=== PATIENT | female | born 1965 | race Caucasian/White ===

== ENCOUNTER 2022-02-02 08:00 | Outpatient (CLI) | payer BC ==
[2022-02-02 15:11] LABS: BILIRUBIN,URINE NEGATIVE (NEGATIVE); GLUCOSE, URINE (UA) 250 mg/dL (NEGATIVE); KETONES,URINE (UA) NEGATIVE (NEGATIVE); LEUKOCYTE ESTERASE, URINE MODERATE (NEGATIVE); NITRITE,URINE POSITIVE (NEGATIVE); OCCULT BLOOD,URINE MODERATE (NEGATIVE); PROTEIN,URINE 30 mg/dL (NEGATIVE); UROBILINOGEN,URINE 0.2 (NORMAL) E.U./dL (NORMAL)
[2022-02-02 15:23] LABS: BACTERIA,URINE Moderate /HPF (None Seen); CLARITY,URINE CLOUDY (CLEAR); SQUAMOUS EPITHELIAL CELL,UR FEW Squamous (<= Few); WBC,URINE >25 /HPF (0-5)
== END 2022-02-02 23:59 | disposition home or self-care (01) ==
LOC: LAB 08:00
PROVIDERS: ATTEND Physician Assistant Medical
DX: N30.00 Acute cystitis without hematuria (principal)
CPT/HCPCS: 81001; 87086; 87181

== ENCOUNTER 2022-07-19 11:31 | Emergency (ER) | payer BC ==
[2022-07-19] MEDS ORDERED: MORPHINE 2 MG/ML CARPUJECT IM STA (14:19)
--- NOTE | 2022-07-19 14:23 | ED Physician Documentation ---
PD HPI BACK PAIN - Stated complaint Stated Complaint: BACK PX - Chief complaint Chief Complaint: Back Pain - History obtained from History obtained from: Patient - Additional information Additional information: This is a 57-year-old female with a known history of chronic lower back pain and is followed by spine surgery at [facility] and has surgery scheduled for August 05, presents with an exacerbation of her chronic pain. She denies any trauma but does state that she was doing some light activity decorating the house for [place] recently but denies any heavy lifting, twisting or falls. Pain is located in the lower back, radiates into the buttocks but not down the legs and she has no saddle anesthesia or lower extremity weakness or numbness. She has no bowel or bladder changes. The pain has prevented her from getting up and moving about the house easily however. She is taking ibuprofen and Tylenol as well as muscle relaxers and lidocaine patch without relief. She has not ro utinely used narcotics in the past. Review of Systems Ten Systems: 10 systems reviewed and negative (Except as per HPI) PD PAST MEDICAL HISTORY - Past Medical History Past Medical History: Yes Musculoskeletal: Chronic back pain - Present Medications Home Medications: Ambulatory Orders Medication Instructions Recorded Confirmed HYDROcod/ACETAM 5/325 [[place] 5/325] 1 - 2 tablet PO Q6H PRN #14 tablet 07/19/22 - Allergies Allergies/Adverse Reactions: Allergies Allergy/AdvReac Type Severity Reaction Status Date / Time duloxetine [From Cymbalta] Allergy Unknown Verified 07/19/22 12:22 PD ED PE NORMAL - Vitals Vital signs reviewed: Yes - General General: Alert and oriented X 3, No acute distress, Well developed/nourished - HEENT HEENT: Atraumatic, Moist mucous membranes - Cardiac Cardiac: RRR, No murmur - Respiratory Respiratory: No respiratory distress, Clear bilaterally - Back Back: Other (Lumbar spine tenderness to palpation and bilateral paravertebral muscle tenderness) - Derm Derm: Normal color, Warm and dry, No rash - Extremities Extremities: No deformity, No edema, No calf tenderness / cord - Neuro Neuro: Alert and oriented X 3 Eye Opening: Spontaneous Motor: Obeys Commands Verbal: Oriented GCS Score: 15 Results - Vitals Vitals: Vital Signs - 24 hr 07/19/22 12:16 Temperature 36.1 C L Heart Rate 91 Respiratory 20 Rate Blood Pressure 134/105 H O2 Saturation 98 Oxygen O2 Source Room air PD MEDICAL DECISION MAKING - ED course Complexity details: considered differential, d/w patient, d/w family ED course: This is a 57-year-old female with known history of chronic lower back pain who presented with an exacerbation of her lower back pain. She primarily receives her care at [facility] where she also sees spine surgery and has had an MRI there in the recent past. That she has plans for surgery on August 05 but pain is such that she would like some pain medication between now and then. She denies any trauma today, and she has no signs of cauda equina there are no features of fever or epidural abscess. Recommended that she continue her regular pain medication and regimen but will add a short course of [place] to use only as needed for pain that is not managed by these. I suspect this is an exacerbation Of a bulging disc but does not require immediate decompression. She was cautioned on the potential side effects and risks of taking narcotic pain medication and will be given 14 tablets to use sparingly as needed. Departure - Departure Disposition: 01 Home, Self Care Clinical Impression: Back pain Qualifiers: Back pain location: low back pain Chronicity: chronic Back pain laterality: bilateral Sciatica presence: without sciatica Qualified Code(s): M54.50 - Low back pain, unspecified Condition: Good Instructions: ED Low Back Pain Injury, NARCOTIC, Oral Prescriptions: HYDROcod/ACETAM 5/325 [[place] 5/325] 1 - 2 tablet PO Q6H PRN #14 tablet PRN Reason: Pain Comments: You presented with an exacerbation of your chronic lower back pain. This is likely due to a bulging disc. You have been you have no features that warrant immediate surgery and you can continue following up with your surgeon at [facility]. We have given you a short course of narcotic pain medication to use only as needed if ibuprofen and Tylenol are not working. Please continue the usual supportive measures that you have tried including ice or heat, lidocaine patches, and avoid lifting or twisting. If worsening symptoms, please follow-up with your surgeon via phone to discuss surgery date.
[2022-07-19 15:08] VITALS: BP 152/94
[2022-07-19] MEDS ORDERED: FAMOTIDINE 20 MG TABLET PO STA (15:31)
[2022-07-19] MEDS ORDERED: MAG HYDROX/AL HYDROX/SIMETH 30 ML UDC PO STA (15:31)
[2022-07-19] MEDS ORDERED: ONDANSETRON ODT 4 MG TABLET TL STA (15:31)
== END 2022-07-19 15:53 | disposition home or self-care (01) ==
LOC: ED 11:31
DX: M54.50 Low back pain, unspecified (principal); G89.29 Other chronic pain
CPT/HCPCS: 99281; 99283; A9270; Q0162

== ENCOUNTER → 2022-07-19 | Outpatient (CLI) | payer BC | END | disposition EMS.NT | LOC: EMS 10:33 | DX: M54.9 Dorsalgia, unspecified (principal) ==

== ENCOUNTER 2022-08-15 16:37 | Outpatient (CLI) | payer BC | END 2022-08-15 16:38 | disposition critical access hospital (66) | LOC: EMS 16:37 | DX: R40.0 Somnolence (principal); H53.8 Other visual disturbances; R41.3 Other amnesia; M54.9 Dorsalgia, unspecified; R07.89 Other chest pain | CPT/HCPCS: A0425; A0429 ==

== ENCOUNTER 2022-08-15 17:01 | Emergency (ER) | payer BC ==
[2022-08-15] MEDS ORDERED: SODIUM CHLORIDE 0.9% 1,000 ML IV STA (17:13)
--- NOTE | 2022-08-15 17:15 | ED Physician Documentation ---
History of Present Illness - Stated complaint Stated Complaint: FATIGUE - History obtained from History obtained from: Patient - Additonal information Additional information: 57-year-old woman had back surgery on the of this month. She was kept in the hospital that night as a precaution and did end up she had a cardiac arrest at night. From her description it sounds like she probably had acute renal failure leading to probably profound hyperkalemia and she did need dialysis a single time. Subsequently she recovered well with normal postoperative back pain and some new chest pain from broken ribs related to the CPR. She presents today because starting today she feels fuzzy, a brain fog, word finding difficulties and seeing white spots in her vision. She vacillates when I ask her if she is short of breath, stating she thinks she is just short of breath being anxious after the arrest which is understandable. She denies new chest pain noting continued but improving chest pain from broken ribs after CPR. No abdominal pain or urinary complaints. No pedal edema. Review of Systems Ten Systems: 10 systems reviewed and negative Constitutional: reports: Reviewed and negative Cardiac: reports: Reviewed and negative Respiratory: reports: Reviewed and negative GI: reports: Reviewed and negative PD PAST MEDICAL HISTORY - Past Medical History Musculoskeletal: Chronic back pain - Present Medications Home Medications: Ambulatory Orders Medication Instructions Recorded Confirmed HYDROcod/ACETAM 5/325 [[place] 5/325] 1 - 2 tablet PO Q6H PRN #14 tablet 07/19/22 08/15/22 tiZANidine [Zanaflex] 4 mg PO Q8H #15 tablet 07/19/22 08/15/22 Cyclobenzaprine HCl 7.5 mg PO TID 08/15/22 08/15/22 Gabapentin [Neurontin] 800 mg PO BID 08/15/22 08/15/22 Glipizide [Glipizide Xl] 10 mg PO DAILY 08/15/22 08/15/22 Lisinopril [Zestril] 40 mg PO DAILY 08/15/22 08/15/22 Metoprolol Succinate [Toprol Xl] 50 mg PO DAILY 08/15/22 08/15/22 Nortriptyline [Pamelor] 20 mg ORAL HS 08/15/22 08/15/22 Pantoprazole [Protonix] 40 mg PO DAILY 08/15/22 08/15/22 Senna [Senokot] 2 tab ORAL BID PRN 08/15/22 08/15/22 Simvastatin [Zocor] 40 mg PO HS 08/15/22 08/15/22 amLODIPine [Norvasc] 5 mg PO DAILY 08/15/22 08/15/22 cephALEXin [Keflex] 500 mg PO TID #15 cap 08/15/22 metFORMIN [Glucophage] 1,000 mg PO BIDWM 08/15/22 08/15/22 polyethylene glycoL 3350 17 gm PO DAILY PRN 08/15/22 08/15/22 [Polyethylene Glycol 3350] - Allergies Allergies/Adverse Reactions: Allergies Allergy/AdvReac Type Severity Reaction Status Date / Time duloxetine [From Cymbalta] Allergy Unknown Verified 07/19/22 12: procaine [From Novocain] AdvReac Unknown Verified 08/15/22 17:14 - Social History Does the pt smoke?: No Smoking Status: Never smoker PD ED PE NORMAL - Vitals Vital signs reviewed: Yes - General General: Alert and oriented X 3, Other (She seems to have some mild word finding difficulties and very mild confusion although is technically alert and o riented.) - HEENT HEENT: PERRL, EOMI - Neck Neck: Supple, no meningeal sign, No bony TTP - Cardiac Cardiac: RRR, No murmur - Respiratory Respiratory: No respiratory distress, Clear bilaterally - Abdomen Abdomen: Normal bowel sounds, Soft, Non tender - Back Back: No CVA TTP, No spinal TTP - Derm Derm: Normal color, Warm and dry - Extremities Extremities: No edema, No calf tenderness / cord - Neuro Neuro: Alert and oriented X 3, Normal speech Eye Opening: Spontaneous Motor: Obeys Commands Results - Vitals Vitals: Vital Signs - 24 hr 08/15/22 08/15/22 17:14 18:08 Temperature 36.9 C Heart Rate 83 77 Respiratory 16 20 Rate Blood Pressure 155/80 H 135/72 H O2 Saturation 99 97 Oxygen O2 Source Room air - EKG (time done) 1717 Rate: Rate (enter#) (77) Rhythm: NSR [place]: Normal Intervals: Normal IA QRS: Normal Ischemia: Normal ST segments - Labs Labs: Laboratory Tests 08/15/22 08/15/22 08/15/22 17:20 17:20 18:00 WBC 8.8 RBC 3.89 L Hgb 11.4 L Hct 35.9 L MCV 92.3 MCH 29.3 MCHC 31.8 L RDW 13.5 Plt Count 229 MPV 9.7 Neut # (Auto) 6.7 H Lymph # (Auto) 1.4 L Darke # (Auto) 0.6 Eos # (Auto) 0.1 Baso # (Auto) 0.0 Absolute Nucleated RBC 0.00 Nucleated RBC % 0.0 Sodium 136 Potassium 5.0 Chloride 102 Carbon Dioxide 25 Anion Gap 9.0 BUN 21 H Creatinine 1.0 Estimated GFR (MDRD) 57 L Glucose 118 H Calcium 9.5 Magnesium 1.2 L Total Bilirubin 0.8 AST 24 ALT 35 Alkaline Phosphatase 158 H Total Protein 7.9 Albumin 4.3 Globulin 3.6 Albumin/Globulin Ratio 1.2 Urine Color LT. YELLOW Urine Clarity CLEAR Urine pH 6.0 Ur Specific [place] <=1.005 Urine Protein NEGATIVE Urine Glucose (UA) NEGATIVE Urine Ketones NEGATIVE Urine Occult Blood NEGATIVE Urine Nitrite NEGATIVE Urine Bilirubin NEGATIVE Urine Urobilinogen 0.2 (NORMAL) Ur Leukocyte Esterase SMALL H Urine RBC None Seen Urine WBC 4-5 Ur Squamous Epith Cells FEW Squamous Urine Bacteria Few Ur Microscopic Review INDICATED Urine Culture Comments INDICATED Urine Opiates Screen POSITIVE H Ur Oxycodone Screen NEGATIVE Urine Methadone Screen NEGATIVE Ur Propoxyphene Screen NEGATIVE Ur Barbiturates Screen NEGATIVE Ur Tricyclics Screen NEGATIVE Ur Phencyclidine Scrn NEGATIVE Ur Amphetamine Screen NEGATIVE U Methamphetamines Scrn NEGATIVE U Benzodiazepines Scrn NEGATIVE Urine Cocaine Screen NEGATIVE U Cannabinoids Screen NEGATIVE PD Medical Decision Making - ED course ED course: 57-year-old woman with recent back surgery complicated by acute renal failure presents feeling off today. She has urinary frequency and is found to have a soft positive urinalysis but given the symptoms she will be treated For UTI with Rocephin here and Keflex at home. She was feeling better after IV hydration and repletion of her magnesium. Departure - Departure Disposition: 01 Home, Self Care Clinical Impression: Hypomagnesemia, Dehydration Urinary tract infection Qualifiers: Urinary tract infection type: acute cystitis Hematuria presence: without hematuria Qualified Code(s): N30.00 - Acute cystitis without hematuria Condition: Good Record reviewed to determine appropriate education?: Yes Instructions: ED Dehydration Prescriptions: cephALEXin [Keflex] 500 mg PO TID #15 cap Comments: We will culture your urine, the results should be done in 48-72 hours. If an antibiotic change is necessary we will call you. Return if worse in the meantime, especially if you develop increasing flank pain, fevers, or cannot keep down the medication. Follow-up with your doctor on Wednesday for recheck.
--- OUTSIDE RECORDS SUMMARY | 2022-08-15 17:15 | EXTERNAL MEDICAL SUMMARY RPT | Continuity of Care Document ---
:1965 Author Organization [facility] Address [address] [place] [address] Phone Care Team Providers Name Role Phone Unavailable Unavailable Unavailable Jeremy Sousa Unavailable Unavailable Allergies and Intolerances date description facility type (no date) duloxetine [facility] (unknown) Encounters No information. Functional Status No information. Immunizations No information. Medications date description facility 2022-07-29 00:00 Oxycodone [facility] 2022-07-28 00:00 Lisinopril [facility] 2022-07-28 00:00 Nortriptyline [facility] 2022-07-28 00:00 Simvastatin [facility] 2022-07-28 00:00 Acetaminophen [facility] 2022-07-28 00:00 Amlodipine [facility] 2022-07-28 00:00 Gabapentin [facility] 2022-07-28 00:00 Glipizide [facility] 2022-07-28 00:00 Ibuprofen [facility] 2022-07-28 00:00 Pantoprazole [facility] 2022-07-29 00:00 Cyclobenzaprine [facility] 2022-07-29 00:00 [facility] 2022-07-28 00:00 Metformin [facility] 2022-07-28 00:00 Metoprolol Succinate [facility] Problems date description facility 2022-07-29 11:18 Other intervertebral disc displacement, [facility] 2022-07-29 11:18 Unspecified thoracic, thoracolumbar and [facility] lumbosacral interver 2022-07-29 12:00 Other intervertebral disc displacement, [facility] 2022-07-29 12:00 Unspecified thoracic, thoracolumbar and [facility] lumbosacral interver 2022-07-29 12:06 Other intervertebral disc displacement, [facility] 2022-07-29 12:06 Unspecified thoracic, thoracolumbar and [facility] lumbosacral interver 2022-07-29 13:48 Other intervertebral disc displacement, [facility] 2022-07-29 13:48 Unspecified thoracic, thoracolumbar and [facility] lumbosacral interver 2022-07-29 14:50 Other intervertebral disc displacement, [facility] 2022-07-29 14:50 Unspecified thoracic, thoracolumbar and [facility] lumbosacral interver 2022-07-29 16:03 Other intervertebral disc displacement, [facility] 2022-07-29 16:03 Unspecified thoracic, thoracolumbar and [facility] lumbosacral interver 2022-07-29 16:58 Other intervertebral disc displacement, [facility] 2022-07-29 16:58 Unspecified thoracic, thoracolumbar and [facility] lumbosacral interver 2022-07-29 17:33 Other intervertebral disc displacement, [facility] 2022-07-29 17:33 Unspecified thoracic, thoracolumbar and [facility] lumbosacral interver 2022-07-30 00:00 Septic shock [facility] 2022-07-30 00:00 Diabetic ketoacidosis [facility] 2022-07-30 00:00 Acute hyperkalemia [facility] 2022-07-30 00:00 Cardiac arrest [facility] 2022-07-30 00:00 Acute respiratory failure [facility] 2022-07-30 07:12 Sepsis, unspecified organism [facility] 2022-07-30 07:12 Other intervertebral disc displacement, [facility] 2022-07-30 07:12 Unspecified thoracic, thoracolumbar and [facility] lumbosacral interver 2022-07-30 07:12 Severe sepsis with septic shock [facility] 2022-07-30 10:20 Sepsis, unspecified organism [facility] 2022-07-30 10:20 Other intervertebral disc displacement, [facility] 2022-07-30 10:20 Unspecified thoracic, thoracolumbar and [facility] lumbosacral interver 2022-07-30 10:20 Severe sepsis with septic shock [facility] 2022-07-30 11:43 Sepsis, unspecified organism [facility] 2022-07-30 11:43 Other intervertebral disc displacement, [facility] 2022-07-30 11:43 Unspecified thoracic, thoracolumbar and [facility] lumbosacral interver 2022-07-30 11:43 Severe sepsis with septic shock [facility] 2022-07-30 12:13 Sepsis, unspecified organism [facility] 2022-07-30 12:13 Other intervertebral disc displacement, 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 2022-07-30 12:13 Unspecified thoracic, thoracolumbar and [facility] lumbosacral interver 2022-07-30 12:13 Severe sepsis with septic shock [facility] Procedures date description facility 2022-07-29 00:00 Excision of Lumbar Vertebral Disc, Open [facility] 2022-07-30 00:00 Ultrasound of both kidneys [facility] 2022-07-29 00:00 XR lumbar spine and sacrum, 3 views [facility] 2022-07-30 00:00 X-ray of chest, single view [facility] 2022-07-30 00:00 XR, chest, 1 view [facility] 2022-07-29 00:00 XR fluoro, less than 60 minutes [facility] Results/Labs test date author facility value unit interpret ation Result panel 1 (unknown) (no date) (unknown) [facility]) Result panel 2 (unknown) (no date) (unknown) [facility]) Result panel 3 (unknown) (no date) (unknown) [facility]) Result panel 4 (unknown) (no date) (unknown[facility]) Result panel 5 (unknown) (no date) (unknown) [facility]) Result panel 6 (unknown) (no date) (unknown[facility]) Result panel 7 (unknown) (no date) (unknown[facility]) Result panel 8 (unknown) (no date) (unknown[facility]) Result panel 9 (unknown) (no date) (unknown[facility]) Result panel 10 (unknown) (no date) (unknown) [facility]) Result panel 11 (unknown) (no date) (unknown[facility]) Result panel 12 (unknown) (no date) (unknown[facility]) Result panel 13 (unknown) (no date) (unknown[facility]) Result panel 14 (unknown) (no date) (unknown[facility]) Result panel 15 (unknown) (no date) (unknown[facility]) Result panel 16 (unknown) (no date) (unknown[facility]) Result panel 17 (unknown) (no date) (unknown[facility]) Result panel 18 (unknown) (no date) (unknown[facility]) Result panel 19 (unknown) (no date) (unknown[facility]) Result panel 20 (unknown) (no date) (unknown[facility]) Result panel 21 (unknown) (no date) (unknown[facility]) Result panel 22 (unknown) (no date) (unknown[facility]) Result panel 23 (unknown) (no date) (unknown[facility]) Result panel 24 (unknown) (no date) (unknown[facility]) Result panel 25 (unknown) (no date) (unknown[facility]) Result panel 26 (unknown) (no date) (unknown[facility]) Result panel 27 (unknown) (no date) (unknown[facility]) Result panel 28 (unknown) (no date) (unknown[facility]) Result panel 29 (unknown) (no date) (unknown[facility]) Result panel 30 (unknown) (no date) (unknown[facility]) Result panel 31 (unknown) (no date) (unknown[facility]) Result panel 32 (unknown) (no date) (unknown[facility]) Result panel 33 (unknown) (no date) (unknown[facility]) Result panel 34 (unknown) (no date) (unknown[facility]) Result panel 35 (unknown) (no date) (unknown[facility]) Result panel 36 (unknown) (no date) (unknown[facility]) Result panel 37 (unknown) (no date) (unknown[facility]) Result panel 38 (unknown) (no date) (unknown[facility]) Result panel 39 (unknown) (no date) (unknown[facility]) Result panel 40 (unknown) (no date) (unknown[facility]) Result panel 41 (unknown) (no date) (unknown[facility]) Result panel 42 (unknown) (no date) (unknown[facility]) Result panel 43 (unknown) (no date) (unknown[facility]) Result panel 44 (unknown) (no date) (unknown[facility]) Result panel 45 (unknown) (no date) (unknown[facility]) Result panel 46 (unknown) (no date) (unknown[facility]) Result panel 47 (unknown) (no date) (unknown[facility]) Result panel 48 (unknown) (no date) (unknown[facility]) Result panel 49 (unknown) (no date) (unknown[facility]) Result panel 50 (unknown) (no date) (unknown[facility]) Result panel 51 (unknown) (no date) (unknown[facility]) Result panel 52 (unknown) (no date) (unknown[facility]) Result panel 53 (unknown) (no date) (unknown[facility]) Result panel 54 (unknown) (no date) (unknown[facility]) Result panel 55 (unknown) (no date) (unknown[facility]) Result panel 56 (unknown) (no date) (unknown[facility]) Result panel 57 (unknown) (no date) (unknown[facility]) Result panel 58 (unknown) (no date) (unknown[facility]) Result panel 59 (unknown) (no date) (unknown[facility]) Result panel 60 (unknown) (no date) (unknown[facility]) Result panel 61 (unknown) (no date) (unknown[facility]) Result panel 62 (unknown) (no date) (unknown[facility]) Result panel 63 (unknown) (no date) (unknown[facility]) Result panel 64 (unknown) (no date) (unknown[facility]) Result panel 65 (unknown) (no date) (unknown[facility]) Result panel 66 (unknown) (no date) (unknown[facility]) Result panel 67 (unknown) (no date) (unknown[facility]) Result panel 68 (unknown) (no date) (unknown[facility]) Result panel 69 (unknown) (no date) (unknown[facility]) Result panel 70 (unknown) (no date) (unknown[facility]) Result panel 71 (unknown) (no date) (unknown[facility]) Result panel 72 (unknown) (no date) (unknown[facility]) Result panel 73 (unknown) (no date) (unknown[facility]) Result panel 74 (unknown) (no date) (unknown[facility]) Result panel 75 (unknown) (no date) (unknown[facility]) Result panel 76 (unknown) (no date) (unknown[facility]) Result panel 77 (unknown) (no date) (unknown[facility]) Result panel 78 (unknown) (no date) (unknown[facility]) Result panel 79 (unknown) (no date) (unknown[facility]) Result panel 80 (unknown) (no date) (unknown[facility]) Result panel 81 (unknown) (no date) (unknown[facility]) Result panel 82 (unknown) (no date) (unknown[facility]) Result panel 83 (unknown) (no date) (unknown[facility]) Result panel 84 (unknown) (no date) (unknown[facility]) Result panel 85 (unknown) (no date) (unknown[facility]) Result panel 86 (unknown) (no date) (unknown[facility]) Result panel 87 (unknown) (no date) (unknown[facility]) Result panel 88 (unknown) (no date) (unknown[facility]) Result panel 89 (unknown) (no date) (unknown[facility]) Result panel 90 (unknown) (no date) (unknown[facility]) Result panel 91 (unknown) (no date) (unknown[facility]) Result panel 92 (unknown) (no date) (unknown[facility]) Result panel 93 (unknown) (no date) (unknown[facility]) Result panel 94 (unknown) (no date) (unknown[facility]) Result panel 95 (unknown) (no date) (unknown[facility]) Result panel 96 (unknown) (no date) (unknown[facility]) Result panel 97 (unknown) (no date) (unknown[facility]) Result panel 98 (unknown) (no date) (unknown[facility]) Result panel 99 (unknown) (no date) (unknown[facility]) Result panel 100 (unknown) (no date) (unknown[facility]) Result panel 101 (unknown) (no date) (unknown[facility]) Result panel 102 (unknown) (no date) (unknown[facility]) Result panel 103 (unknown) (no date) (unknown[facility]) Result panel 104 (unknown) (no date) (unknown[facility]) Result panel 105 (unknown) (no date) (unknown[facility]) Result panel 106 (unknown) (no date) (unknown[facility]) Result panel 107 (unknown) (no date) (unknown[facility]) Result panel 108 (unknown) (no date) (unknown[facility]) Result panel 109 (unknown) (no date) (unknown) [facility]) Result panel 110 (unknown) (no date) (unknown) [facility]) Result panel 111 (unknown) (no date) (unknown) [facility]) Result panel 112 (unknown) (no date) (unknown) [facility]) Result panel 113 (unknown) (no date) (unknown) [facility]) Result panel 114 (unknown) (no date) (unknown) [facility]) Result panel 115 (unknown) (no date) (unknown) [facility] (no value[facility]) Result panel 116 (unknown) (no date) (unknown) (unknown) Negative (units (unkn own) unknown) (unknown) (no date) (unknown) (unknown) Negative (units (unkn own) unknown) Result panel 117 (unknown) (no (unknown) (unknown) (no value) (units (unk nown) date) unknown) (unknown) (no (unknown) (unknown) [id number] (units (unkno wn) date) unknown) (unknown) (no (unknown) (unknown) 07/29/22 1418 (units ( unknown) date) unknown) (unknown) (no (unknown) (unknown) Age/Sex: 57 / F (units (unknown) date) unknown) (unknown) (no (unknown) (unknown) COVID-19 status: (units (unknown) date) Negative unknown) (unknown) (no (unknown) (unknown) COVID-19 (units (unkno wn) date) unknown) (unknown) (no (unknown) (unknown) Changes to H+P: (units (unknown) date) No unknown) (unknown) (no (unknown) (unknown) Criteria for (units (u nknown) date) continued unknown) procedure: Expected advancement of disease process, (unknown) (no (unknown) (unknown) : 1965 (units (unknown) date) Acct:[id number] unknown) (unknown) (no (unknown) (unknown) Date of Service: (units (unknown) date) 07/29/22 unknown) (unknown) (no (unknown) (unknown) Deterioration of (units (unknown) date) the patient's unknown) condition or overall health and Delay expected to (unknown) (no (unknown) (unknown) History + (units (unkn own) date) Physical unknown) reviewed/Exam performed by Physician: Yes (unknown) (no (unknown) (unknown) Interval Note (units ( unknown) date) unknown) (unknown) (no (unknown) (unknown) [facility] (units (unknown) date) [address] unknown) [place] [address] (unknown) (no (unknown) (unknown) Patient: (units (unkno wn) date) Polly Bone unknown) MR#: [id number] (unknown) (no (unknown) (unknown) Possibility delay (units (unknown) date) results in more unknown) complex future surgery or treatment, Increased (unknown) (no (unknown) (unknown) Pre-operative (units ( unknown) date) Note unknown) (unknown) (no (unknown) (unknown) Provider: (units (unkn own) date) Jeremy Sousa MD unknown) (unknown) (no (unknown) (unknown) Result date/Date (units (unknown) date) tested (Pos, unknown) Neg/Pending): 07/28/22 (unknown) (no (unknown) (unknown) Signed (units (unkno wn) date) By:<Electronicall unknown) y signed by Jeremy Sousa MD> (unknown) (no (unknown) (unknown) loss of (units (unkno wn) date) function, unknown) Continuing or worsening of significant or severe pain, (unknown) (no (unknown) (unknown) result in (units (unkn own) date) less-positive unknown) ultimate med/surg outcome Result panel 118 (unknown) (no date) (unknown) (unknown) 27 mg/dl (unkn own) (unknown) (no date) (unknown) (unknown) 27 mg/dl (unkn own) Result panel 119 (unknown) (no (unknown) (unknown) (no value) (units (unk nown) date) unknown) (unknown) (no (unknown) (unknown) [id number] (units (unkno wn) date) unknown) (unknown) (no (unknown) (unknown) 1. L4-5 left (units (u nknown) date) microdiscectomy unknown) (unknown) (no (unknown) (unknown) 2. Lumbar (units (unkn own) date) radiculopathy unknown) (unknown) (no (unknown) (unknown) 2. Utilization of (units (unknown) date) microsurgical unknown) technique and operating microscope (unknown) (no (unknown) (unknown) After the (units (unkn own) date) microdiskectomy unknown) was completed, the area medial lateral superior and (unknown) (no (unknown) (unknown) Age/Sex: 57 / F (units (unknown) date) unknown) (unknown) (no (unknown) (unknown) Anesthesia Type: (units (unknown) date) General unknown) (unknown) (no (unknown) (unknown) Charge Out Clerk: Mai A (units (unknown) date) Walker unknown) (unknown) (no (unknown) (unknown) Blood products (units (unknown) date) transfused: none unknown) (unknown) (no (unknown) (unknown) Click Yes if (units (u nknown) date) Unassisted: No unknown) (unknown) (no (unknown) (unknown) Closure Type: (units ( unknown) date) primary unknown) (unknown) (no (unknown) (unknown) Complications: (units (unknown) date) none unknown) (unknown) (no (unknown) (unknown) Condition: stable (units (unknown) date) unknown) (unknown) (no (unknown) (unknown) : 1965 (units (unknown) date) Acct:[id number] unknown) (unknown) (no (unknown) (unknown) Date of Service: (units (unknown) date) 07/29/22 unknown) (unknown) (no (unknown) (unknown) Date of (units (unkno wn) date) procedure: unknown) 07/29/22 (unknown) (no (unknown) (unknown) Discharge to home (units (unknown) date) unknown) (unknown) (no (unknown) (unknown) Disposition: PACU (units (unknown) date) unknown) (unknown) (no (unknown) (unknown) Estimated Blood (units (unknown) date) Loss (mL): 5 unknown) (unknown) (no (unknown) (unknown) Indications: (units (u nknown) date) unknown) (unknown) (no (unknown) (unknown) [facility] (units (unknown) date) [address] unknown) [place] [address] (unknown) (no (unknown) (unknown) Operative (units (unkn own) date) Date/Time/Diagnose unknown) s (unknown) (no (unknown) (unknown) Operative Note (units (unknown) date) unknown) (unknown) (no (unknown) (unknown) Operative Notes (units (unknown) date) unknown) (unknown) (no (unknown) (unknown) Patient failed (units ( unknown) date) multiple unknown) conservative management with worsening pain weakness and (unknown) (no (unknown) (unknown) Patient has been (units (unknown) date) having chronic unknown) back pain and worsening lumbar radiculopathy. (unknown) (no (unknown) (unknown) Patient tolerated (units (unknown) date) the procedure unknown) well. There were no complications. Patient was (unknown) (no (unknown) (unknown) Patient was seen (units (unknown) date) in the unknown) preoperative area. Risks and benefits of the surgery was (unknown) (no (unknown) (unknown) Patient: (units (unkno wn) date) Polly Bone unknown) MR#: [id number] (unknown) (no (unknown) (unknown) Plan for (units (unkno wn) date) aftercare: unknown) (unknown) (no (unknown) (unknown) Post-op (units (o wn) date) diagnosis: same unknown) (unknown) (no (unknown) (unknown) Post-operative (units (unknown) date) unknown) (unknown) (no (unknown) (unknown) Pre-op diagnosis: (units (unknown) date) 1. L4-5 disc unknown) herniation (unknown) (no (unknown) (unknown) Procedure + (units (un known) date) Clinicians unknown) (unknown) (no (unknown) (unknown) Procedure in (units (u nknown) date) detail: unknown) (unknown) (no (unknown) (unknown) Procedure: (units (unk nown) date) unknown) (unknown) (no (unknown) (unknown) Provider: (units (unkn own) date) Jeremy Sousa MD unknown) (unknown) (no (unknown) (unknown) Same procedure as (units (unknown) date) scheduled: Yes unknown) (unknown) (no (unknown) (unknown) Signed By: (units (unk nown) date) unknown) (unknown) (no (unknown) (unknown) Specimen(s): none (units (unknown) date) sent unknown) (unknown) (no (unknown) (unknown) Surgeon: Jeremy Sousa (units (unknown) date) unknown) (unknown) (no (unknown) (unknown) The wound was (units ( unknown) date) then irrigated unknown) with sterile normal saline. 40 mg Depo-Medrol was (unknown) (no (unknown) (unknown) Time of (units (unkno wn) date) procedure: 15:15 unknown) (unknown) (no (unknown) (unknown) Using AP and (units (u nknown) date) lateral C-arm unknown) imaging the interval between L4-5 was identified and (unknown) (no (unknown) (unknown) activity of daily (units (unknown) date) living. After unknown) discussing risks benefits of treatment options, (unknown) (no (unknown) (unknown) by incising the (units (unknown) date) annulus with #11 unknown) blade. Microcurettes and pituitary was used to (unknown) (no (unknown) (unknown) discussed with (units (unknown) date) the patient. unknown) Informed consent was obtained from the patient and (unknown) (no (unknown) (unknown) given to the (units (u nknown) date) patient less than unknown) 30 min before the incision was made. Patient was (unknown) (no (unknown) (unknown) inferior to the (units (unknown) date) area of the unknown) microdiskectomy was inspected and explored using a (unknown) (no (unknown) (unknown) laminotomy. The (units (unknown) date) disc space at L4-5 unknown) was identified. Microdiscectomy was performed (unknown) (no (unknown) (unknown) left side. The (units (unknown) date) fascia was incised unknown) in line with skin incision. Globus MARS (unknown) (no (unknown) (unknown) marked on (units (unkn own) date) patient's back. A unknown) 1 inch incision 1 in from midline was made on the (unknown) (no (unknown) (unknown) micro curette. No (units (unknown) date) other impinging unknown) structure was identified. (unknown) (no (unknown) (unknown) microsurgical (units ( unknown) date) technique and unknown) operating microscope, a L4 laminotomy was performed (unknown) (no (unknown) (unknown) numbness in her (units (unknown) date) lower extremity. unknown) Patient has been having difficulty performing (unknown) (no (unknown) (unknown) operative room. (units (unknown) date) General anesthesia unknown) was administered. Prophylactic antibiotic was (unknown) (no (unknown) (unknown) patient elected (units (unknown) date) proceed with unknown) surgery. (unknown) (no (unknown) (unknown) placed in the (units ( unknown) date) chart. Surgical unknown) site was marked. Patient was taken to the (unknown) (no (unknown) (unknown) placed into a (units ( unknown) date) prone position on unknown) the Tye table. Patient's back was then (unknown) (no (unknown) (unknown) placed into the (units (unknown) date) epidural space. unknown) The deep fascia was closed with 1-0 Vicryl. The (unknown) (no (unknown) (unknown) prepped and (units (un known) date) draped in the unknown) sterile fashion. Time-out was performed at this time. (unknown) (no (unknown) (unknown) removed herniated (units (unknown) date) disc fragments of unknown) disc from the epidural space. (unknown) (no (unknown) (unknown) retractors was (units (unknown) date) placed inside the unknown) incision and docked onto the L4 lamina. Using (unknown) (no (unknown) (unknown) hilario. (units (unkno wn) date) unknown) (unknown) (no (unknown) (unknown) subcutaneous (units (u nknown) date) tissue was closed unknown) with 2-0 Vicryl. The skin was closed with skin (unknown) (no (unknown) (unknown) transferred (units (un known) date) recovery room in unknown) stable condition. (unknown) (no (unknown) (unknown) using a Kerrison (units (unknown) date) rongeur. unknown) Liagamentum flavum was resected at the site of the Result panel 120 (unknown) (no (unknown) (unknown) (no value) (units (unk nown) date) unknown) (unknown) (no (unknown) (unknown) [id number] (units (unkno wn) date) unknown) (unknown) (no (unknown) (unknown) 07/29/22 (units (unkno wn) date) unknown) (unknown) (no (unknown) (unknown) [address] [place] [address] (units (unknown) date) unknown) (unknown) (no (unknown) (unknown) Accession Number: (units (unknown) date) [id number] unknown) (unknown) (no (unknown) (unknown) Age/Sex: 57 / F (units (unknown) date) Date of Service: unknown) (unknown) (no (unknown) (unknown) [place], [place] (units ( unknown) date) [id number] unknown) (unknown) (no (unknown) (unknown) Approved by: (units (u nknown) date) Puneet Hunter M.D. unknown) on 07/29/2022 at 16:38 (unknown) (no (unknown) (unknown) COMPARISON: None. (units (unknown) date) unknown) (unknown) (no (unknown) (unknown) : 1965 (units (unknown) date) Acct:[id number] unknown) (unknown) (no (unknown) (unknown) Dictated by: (units (u nknown) date) Puneet Hunter M.D. unknown) on 07/29/2022 at 16:34 (unknown) (no (unknown) (unknown) FINDINGS: (units (unkn own) date) unknown) (unknown) (no (unknown) (unknown) IMPRESSION: (units (un known) date) Intraprocedural unknown) fluoroscopy was provided for guidance and (unknown) (no (unknown) (unknown) INDICATIONS: L4-5 (units (unknown) date) MIRCRODISCECTOMY unknown) (unknown) (no (unknown) (unknown) [facility] (units (unknown) date) unknown) (unknown) (no (unknown) (unknown) Loc: AC 216-1 (units ( unknown) date) unknown) (unknown) (no (unknown) (unknown) Ordering Provider: (units (unknown) date) Jeremy Sousa MD unknown) (unknown) (no (unknown) (unknown) PROCEDURE: XR (units ( unknown) date) LUMBAR SPINE 2-3V unknown) (unknown) (no (unknown) (unknown) Patient: (units (unkno wn) date) Polly Bone M unknown) MR#: [id number] (unknown) (no (unknown) (unknown) Procedure: XR (units ( unknown) date) lumbar spine 2-3V unknown) (unknown) (no (unknown) (unknown) Signed (units (unkno wn) date) unknown) (unknown) (no (unknown) (unknown) TECHNIQUE: 2 (units (u nknown) date) intraoperative unknown) fluoroscopic images were obtained. (unknown) (no (unknown) (unknown) Two intraoperative (units (unknown) date) fluoroscopic images unknown) were obtained from L4-5 microdiskectomy. (unknown) (no (unknown) (unknown) XRay Report (units (un known) date) unknown) (unknown) (no (unknown) (unknown) anatomical (units (unk nown) date) unknown) (unknown) (no (unknown) (unknown) localization. (units ( unknown) date) Please see the unknown) procedure report for further details. Result panel 121 (unknown) (no (unknown) (unknown) (no value) (units (unk nown) date) unknown) (unknown) (no (unknown) (unknown) [id number] (units (unkno wn) date) unknown) (unknown) (no (unknown) (unknown) 1. L4-5 left (units (u nknown) date) microdiscectomy unknown) (unknown) (no (unknown) (unknown) 07/29/22 1645 (units ( unknown) date) unknown) (unknown) (no (unknown) (unknown) 2. Lumbar (units (unkn own) date) radiculopathy unknown) (unknown) (no (unknown) (unknown) 2. Utilization of (units (unknown) date) microsurgical unknown) technique and operating microscope (unknown) (no (unknown) (unknown) After the (units (unkn own) date) microdiskectomy unknown) was completed, the area medial lateral superior and (unknown) (no (unknown) (unknown) Age/Sex: 57 / F (units (unknown) date) unknown) (unknown) (no (unknown) (unknown) Anesthesia Type: (units (unknown) date) General unknown) (unknown) (no (unknown) (unknown) Charge Out Clerk: Mai Alcala (units (unknown) date) Walker unknown) (unknown) (no (unknown) (unknown) Blood products (units (unknown) date) transfused: none unknown) (unknown) (no (unknown) (unknown) Click Yes if (units (u nknown) date) Unassisted: No unknown) (unknown) (no (unknown) (unknown) Closure Type: (units ( unknown) date) primary unknown) (unknown) (no (unknown) (unknown) Complications: (units (unknown) date) none unknown) (unknown) (no (unknown) (unknown) Condition: stable (units (unknown) date) unknown) (unknown) (no (unknown) (unknown) : 1965 (units (unknown) date) Acct:[id number] unknown) (unknown) (no (unknown) (unknown) Date of Service: (units (unknown) date) 07/29/22 unknown) (unknown) (no (unknown) (unknown) Date of (units (unkno wn) date) procedure: unknown) 07/29/22 (unknown) (no (unknown) (unknown) Discharge to home (units (unknown) date) unknown) (unknown) (no (unknown) (unknown) Disposition: PACU (units (unknown) date) unknown) (unknown) (no (unknown) (unknown) During the process (units (unknown) date) of placing the unknown) patient into the prone position on the Tye (unknown) (no (unknown) (unknown) Estimated Blood (units (unknown) date) Loss (mL): 5 unknown) (unknown) (no (unknown) (unknown) Indications: (units (u nknown) date) unknown) (unknown) (no (unknown) (unknown) [facility] (units (unknown) date) [address] unknown) [place] [address] (unknown) (no (unknown) (unknown) Operative (units (unkn own) date) Date/Time/Diagnose unknown) s (unknown) (no (unknown) (unknown) Operative Note (units (unknown) date) unknown) (unknown) (no (unknown) (unknown) Operative Notes (units (unknown) date) unknown) (unknown) (no (unknown) (unknown) Patient failed (units ( unknown) date) multiple unknown) conservative management with worsening pain weakness and (unknown) (no (unknown) (unknown) Patient has a (units ( unknown) date) pinhole-sized unknown) durotomy which is not having active CSF leakage. (unknown) (no (unknown) (unknown) Patient has been (units (unknown) date) having chronic unknown) back pain and worsening lumbar radiculopathy. (unknown) (no (unknown) (unknown) Patient may (units (un known) date) progress activity unknown) as tolerated without having to perform any dural (unknown) (no (unknown) (unknown) Patient tolerated (units (unknown) date) the procedure unknown) well. There were no complications. Patient was (unknown) (no (unknown) (unknown) Patient was seen (units (unknown) date) in the unknown) preoperative area. Risks and benefits of the surgery was (unknown) (no (unknown) (unknown) Patient: (units (unkno wn) date) Polly Bone unknown) MR#: [id number] (unknown) (no (unknown) (unknown) Plan for (units (unkno wn) date) aftercare: unknown) (unknown) (no (unknown) (unknown) Post-op (units (unkno wn) date) diagnosis: same unknown) (unknown) (no (unknown) (unknown) Post-operative (units (unknown) date) unknown) (unknown) (no (unknown) (unknown) Pre-op diagnosis: (units (unknown) date) 1. L4-5 disc unknown) herniation (unknown) (no (unknown) (unknown) Procedure + (units (un known) date) Clinicians unknown) (unknown) (no (unknown) (unknown) Procedure in (units (u nknown) date) detail: unknown) (unknown) (no (unknown) (unknown) Procedure: (units (unk nown) date) unknown) (unknown) (no (unknown) (unknown) Provider: (units (unkn own) date) Jeremy Sousa MD unknown) (unknown) (no (unknown) (unknown) Same procedure as (units (unknown) date) scheduled: Yes unknown) (unknown) (no (unknown) (unknown) Signed (units (unkno wn) date) By:<Electronically unknown) signed by Jeremy Sousa MD> (unknown) (no (unknown) (unknown) Specimen(s): none (units (unknown) date) sent unknown) (unknown) (no (unknown) (unknown) Surgeon: Dawei Merry (units (unknown) date) unknown) (unknown) (no (unknown) (unknown) The wound was (units ( unknown) date) then irrigated unknown) with sterile normal saline. 40 mg Depo-Medrol was (unknown) (no (unknown) (unknown) Time of (units (unkno wn) date) procedure: 15:15 unknown) (unknown) (no (unknown) (unknown) Using AP and (units (u nknown) date) lateral C-arm unknown) imaging the interval between L4-5 was identified and (unknown) (no (unknown) (unknown) activity of daily (units (unknown) date) living. After unknown) discussing risks benefits of treatment options, (unknown) (no (unknown) (unknown) by incising the (units (unknown) date) annulus with #11 unknown) blade. Microcurettes and pituitary was used to (unknown) (no (unknown) (unknown) coming from many (units (unknown) date) parts of her body. unknown) There is significant rash underneath (unknown) (no (unknown) (unknown) crevices of both (units (unknown) date) breasts. There is unknown) abdominal rash also due to poor hygiene. (unknown) (no (unknown) (unknown) discussed with (units (unknown) date) the patient. unknown) Informed consent was obtained from the patient and (unknown) (no (unknown) (unknown) given to the (units (u nknown) date) patient less than unknown) 30 min before the incision was made. Patient was (unknown) (no (unknown) (unknown) inferior to the (units (unknown) date) area of the unknown) microdiskectomy was inspected and explored using a (unknown) (no (unknown) (unknown) laminotomy. The (units (unknown) date) disc space at L4-5 unknown) was identified. Microdiscectomy was performed (unknown) (no (unknown) (unknown) leak precaution (units (unknown) date) due to the lack of unknown) active CSF leakage. (unknown) (no (unknown) (unknown) leakage was (units (un known) date) encountered. unknown) (unknown) (no (unknown) (unknown) left side. The (units (unknown) date) fascia was incised unknown) in line with skin incision. Globus MARS (unknown) (no (unknown) (unknown) marked on (units (unkn own) date) patient's back. A unknown) 1 inch incision 1 in from midline was made on the (unknown) (no (unknown) (unknown) micro curette. No (units (unknown) date) other impinging unknown) structure was identified. During the process (unknown) (no (unknown) (unknown) microsurgical (units ( unknown) date) technique and unknown) operating microscope, a L4 laminotomy was performed (unknown) (no (unknown) (unknown) numbness in her (units (unknown) date) lower extremity. unknown) Patient has been having difficulty performing (unknown) (no (unknown) (unknown) of performing the (units (unknown) date) laminotomy, a unknown) small pinhole size durotomy was encountered. To (unknown) (no (unknown) (unknown) operative room. (units (unknown) date) General anesthesia unknown) was administered. Prophylactic antibiotic was (unknown) (no (unknown) (unknown) patient elected (units (unknown) date) proceed with unknown) surgery. (unknown) (no (unknown) (unknown) placed in the (units ( unknown) date) chart. Surgical unknown) site was marked. Patient was taken to the (unknown) (no (unknown) (unknown) placed into a (units ( unknown) date) prone position on unknown) the Tye table. Patient's back was then (unknown) (no (unknown) (unknown) placed into the (units (unknown) date) epidural space. unknown) The deep fascia was closed with 1-0 Vicryl. The (unknown) (no (unknown) (unknown) prepped and (units (un known) date) draped in the unknown) sterile fashion. Time-out was performed at this time. (unknown) (no (unknown) (unknown) removed herniated (units (unknown) date) disc fragments of unknown) disc from the epidural space. (unknown) (no (unknown) (unknown) retractors was (units (unknown) date) placed inside the unknown) incision and docked onto the L4 lamina. Using (unknown) (no (unknown) (unknown) seal fibrin (units (un known) date) sealant was unknown) obtained and placed on top of this durotomy. No CSF (unknown) (no (unknown) (unknown) hilario. (units (unkno wn) date) unknown) (unknown) (no (unknown) (unknown) subcutaneous (units (u nknown) date) tissue was closed unknown) with 2-0 Vicryl. The skin was closed with skin (unknown) (no (unknown) (unknown) table, patient (units (unknown) date) was identified to unknown) have significantly poor hygiene with foul odor (unknown) (no (unknown) (unknown) transferred (units (un known) date) recovery room in unknown) stable condition. (unknown) (no (unknown) (unknown) using a Kerrison (units (unknown) date) rongeur. unknown) Liagamentum flavum was resected at the site of the Result panel 122 (unknown) (no date) (unknown) (unknown) (no value) (units (un known) unknown) (unknown) (no date) (unknown) (unknown) [id number] (units (unkn own) unknown) (unknown) (no date) (unknown) (unknown) 1. Mild (units (unkn own) pulmonary unknown) edema. (unknown) (no date) (unknown) (unknown) 07/30/22 (units (unkn own) unknown) (unknown) (no date) (unknown) (unknown) [address]units (unk nown) [address] unknown) (unknown) (no date) (unknown) (unknown) 2. Small left (units (unknown) pleural unknown) effusion. (unknown) (no date) (unknown) (unknown) Accession (units (unk nown) Number: unknown) [id number] (unknown) (no date) (unknown) (unknown) Age/Sex: 57 / (units (unknown) F Date of unknown) Service: (unknown) (no date) (unknown) (unknown) [place], [place] (units (unknown) [address] unknown) (unknown) (no date) (unknown) (unknown) Approved by: (units ( unknown) Jacki Winkler M.D. unknown) on 07/30/2022 at 8:12 (unknown) (no date) (unknown) (unknown) Bones and (units (unk nown) chest wall: No unknown) suspicious bony lesions. Overlying soft tissues (unknown) (no date) (unknown) (unknown) [facility], [facility], XR CHEST FOR PICC 1V, 07/30/2022, 3:09. (unknown) (no date) (unknown) (unknown) : (units (unkn own) 1965 unknown) Acct:[id number] (unknown) (no date) (unknown) (unknown) Dictated by: (units ( unknown) Jacki Winkler M.D. unknown) on 07/30/2022 at 8:10 (unknown) (no date) (unknown) (unknown) FINDINGS: (units (unk nown) unknown) (unknown) (no date) (unknown) (unknown) IMPRESSION: (units (u nknown) unknown) (unknown) (no date) (unknown) (unknown) INDICATIONS: (units ( unknown) NSTEMI unknown) (unknown) (no date) (unknown) (unknown) [facility] ([facility] (unkn own) [facility] unknown) (unknown) (no date) (unknown) (unknown) Loc: ICU 229-1 (units (unknown) unknown) (unknown) (no date) (unknown) (unknown) Lungs and (units (unk nown) pleura: unknown) Bilateral perihilar infiltrates compatible with pulmonary (unknown) (no date) (unknown) (unknown) Mediastinum: (units ( unknown) Mediastinal unknown) contours appear normal. Heart size is normal. (unknown) (no date) (unknown) (unknown) No significant (units (unknown) discrepancy unknown) with the caustic cresylate shift superintendent radiology preliminary report. (unknown) (no date) (unknown) (unknown) Ordering (units (unkn own) Provider: unknown) Elba Augustin D.O. (unknown) (no date) (unknown) (unknown) PROCEDURE: XR (units (unknown) CHEST 1V unknown) (unknown) (no date) (unknown) (unknown) Patient: (units (unkn own) Polly Bone unknown) MR#: [id number] (unknown) (no date) (unknown) (unknown) Procedure: XR (units (unknown) chest 1V unknown) (unknown) (no date) (unknown) (unknown) Signed (units (unkn own) unknown) (unknown) (no date) (unknown) (unknown) Small left (units (un known) pleural unknown) effusion. No pneumothorax. (unknown) (no date) (unknown) (unknown) Surgical (units (unkn own) changes and unknown) devices: None. (unknown) (no date) (unknown) (unknown) TECHNIQUE: One (units (unknown) view of the unknown) chest was acquired. (unknown) (no date) (unknown) (unknown) XRay Report (units (u nknown) unknown) (unknown) (no date) (unknown) (unknown) appear (units (unkn own) unknown) (unknown) (no date) (unknown) (unknown) edema. (units (unkn own) unknown) (unknown) (no date) (unknown) (unknown) unremarkable. (units (unknown) unknown) Result panel 123 (unknown) (no date) (unknown) (unknown) (no value) (units (un known) unknown) (unknown) (no date) (unknown) (unknown) [id number] (units (unkn own) unknown) (unknown) (no date) (unknown) (unknown) 70s/50s with (units ( unknown) Trendelenberg. unknown) also informed by nurse, had increased O2 to 15L 88 (unknown) (no date) (unknown) (unknown) 90% (from 3L). (units (unknown) stated Blood unknown) glucose 302 (diabetic pt had presented perop with (unknown) (no date) (unknown) (unknown) Age/Sex: 57 / (units (unknown) F unknown) (unknown) (no date) (unknown) (unknown) : (units (unkn own) 1965 unknown) Acct:[id number] (unknown) (no date) (unknown) (unknown) Date of (units (unkn own) Service: unknown) 07/29/22 (unknown) (no date) (unknown) (unknown) Event Note (units (un known) (Rapid unknown) Response, Code, or fall): (unknown) (no date) (unknown) (unknown) Event Note (units (un known) unknown) (unknown) (no date) (unknown) (unknown) I requested (units (u nknown) Hospitalist unknown) evaluation. (unknown) (no date) (unknown) (unknown) [facility] [address] unknown) [address] [place] [address] (unknown) (no date) (unknown) (unknown) NSTEMI), (units (unkn own) heparin drip unknown) initiated and planned transfer to cardiac center. (unknown) (no date) (unknown) (unknown) POD 1 L spine (units (unknown) surgery. noted unknown) BP had been 90/60s then was 60s/40, improved to (unknown) (no date) (unknown) (unknown) Patient: (units (unkn own) Polly Bone unknown) MR#: [id number] (unknown) (no date) (unknown) (unknown) Provider: (units (unk nown) Iesha Bundy unknown) cyndy HEALY (unknown) (no date) (unknown) (unknown) Signed By: (units (un known) unknown) (unknown) (no date) (unknown) (unknown) called by (units (unk nown) floor nurse unknown) around 3AM -- pt with nausea (had zofran 30 min prior). (unknown) (no date) (unknown) (unknown) hypoglycemia). (units (unknown) had fluids unknown) @100ml/hr (unknown) (no date) (unknown) (unknown) received up (units (u nknown) date approx unknown) 330. vitals had declined, code called, and workup (unknown) (no date) (unknown) (unknown) revealed (units (unkn own) cardiac event, unknown) care with ER physician and hospitalist team (told Result panel 124 (unknown) (no date) (unknown) (unknown) (no value) (units (un known) unknown) (unknown) (no date) (unknown) (unknown) [id number] (units (unkn own) unknown) (unknown) (no date) (unknown) (unknown) 07/30/22 0356 (units (unknown) unknown) (unknown) (no date) (unknown) (unknown) 60s/40, (units (unkn own) improved to unknown) 70s/50s with Trendelenberg. also informed by nurse, had (unknown) (no date) (unknown) (unknown) Age/Sex: 57 / (units (unknown) F unknown) (unknown) (no date) (unknown) (unknown) : (units (unkn own) 1965 unknown) Acct:[id number] (unknown) (no date) (unknown) (unknown) Date of (units (unkn own) Service: unknown) 07/29/22 (unknown) (no date) (unknown) (unknown) Event Note (units (un known) (Rapid unknown) Response, Code, or fall): (unknown) (no date) (unknown) (unknown) Event Note (units (un known) unknown) (unknown) (no date) (unknown) (unknown) I requested (units (u nknown) Hospitalist unknown) evaluation. (unknown) (no date) (unknown) (unknown) [facility] (unkn own) [facility] [address] unknown) [address] [place] [address] (unknown) (no date) (unknown) (unknown) NSTEMI), (units (unkn own) heparin drip unknown) initiated and planned transfer to cardiac center. (unknown) (no date) (unknown) (unknown) POD 1 L spine (units ( unknown) surgery unknown) (microsdiscecto my L4-5). noted BP had been 90/60s then was (unknown) (no date) (unknown) (unknown) Patient: (units (unkn own) Polly Bone unknown) MR#: [id number] (unknown) (no date) (unknown) (unknown) Provider: (units (unk nown) Iesha Bundy unknown) cyndy HEALY (unknown) (no date) (unknown) (unknown) Signed (units (unkn own) By:<Electronica unknown) lly signed by Marcie Bundy MD> (unknown) (no date) (unknown) (unknown) called by (units (unk nown) floor nurse unknown) around 3AM -- pt with nausea (had zofran 30 min prior). (unknown) (no date) (unknown) (unknown) increased O2 (units ( unknown) to 15L 88-90% unknown) (from 3L). stated Blood glucose 302 (diabetic pt had (unknown) (no date) (unknown) (unknown) presented (units (unk nown) perop with unknown) hypoglycemia). had fluids @100ml/hr (unknown) (no date) (unknown) (unknown) received up (units (u nknown) date approx unknown) 330. vitals had declined, code called, and workup (unknown) (no date) (unknown) (unknown) revealed (units (unkn own) cardiac event, unknown) care with ER physician and hospitalist team (told Result panel 125 (unknown) (no (unknown) (unknown) (no value) (units (unk nown) date) unknown) (unknown) (no (unknown) (unknown) [phone] (units (unkno wn) date) unknown) (unknown) (no (unknown) (unknown) 1. Endotracheal (units (unknown) date) tube tip at the unknown) level of erik. Recommend repositioning. (unknown) (no (unknown) (unknown) 07/30/22 (units (unkno wn) date) unknown) (unknown) (no (unknown) (unknown) [address] (units (unkn own) date) Street unknown) (unknown) (no (unknown) (unknown) 2. Right IJ (units (un known) date) central line tip unknown) projecting to the area of SVC. (unknown) (no (unknown) (unknown) 3. Bilateral (units (u nknown) date) pulmonary unknown) infiltrates compatible with pulmonary edema or bilateral (unknown) (no (unknown) (unknown) Accession (units (unkn own) date) Number: unknown) [id number] (unknown) (no (unknown) (unknown) Age/Sex: 57 / F (units (unknown) date) Date of Service: unknown) (unknown) (no (unknown) (unknown) [place] (units ( unknown) date) [id number] unknown) (unknown) (no (unknown) (unknown) Approved by: (units (u nknown) date) Jacki Winkler M.D. unknown) on 07/30/2022 at 7:54 (unknown) (no (unknown) (unknown) Bones and chest (units (unknown) date) wall: No unknown) suspicious bony lesions. Overlying soft tissues (unknown) (no (unknown) (unknown) COMPARISON: (units (un known) date) [facility], unknown) CR, XR CHEST 1V, 07/30/2022, 3:09. (unknown) (no (unknown) (unknown) Cardiac (units (unkno wn) date) monitoring unknown) device is noted. (unknown) (no (unknown) (unknown) : 1965 (units (unknown) date) Acct:[id number] unknown) (unknown) (no (unknown) (unknown) Dictated by: (units (u nknown) date) Jacki Winkler M.D. unknown) on 07/30/2022 at 7:51 (unknown) (no (unknown) (unknown) FINDINGS: (units (unkn own) date) unknown) (unknown) (no (unknown) (unknown) IMPRESSION: (units (un known) date) unknown) (unknown) (no (unknown) (unknown) INDICATIONS: (units (u nknown) date) TUBE PLACEMENT unknown) (unknown) (no (unknown) (unknown) [facility] (units (unknown) date) unknown) (unknown) (no (unknown) (unknown) Loc: ICU 229-1 (units (unknown) date) unknown) (unknown) (no (unknown) (unknown) Lungs and (units (unkn own) date) pleura: unknown) Bilateral diffuse pulmonary infiltrates. No pleural (unknown) (no (unknown) (unknown) Mediastinum: (units (u nknown) date) Mediastinal unknown) contours appear normal. Heart size is normal. (unknown) (no (unknown) (unknown) No significant (units (unknown) date) discrepancy with unknown) the caustic cresylate shift superintendent radiology preliminary report. (unknown) (no (unknown) (unknown) Ordering (units (unkno wn) date) Provider: unknown) Elba Augustin D.O. (unknown) (no (unknown) (unknown) PROCEDURE: XR (units ( unknown) date) CHEST FOR PICC unknown) 1V (unknown) (no (unknown) (unknown) Patient: (units (unkno wn) date) Polly Bone unknown) MR#: [id number] (unknown) (no (unknown) (unknown) Procedure: XR (units ( unknown) date) chest for PICC unknown) 1V (unknown) (no (unknown) (unknown) Signed (units (unkno wn) date) unknown) (unknown) (no (unknown) (unknown) Surgical (units (unkno wn) date) changes and unknown) devices: The tip of the endotracheal tube is at the level (unknown) (no (unknown) (unknown) TECHNIQUE: One (units (unknown) date) view of the unknown) chest was acquired. (unknown) (no (unknown) (unknown) XRay Report (units (un known) date) unknown) (unknown) (no (unknown) (unknown) appear (units (unkno wn) date) unknown) (unknown) (no (unknown) (unknown) erik. There (units ( unknown) date) is a right IJ unknown) central line with the tip projecting to the area (unknown) (no (unknown) (unknown) effusions or (units (u nknown) date) unknown) (unknown) (no (unknown) (unknown) of SVC. (units (unkno wn) date) unknown) (unknown) (no (unknown) (unknown) of (units (unkno wn) date) unknown) (unknown) (no (unknown) (unknown) pneumonia. (units (unk nown) date) unknown) (unknown) (no (unknown) (unknown) pneumothorax. (units ( unknown) date) unknown) (unknown) (no (unknown) (unknown) unremarkable. (units ( unknown) date) unknown) Result panel 126 (unknown) (no date) (unknown) (unknown) 0.3 mg/dl (unkn own) (unknown) (no date) (unknown) (unknown) 1.3 (units unknown) (unknown) (unknown) (no date) (unknown) (unknown) 1.8 mg/dl (unkn own) (unknown) (no date) (unknown) (unknown) 1.8 mg/dl (unkn own) (unknown) (no date) (unknown) (unknown) 100 u/l (unkn own) (unknown) (no date) (unknown) (unknown) 120 mg/dl (unkn own) (unknown) (no date) (unknown) (unknown) 120 mg/dl (unkn own) (unknown) (no date) (unknown) (unknown) 133 mmol/l (unkn own) (unknown) (no date) (unknown) (unknown) 133 mmol/l (unkn own) (unknown) (no date) (unknown) (unknown) 15.2 mg/dl (unkn own) (unknown) (no date) (unknown) (unknown) 15.2 mg/dl (unkn own) (unknown) (no date) (unknown) (unknown) 17 iu/l (unkn own) (unknown) (no date) (unknown) (unknown) 173 u/l (unkn own) (unknown) (no date) (unknown) (unknown) 173 u/l (unkn own) (unknown) (no date) (unknown) (unknown) 22 iu/l (unkn own) (unknown) (no date) (unknown) (unknown) 3 ml/min (unkn own) (unknown) (no date) (unknown) (unknown) 3 ml/min (unkn own) (unknown) (no date) (unknown) (unknown) 3.1 g/dl (unkn own) (unknown) (no date) (unknown) (unknown) 303 mg/dl (unkn own) (unknown) (no date) (unknown) (unknown) 303 mg/dl (unkn own) (unknown) (no date) (unknown) (unknown) 4.1 g/dl (unkn own) (unknown) (no date) (unknown) (unknown) 7.2 g/dl (unkn own) (unknown) (no date) (unknown) (unknown) 7.6 mg/dl (unkn own) (unknown) (no date) (unknown) (unknown) 7.9 (units unknown) (unknown) (unknown) (no date) (unknown) (unknown) 8 mmol/l (unkn own) (unknown) (no date) (unknown) (unknown) 8 mmol/l (unkn own) (unknown) (no date) (unknown) (unknown) 9.7 mmol/l (unkn own) (unknown) (no date) (unknown) (unknown) 9.7 mmol/l (unkn own) (unknown) (no date) (unknown) (unknown) 95 mmol/l (unkn own) Result panel 127 (unknown) (no date) (unknown) (unknown) 0.072 ng/ml (unkn own) (unknown) (no date) (unknown) (unknown) 0.072 ng/ml (unkn own) (unknown) (no date) (unknown) (unknown) 0.3 mg/dl (unkn own) (unknown) (no date) (unknown) (unknown) 1.3 (units unknown) (unknown) (unknown) (no date) (unknown) (unknown) 1.8 mg/dl (unkn own) (unknown) (no date) (unknown) (unknown) 1.8 mg/dl (unkn own) (unknown) (no date) (unknown) (unknown) 100 u/l (unkn own) (unknown) (no date) (unknown) (unknown) 120 mg/dl (unkn own) (unknown) (no date) (unknown) (unknown) 120 mg/dl (unkn own) (unknown) (no date) (unknown) (unknown) 133 mmol/l (unkn own) (unknown) (no date) (unknown) (unknown) 133 mmol/l (unkn own) (unknown) (no date) (unknown) (unknown) 15.2 mg/dl (unkn own) (unknown) (no date) (unknown) (unknown) 15.2 mg/dl (unkn own) (unknown) (no date) (unknown) (unknown) 17 iu/l (unkn own) (unknown) (no date) (unknown) (unknown) 173 u/l (unkn own) (unknown) (no date) (unknown) (unknown) 173 u/l (unkn own) (unknown) (no date) (unknown) (unknown) 22 iu/l (unkn own) (unknown) (no date) (unknown) (unknown) 3 ml/min (unkn own) (unknown) (no date) (unknown) (unknown) 3 ml/min (unkn own) (unknown) (no date) (unknown) (unknown) 3.1 g/dl (unkn own) (unknown) (no date) (unknown) (unknown) 303 mg/dl (unkn own) (unknown) (no date) (unknown) (unknown) 303 mg/dl (unkn own) (unknown) (no date) (unknown) (unknown) 4.1 g/dl (unkn own) (unknown) (no date) (unknown) (unknown) 7.2 g/dl (unkn own) (unknown) (no date) (unknown) (unknown) 7.6 mg/dl (unkn own) (unknown) (no date) (unknown) (unknown) 7.9 (units unknown) (unknown) (unknown) (no date) (unknown) (unknown) 8 mmol/l (unkn own) (unknown) (no date) (unknown) (unknown) 8 mmol/l (unkn own) (unknown) (no date) (unknown) (unknown) 9.7 mmol/l (unkn own) (unknown) (no date) (unknown) (unknown) 9.7 mmol/l (unkn own) (unknown) (no date) (unknown) (unknown) 95 mmol/l (unkn own) Result panel 128 (unknown) (no date) (unknown) (unknown) 0.072 ng/ml (unkn own) (unknown) (no date) (unknown) (unknown) 0.072 ng/ml (unkn own) (unknown) (no date) (unknown) (unknown) 0.3 mg/dl (unkn own) (unknown) (no date) (unknown) (unknown) 1.3 (units unknown) (unknown) (unknown) (no date) (unknown) (unknown) 1.7 % (unkn own) (unknown) (no date) (unknown) (unknown) 1.8 mg/dl (unkn own) (unknown) (no date) (unknown) (unknown) 1.8 mg/dl (unkn own) (unknown) (no date) (unknown) (unknown) 100 u/l (unkn own) (unknown) (no date) (unknown) (unknown) 120 mg/dl (unkn own) (unknown) (no date) (unknown) (unknown) 120 mg/dl (unkn own) (unknown) (no date) (unknown) (unknown) 133 mmol/l (unkn own) (unknown) (no date) (unknown) (unknown) 133 mmol/l (unkn own) (unknown) (no date) (unknown) (unknown) 15.2 mg/dl (unkn own) (unknown) (no date) (unknown) (unknown) 15.2 mg/dl (unkn own) (unknown) (no date) (unknown) (unknown) 17 iu/l (unkn own) (unknown) (no date) (unknown) (unknown) 173 u/l (unkn own) (unknown) (no date) (unknown) (unknown) 173 u/l (unkn own) (unknown) (no date) (unknown) (unknown) 2.90 ng/ml (unkn own) (unknown) (no date) (unknown) (unknown) 22 iu/l (unkn own) (unknown) (no date) (unknown) (unknown) 3 ml/min (unkn own) (unknown) (no date) (unknown) (unknown) 3 ml/min (unkn own) (unknown) (no date) (unknown) (unknown) 3.1 g/dl (unkn own) (unknown) (no date) (unknown) (unknown) 303 mg/dl (unkn own) (unknown) (no date) (unknown) (unknown) 303 mg/dl (unkn own) (unknown) (no date) (unknown) (unknown) 4.1 g/dl (unkn own) (unknown) (no date) (unknown) (unknown) 7.2 g/dl (unkn own) (unknown) (no date) (unknown) (unknown) 7.6 mg/dl (unkn own) (unknown) (no date) (unknown) (unknown) 7.9 (units unknown) (unknown) (unknown) (no date) (unknown) (unknown) 8 mmol/l (unkn own) (unknown) (no date) (unknown) (unknown) 8 mmol/l (unkn own) (unknown) (no date) (unknown) (unknown) 9.7 mmol/l (unkn own) (unknown) (no date) (unknown) (unknown) 9.7 mmol/l (unkn own) (unknown) (no date) (unknown) (unknown) 95 mmol/l (unkn own) Result panel 129 (unknown) (no date) (unknown) (unknown) 0.4 mg/dl (unkn own) (unknown) (no date) (unknown) (unknown) 1.2 (units unknown) (unknown) (unknown) (no date) (unknown) (unknown) 117 mg/dl (unkn own) (unknown) (no date) (unknown) (unknown) 117 mg/dl (unkn own) (unknown) (no date) (unknown) (unknown) 13.9 mg/dl (unkn own) (unknown) (no date) (unknown) (unknown) 13.9 mg/dl (unkn own) (unknown) (no date) (unknown) (unknown) 140 mmol/l (unkn own) (unknown) (no date) (unknown) (unknown) 140 mmol/l (unkn own) (unknown) (no date) (unknown) (unknown) 2.9 g/dl (unkn own) (unknown) (no date) (unknown) (unknown) 203 iu/l (unkn own) (unknown) (no date) (unknown) (unknown) 203 iu/l (unkn own) (unknown) (no date) (unknown) (unknown) 226 iu/l (unkn own) (unknown) (no date) (unknown) (unknown) 226 iu/l (unkn own) (unknown) (no date) (unknown) (unknown) 3 ml/min (unkn own) (unknown) (no date) (unknown) (unknown) 3 ml/min (unkn own) (unknown) (no date) (unknown) (unknown) 3.6 g/dl (unkn own) (unknown) (no date) (unknown) (unknown) 404 mg/dl (unkn own) (unknown) (no date) (unknown) (unknown) 404 mg/dl (unkn own) (unknown) (no date) (unknown) (unknown) 6.5 g/dl (unkn own) (unknown) (no date) (unknown) (unknown) 7 mmol/l (unkn own) (unknown) (no date) (unknown) (unknown) 7 mmol/l (unkn own) (unknown) (no date) (unknown) (unknown) 7.2 mmol/l (unkn own) (unknown) (no date) (unknown) (unknown) 7.2 mmol/l (unkn own) (unknown) (no date) (unknown) (unknown) 8.4 (units unknown) (unknown) (unknown) (no date) (unknown) (unknown) 9.0 mg/dl (unkn own) (unknown) (no date) (unknown) (unknown) 93 u/l (unkn own) (unknown) (no date) (unknown) (unknown) 97 mmol/l (unkn own) Result panel 130 (unknown) (no date) (unknown) (unknown) 0 /ul (unkn own) (unknown) (no date) (unknown) (unknown) 0 /ul (unkn own) (unknown) (no date) (unknown) (unknown) 0.0 % (unkn own) (unknown) (no date) (unknown) (unknown) 0.1 % (unkn own) (unknown) (no date) (unknown) (unknown) 0.6 % (unkn own) (unknown) (no date) (unknown) (unknown) 100 /ul (unkn own) (unknown) (no date) (unknown) (unknown) 11.3 g/dl (unkn own) (unknown) (no date) (unknown) (unknown) 14.4 % (unkn own) (unknown) (no date) (unknown) (unknown) 27440 /ul (unkn own) (unknown) (no date) (unknown) (unknown) 21.1 x10 3/ul (unkn own) (unknown) (no date) (unknown) (unknown) 21.1 x10 3/ul (unkn own) (unknown) (no date) (unknown) (unknown) 29.0 pg (unkn own) (unknown) (no date) (unknown) (unknown) 3.9 % (unkn own) (unknown) (no date) (unknown) (unknown) 3.91 x10 6/ul (unkn own) (unknown) (no date) (unknown) (unknown) 31.4 % (unkn own) (unknown) (no date) (unknown) (unknown) 36.1 % (unkn own) (unknown) (no date) (unknown) (unknown) 386 x10 3/ul (unkn own) (unknown) (no date) (unknown) (unknown) 800 /ul (unkn own) (unknown) (no date) (unknown) (unknown) 92.3 fl (unkn own) (unknown) (no date) (unknown) (unknown) 95.4 % (unkn own) Result panel 131 (unknown) (no (unknown) (unknown) (no value) (units (unk nown) date) unknown) (unknown) (no (unknown) (unknown) (past 8 hours): (units (unknown) date) unknown) (unknown) (no (unknown) (unknown) -Levophed (units (unkn own) date) maintain map unknown) greater than 65 (unknown) (no (unknown) (unknown) -calcium gluconate (units (unknown) date) given, bicarb, unknown) insulin, glucose, need Lokelma, Lasix, albumin (unknown) (no (unknown) (unknown) -patient is (units (un known) date) intubated unknown) (unknown) (no (unknown) (unknown) [id number] (units (unkno wn) date) unknown) (unknown) (no (unknown) (unknown) 01:00 (units (unkno wn) date) unknown) (unknown) (no (unknown) (unknown) 04:15 (units (unkno wn) date) unknown) (unknown) (no (unknown) (unknown) 1 and aVL (units (unkn own) date) unknown) (unknown) (no (unknown) (unknown) 1. Status post (units (unknown) date) cardiac arrest unknown) secondary to hyperkalemia (unknown) (no (unknown) (unknown) 07/29/22 07/29/22 (units (unknown) date) 07/30/22 unknown) (unknown) (no (unknown) (unknown) 07/29/22 (units (unkno wn) date) unknown) (unknown) (no (unknown) (unknown) 07/30/22 03:20 (units (unknown) date) unknown) (unknown) (no (unknown) (unknown) 07/30/22 0459 (units ( unknown) date) unknown) (unknown) (no (unknown) (unknown) 07/30/22 04:15 (units (unknown) date) unknown) (unknown) (no (unknown) (unknown) 07/30/22 (units (unkno wn) date) unknown) (unknown) (no (unknown) (unknown) 12:29 12:55 03:20 (units (unknown) date) unknown) (unknown) (no (unknown) (unknown) 2. Respiratory (units (unknown) date) failure unknown) (unknown) (no (unknown) (unknown) 22:50 07/29/22 (units (unknown) date) unknown) (unknown) (no (unknown) (unknown) 23:45 07/30/22 (units (unknown) date) unknown) (unknown) (no (unknown) (unknown) 3. Shock (units (unkno wn) date) unknown) (unknown) (no (unknown) (unknown) ALT 203 H (units (unkn own) date) unknown) (unknown) (no (unknown) (unknown) ALT 22 (units (unkno wn) date) unknown) (unknown) (no (unknown) (unknown) AST 17 (units (unkno wn) date) unknown) (unknown) (no (unknown) (unknown) AST 226 H (units (unkn own) date) unknown) (unknown) (no (unknown) (unknown) Abdomen: Soft (units ( unknown) date) unknown) (unknown) (no (unknown) (unknown) Age/Sex: 57 / F (units (unknown) date) unknown) (unknown) (no (unknown) (unknown) Albumin 3.6 (units (un known) date) unknown) (unknown) (no (unknown) (unknown) Albumin 4.1 (units (un known) date) unknown) (unknown) (no (unknown) (unknown) Albumin/Globulin (units (unknown) date) Ratio 1.2 unknown) (unknown) (no (unknown) (unknown) Albumin/Globulin (units (unknown) date) Ratio 1.3 unknown) (unknown) (no (unknown) (unknown) Alkaline (units (unkno wn) date) Phosphatase 100 unknown) (unknown) (no (unknown) (unknown) Alkaline (units (unkno wn) date) Phosphatase 93 unknown) (unknown) (no (unknown) (unknown) Allergies (units (unkn own) date) unknown) (unknown) (no (unknown) (unknown) Allergy/AdvReac (units (unknown) date) Type Severity unknown) Reaction Status Date / Time (unknown) (no (unknown) (unknown) Amiodarone also (units (unknown) date) started cases unknown) possible VFib she got 150 mg at the time she was (unknown) (no (unknown) (unknown) Assessment + Plan (units (unknown) date) narrative: unknown) (unknown) (no (unknown) (unknown) Assessment + Plan (units (unknown) date) unknown) (unknown) (no (unknown) (unknown) BUN 117 H* (units (unk nown) date) unknown) (unknown) (no (unknown) (unknown) BUN 120 H* (units (unk nown) date) unknown) (unknown) (no (unknown) (unknown) BUN/Creatinine (units (unknown) date) Ratio 7.9 unknown) (unknown) (no (unknown) (unknown) BUN/Creatinine (units (unknown) date) Ratio 8.4 unknown) (unknown) (no (unknown) (unknown) Blood Pressure (units (unknown) date) 95/51 L 91/47 L unknown) 94/44 L (unknown) (no (unknown) (unknown) CK-MB (CK-2) 2.90 (units (unknown) date) H unknown) (unknown) (no (unknown) (unknown) CK-MB (CK-2) Rel (units (unknown) date) Index 1.7 unknown) (unknown) (no (unknown) (unknown) CK-MB (CK-2) Rel (units (unknown) date) Index unknown) (unknown) (no (unknown) (unknown) CK-MB (CK-2) (units (u nknown) date) unknown) (unknown) (no (unknown) (unknown) CX2: (units (unkno wn) date) unknown) (unknown) (no (unknown) (unknown) Calcium 7.6 L (units ( unknown) date) unknown) (unknown) (no (unknown) (unknown) Calcium 9.0 (units (un known) date) unknown) (unknown) (no (unknown) (unknown) Called to patient (units (unknown) date) bedside as a code unknown) blue. Patient is a 57-year-old female post (unknown) (no (unknown) (unknown) Carbon Dioxide 7 (units (unknown) date) L* unknown) (unknown) (no (unknown) (unknown) Carbon Dioxide 8 (units (unknown) date) L* unknown) (unknown) (no (unknown) (unknown) Cardiac: (units (unkno wn) date) Bradycardic unknown) (unknown) (no (unknown) (unknown) Central line in (units (unknown) date) place ET tube at unknown) erik needs to be pulled back. Persistent (unknown) (no (unknown) (unknown) Chest x-ray: (units (u nknown) date) unknown) (unknown) (no (unknown) (unknown) Chief complaint: (units (unknown) date) INPT unknown) (unknown) (no (unknown) (unknown) Chloride 95 L (units ( unknown) date) unknown) (unknown) (no (unknown) (unknown) Chloride 97 L (units ( unknown) date) unknown) (unknown) (no (unknown) (unknown) Consult Note (units (u nknown) date) unknown) (unknown) (no (unknown) (unknown) Consult details (units (unknown) date) unknown) (unknown) (no (unknown) (unknown) Creatinine 13.9 (units (unknown) date) H* unknown) (unknown) (no (unknown) (unknown) Creatinine 15.2 (units (unknown) date) H* unknown) (unknown) (no (unknown) (unknown) Critical Care (units ( unknown) date) time: unknown) (unknown) (no (unknown) (unknown) : 1965 (units (unknown) date) Acct:[id number] unknown) (unknown) (no (unknown) (unknown) Date Patient (units (u nknown) date) Seen: 07/30/22 unknown) (unknown) (no (unknown) (unknown) Date of Service: (units (unknown) date) 07/29/22 unknown) (unknown) (no (unknown) (unknown) Diabetes (units (unkno wn) date) unknown) (unknown) (no (unknown) (unknown) ECG (units (o wn) date) unknown) (unknown) (no (unknown) (unknown) EKG 1. Wide (units (un known) date) complex-VFib unknown) versus hyperkalemia versus STEMI possible elevation in (unknown) (no (unknown) (unknown) EKG 2. Persistent (units (unknown) date) wide complex unknown) (unknown) (no (unknown) (unknown) EKG 3. Normal (units ( unknown) date) sinus rhythm rate unknown) [address] elevation no ST depression no T-wave (unknown) (no (unknown) (unknown) Estimated GFR 3 L (units (unknown) date) unknown) (unknown) (no (unknown) (unknown) Exam Narrative: (units (unknown) date) unknown) (unknown) (no (unknown) (unknown) Exam (units (unkno wn) date) unknown) (unknown) (no (unknown) (unknown) Extremities: Weak (units (unknown) date) pulses no gross unknown) bony deformity (unknown) (no (unknown) (unknown) GERD (units (unkno wn) date) (gastroesophageal unknown) reflux disease) (unknown) (no (unknown) (unknown) Gen.: Obese awake (units (unknown) date) diaphoretic female unknown) (unknown) (no (unknown) (unknown) Globulin 2.9 (units (u nknown) date) unknown) (unknown) (no (unknown) (unknown) Globulin 3.1 (units (u nknown) date) unknown) (unknown) (no (unknown) (unknown) Glucose 27 L* 303 (units (unknown) date) H D unknown) (unknown) (no (unknown) (unknown) Glucose 404 H D (units (unknown) date) unknown) (unknown) (no (unknown) (unknown) HEENT: Head is (units (unknown) date) atraumatic pupils unknown) equal round and reactive (unknown) (no (unknown) (unknown) HLD (units (unkno wn) date) (hyperlipidemia) unknown) (unknown) (no (unknown) (unknown) HTN (units (unkno wn) date) (hypertension) unknown) (unknown) (no (unknown) (unknown) History of (units (unk nown) date) Present Illness unknown) (unknown) (no (unknown) (unknown) History of (units (unk nown) date) hysterectomy unknown) (unknown) (no (unknown) (unknown) History (units (unkno wn) date) unknown) (unknown) (no (unknown) (unknown) Home Medications (units (unknown) date) and Allergies unknown) (unknown) (no (unknown) (unknown) Home Medications (units (unknown) date) unknown) (unknown) (no (unknown) (unknown) 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 Does show some left (unknown) (no (unknown) (unknown) [facility] (units (unknown) date) [address] unknown) [place] [address] (unknown) (no (unknown) (unknown) Laboratory (units (unk nown) date) Results - last 24 unknown) hr (unknown) (no (unknown) (unknown) Labs (units (unkno wn) date) unknown) (unknown) (no (unknown) (unknown) Labs: (units (unkno wn) date) unknown) (unknown) (no (unknown) (unknown) Lumbar disc (units (un known) date) herniation unknown) (unknown) (no (unknown) (unknown) Lungs: Clear (units (u nknown) date) bilaterally unknown) (unknown) (no (unknown) (unknown) Magnesium 1.8 (units ( unknown) date) unknown) (unknown) (no (unknown) (unknown) Magnesium (units (unkn own) date) unknown) (unknown) (no (unknown) (unknown) Medical History (units (unknown) date) (Updated 07/28/22 unknown) @ 09:27 by Nikole Rivera RN) (unknown) (no (unknown) (unknown) Medication (units (unk nown) date) Instructions unknown) Recorded Confirmed Type (unknown) (no (unknown) (unknown) Meds (units (unkno wn) date) unknown) (unknown) (no (unknown) (unknown) My impression: (units (unknown) date) unknown) (unknown) (no (unknown) (unknown) Narrative (units (unkn own) date) unknown) (unknown) (no (unknown) (unknown) Narrative: (units (unk nown) date) unknown) (unknown) (no (unknown) (unknown) Neck: No JVD (units (u nknown) date) unknown) (unknown) (no (unknown) (unknown) Neurologic: (units (un known) date) Initially awake unknown) alert (unknown) (no (unknown) (unknown) Neuropathy (units (unk nown) date) unknown) (unknown) (no (unknown) (unknown) Objective (units (unkn own) date) unknown) (unknown) (no (unknown) (unknown) Ovarian cancer (units (unknown) date) (-2014) unknown) (unknown) (no (unknown) (unknown) Oxygen Delivery (units (unknown) date) Method Room Air unknown) (unknown) (no (unknown) (unknown) Oxygen Flow Rate (units (unknown) date) 2 3 unknown) (unknown) (no (unknown) (unknown) Oxygen Flow Rate (units (unknown) date) 3 unknown) (unknown) (no (unknown) (unknown) PFSH (units (unkno wn) date) unknown) (unknown) (no (unknown) (unknown) Patient is not a (units (unknown) date) STEMI. unknown) (unknown) (no (unknown) (unknown) Patient: (units (unkno wn) date) Polly Bone unknown) MR#: [id number] (unknown) (no (unknown) (unknown) Potassium 7.2 H* (units (unknown) date) D unknown) (unknown) (no (unknown) (unknown) Potassium 9.7 H* (units (unknown) date) unknown) (unknown) (no (unknown) (unknown) Provider: (units (unkn own) date) Elba Augustin unknown) D.O. (unknown) (no (unknown) (unknown) Pulse Oximetry 93 (units (unknown) date) 94 unknown) (unknown) (no (unknown) (unknown) Pulse Rate 60 86 (units (unknown) date) unknown) (unknown) (no (unknown) (unknown) Reason for (units (unk nown) date) consult: code blue unknown) (unknown) (no (unknown) (unknown) Requesting (units (unk nown) date) provider: Jeremy Sousa unknown) (unknown) (no (unknown) (unknown) Respiratory Rate (units (unknown) date) 16 unknown) (unknown) (no (unknown) (unknown) Result Diagrams: (units (unknown) date) unknown) (unknown) (no (unknown) (unknown) Review of Systems (units (unknown) date) unknown) (unknown) (no (unknown) (unknown) SARS-CoV-2 (PCR) (units (unknown) date) Negative unknown) (unknown) (no (unknown) (unknown) SARS-CoV-2 (PCR) (units (unknown) date) unknown) (unknown) (no (unknown) (unknown) Sciatica (units (unkno wn) date) unknown) (unknown) (no (unknown) (unknown) Score 4-6) (units (unk nown) date) unknown) (unknown) (no (unknown) (unknown) She is having (units ( unknown) date) some mild chest unknown) discomfort but not bad. When asked about code (unknown) (no (unknown) (unknown) Signed (units (unkno wn) date) By:<Electronically unknown) signed by Elba Augustin D.O.> (unknown) (no (unknown) (unknown) Smoking Status: (units (unknown) date) Former smoker unknown) (unknown) (no (unknown) (unknown) Social History (units (unknown) date) unknown) (unknown) (no (unknown) (unknown) Sodium 133 L (units (u nknown) date) unknown) (unknown) (no (unknown) (unknown) Sodium 140 (units (unk nown) date) unknown) (unknown) (no (unknown) (unknown) Surgical History (units (unknown) date) (Updated 07/28/22 unknown) @ 09:27 by Nikole Rivera RN) (unknown) (no (unknown) (unknown) Temperature 97.9 (units (unknown) date) F unknown) (unknown) (no (unknown) (unknown) Time Spent With (units (unknown) date) Patient unknown) (unknown) (no (unknown) (unknown) Tobacco + (units (unkn own) date) Substance Use unknown) (unknown) (no (unknown) (unknown) Total Bilirubin (units (unknown) date) 0.3 unknown) (unknown) (no (unknown) (unknown) Total Bilirubin (units (unknown) date) 0.4 unknown) (unknown) (no (unknown) (unknown) Total Creatine (units (unknown) date) Kinase 173 H unknown) (unknown) (no (unknown) (unknown) Total Creatine (units (unknown) date) Kinase unknown) (unknown) (no (unknown) (unknown) Total Protein 6.5 (units (unknown) date) unknown) (unknown) (no (unknown) (unknown) Total Protein 7.2 (units (unknown) date) unknown) (unknown) (no (unknown) (unknown) Troponin I 0.072 (units (unknown) date) H unknown) (unknown) (no (unknown) (unknown) Troponin I (units (unk nown) date) unknown) (unknown) (no (unknown) (unknown) Unobtainable (units (u nknown) date) unknown) (unknown) (no (unknown) (unknown) Vital Signs (units (un known) date) unknown) (unknown) (no (unknown) (unknown) [Embedded Image (units (unknown) date) Not Available] unknown) (unknown) (no (unknown) (unknown) acetaminophen 500 (units (unknown) date) mg tablet 1,000 mg unknown) PO QD-BID PRN Pain 07/28/22 07/29/22 (unknown) (no (unknown) (unknown) alcohol intake: (units (unknown) date) current unknown) (unknown) (no (unknown) (unknown) amlodipine 2.5 mg (units (unknown) date) tablet 2.5 mg PO unknown) DAILY 07/28/22 07/29/22 History (unknown) (no (unknown) (unknown) and glucose were (units (unknown) date) also given. unknown) Patient became more responsive but not able to (unknown) (no (unknown) (unknown) atelectasis (units (un known) date) unknown) (unknown) (no (unknown) (unknown) bradycardic EKG. (units (unknown) date) Patient is unknown) hypotensive diaphoretic but is awake and alert. (unknown) (no (unknown) (unknown) cyclobenzaprine (units (unknown) date) 7.5 mg tablet 7.5 unknown) mg PO PRN PRN Pain (Scale 07/29/22 07/29/22 (unknown) (no (unknown) (unknown) duloxetine [From (units (unknown) date) Cymbalta] Allergy unknown) Intermediate Rash, Verified 07/29/22 12:03 (unknown) (no (unknown) (unknown) gabapentin 800 mg (units (unknown) date) tablet 800 mg PO unknown) BID 07/28/22 07/29/22 History (unknown) (no (unknown) (unknown) glipizide 10 mg (units (unknown) date) tablet 10 mg PO unknown) DAILY 07/28/22 07/29/22 History (unknown) (no (unknown) (unknown) household (units (unkn own) date) members: unknown) significant other (unknown) (no (unknown) (unknown) hydrocodone 5 (units ( unknown) date) mg-acetaminophen unknown) 325 5 tab PO Q8H PRN pain 07/29/22 07/29/22 (unknown) (no (unknown) (unknown) ibuprofen 200 mg (units (unknown) date) tablet (Advil) 600 unknown) mg PO QD-BID PRN Pain 07/28/22 07/29/22 (unknown) (no (unknown) (unknown) inversions (units (unk nown) date) unknown) (unknown) (no (unknown) (unknown) itching (units (unkno wn) date) unknown) (unknown) (no (unknown) (unknown) labs were drawn (units (unknown) date) preop or postop. unknown) Patient started to lose pulses and CPR (unknown) (no (unknown) (unknown) left-sided (units (unk nown) date) atelectasis. unknown) Possible cardiomegaly. (unknown) (no (unknown) (unknown) lisinopril 40 mg (units (unknown) date) tablet 40 mg PO unknown) DAILY 07/28/22 07/29/22 History (unknown) (no (unknown) (unknown) metformin 500 mg (units (unknown) date) tablet 1,000 mg PO unknown) BID 07/28/22 07/29/22 History (unknown) (no (unknown) (unknown) metoprolol (units (unk nown) date) succinate 50 mg 50 unknown) mg PO DAILY 07/28/22 07/29/22 History (unknown) (no (unknown) (unknown) mg tablet (units (unkn own) date) unknown) (unknown) (no (unknown) (unknown) narrow. No (units (unk nown) date) obvious ST unknown) elevations. Patient was intubated and a central line (unknown) (no (unknown) (unknown) nortriptyline 10 (units (unknown) date) mg capsule 20 mg unknown) PO BEDTIME 07/28/22 07/29/22 History (unknown) (no (unknown) (unknown) operative (units (unkn own) date) microdiskectomy unknown) L4-5 thought to have a STEMI. Very wide complex (unknown) (no (unknown) (unknown) oxycodone 5 mg (units (unknown) date) tablet 5 mg PO Q4H unknown) PRN pain #40 tabs 07/29/22 Rx (unknown) (no (unknown) (unknown) pantoprazole 40 (units (unknown) date) mg tablet,delayed unknown) 40 mg PO DAILY 07/28/22 07/29/22 History (unknown) (no (unknown) (unknown) placed by myself. (units (unknown) date) unknown) (unknown) (no (unknown) (unknown) protect airway. (units (unknown) date) Complex on the unknown) monitor did change and became significantly more (unknown) (no (unknown) (unknown) release (units (unkno wn) date) unknown) (unknown) (no (unknown) (unknown) simvastatin 40 mg (units (unknown) date) tablet 40 mg PO unknown) BEDTIME 07/28/22 07/29/22 History (unknown) (no (unknown) (unknown) started. I start (units (unknown) date) did confirm unknown) potassium greater than 9. Bicarb was pushed. (unknown) (no (unknown) (unknown) status she is (units ( unknown) date) full code. Concern unknown) for probable hyperkalemia. Unfortunately no (unknown) (no (unknown) (unknown) still awake. POC (units (unknown) date) glucose was in the unknown) 300s. CPR continued epinephrine insulin (unknown) (no (unknown) (unknown) tablet,extended (units (unknown) date) release 24 hr unknown) (unknown) (no (unknown) (unknown) today; this time (units (unknown) date) is exclusive of unknown) procedural time. Result panel 132 (unknown) (no date) (unknown) (unknown) -20.0 mmol/l (unkn own) (unknown) (no date) (unknown) (unknown) 10 mmol/l (unkn own) (unknown) (no date) (unknown) (unknown) 12 mmol/l (unkn own) (unknown) (no date) (unknown) (unknown) 15 (units unknown) (unknown) (unknown) (no date) (unknown) (unknown) 36.7 mmhg (unkn own) (unknown) (no date) (unknown) (unknown) 36.7 mmhg (unkn own) (unknown) (no date) (unknown) (unknown) 38 mmhg (unkn own) (unknown) (no date) (unknown) (unknown) 52 % (unkn own) (unknown) (no date) (unknown) (unknown) 7.06 (units unknown) (unknown) (unknown) (no date) (unknown) (unknown) 7.06 (units unknown) (unknown) Result panel 133 (unknown) (no date) (unknown) (unknown) -25.0 mmol/l (unkn own) (unknown) (no date) (unknown) (unknown) 100 (units unknown) (unknown) (unknown) (no date) (unknown) (unknown) 37.5 mmhg (unkn own) (unknown) (no date) (unknown) (unknown) 37.5 mmhg (unkn own) (unknown) (no date) (unknown) (unknown) 6.92 (units unknown) (unknown) (unknown) (no date) (unknown) (unknown) 6.92 (units unknown) (unknown) (unknown) (no date) (unknown) (unknown) 8 mmol/l (unkn own) (unknown) (no date) (unknown) (unknown) 82 mmhg (unkn own) (unknown) (no date) (unknown) (unknown) 86 % (unkn own) (unknown) (no date) (unknown) (unknown) 9 mmol/l (unkn own) Result panel 134 (unknown) (no (unknown) (unknown) (no value) (units (unk nown) date) unknown) (unknown) (no (unknown) (unknown) (past 8 hours): (units (unknown) date) unknown) (unknown) (no (unknown) (unknown) [id number] (units (unkno wn) date) unknown) (unknown) (no (unknown) (unknown) 01:00 (units (unkno wn) date) unknown) (unknown) (no (unknown) (unknown) 03:20 03:35 04:15 (units (unknown) date) unknown) (unknown) (no (unknown) (unknown) 04:25 (units (unkno wn) date) unknown) (unknown) (no (unknown) (unknown) 07/29/22 07/29/22 (units (unknown) date) 07/30/22 unknown) (unknown) (no (unknown) (unknown) 07/29/22 (units (unkno wn) date) unknown) (unknown) (no (unknown) (unknown) 07/30/22 03:20 (units (unknown) date) unknown) (unknown) (no (unknown) (unknown) 07/30/22 04:15 (units (unknown) date) unknown) (unknown) (no (unknown) (unknown) 07/30/22 07/30/22 (units (unknown) date) 07/30/22 unknown) (unknown) (no (unknown) (unknown) 07/30/22 (units (unkno wn) date) unknown) (unknown) (no (unknown) (unknown) 12:29 12:55 03:20 (units (unknown) date) unknown) (unknown) (no (unknown) (unknown) 22:50 07/29/22 (units (unknown) date) unknown) (unknown) (no (unknown) (unknown) 23:45 07/30/22 (units (unknown) date) unknown) (unknown) (no (unknown) (unknown) ABG Base Excess (units (unknown) date) -20.0 L unknown) (unknown) (no (unknown) (unknown) ABG Base Excess (units (unknown) date) -25.0 L unknown) (unknown) (no (unknown) (unknown) ABG Base Excess (units (unknown) date) unknown) (unknown) (no (unknown) (unknown) ABG HCO3 10 L (units ( unknown) date) unknown) (unknown) (no (unknown) (unknown) ABG HCO3 8 L (units (u nknown) date) unknown) (unknown) (no (unknown) (unknown) ABG HCO3 (units (unkno wn) date) unknown) (unknown) (no (unknown) (unknown) ABG O2 Saturation (units (unknown) date) 52 L* unknown) (unknown) (no (unknown) (unknown) ABG O2 Saturation (units (unknown) date) 86 L unknown) (unknown) (no (unknown) (unknown) ABG O2 Saturation (units (unknown) date) unknown) (unknown) (no (unknown) (unknown) ABG Total CO2 12 (units (unknown) date) L unknown) (unknown) (no (unknown) (unknown) ABG Total CO2 9 L (units (unknown) date) unknown) (unknown) (no (unknown) (unknown) ABG Total CO2 (units ( unknown) date) unknown) (unknown) (no (unknown) (unknown) ABG pCO2 36.7 (units ( unknown) date) unknown) (unknown) (no (unknown) (unknown) ABG pCO2 37.5 (units ( unknown) date) unknown) (unknown) (no (unknown) (unknown) ABG pCO2 (units (unkno wn) date) unknown) (unknown) (no (unknown) (unknown) ABG pH 6.92 L* (units (unknown) date) unknown) (unknown) (no (unknown) (unknown) ABG pH 7.06 L* (units (unknown) date) unknown) (unknown) (no (unknown) (unknown) ABG pH (units (unkno wn) date) unknown) (unknown) (no (unknown) (unknown) ABG pO2 38 L* (units ( unknown) date) unknown) (unknown) (no (unknown) (unknown) ABG pO2 82 (units (unk nown) date) unknown) (unknown) (no (unknown) (unknown) ABG pO2 (units (unkno wn) date) unknown) (unknown) (no (unknown) (unknown) ALT 203 H (units (unkn own) date) unknown) (unknown) (no (unknown) (unknown) ALT 22 (units (unkno wn) date) unknown) (unknown) (no (unknown) (unknown) ALT (units (unkno wn) date) unknown) (unknown) (no (unknown) (unknown) AST 17 (units (unkno wn) date) unknown) (unknown) (no (unknown) (unknown) AST 226 H (units (unkn own) date) unknown) (unknown) (no (unknown) (unknown) AST (units (unkno wn) date) unknown) (unknown) (no (unknown) (unknown) Abd: Obese (units (unk nown) date) unknown) (unknown) (no (unknown) (unknown) Age/Sex: 57 / F (units (unknown) date) unknown) (unknown) (no (unknown) (unknown) Albumin 3.6 (units (un known) date) unknown) (unknown) (no (unknown) (unknown) Albumin 4.1 (units (un known) date) unknown) (unknown) (no (unknown) (unknown) Albumin (units (unkno wn) date) unknown) (unknown) (no (unknown) (unknown) Albumin/Globulin (units (unknown) date) Ratio 1.2 unknown) (unknown) (no (unknown) (unknown) Albumin/Globulin (units (unknown) date) Ratio 1.3 unknown) (unknown) (no (unknown) (unknown) Albumin/Globulin (units (unknown) date) Ratio unknown) (unknown) (no (unknown) (unknown) Alkaline (units (unkno wn) date) Phosphatase 100 unknown) (unknown) (no (unknown) (unknown) Alkaline (units (unkno wn) date) Phosphatase 93 unknown) (unknown) (no (unknown) (unknown) Alkaline (units (unkno wn) date) Phosphatase unknown) (unknown) (no (unknown) (unknown) Allergies (units (unkn own) date) unknown) (unknown) (no (unknown) (unknown) Allergy/AdvReac (units (unknown) date) Type Severity unknown) Reaction Status Date / Time (unknown) (no (unknown) (unknown) Assessment + Plan (units (unknown) date) narrative: unknown) (unknown) (no (unknown) (unknown) Assessment + Plan (units (unknown) date) unknown) (unknown) (no (unknown) (unknown) BUN 117 H* (units (unk nown) date) unknown) (unknown) (no (unknown) (unknown) BUN 120 H* (units (unk nown) date) unknown) (unknown) (no (unknown) (unknown) BUN (units (unkno wn) date) unknown) (unknown) (no (unknown) (unknown) BUN/Creatinine (units (unknown) date) Ratio 7.9 unknown) (unknown) (no (unknown) (unknown) BUN/Creatinine (units (unknown) date) Ratio 8.4 unknown) (unknown) (no (unknown) (unknown) BUN/Creatinine (units (unknown) date) Ratio unknown) (unknown) (no (unknown) (unknown) Baso # (Auto) 0 (units (unknown) date) unknown) (unknown) (no (unknown) (unknown) Baso # (Auto) (units ( unknown) date) unknown) (unknown) (no (unknown) (unknown) Baso % (Auto) 0.1 (units (unknown) date) unknown) (unknown) (no (unknown) (unknown) Baso % (Auto) (units ( unknown) date) unknown) (unknown) (no (unknown) (unknown) Blood Pressure (units (unknown) date) 95/51 L 91/47 L unknown) 94/44 L (unknown) (no (unknown) (unknown) CK-MB (CK-2) 2.90 (units (unknown) date) H unknown) (unknown) (no (unknown) (unknown) CK-MB (CK-2) Rel (units (unknown) date) Index 1.7 unknown) (unknown) (no (unknown) (unknown) CK-MB (CK-2) Rel (units (unknown) date) Index unknown) (unknown) (no (unknown) (unknown) CK-MB (CK-2) (units (u nknown) date) unknown) (unknown) (no (unknown) (unknown) CV: Patient (units (un known) date) alternated between unknown) having a pulse and being pulseless, EKG showed (unknown) (no (unknown) (unknown) Calcium 7.6 L (units ( unknown) date) unknown) (unknown) (no (unknown) (unknown) Calcium 9.0 (units (un known) date) unknown) (unknown) (no (unknown) (unknown) Calcium (units (unkno wn) date) unknown) (unknown) (no (unknown) (unknown) Carbon Dioxide 7 (units (unknown) date) L* unknown) (unknown) (no (unknown) (unknown) Carbon Dioxide 8 (units (unknown) date) L* unknown) (unknown) (no (unknown) (unknown) Carbon Dioxide (units (unknown) date) unknown) (unknown) (no (unknown) (unknown) Chief complaint: (units (unknown) date) INPT unknown) (unknown) (no (unknown) (unknown) Chloride 95 L (units ( unknown) date) unknown) (unknown) (no (unknown) (unknown) Chloride 97 L (units ( unknown) date) unknown) (unknown) (no (unknown) (unknown) Chloride (units (unkno wn) date) unknown) (unknown) (no (unknown) (unknown) Comment: (units (unkno wn) date) unknown) (unknown) (no (unknown) (unknown) Consult Note (units (u nknown) date) unknown) (unknown) (no (unknown) (unknown) Consult details (units (unknown) date) unknown) (unknown) (no (unknown) (unknown) Creatinine 13.9 (units (unknown) date) H* unknown) (unknown) (no (unknown) (unknown) Creatinine 15.2 (units (unknown) date) H* unknown) (unknown) (no (unknown) (unknown) Creatinine (units (unk nown) date) unknown) (unknown) (no (unknown) (unknown) Critical Care (units ( unknown) date) time: unknown) (unknown) (no (unknown) (unknown) : 1965 (units (unknown) date) Acct:[id number] unknown) (unknown) (no (unknown) (unknown) Date Patient (units (u nknown) date) Seen: 07/30/22 unknown) (unknown) (no (unknown) (unknown) Date of Service: (units (unknown) date) 07/29/22 unknown) (unknown) (no (unknown) (unknown) Diabetes (units (unkno wn) date) unknown) (unknown) (no (unknown) (unknown) Polly Bone is a (units (unknown) date) 57-year-old female unknown) pod 1. L5-6 lumbar laminectomy is found to (unknown) (no (unknown) (unknown) Eos # (Auto) 0 (units (unknown) date) unknown) (unknown) (no (unknown) (unknown) Eos # (Auto) (units (u nknown) date) unknown) (unknown) (no (unknown) (unknown) Eos % (Auto) 0.0 (units (unknown) date) L unknown) (unknown) (no (unknown) (unknown) Eos % (Auto) (units (u nknown) date) unknown) (unknown) (no (unknown) (unknown) Estimated GFR 3 L (units (unknown) date) unknown) (unknown) (no (unknown) (unknown) Estimated GFR (units ( unknown) date) unknown) (unknown) (no (unknown) (unknown) Exam Narrative: (units (unknown) date) unknown) (unknown) (no (unknown) (unknown) Exam (units (unkno wn) date) unknown) (unknown) (no (unknown) (unknown) Extremities: (units (u nknown) date) Appears to have unknown) good cap refill (unknown) (no (unknown) (unknown) FiO2 100 (units (unkno wn) date) unknown) (unknown) (no (unknown) (unknown) FiO2 15 (units (unkno wn) date) unknown) (unknown) (no (unknown) (unknown) FiO2 (units (unkno wn) date) unknown) (unknown) (no (unknown) (unknown) GERD (units (unkno wn) date) (gastroesophageal unknown) reflux disease) (unknown) (no (unknown) (unknown) Gen: Arousable, (units (unknown) date) morbidly obese 57 unknown) y.o. female (unknown) (no (unknown) (unknown) Globulin 2.9 (units (u nknown) date) unknown) (unknown) (no (unknown) (unknown) Globulin 3.1 (units (u nknown) date) unknown) (unknown) (no (unknown) (unknown) Globulin (units (unkno wn) date) unknown) (unknown) (no (unknown) (unknown) Glucose 27 L* 303 (units (unknown) date) H D unknown) (unknown) (no (unknown) (unknown) Glucose 404 H D (units (unknown) date) unknown) (unknown) (no (unknown) (unknown) Glucose (units (unkno wn) date) unknown) (unknown) (no (unknown) (unknown) HEENT: (units (unkno wn) date) normocephalic, unknown) atraumatic, conjunctiva clear, sclera non-icteric, oral (unknown) (no (unknown) (unknown) HLD (units (unkno wn) date) (hyperlipidemia) unknown) (unknown) (no (unknown) (unknown) HTN (units (unkno wn) date) (hypertension) unknown) (unknown) (no (unknown) (unknown) Hct 36.1 (units (unkno wn) date) unknown) (unknown) (no (unknown) (unknown) Hct (units (unkno wn) date) unknown) (unknown) (no (unknown) (unknown) Hgb 11.3 L (units (unk nown) date) unknown) (unknown) (no (unknown) (unknown) Hgb (units (unkno wn) date) unknown) (unknown) (no (unknown) (unknown) History of (units (unk nown) date) Present Illness unknown) (unknown) (no (unknown) (unknown) History of (units (unk nown) date) hysterectomy unknown) (unknown) (no (unknown) (unknown) History (units (unkno wn) date) unknown) (unknown) (no (unknown) (unknown) Home Medications (units (unknown) date) and Allergies unknown) (unknown) (no (unknown) (unknown) Home Medications (units (unknown) date) unknown) (unknown) (no (unknown) (unknown) I spent a total (units (unknown) date) of 180 minutes of unknown) critical care time on this patient's care (unknown) (no (unknown) (unknown) [facility] (units (unknown) date) [address] [place] [address] Street unknown) [place] [address] (unknown) (no (unknown) (unknown) Laboratory (units (unk nown) date) Results - last 24 unknown) hr (unknown) (no (unknown) (unknown) Labs (units (unkno wn) date) unknown) (unknown) (no (unknown) (unknown) Labs: (units (unkno wn) date) unknown) (unknown) (no (unknown) (unknown) Lumbar disc (units (un known) date) herniation unknown) (unknown) (no (unknown) (unknown) Lymph # (Auto) (units (unknown) date) 800 L unknown) (unknown) (no (unknown) (unknown) Lymph # (Auto) (units (unknown) date) unknown) (unknown) (no (unknown) (unknown) Lymph % (Auto) (units (unknown) date) 3.9 L unknown) (unknown) (no (unknown) (unknown) Lymph % (Auto) (units (unknown) date) unknown) (unknown) (no (unknown) (unknown) MCH 29.0 (units (unkno wn) date) unknown) (unknown) (no (unknown) (unknown) MCH (units (unkno wn) date) unknown) (unknown) (no (unknown) (unknown) MCHC 31.4 (units (unkn own) date) unknown) (unknown) (no (unknown) (unknown) MCHC (units (unkno wn) date) unknown) (unknown) (no (unknown) (unknown) MCV 92.3 (units (unkno wn) date) unknown) (unknown) (no (unknown) (unknown) MCV (units (unkno wn) date) unknown) (unknown) (no (unknown) (unknown) Magnesium 1.8 (units ( unknown) date) unknown) (unknown) (no (unknown) (unknown) Magnesium (units (unkn own) date) unknown) (unknown) (no (unknown) (unknown) Medical History (units (unknown) date) (Reviewed 07/30/22 unknown) @ 05:23 by JOVANNY Alonzo) (unknown) (no (unknown) (unknown) Medication (units (unk nown) date) Instructions unknown) Recorded Confirmed Type (unknown) (no (unknown) (unknown) Meds (units (unkno wn) date) unknown) (unknown) (no (unknown) (unknown) Gibson # (Auto) 100 (units (unknown) date) unknown) (unknown) (no (unknown) (unknown) Gibson # (Auto) (units ( unknown) date) unknown) (unknown) (no (unknown) (unknown) Gibson % (Auto) 0.6 (units (unknown) date) L unknown) (unknown) (no (unknown) (unknown) Gibson % (Auto) (units ( unknown) date) unknown) (unknown) (no (unknown) (unknown) Narrative (units (unkn own) date) unknown) (unknown) (no (unknown) (unknown) Narrative: (units (unk nown) date) unknown) (unknown) (no (unknown) (unknown) Neck: supple, (units ( unknown) date) full ROM, no JVD, unknown) trachea is midline (unknown) (no (unknown) (unknown) Neuro: Speech (units ( unknown) date) clear and coherent unknown) just prior to intubation obtunded (unknown) (no (unknown) (unknown) Neuropathy (units (unk nown) date) unknown) (unknown) (no (unknown) (unknown) Neut # (Auto) (units ( unknown) date) [id number] H unknown) (unknown) (no (unknown) (unknown) Neut # (Auto) (units ( unknown) date) unknown) (unknown) (no (unknown) (unknown) Neut % (Auto) (units ( unknown) date) 95.4 H unknown) (unknown) (no (unknown) (unknown) Neut % (Auto) (units ( unknown) date) unknown) (unknown) (no (unknown) (unknown) Nursing contacted (units (unknown) date) me requesting unknown) consult by Orthopedic surgery for this patient (unknown) (no (unknown) (unknown) Objective (units (unkn own) date) unknown) (unknown) (no (unknown) (unknown) Ovarian cancer (units (unknown) date) (-2014) unknown) (unknown) (no (unknown) (unknown) Oxygen Delivery (units (unknown) date) Method Room Air unknown) (unknown) (no (unknown) (unknown) Oxygen Flow Rate (units (unknown) date) 2 3 unknown) (unknown) (no (unknown) (unknown) Oxygen Flow Rate (units (unknown) date) 3 unknown) (unknown) (no (unknown) (unknown) PFSH (units (unkno wn) date) unknown) (unknown) (no (unknown) (unknown) Patient is (units (unk nown) date) intubated unable unknown) to speak and is from [place] so we do not have (unknown) (no (unknown) (unknown) Patient: (units (unkno wn) date) Polly Bone M unknown) MR#: [id number] (unknown) (no (unknown) (unknown) Plt Count 386 (units ( unknown) date) unknown) (unknown) (no (unknown) (unknown) Plt Count (units (unkn own) date) unknown) (unknown) (no (unknown) (unknown) Potassium 7.2 H* (units (unknown) date) D unknown) (unknown) (no (unknown) (unknown) Potassium 9.7 H* (units (unknown) date) unknown) (unknown) (no (unknown) (unknown) Potassium (units (unkn own) date) unknown) (unknown) (no (unknown) (unknown) Provider: (units (unkn own) date) Rizwana Valle unknown) (unknown) (no (unknown) (unknown) Psyche: Unable to (units (unknown) date) assess unknown) (unknown) (no (unknown) (unknown) Pulse Oximetry 93 (units (unknown) date) 94 unknown) (unknown) (no (unknown) (unknown) Pulse Rate 60 86 (units (unknown) date) unknown) (unknown) (no (unknown) (unknown) RBC 3.91 L (units (unk nown) date) unknown) (unknown) (no (unknown) (unknown) RBC (units (unkno wn) date) unknown) (unknown) (no (unknown) (unknown) RDW 14.4 (units (unkno wn) date) unknown) (unknown) (no (unknown) (unknown) RDW (units (unkno wn) date) unknown) (unknown) (no (unknown) (unknown) ROS: Yes (units (unkno wn) date) unobtainable due unknown) to endotracheal tube (unknown) (no (unknown) (unknown) Reason for (units (unk nown) date) consult: Code blue unknown) (unknown) (no (unknown) (unknown) Resp: Patient is (units (unknown) date) currently vented unknown) (unknown) (no (unknown) (unknown) Respiratory Rate (units (unknown) date) 16 unknown) (unknown) (no (unknown) (unknown) Result Diagrams: (units (unknown) date) unknown) (unknown) (no (unknown) (unknown) Review of Systems (units (unknown) date) unknown) (unknown) (no (unknown) (unknown) SARS-CoV-2 (PCR) (units (unknown) date) Negative unknown) (unknown) (no (unknown) (unknown) SARS-CoV-2 (PCR) (units (unknown) date) unknown) (unknown) (no (unknown) (unknown) STEMI changes (units ( unknown) date) unknown) (unknown) (no (unknown) (unknown) Sciatica (units (unkno wn) date) unknown) (unknown) (no (unknown) (unknown) Score 4-6) (units (unk nown) date) unknown) (unknown) (no (unknown) (unknown) Signed By: (units (unk nown) date) unknown) (unknown) (no (unknown) (unknown) Skin: Appears to (units (unknown) date) have Martha in unknown) her pannus area (unknown) (no (unknown) (unknown) Smoking Status: (units (unknown) date) Former smoker unknown) (unknown) (no (unknown) (unknown) Social History (units (unknown) date) unknown) (unknown) (no (unknown) (unknown) Sodium 133 L (units (u nknown) date) unknown) (unknown) (no (unknown) (unknown) Sodium 140 (units (unk nown) date) unknown) (unknown) (no (unknown) (unknown) Sodium (units (unkno wn) date) unknown) (unknown) (no (unknown) (unknown) Surgical History (units (unknown) date) (Reviewed 07/30/22 unknown) @ 05:23 by JOVANNY Alonzo) (unknown) (no (unknown) (unknown) Temperature 97.9 (units (unknown) date) F unknown) (unknown) (no (unknown) (unknown) Time Patient (units (u nknown) date) Seen: 03:00 unknown) (unknown) (no (unknown) (unknown) Time Spent With (units (unknown) date) Patient unknown) (unknown) (no (unknown) (unknown) Tobacco + (units (unkn own) date) Substance Use unknown) (unknown) (no (unknown) (unknown) Total Bilirubin (units (unknown) date) 0.3 unknown) (unknown) (no (unknown) (unknown) Total Bilirubin (units (unknown) date) 0.4 unknown) (unknown) (no (unknown) (unknown) Total Bilirubin (units (unknown) date) unknown) (unknown) (no (unknown) (unknown) Total Creatine (units (unknown) date) Kinase 173 H unknown) (unknown) (no (unknown) (unknown) Total Creatine (units (unknown) date) Kinase unknown) (unknown) (no (unknown) (unknown) Total Protein 6.5 (units (unknown) date) unknown) (unknown) (no (unknown) (unknown) Total Protein 7.2 (units (unknown) date) unknown) (unknown) (no (unknown) (unknown) Total Protein (units ( unknown) date) unknown) (unknown) (no (unknown) (unknown) Troponin I 0.072 (units (unknown) date) H unknown) (unknown) (no (unknown) (unknown) Troponin I (units (unk nown) date) unknown) (unknown) (no (unknown) (unknown) Vital Signs (units (un known) date) unknown) (unknown) (no (unknown) (unknown) WBC 21.1 H (units (unk nown) date) unknown) (unknown) (no (unknown) (unknown) WBC (units (unkno wn) date) unknown) (unknown) (no (unknown) (unknown) [Embedded Image (units (unknown) date) Not Available] unknown) (unknown) (no (unknown) (unknown) acetaminophen 500 (units (unknown) date) mg tablet 1,000 mg unknown) PO QD-BID PRN Pain 07/28/22 07/29/22 (unknown) (no (unknown) (unknown) alcohol intake: (units (unknown) date) current unknown) (unknown) (no (unknown) (unknown) amlodipine 2.5 mg (units (unknown) date) tablet 2.5 mg PO unknown) DAILY 07/28/22 07/29/22 History (unknown) (no (unknown) (unknown) critical care (units ( unknown) date) facility for unknown) emergent dialysis. (unknown) (no (unknown) (unknown) cyclobenzaprine (units (unknown) date) 7.5 mg tablet 7.5 unknown) mg PO PRN PRN Pain (Scale 07/29/22 07/29/22 (unknown) (no (unknown) (unknown) difficulty (units (unkn own) date) breathing and by unknown) the time I reached the floor CPR was being performed (unknown) (no (unknown) (unknown) duloxetine [From (units (unknown) date) Cymbalta] Allergy unknown) Intermediate Rash, Verified 07/29/22 12:03 (unknown) (no (unknown) (unknown) gabapentin 800 mg (units (unknown) date) tablet 800 mg PO unknown) BID 07/28/22 07/29/22 History (unknown) (no (unknown) (unknown) glipizide 10 mg (units (unknown) date) tablet 10 mg PO unknown) DAILY 07/28/22 07/29/22 History (unknown) (no (unknown) (unknown) have severe (units (un known) date) hyperkalemia, unknown) severe hypotension, suspected STEMI and is moved from (unknown) (no (unknown) (unknown) have very soft (units (unknown) date) blood pressures unknown) and by the time I came up to the floor her blood (unknown) (no (unknown) (unknown) her current (units (un known) date) medical records unknown) and I am not able to obtain a family history from (unknown) (no (unknown) (unknown) her. (units (unkno wn) date) unknown) (unknown) (no (unknown) (unknown) household (units (unkn own) date) members: unknown) significant other (unknown) (no (unknown) (unknown) hydrocodone 5 (units ( unknown) date) mg-acetaminophen unknown) 325 5 tab PO Q8H PRN pain 07/29/22 07/29/22 (unknown) (no (unknown) (unknown) ibuprofen 200 mg (units (unknown) date) tablet (Advil) 600 unknown) mg PO QD-BID PRN Pain 07/28/22 07/29/22 (unknown) (no (unknown) (unknown) itching (units (unkno wn) date) unknown) (unknown) (no (unknown) (unknown) lisinopril 40 mg (units (unknown) date) tablet 40 mg PO unknown) DAILY 07/28/22 07/29/22 History (unknown) (no (unknown) (unknown) metformin 500 mg (units (unknown) date) tablet 1,000 mg PO unknown) BID 07/28/22 07/29/22 History (unknown) (no (unknown) (unknown) metoprolol (units (unk nown) date) succinate 50 mg 50 unknown) mg PO DAILY 07/28/22 07/29/22 History (unknown) (no (unknown) (unknown) mg tablet (units (unkn own) date) unknown) (unknown) (no (unknown) (unknown) mucosa pink and (units (unknown) date) moist unknown) (unknown) (no (unknown) (unknown) nortriptyline 10 (units (unknown) date) mg capsule 20 mg unknown) PO BEDTIME 07/28/22 07/29/22 History (unknown) (no (unknown) (unknown) on the patient. (units (unknown) date) unknown) (unknown) (no (unknown) (unknown) oxycodone 5 mg (units (unknown) date) tablet 5 mg PO Q4H unknown) PRN pain #40 tabs 07/29/22 Rx (unknown) (no (unknown) (unknown) pantoprazole 40 (units (unknown) date) mg tablet,delayed unknown) 40 mg PO DAILY 07/28/22 07/29/22 History (unknown) (no (unknown) (unknown) pressure was in (units (unknown) date) the low 90s. unknown) Apparently during that time it dropped even to a (unknown) (no (unknown) (unknown) release (units (unkno wn) date) unknown) (unknown) (no (unknown) (unknown) simvastatin 40 mg (units (unknown) date) tablet 40 mg PO unknown) BEDTIME 07/28/22 07/29/22 History (unknown) (no (unknown) (unknown) systolic of 60, (units (unknown) date) the patient was unknown) reportedly complaining of chest pain and (unknown) (no (unknown) (unknown) tablet,extended (units (unknown) date) release 24 hr unknown) (unknown) (no (unknown) (unknown) the (units (unkno wn) date) medical-surgical unknown) unit to critical care and is awaiting transfer to a (unknown) (no (unknown) (unknown) today; this time (units (unknown) date) is exclusive of unknown) procedural time. (unknown) (no (unknown) (unknown) who is a (units (unkno wn) date) 57-year-old female unknown) pod 1. L5-6 lumbar laminectomy. She was noted to Result panel 135 (unknown) (no (unknown) (unknown) (no value) (units (unk nown) date) unknown) (unknown) (no (unknown) (unknown) (past 8 hours): (units (unknown) date) unknown) (unknown) (no (unknown) (unknown) * Initial (units (unkn own) date) potassium was 9.7. unknown) She was administered D5 and 10 units of IV insulin (unknown) (no (unknown) (unknown) * Initial troponin (units (unknown) date) is elevated at unknown) 0.072nd troponin is currently pending CK-MB is (unknown) (no (unknown) (unknown) * Patient is (units (u nknown) date) currently on unknown) heparin drip (unknown) (no (unknown) (unknown) * Patient (units (unkn own) date) underwent several unknown) rounds of CPR and was eventually restored to a more (unknown) (no (unknown) (unknown) * She is ordered (units (unknown) date) for another 10 unknown) units of IV insulin, D5 is being held due to her (unknown) (no (unknown) (unknown) * (units (unkno wn) date) unknown) (unknown) (no (unknown) (unknown) [id number] (units (unkno wn) date) unknown) (unknown) (no (unknown) (unknown) 01:00 (units (unkno wn) date) unknown) (unknown) (no (unknown) (unknown) 03:20 03:35 04:15 (units (unknown) date) unknown) (unknown) (no (unknown) (unknown) 04:25 (units (unkno wn) date) unknown) (unknown) (no (unknown) (unknown) 07/29/22 07/29/22 (units (unknown) date) 07/30/22 unknown) (unknown) (no (unknown) (unknown) 07/29/22 (units (unkno wn) date) unknown) (unknown) (no (unknown) (unknown) 07/30/22 03:20 (units (unknown) date) unknown) (unknown) (no (unknown) (unknown) 07/30/22 04:15 (units (unknown) date) unknown) (unknown) (no (unknown) (unknown) 07/30/22 07/30/22 (units (unknown) date) 07/30/22 unknown) (unknown) (no (unknown) (unknown) 07/30/22 (units (unkno wn) date) unknown) (unknown) (no (unknown) (unknown) 12:29 12:55 03:20 (units (unknown) date) unknown) (unknown) (no (unknown) (unknown) 22:50 07/29/22 (units (unknown) date) unknown) (unknown) (no (unknown) (unknown) 23:45 07/30/22 (units (unknown) date) unknown) (unknown) (no (unknown) (unknown) ABG Base Excess (units (unknown) date) -20.0 L unknown) (unknown) (no (unknown) (unknown) ABG Base Excess (units (unknown) date) -25.0 L unknown) (unknown) (no (unknown) (unknown) ABG Base Excess (units (unknown) date) unknown) (unknown) (no (unknown) (unknown) ABG HCO3 10 L (units ( unknown) date) unknown) (unknown) (no (unknown) (unknown) ABG HCO3 8 L (units (u nknown) date) unknown) (unknown) (no (unknown) (unknown) ABG HCO3 (units (unkno wn) date) unknown) (unknown) (no (unknown) (unknown) ABG O2 Saturation (units (unknown) date) 52 L* unknown) (unknown) (no (unknown) (unknown) ABG O2 Saturation (units (unknown) date) 86 L unknown) (unknown) (no (unknown) (unknown) ABG O2 Saturation (units (unknown) date) unknown) (unknown) (no (unknown) (unknown) ABG Total CO2 12 (units (unknown) date) L unknown) (unknown) (no (unknown) (unknown) ABG Total CO2 9 L (units (unknown) date) unknown) (unknown) (no (unknown) (unknown) ABG Total CO2 (units ( unknown) date) unknown) (unknown) (no (unknown) (unknown) ABG pCO2 36.7 (units ( unknown) date) unknown) (unknown) (no (unknown) (unknown) ABG pCO2 37.5 (units ( unknown) date) unknown) (unknown) (no (unknown) (unknown) ABG pCO2 (units (unkno wn) date) unknown) (unknown) (no (unknown) (unknown) ABG pH 6.92 L* (units (unknown) date) unknown) (unknown) (no (unknown) (unknown) ABG pH 7.06 L* (units (unknown) date) unknown) (unknown) (no (unknown) (unknown) ABG pH (units (unkno wn) date) unknown) (unknown) (no (unknown) (unknown) ABG pO2 38 L* (units ( unknown) date) unknown) (unknown) (no (unknown) (unknown) ABG pO2 82 (units (unk nown) date) unknown) (unknown) (no (unknown) (unknown) ABG pO2 (units (unkno wn) date) unknown) (unknown) (no (unknown) (unknown) ALT 203 H (units (unkn own) date) unknown) (unknown) (no (unknown) (unknown) ALT 22 (units (unkno wn) date) unknown) (unknown) (no (unknown) (unknown) ALT (units (unkno wn) date) unknown) (unknown) (no (unknown) (unknown) AST 17 (units (unkno wn) date) unknown) (unknown) (no (unknown) (unknown) AST 226 H (units (unkn own) date) unknown) (unknown) (no (unknown) (unknown) AST (units (unkno wn) date) unknown) (unknown) (no (unknown) (unknown) Abd: Obese (units (unk nown) date) unknown) (unknown) (no (unknown) (unknown) Acute renal (units (un known) date) failure in the unknown) setting of severe hyperkalemia (unknown) (no (unknown) (unknown) Acute respiratory (units (unknown) date) failure unknown) (unknown) (no (unknown) (unknown) Age/Sex: 57 / F (units (unknown) date) unknown) (unknown) (no (unknown) (unknown) Albumin 3.6 (units (un known) date) unknown) (unknown) (no (unknown) (unknown) Albumin 4.1 (units (un known) date) unknown) (unknown) (no (unknown) (unknown) Albumin (units (unkno wn) date) unknown) (unknown) (no (unknown) (unknown) Albumin/Globulin (units (unknown) date) Ratio 1.2 unknown) (unknown) (no (unknown) (unknown) Albumin/Globulin (units (unknown) date) Ratio 1.3 unknown) (unknown) (no (unknown) (unknown) Albumin/Globulin (units (unknown) date) Ratio unknown) (unknown) (no (unknown) (unknown) Alkaline (units (unkno wn) date) Phosphatase 100 unknown) (unknown) (no (unknown) (unknown) Alkaline (units (unkno wn) date) Phosphatase 93 unknown) (unknown) (no (unknown) (unknown) Alkaline (units (unkno wn) date) Phosphatase unknown) (unknown) (no (unknown) (unknown) Allergies (units (unkn own) date) unknown) (unknown) (no (unknown) (unknown) Allergy/AdvReac (units (unknown) date) Type Severity unknown) Reaction Status Date / Time (unknown) (no (unknown) (unknown) Assessment + Plan (units (unknown) date) narrative: unknown) (unknown) (no (unknown) (unknown) Assessment + Plan (units (unknown) date) unknown) (unknown) (no (unknown) (unknown) BUN 117 H* (units (unk nown) date) unknown) (unknown) (no (unknown) (unknown) BUN 120 H* (units (unk nown) date) unknown) (unknown) (no (unknown) (unknown) BUN (units (unkno wn) date) unknown) (unknown) (no (unknown) (unknown) BUN/Creatinine (units (unknown) date) Ratio 7.9 unknown) (unknown) (no (unknown) (unknown) BUN/Creatinine (units (unknown) date) Ratio 8.4 unknown) (unknown) (no (unknown) (unknown) BUN/Creatinine (units (unknown) date) Ratio unknown) (unknown) (no (unknown) (unknown) Baso # (Auto) 0 (units (unknown) date) unknown) (unknown) (no (unknown) (unknown) Baso # (Auto) (units ( unknown) date) unknown) (unknown) (no (unknown) (unknown) Baso % (Auto) 0.1 (units (unknown) date) unknown) (unknown) (no (unknown) (unknown) Baso % (Auto) (units ( unknown) date) unknown) (unknown) (no (unknown) (unknown) Blood Pressure (units (unknown) date) 95/51 L 91/47 L unknown) 94/44 L (unknown) (no (unknown) (unknown) CK-MB (CK-2) 2.90 (units (unknown) date) H unknown) (unknown) (no (unknown) (unknown) CK-MB (CK-2) Rel (units (unknown) date) Index 1.7 unknown) (unknown) (no (unknown) (unknown) CK-MB (CK-2) Rel (units (unknown) date) Index unknown) (unknown) (no (unknown) (unknown) CK-MB (CK-2) (units (u nknown) date) unknown) (unknown) (no (unknown) (unknown) CV: Patient (units (un known) date) alternated between unknown) having a pulse and being pulseless, EKG showed (unknown) (no (unknown) (unknown) Calcium 7.6 L (units ( unknown) date) unknown) (unknown) (no (unknown) (unknown) Calcium 9.0 (units (un known) date) unknown) (unknown) (no (unknown) (unknown) Calcium (units (unkno wn) date) unknown) (unknown) (no (unknown) (unknown) Carbon Dioxide 7 (units (unknown) date) L* unknown) (unknown) (no (unknown) (unknown) Carbon Dioxide 8 (units (unknown) date) L* unknown) (unknown) (no (unknown) (unknown) Carbon Dioxide (units (unknown) date) unknown) (unknown) (no (unknown) (unknown) Chief complaint: (units (unknown) date) INPT unknown) (unknown) (no (unknown) (unknown) Chloride 95 L (units ( unknown) date) unknown) (unknown) (no (unknown) (unknown) Chloride 97 L (units ( unknown) date) unknown) (unknown) (no (unknown) (unknown) Chloride (units (unkno wn) date) unknown) (unknown) (no (unknown) (unknown) Comment: (units (unkno wn) date) unknown) (unknown) (no (unknown) (unknown) Consult Note (units (u nknown) date) unknown) (unknown) (no (unknown) (unknown) Consult details (units (unknown) date) unknown) (unknown) (no (unknown) (unknown) Creatinine 13.9 (units (unknown) date) H* unknown) (unknown) (no (unknown) (unknown) Creatinine 15.2 (units (unknown) date) H* unknown) (unknown) (no (unknown) (unknown) Creatinine (units (unk nown) date) unknown) (unknown) (no (unknown) (unknown) Critical Care (units ( unknown) date) time: unknown) (unknown) (no (unknown) (unknown) : 1965 (units (unknown) date) Acct:[id number] unknown) (unknown) (no (unknown) (unknown) Date Patient (units (u nknown) date) Seen: 07/30/22 unknown) (unknown) (no (unknown) (unknown) Date of Service: (units (unknown) date) 07/29/22 unknown) (unknown) (no (unknown) (unknown) Diabetes (units (unkno wn) date) unknown) (unknown) (no (unknown) (unknown) Polly Bone is a (units (unknown) date) 57-year-old female unknown) pod 1. L5-6 lumbar laminectomy is found to (unknown) (no (unknown) (unknown) Eos # (Auto) 0 (units (unknown) date) unknown) (unknown) (no (unknown) (unknown) Eos # (Auto) (units (u nknown) date) unknown) (unknown) (no (unknown) (unknown) Eos % (Auto) 0.0 (units (unknown) date) L unknown) (unknown) (no (unknown) (unknown) Eos % (Auto) (units (u nknown) date) unknown) (unknown) (no (unknown) (unknown) Estimated GFR 3 L (units (unknown) date) unknown) (unknown) (no (unknown) (unknown) Estimated GFR (units ( unknown) date) unknown) (unknown) (no (unknown) (unknown) Exam Narrative: (units (unknown) date) unknown) (unknown) (no (unknown) (unknown) Exam (units (unkno wn) date) unknown) (unknown) (no (unknown) (unknown) Extremities: (units (u nknown) date) Appears to have unknown) good cap refill (unknown) (no (unknown) (unknown) FiO2 100 (units (unkno wn) date) unknown) (unknown) (no (unknown) (unknown) FiO2 15 (units (unkno wn) date) unknown) (unknown) (no (unknown) (unknown) FiO2 (units (unkno wn) date) unknown) (unknown) (no (unknown) (unknown) GERD (units (unkno wn) date) (gastroesophageal unknown) reflux disease) (unknown) (no (unknown) (unknown) Gen: Arousable, (units (unknown) date) morbidly obese 57 unknown) y.o. female (unknown) (no (unknown) (unknown) Globulin 2.9 (units (u nknown) date) unknown) (unknown) (no (unknown) (unknown) Globulin 3.1 (units (u nknown) date) unknown) (unknown) (no (unknown) (unknown) Globulin (units (unkno wn) date) unknown) (unknown) (no (unknown) (unknown) Glucose 27 L* 303 (units (unknown) date) H D unknown) (unknown) (no (unknown) (unknown) Glucose 404 H D (units (unknown) date) unknown) (unknown) (no (unknown) (unknown) Glucose (units (unkno wn) date) unknown) (unknown) (no (unknown) (unknown) HEENT: (units (unkno wn) date) normocephalic, unknown) atraumatic, conjunctiva clear, sclera non-icteric, oral (unknown) (no (unknown) (unknown) HLD (units (unkno wn) date) (hyperlipidemia) unknown) (unknown) (no (unknown) (unknown) HTN (units (unkno wn) date) (hypertension) unknown) (unknown) (no (unknown) (unknown) Hct 36.1 (units (unkno wn) date) unknown) (unknown) (no (unknown) (unknown) Hct (units (unkno wn) date) unknown) (unknown) (no (unknown) (unknown) Hgb 11.3 L (units (unk nown) date) unknown) (unknown) (no (unknown) (unknown) Hgb (units (unkno wn) date) unknown) (unknown) (no (unknown) (unknown) History of (units (unk nown) date) Present Illness unknown) (unknown) (no (unknown) (unknown) History of (units (unk nown) date) hysterectomy unknown) (unknown) (no (unknown) (unknown) History (units (unkno wn) date) unknown) (unknown) (no (unknown) (unknown) Home Medications (units (unknown) date) and Allergies unknown) (unknown) (no (unknown) (unknown) Home Medications (units (unknown) date) unknown) (unknown) (no (unknown) (unknown) I spent a total (units (unknown) date) of 180 minutes of unknown) critical care time on this patient's care (unknown) (no (unknown) (unknown) [facility] (units (unknown) date) [address] unknown) [place] [address] (unknown) (no (unknown) (unknown) Laboratory (units (unk nown) date) Results - last 24 unknown) hr (unknown) (no (unknown) (unknown) Labs (units (unkno wn) date) unknown) (unknown) (no (unknown) (unknown) Labs: (units (unkno wn) date) unknown) (unknown) (no (unknown) (unknown) Lumbar disc (units (un known) date) herniation unknown) (unknown) (no (unknown) (unknown) Lymph # (Auto) (units (unknown) date) 800 L unknown) (unknown) (no (unknown) (unknown) Lymph # (Auto) (units (unknown) date) unknown) (unknown) (no (unknown) (unknown) Lymph % (Auto) (units (unknown) date) 3.9 L unknown) (unknown) (no (unknown) (unknown) Lymph % (Auto) (units (unknown) date) unknown) (unknown) (no (unknown) (unknown) MCH 29.0 (units (unkno wn) date) unknown) (unknown) (no (unknown) (unknown) MCH (units (unkno wn) date) unknown) (unknown) (no (unknown) (unknown) MCHC 31.4 (units (unkn own) date) unknown) (unknown) (no (unknown) (unknown) MCHC (units (unkno wn) date) unknown) (unknown) (no (unknown) (unknown) MCV 92.3 (units (unkno wn) date) unknown) (unknown) (no (unknown) (unknown) MCV (units (unkno wn) date) unknown) (unknown) (no (unknown) (unknown) Magnesium 1.8 (units ( unknown) date) unknown) (unknown) (no (unknown) (unknown) Magnesium (units (unkn own) date) unknown) (unknown) (no (unknown) (unknown) Medical History (units (unknown) date) (Reviewed 07/30/22 unknown) @ 05:23 by JOVANNY Alonzo) (unknown) (no (unknown) (unknown) Medication (units (unk nown) date) Instructions unknown) Recorded Confirmed Type (unknown) (no (unknown) (unknown) Meds (units (unkno wn) date) unknown) (unknown) (no (unknown) (unknown) Gibson # (Auto) 100 (units (unknown) date) unknown) (unknown) (no (unknown) (unknown) Gibson # (Auto) (units ( unknown) date) unknown) (unknown) (no (unknown) (unknown) Gibson % (Auto) 0.6 (units (unknown) date) L unknown) (unknown) (no (unknown) (unknown) Gibson % (Auto) (units ( unknown) date) unknown) (unknown) (no (unknown) (unknown) Narrative (units (unkn own) date) unknown) (unknown) (no (unknown) (unknown) Narrative: (units (unk nown) date) unknown) (unknown) (no (unknown) (unknown) Neck: supple, (units ( unknown) date) full ROM, no JVD, unknown) trachea is midline (unknown) (no (unknown) (unknown) Neuro: Speech (units ( unknown) date) clear and coherent unknown) just prior to intubation obtunded (unknown) (no (unknown) (unknown) Neuropathy (units (unk nown) date) unknown) (unknown) (no (unknown) (unknown) Neut # (Auto) (units ( unknown) date) [address]230 H unknown) (unknown) (no (unknown) (unknown) Neut # (Auto) (units ( unknown) date) unknown) (unknown) (no (unknown) (unknown) Neut % (Auto) (units ( unknown) date) 95.4 H unknown) (unknown) (no (unknown) (unknown) Neut % (Auto) (units ( unknown) date) unknown) (unknown) (no (unknown) (unknown) Nursing contacted (units (unknown) date) me requesting unknown) consult by Orthopedic surgery for this patient (unknown) (no (unknown) (unknown) Objective (units (unkn own) date) unknown) (unknown) (no (unknown) (unknown) Ovarian cancer (units (unknown) date) (-2014) unknown) (unknown) (no (unknown) (unknown) Oxygen Delivery (units (unknown) date) Method Room Air unknown) (unknown) (no (unknown) (unknown) Oxygen Flow Rate (units (unknown) date) 2 3 unknown) (unknown) (no (unknown) (unknown) Oxygen Flow Rate (units (unknown) date) 3 unknown) (unknown) (no (unknown) (unknown) PFSH (units (unkno wn) date) unknown) (unknown) (no (unknown) (unknown) Patient is (units (unk nown) date) intubated unable unknown) to speak and is from [place] so we do not have (unknown) (no (unknown) (unknown) Patient: (units (unkno wn) date) Polly Bone unknown) MR#: [id number] (unknown) (no (unknown) (unknown) Plt Count 386 (units ( unknown) date) unknown) (unknown) (no (unknown) (unknown) Plt Count (units (unkn own) date) unknown) (unknown) (no (unknown) (unknown) Potassium 7.2 H* (units (unknown) date) D unknown) (unknown) (no (unknown) (unknown) Potassium 9.7 H* (units (unknown) date) unknown) (unknown) (no (unknown) (unknown) Potassium (units (unkn own) date) unknown) (unknown) (no (unknown) (unknown) Probable STEMI (units (unknown) date) likely in the unknown) setting of acute hyperkalemia (unknown) (no (unknown) (unknown) Provider: (units (unkn own) date) Rizwana Valle unknown) (unknown) (no (unknown) (unknown) Psyche: Unable to (units (unknown) date) assess unknown) (unknown) (no (unknown) (unknown) Pulse Oximetry 93 (units (unknown) date) 94 unknown) (unknown) (no (unknown) (unknown) Pulse Rate 60 86 (units (unknown) date) unknown) (unknown) (no (unknown) (unknown) RBC 3.91 L (units (unk nown) date) unknown) (unknown) (no (unknown) (unknown) RBC (units (unkno wn) date) unknown) (unknown) (no (unknown) (unknown) RDW 14.4 (units (unkno wn) date) unknown) (unknown) (no (unknown) (unknown) RDW (units (unkno wn) date) unknown) (unknown) (no (unknown) (unknown) ROS: Yes (units (unkno wn) date) unobtainable due unknown) to endotracheal tube (unknown) (no (unknown) (unknown) Reason for (units (unk nown) date) consult: Code blue unknown) (unknown) (no (unknown) (unknown) Resp: Patient is (units (unknown) date) currently vented unknown) (unknown) (no (unknown) (unknown) Respiratory Rate (units (unknown) date) 16 unknown) (unknown) (no (unknown) (unknown) Result Diagrams: (units (unknown) date) unknown) (unknown) (no (unknown) (unknown) Review of Systems (units (unknown) date) unknown) (unknown) (no (unknown) (unknown) SARS-CoV-2 (PCR) (units (unknown) date) Negative unknown) (unknown) (no (unknown) (unknown) SARS-CoV-2 (PCR) (units (unknown) date) unknown) (unknown) (no (unknown) (unknown) STEMI changes (units ( unknown) date) unknown) (unknown) (no (unknown) (unknown) Sciatica (units (unkno wn) date) unknown) (unknown) (no (unknown) (unknown) Score 4-6) (units (unk nown) date) unknown) (unknown) (no (unknown) (unknown) Signed By: (units (unk nown) date) unknown) (unknown) (no (unknown) (unknown) Skin: Appears to (units (unknown) date) have Martha in unknown) her pannus area (unknown) (no (unknown) (unknown) Smoking Status: (units (unknown) date) Former smoker unknown) (unknown) (no (unknown) (unknown) Social History (units (unknown) date) unknown) (unknown) (no (unknown) (unknown) Sodium 133 L (units (u nknown) date) unknown) (unknown) (no (unknown) (unknown) Sodium 140 (units (unk nown) date) unknown) (unknown) (no (unknown) (unknown) Sodium (units (unkno wn) date) unknown) (unknown) (no (unknown) (unknown) Surgical History (units (unknown) date) (Reviewed 07/30/22 unknown) @ 05:23 by JOVANNY Alonzo) (unknown) (no (unknown) (unknown) Temperature 97.9 (units (unknown) date) F unknown) (unknown) (no (unknown) (unknown) Time Patient (units (u nknown) date) Seen: 03:00 unknown) (unknown) (no (unknown) (unknown) Time Spent With (units (unknown) date) Patient unknown) (unknown) (no (unknown) (unknown) Tobacco + (units (unkn own) date) Substance Use unknown) (unknown) (no (unknown) (unknown) Total Bilirubin (units (unknown) date) 0.3 unknown) (unknown) (no (unknown) (unknown) Total Bilirubin (units (unknown) date) 0.4 unknown) (unknown) (no (unknown) (unknown) Total Bilirubin (units (unknown) date) unknown) (unknown) (no (unknown) (unknown) Total Creatine (units (unknown) date) Kinase 173 H unknown) (unknown) (no (unknown) (unknown) Total Creatine (units (unknown) date) Kinase unknown) (unknown) (no (unknown) (unknown) Total Protein 6.5 (units (unknown) date) unknown) (unknown) (no (unknown) (unknown) Total Protein 7.2 (units (unknown) date) unknown) (unknown) (no (unknown) (unknown) Total Protein (units ( unknown) date) unknown) (unknown) (no (unknown) (unknown) Troponin I 0.072 (units (unknown) date) H unknown) (unknown) (no (unknown) (unknown) Troponin I (units (unk nown) date) unknown) (unknown) (no (unknown) (unknown) Vital Signs (units (un known) date) unknown) (unknown) (no (unknown) (unknown) WBC 21.1 H (units (unk nown) date) unknown) (unknown) (no (unknown) (unknown) WBC (units (unkno wn) date) unknown) (unknown) (no (unknown) (unknown) [Embedded Image (units (unknown) date) Not Available] unknown) (unknown) (no (unknown) (unknown) acetaminophen 500 (units (unknown) date) mg tablet 1,000 mg unknown) PO QD-BID PRN Pain 07/28/22 07/29/22 (unknown) (no (unknown) (unknown) alcohol intake: (units (unknown) date) current unknown) (unknown) (no (unknown) (unknown) also elevated at (units (unknown) date) 2.9 and total unknown) creatinine kinase is elevated 173 (unknown) (no (unknown) (unknown) amlodipine 2.5 mg (units (unknown) date) tablet 2.5 mg PO unknown) DAILY 07/28/22 07/29/22 History (unknown) (no (unknown) (unknown) and a repeat lab (units (unknown) date) her potassium was unknown) 7.2 (unknown) (no (unknown) (unknown) critical care (units ( unknown) date) facility for unknown) emergent dialysis. (unknown) (no (unknown) (unknown) cyclobenzaprine (units (unknown) date) 7.5 mg tablet 7.5 unknown) mg PO PRN PRN Pain (Scale 07/29/22 07/29/22 (unknown) (no (unknown) (unknown) difficulty (units (unkn own) date) breathing and by unknown) the time I reached the floor CPR was being performed (unknown) (no (unknown) (unknown) duloxetine [From (units (unknown) date) Cymbalta] Allergy unknown) Intermediate Rash, Verified 07/29/22 12:03 (unknown) (no (unknown) (unknown) elevated blood (units (unknown) date) glucose unknown) (unknown) (no (unknown) (unknown) gabapentin 800 mg (units (unknown) date) tablet 800 mg PO unknown) BID 07/28/22 07/29/22 History (unknown) (no (unknown) (unknown) glipizide 10 mg (units (unknown) date) tablet 10 mg PO unknown) DAILY 07/28/22 07/29/22 History (unknown) (no (unknown) (unknown) have severe (units (un known) date) hyperkalemia, unknown) severe hypotension, suspected STEMI and is moved from (unknown) (no (unknown) (unknown) have very soft (units (unknown) date) blood pressures unknown) and by the time I came up to the floor her blood (unknown) (no (unknown) (unknown) her current (units (un known) date) medical records unknown) and I am not able to obtain a family history from (unknown) (no (unknown) (unknown) her. (units (unkno wn) date) unknown) (unknown) (no (unknown) (unknown) household (units (unkn own) date) members: unknown) significant other (unknown) (no (unknown) (unknown) hydrocodone 5 (units ( unknown) date) mg-acetaminophen unknown) 325 5 tab PO Q8H PRN pain 07/29/22 07/29/22 (unknown) (no (unknown) (unknown) ibuprofen 200 mg (units (unknown) date) tablet (Advil) 600 unknown) mg PO QD-BID PRN Pain 07/28/22 07/29/22 (unknown) (no (unknown) (unknown) itching (units (unkno wn) date) unknown) (unknown) (no (unknown) (unknown) lisinopril 40 mg (units (unknown) date) tablet 40 mg PO unknown) DAILY 07/28/22 07/29/22 History (unknown) (no (unknown) (unknown) metformin 500 mg (units (unknown) date) tablet 1,000 mg PO unknown) BID 07/28/22 07/29/22 History (unknown) (no (unknown) (unknown) metoprolol (units (unk nown) date) succinate 50 mg 50 unknown) mg PO DAILY 07/28/22 07/29/22 History (unknown) (no (unknown) (unknown) mg tablet (units (unkn own) date) unknown) (unknown) (no (unknown) (unknown) mucosa pink and (units (unknown) date) moist unknown) (unknown) (no (unknown) (unknown) normal rhythm (units ( unknown) date) after having her unknown) potassium corrected (unknown) (no (unknown) (unknown) nortriptyline 10 (units (unknown) date) mg capsule 20 mg unknown) PO BEDTIME 07/28/22 07/29/22 History (unknown) (no (unknown) (unknown) on the patient. (units (unknown) date) unknown) (unknown) (no (unknown) (unknown) oxycodone 5 mg (units (unknown) date) tablet 5 mg PO Q4H unknown) PRN pain #40 tabs 07/29/22 Rx (unknown) (no (unknown) (unknown) pantoprazole 40 (units (unknown) date) mg tablet,delayed unknown) 40 mg PO DAILY 07/28/22 07/29/22 History (unknown) (no (unknown) (unknown) pressure was in (units (unknown) date) the low 90s. unknown) Apparently during that time it dropped even to a (unknown) (no (unknown) (unknown) release (units (unkno wn) date) unknown) (unknown) (no (unknown) (unknown) simvastatin 40 mg (units (unknown) date) tablet 40 mg PO unknown) BEDTIME 07/28/22 07/29/22 History (unknown) (no (unknown) (unknown) systolic of 60, (units (unknown) date) the patient was unknown) reportedly complaining of chest pain and (unknown) (no (unknown) (unknown) tablet,extended (units (unknown) date) release 24 hr unknown) (unknown) (no (unknown) (unknown) the (units (unkno wn) date) medical-surgical unknown) unit to critical care and is awaiting transfer to a (unknown) (no (unknown) (unknown) today; this time (units (unknown) date) is exclusive of unknown) procedural time. (unknown) (no (unknown) (unknown) who is a (units (unkno wn) date) 57-year-old female unknown) pod 1. L5-6 lumbar laminectomy. She was noted to Result panel 136 (unknown) (no (unknown) (unknown) (no value) (units (unk nown) date) unknown) (unknown) (no (unknown) (unknown) (past 8 hours): (units (unknown) date) unknown) (unknown) (no (unknown) (unknown) * Creatinine (units (u nknown) date) prior to insulin unknown) and D5 was 15.2 and currently it is 13.9 her EGFR (unknown) (no (unknown) (unknown) * Initial (units (unkn own) date) potassium was 9.7. unknown) She was administered D5 and 10 units of IV insulin (unknown) (no (unknown) (unknown) * Initial troponin (units (unknown) date) is elevated at unknown) 0.072nd troponin is currently pending CK-MB is (unknown) (no (unknown) (unknown) * Patient is (units (u nknown) date) currently unknown) intubated, vent settings per eICU (unknown) (no (unknown) (unknown) * Patient is (units (u nknown) date) currently on unknown) heparin drip (unknown) (no (unknown) (unknown) * Patient needs (units (unknown) date) to be transferred unknown) for emergent dialysis (unknown) (no (unknown) (unknown) * Patient (units (unkn own) date) underwent several unknown) rounds of CPR and was eventually restored to a more (unknown) (no (unknown) (unknown) * She is ordered (units (unknown) date) for another 10 unknown) units of IV insulin, D5 is being held due to her (unknown) (no (unknown) (unknown) * (units (unkno wn) date) unknown) (unknown) (no (unknown) (unknown) [id number] (units (unkno wn) date) unknown) (unknown) (no (unknown) (unknown) 01:00 (units (unkno wn) date) unknown) (unknown) (no (unknown) (unknown) 03:20 03:35 04:15 (units (unknown) date) unknown) (unknown) (no (unknown) (unknown) 04:25 (units (unkno wn) date) unknown) (unknown) (no (unknown) (unknown) 07/29/22 07/29/22 (units (unknown) date) 07/30/22 unknown) (unknown) (no (unknown) (unknown) 07/29/22 (units (unkno wn) date) unknown) (unknown) (no (unknown) (unknown) 07/30/22 03:20 (units (unknown) date) unknown) (unknown) (no (unknown) (unknown) 07/30/22 04:15 (units (unknown) date) unknown) (unknown) (no (unknown) (unknown) 07/30/22 07/30/22 (units (unknown) date) 07/30/22 unknown) (unknown) (no (unknown) (unknown) 07/30/22 (units (unkno wn) date) unknown) (unknown) (no (unknown) (unknown) 12:29 12:55 03:20 (units (unknown) date) unknown) (unknown) (no (unknown) (unknown) 22:50 07/29/22 (units (unknown) date) unknown) (unknown) (no (unknown) (unknown) 23:45 07/30/22 (units (unknown) date) unknown) (unknown) (no (unknown) (unknown) ABG Base Excess (units (unknown) date) -20.0 L unknown) (unknown) (no (unknown) (unknown) ABG Base Excess (units (unknown) date) -25.0 L unknown) (unknown) (no (unknown) (unknown) ABG Base Excess (units (unknown) date) unknown) (unknown) (no (unknown) (unknown) ABG HCO3 10 L (units ( unknown) date) unknown) (unknown) (no (unknown) (unknown) ABG HCO3 8 L (units (u nknown) date) unknown) (unknown) (no (unknown) (unknown) ABG HCO3 (units (unkno wn) date) unknown) (unknown) (no (unknown) (unknown) ABG O2 Saturation (units (unknown) date) 52 L* unknown) (unknown) (no (unknown) (unknown) ABG O2 Saturation (units (unknown) date) 86 L unknown) (unknown) (no (unknown) (unknown) ABG O2 Saturation (units (unknown) date) unknown) (unknown) (no (unknown) (unknown) ABG Total CO2 12 (units (unknown) date) L unknown) (unknown) (no (unknown) (unknown) ABG Total CO2 9 L (units (unknown) date) unknown) (unknown) (no (unknown) (unknown) ABG Total CO2 (units ( unknown) date) unknown) (unknown) (no (unknown) (unknown) ABG pCO2 36.7 (units ( unknown) date) unknown) (unknown) (no (unknown) (unknown) ABG pCO2 37.5 (units ( unknown) date) unknown) (unknown) (no (unknown) (unknown) ABG pCO2 (units (unkno wn) date) unknown) (unknown) (no (unknown) (unknown) ABG pH 6.92 L* (units (unknown) date) unknown) (unknown) (no (unknown) (unknown) ABG pH 7.06 L* (units (unknown) date) unknown) (unknown) (no (unknown) (unknown) ABG pH (units (unkno wn) date) unknown) (unknown) (no (unknown) (unknown) ABG pO2 38 L* (units ( unknown) date) unknown) (unknown) (no (unknown) (unknown) ABG pO2 82 (units (unk nown) date) unknown) (unknown) (no (unknown) (unknown) ABG pO2 (units (unkno wn) date) unknown) (unknown) (no (unknown) (unknown) ALT 203 H (units (unkn own) date) unknown) (unknown) (no (unknown) (unknown) ALT 22 (units (unkno wn) date) unknown) (unknown) (no (unknown) (unknown) ALT (units (unkno wn) date) unknown) (unknown) (no (unknown) (unknown) AST 17 (units (unkno wn) date) unknown) (unknown) (no (unknown) (unknown) AST 226 H (units (unkn own) date) unknown) (unknown) (no (unknown) (unknown) AST (units (unkno wn) date) unknown) (unknown) (no (unknown) (unknown) Abd: Obese (units (unk nown) date) unknown) (unknown) (no (unknown) (unknown) Acute renal (units (un known) date) failure in the unknown) setting of severe hyperkalemia (unknown) (no (unknown) (unknown) Acute respiratory (units (unknown) date) failure unknown) (unknown) (no (unknown) (unknown) Age/Sex: 57 / F (units (unknown) date) unknown) (unknown) (no (unknown) (unknown) Albumin 3.6 (units (un known) date) unknown) (unknown) (no (unknown) (unknown) Albumin 4.1 (units (un known) date) unknown) (unknown) (no (unknown) (unknown) Albumin (units (unkno wn) date) unknown) (unknown) (no (unknown) (unknown) Albumin/Globulin (units (unknown) date) Ratio 1.2 unknown) (unknown) (no (unknown) (unknown) Albumin/Globulin (units (unknown) date) Ratio 1.3 unknown) (unknown) (no (unknown) (unknown) Albumin/Globulin (units (unknown) date) Ratio unknown) (unknown) (no (unknown) (unknown) Alkaline (units (unkno wn) date) Phosphatase 100 unknown) (unknown) (no (unknown) (unknown) Alkaline (units (unkno wn) date) Phosphatase 93 unknown) (unknown) (no (unknown) (unknown) Alkaline (units (unkno wn) date) Phosphatase unknown) (unknown) (no (unknown) (unknown) Allergies (units (unkn own) date) unknown) (unknown) (no (unknown) (unknown) Allergy/AdvReac (units (unknown) date) Type Severity unknown) Reaction Status Date / Time (unknown) (no (unknown) (unknown) Assessment + Plan (units (unknown) date) narrative: unknown) (unknown) (no (unknown) (unknown) Assessment + Plan (units (unknown) date) unknown) (unknown) (no (unknown) (unknown) BUN 117 H* (units (unk nown) date) unknown) (unknown) (no (unknown) (unknown) BUN 120 H* (units (unk nown) date) unknown) (unknown) (no (unknown) (unknown) BUN (units (unkno wn) date) unknown) (unknown) (no (unknown) (unknown) BUN/Creatinine (units (unknown) date) Ratio 7.9 unknown) (unknown) (no (unknown) (unknown) BUN/Creatinine (units (unknown) date) Ratio 8.4 unknown) (unknown) (no (unknown) (unknown) BUN/Creatinine (units (unknown) date) Ratio unknown) (unknown) (no (unknown) (unknown) Baso # (Auto) 0 (units (unknown) date) unknown) (unknown) (no (unknown) (unknown) Baso # (Auto) (units ( unknown) date) unknown) (unknown) (no (unknown) (unknown) Baso % (Auto) 0.1 (units (unknown) date) unknown) (unknown) (no (unknown) (unknown) Baso % (Auto) (units ( unknown) date) unknown) (unknown) (no (unknown) (unknown) Blood Pressure (units (unknown) date) 95/51 L 91/47 L unknown) 94/44 L (unknown) (no (unknown) (unknown) CK-MB (CK-2) 2.90 (units (unknown) date) H unknown) (unknown) (no (unknown) (unknown) CK-MB (CK-2) Rel (units (unknown) date) Index 1.7 unknown) (unknown) (no (unknown) (unknown) CK-MB (CK-2) Rel (units (unknown) date) Index unknown) (unknown) (no (unknown) (unknown) CK-MB (CK-2) (units (u nknown) date) unknown) (unknown) (no (unknown) (unknown) COVID-19 status: (units (unknown) date) Negative unknown) (unknown) (no (unknown) (unknown) COVID-19 (units (unkno wn) date) unknown) (unknown) (no (unknown) (unknown) CV: Patient (units (un known) date) alternated between unknown) having a pulse and being pulseless, EKG showed (unknown) (no (unknown) (unknown) Calcium 7.6 L (units ( unknown) date) unknown) (unknown) (no (unknown) (unknown) Calcium 9.0 (units (un known) date) unknown) (unknown) (no (unknown) (unknown) Calcium (units (unkno wn) date) unknown) (unknown) (no (unknown) (unknown) Carbon Dioxide 7 (units (unknown) date) L* unknown) (unknown) (no (unknown) (unknown) Carbon Dioxide 8 (units (unknown) date) L* unknown) (unknown) (no (unknown) (unknown) Carbon Dioxide (units (unknown) date) unknown) (unknown) (no (unknown) (unknown) Cardiac arrest in (units (unknown) date) the setting of unknown) acute hyperkalemia (unknown) (no (unknown) (unknown) Chief complaint: (units (unknown) date) INPT unknown) (unknown) (no (unknown) (unknown) Chloride 95 L (units ( unknown) date) unknown) (unknown) (no (unknown) (unknown) Chloride 97 L (units ( unknown) date) unknown) (unknown) (no (unknown) (unknown) Chloride (units (unkno wn) date) unknown) (unknown) (no (unknown) (unknown) Comment: (units (unkno wn) date) unknown) (unknown) (no (unknown) (unknown) Consult Note (units (u nknown) date) unknown) (unknown) (no (unknown) (unknown) Consult details (units (unknown) date) unknown) (unknown) (no (unknown) (unknown) Creatinine 13.9 (units (unknown) date) H* unknown) (unknown) (no (unknown) (unknown) Creatinine 15.2 (units (unknown) date) H* unknown) (unknown) (no (unknown) (unknown) Creatinine (units (unk nown) date) unknown) (unknown) (no (unknown) (unknown) Critical Care (units ( unknown) date) time: unknown) (unknown) (no (unknown) (unknown) : 1965 (units (unknown) date) Acct:[id number] unknown) (unknown) (no (unknown) (unknown) Date Patient (units (u nknown) date) Seen: 07/30/22 unknown) (unknown) (no (unknown) (unknown) Date of Service: (units (unknown) date) 07/29/22 unknown) (unknown) (no (unknown) (unknown) Diabetes (units (unkno wn) date) unknown) (unknown) (no (unknown) (unknown) Polly Bone is a (units (unknown) date) 57-year-old female unknown) pod 1. L5-6 lumbar laminectomy is found to (unknown) (no (unknown) (unknown) Eos # (Auto) 0 (units (unknown) date) unknown) (unknown) (no (unknown) (unknown) Eos # (Auto) (units (u nknown) date) unknown) (unknown) (no (unknown) (unknown) Eos % (Auto) 0.0 (units (unknown) date) L unknown) (unknown) (no (unknown) (unknown) Eos % (Auto) (units (u nknown) date) unknown) (unknown) (no (unknown) (unknown) Estimated GFR 3 L (units (unknown) date) unknown) (unknown) (no (unknown) (unknown) Estimated GFR (units ( unknown) date) unknown) (unknown) (no (unknown) (unknown) Exam Narrative: (units (unknown) date) unknown) (unknown) (no (unknown) (unknown) Exam (units (unkno wn) date) unknown) (unknown) (no (unknown) (unknown) Extremities: (units (u nknown) date) Appears to have unknown) good cap refill (unknown) (no (unknown) (unknown) FiO2 100 (units (unkno wn) date) unknown) (unknown) (no (unknown) (unknown) FiO2 15 (units (unkno wn) date) unknown) (unknown) (no (unknown) (unknown) FiO2 (units (unkno wn) date) unknown) (unknown) (no (unknown) (unknown) GERD (units (unkno wn) date) (gastroesophageal unknown) reflux disease) (unknown) (no (unknown) (unknown) Gen: Arousable, (units (unknown) date) morbidly obese 57 unknown) y.o. female (unknown) (no (unknown) (unknown) Globulin 2.9 (units (u nknown) date) unknown) (unknown) (no (unknown) (unknown) Globulin 3.1 (units (u nknown) date) unknown) (unknown) (no (unknown) (unknown) Globulin (units (unkno wn) date) unknown) (unknown) (no (unknown) (unknown) Glucose 27 L* 303 (units (unknown) date) H D unknown) (unknown) (no (unknown) (unknown) Glucose 404 H D (units (unknown) date) unknown) (unknown) (no (unknown) (unknown) Glucose (units (unkno wn) date) unknown) (unknown) (no (unknown) (unknown) HEENT: (units (unkno wn) date) normocephalic, unknown) atraumatic, conjunctiva clear, sclera non-icteric, oral (unknown) (no (unknown) (unknown) HLD (units (unkno wn) date) (hyperlipidemia) unknown) (unknown) (no (unknown) (unknown) HTN (units (unkno wn) date) (hypertension) unknown) (unknown) (no (unknown) (unknown) Hct 36.1 (units (unkno wn) date) unknown) (unknown) (no (unknown) (unknown) Hct (units (unkno wn) date) unknown) (unknown) (no (unknown) (unknown) Hgb 11.3 L (units (unk nown) date) unknown) (unknown) (no (unknown) (unknown) Hgb (units (unkno wn) date) unknown) (unknown) (no (unknown) (unknown) History of (units (unk nown) date) Present Illness unknown) (unknown) (no (unknown) (unknown) History of (units (unk nown) date) hysterectomy unknown) (unknown) (no (unknown) (unknown) History (units (unkno wn) date) unknown) (unknown) (no (unknown) (unknown) Home Medications (units (unknown) date) and Allergies unknown) (unknown) (no (unknown) (unknown) Home Medications (units (unknown) date) unknown) (unknown) (no (unknown) (unknown) I spent a total (units (unknown) date) of 180 minutes of unknown) critical care time on this patient's care (unknown) (no (unknown) (unknown) [facility] (units (unknown) date) [address] [place] [address] unknown) [place] [address] (unknown) (no (unknown) (unknown) Laboratory (units (unk nown) date) Results - last 24 unknown) hr (unknown) (no (unknown) (unknown) Labs (units (unkno wn) date) unknown) (unknown) (no (unknown) (unknown) Labs: (units (unkno wn) date) unknown) (unknown) (no (unknown) (unknown) Lumbar disc (units (un known) date) herniation unknown) (unknown) (no (unknown) (unknown) Lymph # (Auto) (units (unknown) date) 800 L unknown) (unknown) (no (unknown) (unknown) Lymph # (Auto) (units (unknown) date) unknown) (unknown) (no (unknown) (unknown) Lymph % (Auto) (units (unknown) date) 3.9 L unknown) (unknown) (no (unknown) (unknown) Lymph % (Auto) (units (unknown) date) unknown) (unknown) (no (unknown) (unknown) MCH 29.0 (units (unkno wn) date) unknown) (unknown) (no (unknown) (unknown) MCH (units (unkno wn) date) unknown) (unknown) (no (unknown) (unknown) MCHC 31.4 (units (unkn own) date) unknown) (unknown) (no (unknown) (unknown) MCHC (units (unkno wn) date) unknown) (unknown) (no (unknown) (unknown) MCV 92.3 (units (unkno wn) date) unknown) (unknown) (no (unknown) (unknown) MCV (units (unkno wn) date) unknown) (unknown) (no (unknown) (unknown) Magnesium 1.8 (units ( unknown) date) unknown) (unknown) (no (unknown) (unknown) Magnesium (units (unkn own) date) unknown) (unknown) (no (unknown) (unknown) Medical History (units (unknown) date) (Reviewed 07/30/22 unknown) @ 05:23 by JOVANNY Alonzo) (unknown) (no (unknown) (unknown) Medication (units (unk nown) date) Instructions unknown) Recorded Confirmed Type (unknown) (no (unknown) (unknown) Meds (units (unkno wn) date) unknown) (unknown) (no (unknown) (unknown) Gibson # (Auto) 100 (units (unknown) date) unknown) (unknown) (no (unknown) (unknown) Gibson # (Auto) (units ( unknown) date) unknown) (unknown) (no (unknown) (unknown) Gibson % (Auto) 0.6 (units (unknown) date) L unknown) (unknown) (no (unknown) (unknown) Gibson % (Auto) (units ( unknown) date) unknown) (unknown) (no (unknown) (unknown) Narrative (units (unkn own) date) unknown) (unknown) (no (unknown) (unknown) Narrative: (units (unk nown) date) unknown) (unknown) (no (unknown) (unknown) Neck: supple, (units ( unknown) date) full ROM, no JVD, unknown) trachea is midline (unknown) (no (unknown) (unknown) Neuro: Speech (units ( unknown) date) clear and coherent unknown) just prior to intubation obtunded (unknown) (no (unknown) (unknown) Neuropathy (units (unk nown) date) unknown) (unknown) (no (unknown) (unknown) Neut # (Auto) (units ( unknown) date) [address]00 H unknown) (unknown) (no (unknown) (unknown) Neut # (Auto) (units ( unknown) date) unknown) (unknown) (no (unknown) (unknown) Neut % (Auto) (units ( unknown) date) 95.4 H unknown) (unknown) (no (unknown) (unknown) Neut % (Auto) (units ( unknown) date) unknown) (unknown) (no (unknown) (unknown) Nursing contacted (units (unknown) date) pr requesting unknown) consult by Orthopedic surgery for this patient (unknown) (no (unknown) (unknown) Objective (units (unkn own) date) unknown) (unknown) (no (unknown) (unknown) Ovarian cancer (units (unknown) date) () unknown) (unknown) (no (unknown) (unknown) Oxygen Delivery (units (unknown) date) Method Room Air unknown) (unknown) (no (unknown) (unknown) Oxygen Flow Rate (units (unknown) date) 2 3 unknown) (unknown) (no (unknown) (unknown) Oxygen Flow Rate (units (unknown) date) 3 unknown) (unknown) (no (unknown) (unknown) PFSH (units (unkno wn) date) unknown) (unknown) (no (unknown) (unknown) Patient is (units (unk nown) date) intubated unable unknown) to speak and is from [place] so we do not have (unknown) (no (unknown) (unknown) Patient: (units (unkno wn) date) Polly Bone unknown) MR#: [id number] (unknown) (no (unknown) (unknown) Plt Count 386 (units ( unknown) date) unknown) (unknown) (no (unknown) (unknown) Plt Count (units (unkn own) date) unknown) (unknown) (no (unknown) (unknown) Potassium 7.2 H* (units (unknown) date) D unknown) (unknown) (no (unknown) (unknown) Potassium 9.7 H* (units (unknown) date) unknown) (unknown) (no (unknown) (unknown) Potassium (units (unkn own) date) unknown) (unknown) (no (unknown) (unknown) Provider: (units (unkn own) date) Rizwana Valle unknown) (unknown) (no (unknown) (unknown) Psyche: Unable to (units (unknown) date) assess unknown) (unknown) (no (unknown) (unknown) Pulse Oximetry 93 (units (unknown) date) 94 unknown) (unknown) (no (unknown) (unknown) Pulse Rate 60 86 (units (unknown) date) unknown) (unknown) (no (unknown) (unknown) RBC 3.91 L (units (unk nown) date) unknown) (unknown) (no (unknown) (unknown) RBC (units (unkno wn) date) unknown) (unknown) (no (unknown) (unknown) RDW 14.4 (units (unkno wn) date) unknown) (unknown) (no (unknown) (unknown) RDW (units (unkno wn) date) unknown) (unknown) (no (unknown) (unknown) ROS: Yes (units (unkno wn) date) unobtainable due unknown) to endotracheal tube (unknown) (no (unknown) (unknown) Reason for (units (unk n) date) consult: Code blue unknown) (unknown) (no (unknown) (unknown) Resp: Patient is (units (unknown) date) currently vented unknown) (unknown) (no (unknown) (unknown) Respiratory Rate (units (unknown) date) 16 unknown) (unknown) (no (unknown) (unknown) Result Diagrams: (units (unknown) date) unknown) (unknown) (no (unknown) (unknown) Result date/Date (units (unknown) date) tested (Pos, unknown) Neg/Pending): 07/29/22 (unknown) (no (unknown) (unknown) Review of Systems (units (unknown) date) unknown) (unknown) (no (unknown) (unknown) SARS-CoV-2 (PCR) (units (unknown) date) Negative unknown) (unknown) (no (unknown) (unknown) SARS-CoV-2 (PCR) (units (unknown) date) unknown) (unknown) (no (unknown) (unknown) STEMI changes (units ( unknown) date) unknown) (unknown) (no (unknown) (unknown) Sciatica (units (unkno wn) date) unknown) (unknown) (no (unknown) (unknown) Score 4-6) (units (unk nown) date) unknown) (unknown) (no (unknown) (unknown) Signed By: (units (unk nown) date) unknown) (unknown) (no (unknown) (unknown) Skin: Appears to (units (unknown) date) have Martha in unknown) her pannus area (unknown) (no (unknown) (unknown) Smoking Status: (units (unknown) date) Former smoker unknown) (unknown) (no (unknown) (unknown) Social History (units (unknown) date) unknown) (unknown) (no (unknown) (unknown) Sodium 133 L (units (u nknown) date) unknown) (unknown) (no (unknown) (unknown) Sodium 140 (units (unk nown) date) unknown) (unknown) (no (unknown) (unknown) Sodium (units (unkno wn) date) unknown) (unknown) (no (unknown) (unknown) Surgical History (units (unknown) date) (Reviewed 07/30/22 unknown) @ 05:23 by JOVANNY Alonzo) (unknown) (no (unknown) (unknown) Temperature 97.9 (units (unknown) date) F unknown) (unknown) (no (unknown) (unknown) Time Patient (units (u nknown) date) Seen: 03:00 unknown) (unknown) (no (unknown) (unknown) Time Spent With (units (unknown) date) Patient unknown) (unknown) (no (unknown) (unknown) Tobacco + (units (unkn own) date) Substance Use unknown) (unknown) (no (unknown) (unknown) Total Bilirubin (units (unknown) date) 0.3 unknown) (unknown) (no (unknown) (unknown) Total Bilirubin (units (unknown) date) 0.4 unknown) (unknown) (no (unknown) (unknown) Total Bilirubin (units (unknown) date) unknown) (unknown) (no (unknown) (unknown) Total Creatine (units (unknown) date) Kinase 173 H unknown) (unknown) (no (unknown) (unknown) Total Creatine (units (unknown) date) Kinase unknown) (unknown) (no (unknown) (unknown) Total Protein 6.5 (units (unknown) date) unknown) (unknown) (no (unknown) (unknown) Total Protein 7.2 (units (unknown) date) unknown) (unknown) (no (unknown) (unknown) Total Protein (units ( unknown) date) unknown) (unknown) (no (unknown) (unknown) Troponin I 0.072 (units (unknown) date) H unknown) (unknown) (no (unknown) (unknown) Troponin I (units (unk nown) date) unknown) (unknown) (no (unknown) (unknown) Vital Signs (units (un known) date) unknown) (unknown) (no (unknown) (unknown) WBC 21.1 H (units (unk nown) date) unknown) (unknown) (no (unknown) (unknown) WBC (units (unkno wn) date) unknown) (unknown) (no (unknown) (unknown) [Embedded Image (units (unknown) date) Not Available] unknown) (unknown) (no (unknown) (unknown) acetaminophen 500 (units (unknown) date) mg tablet 1,000 mg unknown) PO QD-BID PRN Pain 07/28/22 07/29/22 (unknown) (no (unknown) (unknown) alcohol intake: (units (unknown) date) current unknown) (unknown) (no (unknown) (unknown) also elevated at (units (unknown) date) 2.9 and total unknown) creatinine kinase is elevated 173 (unknown) (no (unknown) (unknown) amlodipine 2.5 mg (units (unknown) date) tablet 2.5 mg PO unknown) DAILY 07/28/22 07/29/22 History (unknown) (no (unknown) (unknown) and a repeat lab (units (unknown) date) her potassium was unknown) 7.2 (unknown) (no (unknown) (unknown) critical care (units ( unknown) date) facility for unknown) emergent dialysis. (unknown) (no (unknown) (unknown) cyclobenzaprine (units (unknown) date) 7.5 mg tablet 7.5 unknown) mg PO PRN PRN Pain (Scale 07/29/22 07/29/22 (unknown) (no (unknown) (unknown) difficulty (units (unkn own) date) breathing and by unknown) the time I reached the floor CPR was being performed (unknown) (no (unknown) (unknown) duloxetine [From (units (unknown) date) Cymbalta] Allergy unknown) Intermediate Rash, Verified 07/29/22 12:03 (unknown) (no (unknown) (unknown) elevated blood (units (unknown) date) glucose unknown) (unknown) (no (unknown) (unknown) gabapentin 800 mg (units (unknown) date) tablet 800 mg PO unknown) BID 07/28/22 07/29/22 History (unknown) (no (unknown) (unknown) glipizide 10 mg (units (unknown) date) tablet 10 mg PO unknown) DAILY 07/28/22 07/29/22 History (unknown) (no (unknown) (unknown) have severe (units (un known) date) hyperkalemia, unknown) severe hypotension, suspected STEMI and is moved from (unknown) (no (unknown) (unknown) have very soft (units (unknown) date) blood pressures unknown) and by the time I came up to the floor her blood (unknown) (no (unknown) (unknown) her current (units (un known) date) medical records unknown) and I am not able to obtain a family history from (unknown) (no (unknown) (unknown) her. (units (unkno wn) date) unknown) (unknown) (no (unknown) (unknown) household (units (unkn own) date) members: unknown) significant other (unknown) (no (unknown) (unknown) hydrocodone 5 (units ( unknown) date) mg-acetaminophen unknown) 325 5 tab PO Q8H PRN pain 07/29/22 07/29/22 (unknown) (no (unknown) (unknown) ibuprofen 200 mg (units (unknown) date) tablet (Advil) 600 unknown) mg PO QD-BID PRN Pain 07/28/22 07/29/22 (unknown) (no (unknown) (unknown) is 3 (units (unkno wn) date) unknown) (unknown) (no (unknown) (unknown) itching (units (unkno wn) date) unknown) (unknown) (no (unknown) (unknown) lisinopril 40 mg (units (unknown) date) tablet 40 mg PO unknown) DAILY 07/28/22 07/29/22 History (unknown) (no (unknown) (unknown) metformin 500 mg (units (unknown) date) tablet 1,000 mg PO unknown) BID 07/28/22 07/29/22 History (unknown) (no (unknown) (unknown) metoprolol (units (unk nown) date) succinate 50 mg 50 unknown) mg PO DAILY 07/28/22 07/29/22 History (unknown) (no (unknown) (unknown) mg tablet (units (unkn own) date) unknown) (unknown) (no (unknown) (unknown) mucosa pink and (units (unknown) date) moist unknown) (unknown) (no (unknown) (unknown) normal rhythm (units ( unknown) date) after having her unknown) potassium corrected (unknown) (no (unknown) (unknown) nortriptyline 10 (units (unknown) date) mg capsule 20 mg unknown) PO BEDTIME 07/28/22 07/29/22 History (unknown) (no (unknown) (unknown) on the patient. (units (unknown) date) unknown) (unknown) (no (unknown) (unknown) oxycodone 5 mg (units (unknown) date) tablet 5 mg PO Q4H unknown) PRN pain #40 tabs 07/29/22 Rx (unknown) (no (unknown) (unknown) pantoprazole 40 (units (unknown) date) mg tablet,delayed unknown) 40 mg PO DAILY 07/28/22 07/29/22 History (unknown) (no (unknown) (unknown) pressure was in (units (unknown) date) the low 90s. unknown) Apparently during that time it dropped even to a (unknown) (no (unknown) (unknown) release (units (unkno wn) date) unknown) (unknown) (no (unknown) (unknown) simvastatin 40 mg (units (unknown) date) tablet 40 mg PO unknown) BEDTIME 07/28/22 07/29/22 History (unknown) (no (unknown) (unknown) systolic of 60, (units (unknown) date) the patient was unknown) reportedly complaining of chest pain and (unknown) (no (unknown) (unknown) tablet,extended (units (unknown) date) release 24 hr unknown) (unknown) (no (unknown) (unknown) the (units (unkno wn) date) medical-surgical unknown) unit to critical care and is awaiting transfer to a (unknown) (no (unknown) (unknown) today; this time (units (unknown) date) is exclusive of unknown) procedural time. (unknown) (no (unknown) (unknown) who is a (units (unkno wn) date) 57-year-old female unknown) pod 1. L5-6 lumbar laminectomy. She was noted to Result panel 137 (unknown) (no date) (unknown) (unknown) 6.7 % (unkn own) (unknown) (no date) (unknown) (unknown) 6.7 % (unkn own) Result panel 138 (unknown) (no (unknown) (unknown) (no value) (units (unk nown) date) unknown) (unknown) (no (unknown) (unknown) (past 8 hours): (units (unknown) date) unknown) (unknown) (no (unknown) (unknown) * Creatinine (units (u nknown) date) prior to insulin unknown) and D5 was 15.2 and currently it is 13.9 her EGFR (unknown) (no (unknown) (unknown) * Initial (units (unkn own) date) potassium was 9.7. unknown) She was administered D5 and 10 units of IV insulin (unknown) (no (unknown) (unknown) * Initial troponin (units (unknown) date) is elevated at unknown) 0.072nd troponin is currently pending CK-MB is (unknown) (no (unknown) (unknown) * Patient is (units (u nknown) date) currently unknown) intubated, vent settings per eICU tidal volume 420 (unknown) (no (unknown) (unknown) * Patient needs (units (unknown) date) to be transferred unknown) for emergent dialysis (unknown) (no (unknown) (unknown) * Patient (units (unkn own) date) underwent several unknown) rounds of CPR and was eventually restored to a more (unknown) (no (unknown) (unknown) * Patient was (units ( unknown) date) initiated on a unknown) heparin drip but this has now been discontinued (unknown) (no (unknown) (unknown) * She is ordered (units (unknown) date) for another 10 unknown) units of IV insulin, D5 is being held due to her (unknown) (no (unknown) (unknown) * (units (unkno wn) date) unknown) (unknown) (no (unknown) (unknown) [id number] (units (unkno wn) date) unknown) (unknown) (no (unknown) (unknown) 01:00 (units (unkno wn) date) unknown) (unknown) (no (unknown) (unknown) 03:20 03:35 04:15 (units (unknown) date) unknown) (unknown) (no (unknown) (unknown) 04:25 (units (unkno wn) date) unknown) (unknown) (no (unknown) (unknown) 07/29/22 07/29/22 (units (unknown) date) 07/30/22 unknown) (unknown) (no (unknown) (unknown) 07/29/22 (units (unkno wn) date) unknown) (unknown) (no (unknown) (unknown) 07/30/22 03:20 (units (unknown) date) unknown) (unknown) (no (unknown) (unknown) 07/30/22 04:15 (units (unknown) date) unknown) (unknown) (no (unknown) (unknown) 07/30/22 07/30/22 (units (unknown) date) 07/30/22 unknown) (unknown) (no (unknown) (unknown) 07/30/22 (units (unkno wn) date) unknown) (unknown) (no (unknown) (unknown) 12:29 12:55 03:20 (units (unknown) date) unknown) (unknown) (no (unknown) (unknown) 22:50 07/29/22 (units (unknown) date) unknown) (unknown) (no (unknown) (unknown) 23:45 07/30/22 (units (unknown) date) unknown) (unknown) (no (unknown) (unknown) ABG Base Excess (units (unknown) date) -20.0 L unknown) (unknown) (no (unknown) (unknown) ABG Base Excess (units (unknown) date) -25.0 L unknown) (unknown) (no (unknown) (unknown) ABG Base Excess (units (unknown) date) unknown) (unknown) (no (unknown) (unknown) ABG HCO3 10 L (units ( unknown) date) unknown) (unknown) (no (unknown) (unknown) ABG HCO3 8 L (units (u nknown) date) unknown) (unknown) (no (unknown) (unknown) ABG HCO3 (units (unkno wn) date) unknown) (unknown) (no (unknown) (unknown) ABG O2 Saturation (units (unknown) date) 52 L* unknown) (unknown) (no (unknown) (unknown) ABG O2 Saturation (units (unknown) date) 86 L unknown) (unknown) (no (unknown) (unknown) ABG O2 Saturation (units (unknown) date) unknown) (unknown) (no (unknown) (unknown) ABG Total CO2 12 (units (unknown) date) L unknown) (unknown) (no (unknown) (unknown) ABG Total CO2 9 L (units (unknown) date) unknown) (unknown) (no (unknown) (unknown) ABG Total CO2 (units ( unknown) date) unknown) (unknown) (no (unknown) (unknown) ABG pCO2 36.7 (units ( unknown) date) unknown) (unknown) (no (unknown) (unknown) ABG pCO2 37.5 (units ( unknown) date) unknown) (unknown) (no (unknown) (unknown) ABG pCO2 (units (unkno wn) date) unknown) (unknown) (no (unknown) (unknown) ABG pH 6.92 L* (units (unknown) date) unknown) (unknown) (no (unknown) (unknown) ABG pH 7.06 L* (units (unknown) date) unknown) (unknown) (no (unknown) (unknown) ABG pH (units (unkno wn) date) unknown) (unknown) (no (unknown) (unknown) ABG pO2 38 L* (units ( unknown) date) unknown) (unknown) (no (unknown) (unknown) ABG pO2 82 (units (unk nown) date) unknown) (unknown) (no (unknown) (unknown) ABG pO2 (units (unkno wn) date) unknown) (unknown) (no (unknown) (unknown) ALT 203 H (units (unkn own) date) unknown) (unknown) (no (unknown) (unknown) ALT 22 (units (unkno wn) date) unknown) (unknown) (no (unknown) (unknown) ALT (units (unkno wn) date) unknown) (unknown) (no (unknown) (unknown) AST 17 (units (unkno wn) date) unknown) (unknown) (no (unknown) (unknown) AST 226 H (units (unkn own) date) unknown) (unknown) (no (unknown) (unknown) AST (units (unkno wn) date) unknown) (unknown) (no (unknown) (unknown) Abd: Obese (units (unk nown) date) unknown) (unknown) (no (unknown) (unknown) Acute renal (units (un known) date) failure in the unknown) setting of severe hyperkalemia (unknown) (no (unknown) (unknown) Acute respiratory (units (unknown) date) failure unknown) (unknown) (no (unknown) (unknown) Age/Sex: 57 / F (units (unknown) date) unknown) (unknown) (no (unknown) (unknown) Albumin 3.6 (units (un known) date) unknown) (unknown) (no (unknown) (unknown) Albumin 4.1 (units (un known) date) unknown) (unknown) (no (unknown) (unknown) Albumin (units (unkno wn) date) unknown) (unknown) (no (unknown) (unknown) Albumin/Globulin (units (unknown) date) Ratio 1.2 unknown) (unknown) (no (unknown) (unknown) Albumin/Globulin (units (unknown) date) Ratio 1.3 unknown) (unknown) (no (unknown) (unknown) Albumin/Globulin (units (unknown) date) Ratio unknown) (unknown) (no (unknown) (unknown) Alkaline (units (unkno wn) date) Phosphatase 100 unknown) (unknown) (no (unknown) (unknown) Alkaline (units (unkno wn) date) Phosphatase 93 unknown) (unknown) (no (unknown) (unknown) Alkaline (units (unkno wn) date) Phosphatase unknown) (unknown) (no (unknown) (unknown) Allergies (units (unkn own) date) unknown) (unknown) (no (unknown) (unknown) Allergy/AdvReac (units (unknown) date) Type Severity unknown) Reaction Status Date / Time (unknown) (no (unknown) (unknown) Assessment + Plan (units (unknown) date) narrative: unknown) (unknown) (no (unknown) (unknown) Assessment + Plan (units (unknown) date) unknown) (unknown) (no (unknown) (unknown) BUN 117 H* (units (unk nown) date) unknown) (unknown) (no (unknown) (unknown) BUN 120 H* (units (unk nown) date) unknown) (unknown) (no (unknown) (unknown) BUN (units (unkno wn) date) unknown) (unknown) (no (unknown) (unknown) BUN/Creatinine (units (unknown) date) Ratio 7.9 unknown) (unknown) (no (unknown) (unknown) BUN/Creatinine (units (unknown) date) Ratio 8.4 unknown) (unknown) (no (unknown) (unknown) BUN/Creatinine (units (unknown) date) Ratio unknown) (unknown) (no (unknown) (unknown) Baso # (Auto) 0 (units (unknown) date) unknown) (unknown) (no (unknown) (unknown) Baso # (Auto) (units ( unknown) date) unknown) (unknown) (no (unknown) (unknown) Baso % (Auto) 0.1 (units (unknown) date) unknown) (unknown) (no (unknown) (unknown) Baso % (Auto) (units ( unknown) date) unknown) (unknown) (no (unknown) (unknown) Blood Pressure (units (unknown) date) 95/51 L 91/47 L unknown) 94/44 L (unknown) (no (unknown) (unknown) CK-MB (CK-2) 2.90 (units (unknown) date) H unknown) (unknown) (no (unknown) (unknown) CK-MB (CK-2) Rel (units (unknown) date) Index 1.7 unknown) (unknown) (no (unknown) (unknown) CK-MB (CK-2) Rel (units (unknown) date) Index unknown) (unknown) (no (unknown) (unknown) CK-MB (CK-2) (units (u nknown) date) unknown) (unknown) (no (unknown) (unknown) COVID-19 status: (units (unknown) date) Negative unknown) (unknown) (no (unknown) (unknown) COVID-19 (units (unkno wn) date) unknown) (unknown) (no (unknown) (unknown) CV: Patient (units (un known) date) alternated between unknown) having a pulse and being pulseless, EKG showed (unknown) (no (unknown) (unknown) Calcium 7.6 L (units ( unknown) date) unknown) (unknown) (no (unknown) (unknown) Calcium 9.0 (units (un known) date) unknown) (unknown) (no (unknown) (unknown) Calcium (units (unkno wn) date) unknown) (unknown) (no (unknown) (unknown) Carbon Dioxide 7 (units (unknown) date) L* unknown) (unknown) (no (unknown) (unknown) Carbon Dioxide 8 (units (unknown) date) L* unknown) (unknown) (no (unknown) (unknown) Carbon Dioxide (units (unknown) date) unknown) (unknown) (no (unknown) (unknown) Cardiac arrest in (units (unknown) date) the setting of unknown) acute hyperkalemia (unknown) (no (unknown) (unknown) Chief complaint: (units (unknown) date) INPT unknown) (unknown) (no (unknown) (unknown) Chloride 95 L (units ( unknown) date) unknown) (unknown) (no (unknown) (unknown) Chloride 97 L (units ( unknown) date) unknown) (unknown) (no (unknown) (unknown) Chloride (units (unkno wn) date) unknown) (unknown) (no (unknown) (unknown) Comment: (units (unkno wn) date) unknown) (unknown) (no (unknown) (unknown) Consult Note (units (u nknown) date) unknown) (unknown) (no (unknown) (unknown) Consult details (units (unknown) date) unknown) (unknown) (no (unknown) (unknown) Creatinine 13.9 (units (unknown) date) H* unknown) (unknown) (no (unknown) (unknown) Creatinine 15.2 (units (unknown) date) H* unknown) (unknown) (no (unknown) (unknown) Creatinine (units (unk nown) date) unknown) (unknown) (no (unknown) (unknown) Critical Care (units ( unknown) date) time: unknown) (unknown) (no (unknown) (unknown) : 1965 (units (unknown) date) Acct:[id number] unknown) (unknown) (no (unknown) (unknown) Date Patient (units (u nknown) date) Seen: 07/30/22 unknown) (unknown) (no (unknown) (unknown) Date of Service: (units (unknown) date) 07/29/22 unknown) (unknown) (no (unknown) (unknown) Diabetes (units (unkno wn) date) unknown) (unknown) (no (unknown) (unknown) Polly Bone is a (units (unknown) date) 57-year-old female unknown) pod 1. L5-6 lumbar laminectomy is found to (unknown) (no (unknown) (unknown) Eos # (Auto) 0 (units (unknown) date) unknown) (unknown) (no (unknown) (unknown) Eos # (Auto) (units (u nknown) date) unknown) (unknown) (no (unknown) (unknown) Eos % (Auto) 0.0 (units (unknown) date) L unknown) (unknown) (no (unknown) (unknown) Eos % (Auto) (units (u nknown) date) unknown) (unknown) (no (unknown) (unknown) Estimated GFR 3 L (units (unknown) date) unknown) (unknown) (no (unknown) (unknown) Estimated GFR (units ( unknown) date) unknown) (unknown) (no (unknown) (unknown) Exam Narrative: (units (unknown) date) unknown) (unknown) (no (unknown) (unknown) Exam (units (unkno wn) date) unknown) (unknown) (no (unknown) (unknown) Extremities: (units (u nknown) date) Appears to have unknown) good cap refill (unknown) (no (unknown) (unknown) FiO2 100 (units (unkno wn) date) unknown) (unknown) (no (unknown) (unknown) FiO2 15 (units (unkno wn) date) unknown) (unknown) (no (unknown) (unknown) FiO2 (units (unkno wn) date) unknown) (unknown) (no (unknown) (unknown) GERD (units (unkno wn) date) (gastroesophageal unknown) reflux disease) (unknown) (no (unknown) (unknown) Gen: Arousable, (units (unknown) date) morbidly obese 57 unknown) y.o. female (unknown) (no (unknown) (unknown) Globulin 2.9 (units (u nknown) date) unknown) (unknown) (no (unknown) (unknown) Globulin 3.1 (units (u nknown) date) unknown) (unknown) (no (unknown) (unknown) Globulin (units (unkno wn) date) unknown) (unknown) (no (unknown) (unknown) Glucose 27 L* 303 (units (unknown) date) H D unknown) (unknown) (no (unknown) (unknown) Glucose 404 H D (units (unknown) date) unknown) (unknown) (no (unknown) (unknown) Glucose (units (unkno wn) date) unknown) (unknown) (no (unknown) (unknown) HEENT: (units (unkno wn) date) normocephalic, unknown) atraumatic, conjunctiva clear, sclera non-icteric, oral (unknown) (no (unknown) (unknown) HLD (units (unkno wn) date) (hyperlipidemia) unknown) (unknown) (no (unknown) (unknown) HTN (units (unkno wn) date) (hypertension) unknown) (unknown) (no (unknown) (unknown) Hct 36.1 (units (unkno wn) date) unknown) (unknown) (no (unknown) (unknown) Hct (units (unkno wn) date) unknown) (unknown) (no (unknown) (unknown) Hgb 11.3 L (units (unk nown) date) unknown) (unknown) (no (unknown) (unknown) Hgb (units (unkno wn) date) unknown) (unknown) (no (unknown) (unknown) History of (units (unk nown) date) Present Illness unknown) (unknown) (no (unknown) (unknown) History of (units (unk nown) date) hysterectomy unknown) (unknown) (no (unknown) (unknown) History (units (unkno wn) date) unknown) (unknown) (no (unknown) (unknown) Home Medications (units (unknown) date) and Allergies unknown) (unknown) (no (unknown) (unknown) Home Medications (units (unknown) date) unknown) (unknown) (no (unknown) (unknown) I spent a total (units (unknown) date) of 180 minutes of unknown) critical care time on this patient's care (unknown) (no (unknown) (unknown) [facility] (units (unknown) date) [address] unknown) [place] [address] (unknown) (no (unknown) (unknown) Laboratory (units (unk nown) date) Results - last 24 unknown) hr (unknown) (no (unknown) (unknown) Labs (units (unkno wn) date) unknown) (unknown) (no (unknown) (unknown) Labs: (units (unkno wn) date) unknown) (unknown) (no (unknown) (unknown) Lumbar disc (units (un known) date) herniation unknown) (unknown) (no (unknown) (unknown) Lymph # (Auto) (units (unknown) date) 800 L unknown) (unknown) (no (unknown) (unknown) Lymph # (Auto) (units (unknown) date) unknown) (unknown) (no (unknown) (unknown) Lymph % (Auto) (units (unknown) date) 3.9 L unknown) (unknown) (no (unknown) (unknown) Lymph % (Auto) (units (unknown) date) unknown) (unknown) (no (unknown) (unknown) MCH 29.0 (units (unkno wn) date) unknown) (unknown) (no (unknown) (unknown) MCH (units (unkno wn) date) unknown) (unknown) (no (unknown) (unknown) MCHC 31.4 (units (unkn own) date) unknown) (unknown) (no (unknown) (unknown) MCHC (units (unkno wn) date) unknown) (unknown) (no (unknown) (unknown) MCV 92.3 (units (unkno wn) date) unknown) (unknown) (no (unknown) (unknown) MCV (units (unkno wn) date) unknown) (unknown) (no (unknown) (unknown) Magnesium 1.8 (units ( unknown) date) unknown) (unknown) (no (unknown) (unknown) Magnesium (units (unkn own) date) unknown) (unknown) (no (unknown) (unknown) Medical History (units (unknown) date) (Reviewed 07/30/22 unknown) @ 05:23 by JOVANNY Alonzo) (unknown) (no (unknown) (unknown) Medication (units (unk nown) date) Instructions unknown) Recorded Confirmed Type (unknown) (no (unknown) (unknown) Meds (units (unkno wn) date) unknown) (unknown) (no (unknown) (unknown) Gibson # (Auto) 100 (units (unknown) date) unknown) (unknown) (no (unknown) (unknown) Gibson # (Auto) (units ( unknown) date) unknown) (unknown) (no (unknown) (unknown) Gibson % (Auto) 0.6 (units (unknown) date) L unknown) (unknown) (no (unknown) (unknown) Gibson % (Auto) (units ( unknown) date) unknown) (unknown) (no (unknown) (unknown) Narrative (units (unkn own) date) unknown) (unknown) (no (unknown) (unknown) Narrative: (units (unk nown) date) unknown) (unknown) (no (unknown) (unknown) Neck: supple, (units ( unknown) date) full ROM, no JVD, unknown) trachea is midline (unknown) (no (unknown) (unknown) Neuro: Speech (units ( unknown) date) clear and coherent unknown) just prior to intubation obtunded (unknown) (no (unknown) (unknown) Neuropathy (units (unk nown) date) unknown) (unknown) (no (unknown) (unknown) Neut # (Auto) (units ( unknown) date) 87312 H unknown) (unknown) (no (unknown) (unknown) Neut # (Auto) (units ( unknown) date) unknown) (unknown) (no (unknown) (unknown) Neut % (Auto) (units ( unknown) date) 95.4 H unknown) (unknown) (no (unknown) (unknown) Neut % (Auto) (units ( unknown) date) unknown) (unknown) (no (unknown) (unknown) Nursing contacted (units (unknown) date) me requesting unknown) consult by Orthopedic surgery for this patient (unknown) (no (unknown) (unknown) Objective (units (unkn own) date) unknown) (unknown) (no (unknown) (unknown) Ovarian cancer (units (unknown) date) (-2014) unknown) (unknown) (no (unknown) (unknown) Oxygen Delivery (units (unknown) date) Method Room Air unknown) (unknown) (no (unknown) (unknown) Oxygen Flow Rate (units (unknown) date) 2 3 unknown) (unknown) (no (unknown) (unknown) Oxygen Flow Rate (units (unknown) date) 3 unknown) (unknown) (no (unknown) (unknown) PFSH (units (unkno wn) date) unknown) (unknown) (no (unknown) (unknown) Patient is (units (unk nown) date) intubated unable unknown) to speak and is from [place] so we do not have (unknown) (no (unknown) (unknown) Patient: (units (unkno wn) date) Polly Bone unknown) MR#: [id number] (unknown) (no (unknown) (unknown) Plt Count 386 (units ( unknown) date) unknown) (unknown) (no (unknown) (unknown) Plt Count (units (unkn own) date) unknown) (unknown) (no (unknown) (unknown) Potassium 7.2 H* (units (unknown) date) D unknown) (unknown) (no (unknown) (unknown) Potassium 9.7 H* (units (unknown) date) unknown) (unknown) (no (unknown) (unknown) Potassium (units (unkn own) date) unknown) (unknown) (no (unknown) (unknown) Provider: (units (unkn own) date) Rizwana Valle unknown) (unknown) (no (unknown) (unknown) Psyche: Unable to (units (unknown) date) assess unknown) (unknown) (no (unknown) (unknown) Pulse Oximetry 93 (units (unknown) date) 94 unknown) (unknown) (no (unknown) (unknown) Pulse Rate 60 86 (units (unknown) date) unknown) (unknown) (no (unknown) (unknown) RBC 3.91 L (units (unk nown) date) unknown) (unknown) (no (unknown) (unknown) RBC (units (unkno wn) date) unknown) (unknown) (no (unknown) (unknown) RDW 14.4 (units (unkno wn) date) unknown) (unknown) (no (unknown) (unknown) RDW (units (unkno wn) date) unknown) (unknown) (no (unknown) (unknown) ROS: Yes (units (unkno wn) date) unobtainable due unknown) to endotracheal tube (unknown) (no (unknown) (unknown) Reason for (units (unk nown) date) consult: Code blue unknown) (unknown) (no (unknown) (unknown) Resp: Patient is (units (unknown) date) currently vented unknown) (unknown) (no (unknown) (unknown) Respiratory Rate (units (unknown) date) 16 unknown) (unknown) (no (unknown) (unknown) Result Diagrams: (units (unknown) date) unknown) (unknown) (no (unknown) (unknown) Result date/Date (units (unknown) date) tested (Pos, unknown) Neg/Pending): 07/29/22 (unknown) (no (unknown) (unknown) Review of Systems (units (unknown) date) unknown) (unknown) (no (unknown) (unknown) SARS-CoV-2 (PCR) (units (unknown) date) Negative unknown) (unknown) (no (unknown) (unknown) SARS-CoV-2 (PCR) (units (unknown) date) unknown) (unknown) (no (unknown) (unknown) STEMI changes (units ( unknown) date) unknown) (unknown) (no (unknown) (unknown) Sciatica (units (unkno wn) date) unknown) (unknown) (no (unknown) (unknown) Score 4-6) (units (unk nown) date) unknown) (unknown) (no (unknown) (unknown) Signed By: (units (unk nown) date) unknown) (unknown) (no (unknown) (unknown) Skin: Appears to (units (unknown) date) have Martha in unknown) her pannus area (unknown) (no (unknown) (unknown) Smoking Status: (units (unknown) date) Former smoker unknown) (unknown) (no (unknown) (unknown) Social History (units (unknown) date) unknown) (unknown) (no (unknown) (unknown) Sodium 133 L (units (u nknown) date) unknown) (unknown) (no (unknown) (unknown) Sodium 140 (units (unk nown) date) unknown) (unknown) (no (unknown) (unknown) Sodium (units (unkno wn) date) unknown) (unknown) (no (unknown) (unknown) Surgical History (units (unknown) date) (Reviewed 07/30/22 unknown) @ 05:23 by JOVANNY Alonzo) (unknown) (no (unknown) (unknown) Temperature 97.9 (units (unknown) date) F unknown) (unknown) (no (unknown) (unknown) Time Patient (units (u nknown) date) Seen: 03:00 unknown) (unknown) (no (unknown) (unknown) Time Spent With (units (unknown) date) Patient unknown) (unknown) (no (unknown) (unknown) Tobacco + (units (unkn own) date) Substance Use unknown) (unknown) (no (unknown) (unknown) Total Bilirubin (units (unknown) date) 0.3 unknown) (unknown) (no (unknown) (unknown) Total Bilirubin (units (unknown) date) 0.4 unknown) (unknown) (no (unknown) (unknown) Total Bilirubin (units (unknown) date) unknown) (unknown) (no (unknown) (unknown) Total Creatine (units (unknown) date) Kinase 173 H unknown) (unknown) (no (unknown) (unknown) Total Creatine (units (unknown) date) Kinase unknown) (unknown) (no (unknown) (unknown) Total Protein 6.5 (units (unknown) date) unknown) (unknown) (no (unknown) (unknown) Total Protein 7.2 (units (unknown) date) unknown) (unknown) (no (unknown) (unknown) Total Protein (units ( unknown) date) unknown) (unknown) (no (unknown) (unknown) Troponin I 0.072 (units (unknown) date) H unknown) (unknown) (no (unknown) (unknown) Troponin I (units (unk nown) date) unknown) (unknown) (no (unknown) (unknown) Vital Signs (units (un known) date) unknown) (unknown) (no (unknown) (unknown) WBC 21.1 H (units (unk nown) date) unknown) (unknown) (no (unknown) (unknown) WBC (units (unkno wn) date) unknown) (unknown) (no (unknown) (unknown) [Embedded Image (units (unknown) date) Not Available] unknown) (unknown) (no (unknown) (unknown) acetaminophen 500 (units (unknown) date) mg tablet 1,000 mg unknown) PO QD-BID PRN Pain 07/28/22 07/29/22 (unknown) (no (unknown) (unknown) alcohol intake: (units (unknown) date) current unknown) (unknown) (no (unknown) (unknown) also elevated at (units (unknown) date) 2.9 and total unknown) creatinine kinase is elevated 173 (unknown) (no (unknown) (unknown) amlodipine 2.5 mg (units (unknown) date) tablet 2.5 mg PO unknown) DAILY 07/28/22 07/29/22 History (unknown) (no (unknown) (unknown) and a repeat lab (units (unknown) date) her potassium was unknown) 7.2 (unknown) (no (unknown) (unknown) critical care (units ( unknown) date) facility for unknown) emergent dialysis. (unknown) (no (unknown) (unknown) cyclobenzaprine (units (unknown) date) 7.5 mg tablet 7.5 unknown) mg PO PRN PRN Pain (Scale 07/29/22 07/29/22 (unknown) (no (unknown) (unknown) difficulty (units (unkn own) date) breathing and by unknown) the time I reached the floor CPR was being performed (unknown) (no (unknown) (unknown) duloxetine [From (units (unknown) date) Cymbalta] Allergy unknown) Intermediate Rash, Verified 07/29/22 12:03 (unknown) (no (unknown) (unknown) elevated blood (units (unknown) date) glucose unknown) (unknown) (no (unknown) (unknown) gabapentin 800 mg (units (unknown) date) tablet 800 mg PO unknown) BID 07/28/22 07/29/22 History (unknown) (no (unknown) (unknown) glipizide 10 mg (units (unknown) date) tablet 10 mg PO unknown) DAILY 07/28/22 07/29/22 History (unknown) (no (unknown) (unknown) have severe (units (un known) date) hyperkalemia, unknown) severe hypotension, suspected STEMI and is moved from (unknown) (no (unknown) (unknown) have very soft (units (unknown) date) blood pressures unknown) and by the time I came up to the floor her blood (unknown) (no (unknown) (unknown) her current (units (un known) date) medical records unknown) and I am not able to obtain a family history from (unknown) (no (unknown) (unknown) her. (units (unkno wn) date) unknown) (unknown) (no (unknown) (unknown) household (units (unkn own) date) members: unknown) significant other (unknown) (no (unknown) (unknown) hydrocodone 5 (units ( unknown) date) mg-acetaminophen unknown) 325 5 tab PO Q8H PRN pain 07/29/22 07/29/22 (unknown) (no (unknown) (unknown) ibuprofen 200 mg (units (unknown) date) tablet (Advil) 600 unknown) mg PO QD-BID PRN Pain 07/28/22 07/29/22 (unknown) (no (unknown) (unknown) is 3 (units (unkno wn) date) unknown) (unknown) (no (unknown) (unknown) itching (units (unkno wn) date) unknown) (unknown) (no (unknown) (unknown) lisinopril 40 mg (units (unknown) date) tablet 40 mg PO unknown) DAILY 07/28/22 07/29/22 History (unknown) (no (unknown) (unknown) metformin 500 mg (units (unknown) date) tablet 1,000 mg PO unknown) BID 07/28/22 07/29/22 History (unknown) (no (unknown) (unknown) metoprolol (units (unk nown) date) succinate 50 mg 50 unknown) mg PO DAILY 07/28/22 07/29/22 History (unknown) (no (unknown) (unknown) mg tablet (units (unkn own) date) unknown) (unknown) (no (unknown) (unknown) mucosa pink and (units (unknown) date) moist unknown) (unknown) (no (unknown) (unknown) normal rhythm (units ( unknown) date) after having her unknown) potassium corrected (unknown) (no (unknown) (unknown) nortriptyline 10 (units (unknown) date) mg capsule 20 mg unknown) PO BEDTIME 07/28/22 07/29/22 History (unknown) (no (unknown) (unknown) on the patient. (units (unknown) date) unknown) (unknown) (no (unknown) (unknown) oxycodone 5 mg (units (unknown) date) tablet 5 mg PO Q4H unknown) PRN pain #40 tabs 07/29/22 Rx (unknown) (no (unknown) (unknown) pantoprazole 40 (units (unknown) date) mg tablet,delayed unknown) 40 mg PO DAILY 07/28/22 07/29/22 History (unknown) (no (unknown) (unknown) pressure was in (units (unknown) date) the low 90s. unknown) Apparently during that time it dropped even to a (unknown) (no (unknown) (unknown) release (units (unkno wn) date) unknown) (unknown) (no (unknown) (unknown) simvastatin 40 mg (units (unknown) date) tablet 40 mg PO unknown) BEDTIME 07/28/22 07/29/22 History (unknown) (no (unknown) (unknown) systolic of 60, (units (unknown) date) the patient was unknown) reportedly complaining of chest pain and (unknown) (no (unknown) (unknown) tablet,extended (units (unknown) date) release 24 hr unknown) (unknown) (no (unknown) (unknown) the (units (unkno wn) date) medical-surgical unknown) unit to critical care and is awaiting transfer to a (unknown) (no (unknown) (unknown) today; this time (units (unknown) date) is exclusive of unknown) procedural time. (unknown) (no (unknown) (unknown) who is a (units (unkno wn) date) 57-year-old female unknown) pod 1. L5-6 lumbar laminectomy. She was noted to Result panel 139 (unknown) (no (unknown) (unknown) (no value) (units (unk nown) date) unknown) (unknown) (no (unknown) (unknown) ( Zero GFR now) (units (unknown) date) unknown) (unknown) (no (unknown) (unknown) (1) Septic shock: (units (unknown) date) unknown) (unknown) (no (unknown) (unknown) (past 8 hours): (units (unknown) date) unknown) (unknown) (no (unknown) (unknown) [id number] (units (unkno wn) date) unknown) (unknown) (no (unknown) (unknown) 01:00 (units (unkno wn) date) unknown) (unknown) (no (unknown) (unknown) 03:20 03:20 03:35 (units (unknown) date) unknown) (unknown) (no (unknown) (unknown) 04:15 04:25 (units (un known) date) unknown) (unknown) (no (unknown) (unknown) 07/29/22 07/29/22 (units (unknown) date) 07/30/22 unknown) (unknown) (no (unknown) (unknown) 07/29/22 (units (unkno wn) date) unknown) (unknown) (no (unknown) (unknown) 07/29/22] (units (unkn own) date) unknown) (unknown) (no (unknown) (unknown) 07/30/22 03:20 (units (unknown) date) unknown) (unknown) (no (unknown) (unknown) 07/30/22 04:15 (units (unknown) date) unknown) (unknown) (no (unknown) (unknown) 07/30/22 0622 (units ( unknown) date) unknown) (unknown) (no (unknown) (unknown) 07/30/22 07/30/22 (units (unknown) date) 07/30/22 unknown) (unknown) (no (unknown) (unknown) 07/30/22 07/30/22 (units (unknown) date) unknown) (unknown) (no (unknown) (unknown) 12:29 12:55 03:20 (units (unknown) date) unknown) (unknown) (no (unknown) (unknown) 14 min, found to (units (unknown) date) have sever unknown) hyperkalemia (K of 9), sever renal failure, sever (unknown) (no (unknown) (unknown) 22:50 07/29/22 (units (unknown) date) unknown) (unknown) (no (unknown) (unknown) 23:45 07/30/22 (units (unknown) date) unknown) (unknown) (no (unknown) (unknown) 5 MCG/KG/MIN (units (u nknown) date) unknown) (unknown) (no (unknown) (unknown) 57-year-old (units (un known) date) female with unknown) medical H/o of DM II, HTN, admitted for/ status post (unknown) (no (unknown) (unknown) ? ARDS (units (unkno wn) date) unknown) (unknown) (no (unknown) (unknown) ABG Base Excess (units (unknown) date) -20.0 L unknown) (unknown) (no (unknown) (unknown) ABG Base Excess (units (unknown) date) -25.0 L unknown) (unknown) (no (unknown) (unknown) ABG Base Excess (units (unknown) date) unknown) (unknown) (no (unknown) (unknown) ABG HCO3 10 L (units ( unknown) date) unknown) (unknown) (no (unknown) (unknown) ABG HCO3 8 L (units (u nknown) date) unknown) (unknown) (no (unknown) (unknown) ABG HCO3 (units (unkno wn) date) unknown) (unknown) (no (unknown) (unknown) ABG O2 Saturation (units (unknown) date) 52 L* unknown) (unknown) (no (unknown) (unknown) ABG O2 Saturation (units (unknown) date) 86 L unknown) (unknown) (no (unknown) (unknown) ABG O2 Saturation (units (unknown) date) unknown) (unknown) (no (unknown) (unknown) ABG Total CO2 12 (units (unknown) date) L unknown) (unknown) (no (unknown) (unknown) ABG Total CO2 9 L (units (unknown) date) unknown) (unknown) (no (unknown) (unknown) ABG Total CO2 (units ( unknown) date) unknown) (unknown) (no (unknown) (unknown) ABG pCO2 36.7 (units ( unknown) date) unknown) (unknown) (no (unknown) (unknown) ABG pCO2 37.5 (units ( unknown) date) unknown) (unknown) (no (unknown) (unknown) ABG pCO2 (units (unkno wn) date) unknown) (unknown) (no (unknown) (unknown) ABG pH 6.92 L* (units (unknown) date) unknown) (unknown) (no (unknown) (unknown) ABG pH 7.06 L* (units (unknown) date) unknown) (unknown) (no (unknown) (unknown) ABG pH (units (unkno wn) date) unknown) (unknown) (no (unknown) (unknown) ABG pO2 38 L* (units ( unknown) date) unknown) (unknown) (no (unknown) (unknown) ABG pO2 82 (units (unk nown) date) unknown) (unknown) (no (unknown) (unknown) ABG pO2 (units (unkno wn) date) unknown) (unknown) (no (unknown) (unknown) ALT 203 H (units (unkn own) date) unknown) (unknown) (no (unknown) (unknown) ALT 22 (units (unkno wn) date) unknown) (unknown) (no (unknown) (unknown) ALT (units (unkno wn) date) unknown) (unknown) (no (unknown) (unknown) AST 17 (units (unkno wn) date) unknown) (unknown) (no (unknown) (unknown) AST 226 H (units (unkn own) date) unknown) (unknown) (no (unknown) (unknown) AST (units (unkno wn) date) unknown) (unknown) (no (unknown) (unknown) Acute hypoxic and (units (unknown) date) hypercapnic resp unknown) failure (unknown) (no (unknown) (unknown) Add stress dose (units (unknown) date) hydrocortisone unknown) (unknown) (no (unknown) (unknown) Add vaso to levo, (units (unknown) date) MAP goal 65, A unknown) line placement (unknown) (no (unknown) (unknown) Administration (units (unknown) date) unknown) (unknown) (no (unknown) (unknown) Age/Sex: 57 / F (units (unknown) date) unknown) (unknown) (no (unknown) (unknown) Albumin 3.6 (units (un known) date) unknown) (unknown) (no (unknown) (unknown) Albumin 4.1 (units (un known) date) unknown) (unknown) (no (unknown) (unknown) Albumin (units (unkno wn) date) unknown) (unknown) (no (unknown) (unknown) Albumin/Globulin (units (unknown) date) Ratio 1.2 unknown) (unknown) (no (unknown) (unknown) Albumin/Globulin (units (unknown) date) Ratio 1.3 unknown) (unknown) (no (unknown) (unknown) Albumin/Globulin (units (unknown) date) Ratio unknown) (unknown) (no (unknown) (unknown) Alkaline (units (unkno wn) date) Phosphatase 100 unknown) (unknown) (no (unknown) (unknown) Alkaline (units (unkno wn) date) Phosphatase 93 unknown) (unknown) (no (unknown) (unknown) Alkaline (units (unkno wn) date) Phosphatase unknown) (unknown) (no (unknown) (unknown) Aspiration PNA (units (unknown) date) unknown) (unknown) (no (unknown) (unknown) Assessment + Plan (units (unknown) date) unknown) (unknown) (no (unknown) (unknown) Assessment and (units (unknown) date) plan unknown) (unknown) (no (unknown) (unknown) Assessment: (units (un known) date) unknown) (unknown) (no (unknown) (unknown) BUN 117 H* (units (unk nown) date) unknown) (unknown) (no (unknown) (unknown) BUN 120 H* (units (unk nown) date) unknown) (unknown) (no (unknown) (unknown) BUN (units (unkno wn) date) unknown) (unknown) (no (unknown) (unknown) BUN/Creatinine (units (unknown) date) Ratio 7.9 unknown) (unknown) (no (unknown) (unknown) BUN/Creatinine (units (unknown) date) Ratio 8.4 unknown) (unknown) (no (unknown) (unknown) BUN/Creatinine (units (unknown) date) Ratio unknown) (unknown) (no (unknown) (unknown) Baso # (Auto) 0 (units (unknown) date) unknown) (unknown) (no (unknown) (unknown) Baso # (Auto) (units ( unknown) date) unknown) (unknown) (no (unknown) (unknown) Baso % (Auto) 0.1 (units (unknown) date) unknown) (unknown) (no (unknown) (unknown) Baso % (Auto) (units ( unknown) date) unknown) (unknown) (no (unknown) (unknown) Blood Pressure (units (unknown) date) 95/51 L 91/47 L unknown) 94/44 L (unknown) (no (unknown) (unknown) CCT 60 min (units (unk nown) date) unknown) (unknown) (no (unknown) (unknown) CK-MB (CK-2) 2.90 (units (unknown) date) H unknown) (unknown) (no (unknown) (unknown) CK-MB (CK-2) Rel (units (unknown) date) Index 1.7 unknown) (unknown) (no (unknown) (unknown) CK-MB (CK-2) Rel (units (unknown) date) Index unknown) (unknown) (no (unknown) (unknown) CK-MB (CK-2) (units (u nknown) date) unknown) (unknown) (no (unknown) (unknown) Calcium 7.6 L (units ( unknown) date) unknown) (unknown) (no (unknown) (unknown) Calcium 9.0 (units (un known) date) unknown) (unknown) (no (unknown) (unknown) Calcium (units (unkno wn) date) unknown) (unknown) (no (unknown) (unknown) Carbon Dioxide 7 (units (unknown) date) L* unknown) (unknown) (no (unknown) (unknown) Carbon Dioxide 8 (units (unknown) date) L* unknown) (unknown) (no (unknown) (unknown) Carbon Dioxide (units (unknown) date) unknown) (unknown) (no (unknown) (unknown) Cardiac arrest (units (unknown) date) unknown) (unknown) (no (unknown) (unknown) Chief complaint: (units (unknown) date) INPT unknown) (unknown) (no (unknown) (unknown) Chloride 95 L (units ( unknown) date) unknown) (unknown) (no (unknown) (unknown) Chloride 97 L (units ( unknown) date) unknown) (unknown) (no (unknown) (unknown) Chloride (units (unkno wn) date) unknown) (unknown) (no (unknown) (unknown) Confirmed (units (unkn own) date) 07/29/22] unknown) (unknown) (no (unknown) (unknown) Consent obtained (units (unknown) date) for unknown) tele-tire and lube technician care: Yes (unknown) (no (unknown) (unknown) Consult details (units (unknown) date) unknown) (unknown) (no (unknown) (unknown) Creatinine 13.9 (units (unknown) date) H* unknown) (unknown) (no (unknown) (unknown) Creatinine 15.2 (units (unknown) date) H* unknown) (unknown) (no (unknown) (unknown) Creatinine (units (unk nown) date) unknown) (unknown) (no (unknown) (unknown) Critical Care (units ( unknown) date) time: unknown) (unknown) (no (unknown) (unknown) Current (units (unkno wn) date) Medications unknown) (unknown) (no (unknown) (unknown) DKA (units (unkno wn) date) unknown) (unknown) (no (unknown) (unknown) : 1965 (units (unknown) date) Acct:[id number] unknown) (unknown) (no (unknown) (unknown) Date of Service: (units (unknown) date) 07/29/22 unknown) (unknown) (no (unknown) (unknown) Diabetes (units (unkno wn) date) unknown) (unknown) (no (unknown) (unknown) Eos # (Auto) 0 (units (unknown) date) unknown) (unknown) (no (unknown) (unknown) Eos # (Auto) (units (u nknown) date) unknown) (unknown) (no (unknown) (unknown) Eos % (Auto) 0.0 (units (unknown) date) L unknown) (unknown) (no (unknown) (unknown) Eos % (Auto) (units (u nknown) date) unknown) (unknown) (no (unknown) (unknown) Estimated GFR 3 L (units (unknown) date) unknown) (unknown) (no (unknown) (unknown) Estimated GFR (units ( unknown) date) unknown) (unknown) (no (unknown) (unknown) Exam (units (unkno wn) date) unknown) (unknown) (no (unknown) (unknown) FiO2 100 (units (unkno wn) date) unknown) (unknown) (no (unknown) (unknown) FiO2 15 (units (unkno wn) date) unknown) (unknown) (no (unknown) (unknown) FiO2 (units (unkno wn) date) unknown) (unknown) (no (unknown) (unknown) GERD (units (unkno wn) date) (gastroesophageal unknown) reflux disease) (unknown) (no (unknown) (unknown) Generic Name Dose (units (unknown) date) Route Start Last unknown) Admin (unknown) (no (unknown) (unknown) Globulin 2.9 (units (u nknown) date) unknown) (unknown) (no (unknown) (unknown) Globulin 3.1 (units (u nknown) date) unknown) (unknown) (no (unknown) (unknown) Globulin (units (unkno wn) date) unknown) (unknown) (no (unknown) (unknown) Glucose 27 L* 303 (units (unknown) date) H D unknown) (unknown) (no (unknown) (unknown) Glucose 404 H D (units (unknown) date) unknown) (unknown) (no (unknown) (unknown) Glucose (units (unkno wn) date) unknown) (unknown) (no (unknown) (unknown) H/o of ovarian (units (unknown) date) cancer unknown) (unknown) (no (unknown) (unknown) HLD (units (unkno wn) date) (hyperlipidemia) unknown) (unknown) (no (unknown) (unknown) HTN (units (unkno wn) date) (hypertension) unknown) (unknown) (no (unknown) (unknown) Hct 36.1 (units (unkno wn) date) unknown) (unknown) (no (unknown) (unknown) Hct (units (unkno wn) date) unknown) (unknown) (no (unknown) (unknown) Hemoglobin A1c (units (unknown) date) 6.7 H unknown) (unknown) (no (unknown) (unknown) Hemoglobin A1c (units (unknown) date) unknown) (unknown) (no (unknown) (unknown) Hgb 11.3 L (units (unk nown) date) unknown) (unknown) (no (unknown) (unknown) Hgb (units (unkno wn) date) unknown) (unknown) (no (unknown) (unknown) History of (units (unk nown) date) Present Illness unknown) (unknown) (no (unknown) (unknown) History of (units (unk nown) date) hysterectomy unknown) (unknown) (no (unknown) (unknown) Hold heparin drip (units (unknown) date) and check CBC, unknown) trend trop + lactate Q4-6 hr (unknown) (no (unknown) (unknown) Home Medications (units (unknown) date) unknown) (unknown) (no (unknown) (unknown) Hypoxic, (units (unkno wn) date) acidotic, Adjusted unknown) Vent to Vc increase rate 20?28/ keep TV 420/ 5?10 (unknown) (no (unknown) (unknown) I spent a total (units (unknown) date) of [60] minutes of unknown) critical care time on this patient's care (unknown) (no (unknown) (unknown) IF CAMERA (units (unkn own) date) ACTIVATED, patient unknown) seen via real-time interactive audiovisual (unknown) (no (unknown) (unknown) IV insulin drip, (units (unknown) date) BS goal <180 unknown) (unknown) (no (unknown) (unknown) [facility] (units (unknown) date) [address] unknown) [place] [address] (unknown) (no (unknown) (unknown) Laboratory (units (unk nown) date) Results - last 24 unknown) hr (unknown) (no (unknown) (unknown) Labs (units (unkno wn) date) unknown) (unknown) (no (unknown) (unknown) Labs: (units (unkno wn) date) unknown) (unknown) (no (unknown) (unknown) Lumbar disc (units (un known) date) herniation unknown) (unknown) (no (unknown) (unknown) Lymph # (Auto) (units (unknown) date) 800 L unknown) (unknown) (no (unknown) (unknown) Lymph # (Auto) (units (unknown) date) unknown) (unknown) (no (unknown) (unknown) Lymph % (Auto) (units (unknown) date) 3.9 L unknown) (unknown) (no (unknown) (unknown) Lymph % (Auto) (units (unknown) date) unknown) (unknown) (no (unknown) (unknown) MCH 29.0 (units (unkno wn) date) unknown) (unknown) (no (unknown) (unknown) MCH (units (unkno wn) date) unknown) (unknown) (no (unknown) (unknown) MCHC 31.4 (units (unkn own) date) unknown) (unknown) (no (unknown) (unknown) MCHC (units (unkno wn) date) unknown) (unknown) (no (unknown) (unknown) MCV 92.3 (units (unkno wn) date) unknown) (unknown) (no (unknown) (unknown) MCV (units (unkno wn) date) unknown) (unknown) (no (unknown) (unknown) Magnesium 1.8 (units ( unknown) date) unknown) (unknown) (no (unknown) (unknown) Magnesium (units (unkn own) date) unknown) (unknown) (no (unknown) (unknown) Medical History (units (unknown) date) (Reviewed 07/30/22 unknown) @ 05:23 by JOVANNY Alonzo) (unknown) (no (unknown) (unknown) Medications: (units (u nknown) date) unknown) (unknown) (no (unknown) (unknown) Gibson # (Auto) 100 (units (unknown) date) unknown) (unknown) (no (unknown) (unknown) Gibson # (Auto) (units ( unknown) date) unknown) (unknown) (no (unknown) (unknown) Gibson % (Auto) 0.6 (units (unknown) date) L unknown) (unknown) (no (unknown) (unknown) Gibson % (Auto) (units ( unknown) date) unknown) (unknown) (no (unknown) (unknown) Neuropathy (units (unk nown) date) unknown) (unknown) (no (unknown) (unknown) Neut # (Auto) (units ( unknown) date) 63910 H unknown) (unknown) (no (unknown) (unknown) Neut # (Auto) (units ( unknown) date) unknown) (unknown) (no (unknown) (unknown) Neut % (Auto) (units ( unknown) date) 95.4 H unknown) (unknown) (no (unknown) (unknown) Neut % (Auto) (units ( unknown) date) unknown) (unknown) (no (unknown) (unknown) Objective (units (unkn own) date) unknown) (unknown) (no (unknown) (unknown) Other (units (unkno wn) date) 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[employer],RN (unknown) (no (unknown) (unknown) Ovarian cancer (units (unknown) date) (-2014) unknown) (unknown) (no (unknown) (unknown) Oxygen Delivery (units (unknown) date) Method Room Air unknown) (unknown) (no (unknown) (unknown) Oxygen Flow Rate (units (unknown) date) 2 3 unknown) (unknown) (no (unknown) (unknown) Oxygen Flow Rate (units (unknown) date) 3 unknown) (unknown) (no (unknown) (unknown) PEEP/ 100% Fio2 (units (unknown) date) unknown) (unknown) (no (unknown) (unknown) PFSH (units (unkno wn) date) unknown) (unknown) (no (unknown) (unknown) PPI, Lisinopril (units (unknown) date) and NSAIDs per unknown) home meds review. (unknown) (no (unknown) (unknown) Patient Location: (units (unknown) date) ICU unknown) (unknown) (no (unknown) (unknown) Patient: (units (unkno wn) date) Polly Bone unknown) MR#: [id number] (unknown) (no (unknown) (unknown) Plan discussed (units (unknown) date) with ICU medical unknown) staff (unknown) (no (unknown) (unknown) Plan (units (unkno wn) date) unknown) (unknown) (no (unknown) (unknown) Plt Count 386 (units ( unknown) date) unknown) (unknown) (no (unknown) (unknown) Plt Count (units (unkn own) date) unknown) (unknown) (no (unknown) (unknown) Post-operative (units (unknown) date) microdiskectomy unknown) L4-5 (unknown) (no (unknown) (unknown) Potassium 7.2 H* (units (unknown) date) D unknown) (unknown) (no (unknown) (unknown) Potassium 9.7 H* (units (unknown) date) unknown) (unknown) (no (unknown) (unknown) Potassium (units (unkn own) date) unknown) (unknown) (no (unknown) (unknown) Propofol 1,000 mg (units (unknown) date) in 100 mls @ 4.069 unknown) mls/hr 07/30/22 04:30 07/30/22 05:25 (unknown) (no (unknown) (unknown) Propofol IV 5 (units ( unknown) date) mcg/kg/min unknown) (unknown) (no (unknown) (unknown) Protocol (units (unkno wn) date) unknown) (unknown) (no (unknown) (unknown) Provider location (units (unknown) date) (State): unknown) (unknown) (no (unknown) (unknown) Provider: (units (unkn own) date) Alvina Vickers MD unknown) (unknown) (no (unknown) (unknown) Pulse Oximetry 93 (units (unknown) date) 94 unknown) (unknown) (no (unknown) (unknown) Pulse Rate 60 86 (units (unknown) date) unknown) (unknown) (no (unknown) (unknown) RBC 3.91 L (units (unk nown) date) unknown) (unknown) (no (unknown) (unknown) RBC (units (unkno wn) date) unknown) (unknown) (no (unknown) (unknown) RDW 14.4 (units (unkno wn) date) unknown) (unknown) (no (unknown) (unknown) RDW (units (unkno wn) date) unknown) (unknown) (no (unknown) (unknown) Rec: (units (unkno wn) date) unknown) (unknown) (no (unknown) (unknown) Received 3 amps (units (unknown) date) of bicarb, started unknown) on Bicarb 150 ml/hr, finish 1 L and stop, (unknown) (no (unknown) (unknown) Renal Panel and (units (unknown) date) ABG Q3 hr, ABG unknown) stat now and give another 3 amps of biacrb if Ph (unknown) (no (unknown) (unknown) Respiratory Rate (units (unknown) date) 16 unknown) (unknown) (no (unknown) (unknown) Result Diagrams: (units (unknown) date) unknown) (unknown) (no (unknown) (unknown) SARS-CoV-2 (PCR) (units (unknown) date) Negative unknown) (unknown) (no (unknown) (unknown) SARS-CoV-2 (PCR) (units (unknown) date) unknown) (unknown) (no (unknown) (unknown) STAT Renal (units (unk nown) date) Ultrasound unknown) (unknown) (no (unknown) (unknown) STAT transfer for (units (unknown) date) higher level of unknown) care (unknown) (no (unknown) (unknown) Sciatica (units (unkno wn) date) unknown) (unknown) (no (unknown) (unknown) Septic shock (units (u nknown) date) unknown) (unknown) (no (unknown) (unknown) Sever JESSICA stage (units (unknown) date) III unknown) (unknown) (no (unknown) (unknown) Sever (units (unkno wn) date) hyperkalemia unknown) (unknown) (no (unknown) (unknown) Sever metabolic (units (unknown) date) and respiratory unknown) acidemia (unknown) (no (unknown) (unknown) Signed (units (unkno wn) date) By:<Electronically unknown) signed by Alvina Vickers MD> (unknown) (no (unknown) (unknown) Smoking Status: (units (unknown) date) Former smoker unknown) (unknown) (no (unknown) (unknown) Social History (units (unknown) date) unknown) (unknown) (no (unknown) (unknown) Sodium 133 L (units (u nknown) date) unknown) (unknown) (no (unknown) (unknown) Sodium 140 (units (unk nown) date) unknown) (unknown) (no (unknown) (unknown) Sodium (units (unkno wn) date) unknown) (unknown) (no (unknown) (unknown) Start Cefepime + (units (unknown) date) Vanc, send blood unknown) and resp Cx ( pharmacy to adjust dose per GFR (unknown) (no (unknown) (unknown) Status: Acute (units ( unknown) date) unknown) (unknown) (no (unknown) (unknown) Stop NS (units (unkno wn) date) unknown) (unknown) (no (unknown) (unknown) Surgical History (units (unknown) date) (Reviewed 07/30/22 unknown) @ 05:23 by JOVANNY Alonzo) (unknown) (no (unknown) (unknown) Switch PPI to IV (units (unknown) date) [id number] for GI unknown) PPX (unknown) (no (unknown) (unknown) TITRATE JOSEPH 4.069 (units (unknown) date) mls/hr unknown) (unknown) (no (unknown) (unknown) Teleintensivist (units (unknown) date) Consult Note unknown) (unknown) (no (unknown) (unknown) Temperature 97.9 (units (unknown) date) F unknown) (unknown) (no (unknown) (unknown) Time Spent With (units (unknown) date) Patient unknown) (unknown) (no (unknown) (unknown) Total Bilirubin (units (unknown) date) 0.3 unknown) (unknown) (no (unknown) (unknown) Total Bilirubin (units (unknown) date) 0.4 unknown) (unknown) (no (unknown) (unknown) Total Bilirubin (units (unknown) date) unknown) (unknown) (no (unknown) (unknown) Total Creatine (units (unknown) date) Kinase 173 H unknown) (unknown) (no (unknown) (unknown) Total Creatine (units (unknown) date) Kinase unknown) (unknown) (no (unknown) (unknown) Total Protein 6.5 (units (unknown) date) unknown) (unknown) (no (unknown) (unknown) Total Protein 7.2 (units (unknown) date) unknown) (unknown) (no (unknown) (unknown) Total Protein (units ( unknown) date) unknown) (unknown) (no (unknown) (unknown) Trade Name Freq (units (unknown) date) PRN Reason Stop unknown) Dose Admin (unknown) (no (unknown) (unknown) Troponin I 0.072 (units (unknown) date) H unknown) (unknown) (no (unknown) (unknown) Troponin I (units (unk nown) date) unknown) (unknown) (no (unknown) (unknown) Visit Medications (units (unknown) date) (administered) unknown) (unknown) (no (unknown) (unknown) Vital Signs (units (un known) date) unknown) (unknown) (no (unknown) (unknown) WBC 21.1 H (units (unk nown) date) unknown) (unknown) (no (unknown) (unknown) WBC (units (unkno wn) date) unknown) (unknown) (no (unknown) (unknown) Wean off sedation (units (unknown) date) of propfole, add unknown) fentanyl (unknown) (no (unknown) (unknown) [Embedded Image (units (unknown) date) Not Available] unknown) (unknown) (no (unknown) (unknown) [History (units (unkno wn) date) Confirmed unknown) 07/29/22] (unknown) (no (unknown) (unknown) acetaminophen 500 (units (unknown) date) mg tablet 1,000 mg unknown) PO QD-BID PRN Pain 07/28/22 [History (unknown) (no (unknown) (unknown) alcohol intake: (units (unknown) date) current unknown) (unknown) (no (unknown) (unknown) amlodipine 2.5 mg (units (unknown) date) tablet 2.5 mg PO unknown) DAILY 07/28/22 [History Confirmed 07/29/22] (unknown) (no (unknown) (unknown) below 7.2 (units (unkn own) date) unknown) (unknown) (no (unknown) (unknown) changes or (units (unkn own) date) significant trop. unknown) Base line Cr per nurse1.12 0n 07/14/2022. Pt was on (unknown) (no (unknown) (unknown) communication: (units (unknown) date) Camera activated unknown) (unknown) (no (unknown) (unknown) cyclobenzaprine (units (unknown) date) 7.5 mg tablet 7.5 unknown) mg PO PRN PRN Pain (Scale Score 4-6) 07/29/22 (unknown) (no (unknown) (unknown) dose of (units (unkno wn) date) amiodarone for unknown) possible VFib, complicated by cardiac arrest, ROSC after (unknown) (no (unknown) (unknown) gabapentin 800 mg (units (unknown) date) tablet 800 mg PO unknown) BID 07/28/22 [History Confirmed 07/29/22] (unknown) (no (unknown) (unknown) glipizide 10 mg (units (unknown) date) tablet 10 mg PO unknown) DAILY 07/28/22 [History Confirmed 07/29/22] (unknown) (no (unknown) (unknown) household (units (unkn own) date) members: unknown) significant other (unknown) (no (unknown) (unknown) hydrocodone 5 (units ( unknown) date) mg-acetaminophen unknown) 325 mg tablet 5 tab PO Q8H PRN pain 07/29/22 (unknown) (no (unknown) (unknown) hypotension, (units (u nknown) date) found to have wide unknown) complex bradycardic EKG changes, Received a (unknown) (no (unknown) (unknown) ibuprofen 200 mg (units (unknown) date) tablet (Advil) 600 unknown) mg PO QD-BID PRN Pain 07/28/22 [History (unknown) (no (unknown) (unknown) lisinopril 40 mg (units (unknown) date) tablet 40 mg PO unknown) DAILY 07/28/22 [History Confirmed 07/29/22] (unknown) (no (unknown) (unknown) metabolic (units (unkn own) date) academia, DKA. unknown) Unfortunately no labs were drawn preop or (unknown) (no (unknown) (unknown) metformin 500 mg (units (unknown) date) tablet 1,000 mg PO unknown) BID 07/28/22 [History Confirmed 07/29/22] (unknown) (no (unknown) (unknown) metoprolol (units (unkn own) date) succinate 50 mg unknown) tablet,extended release 24 hr 50 mg PO DAILY 07/28/22 (unknown) (no (unknown) (unknown) nortriptyline 10 (units (unknown) date) mg capsule 20 mg unknown) PO BEDTIME 07/28/22 [History Confirmed (unknown) (no (unknown) (unknown) operative (units (unkno wn) date) microdiskectomy unknown) L4-5, developed mild chest discomfort, diaphoresis and (unknown) (no (unknown) (unknown) oxycodone 5 mg (units (unknown) date) tablet 5 mg PO Q4H unknown) PRN pain #40 tabs 07/29/22 [Rx] (unknown) (no (unknown) (unknown) pantoprazole 40 (units (unknown) date) mg tablet,delayed unknown) release 40 mg PO DAILY 07/28/22 [History (unknown) (no (unknown) (unknown) postop.?Patient (units (unknown) date) was intubated. unknown) Started on heparin for concern of CT but no ST (unknown) (no (unknown) (unknown) simvastatin 40 mg (units (unknown) date) tablet 40 mg PO unknown) BEDTIME 07/28/22 [History Confirmed 07/29/22] (unknown) (no (unknown) (unknown) today; this time (units (unknown) date) is exclusive of unknown) procedural time. Result panel 140 (unknown) (no date) (unknown) (unknown) 1.21 ng/ml (unkn own) (unknown) (no date) (unknown) (unknown) 1.21 ng/ml (unkn own) Result panel 141 (unknown) (no (unknown) (unknown) (no value) (units (unk nown) date) unknown) (unknown) (no (unknown) (unknown) [id number] (units (unkno wn) date) unknown) (unknown) (no (unknown) (unknown) 07/30/22 0632 (units ( unknown) date) unknown) (unknown) (no (unknown) (unknown) Age/Sex: 57 / F (units (unknown) date) unknown) (unknown) (no (unknown) (unknown) : 1965 (units (unknown) date) Acct:[id number] unknown) (unknown) (no (unknown) (unknown) Date of (units (unkno wn) date) Service: unknown) 07/29/22 (unknown) (no (unknown) (unknown) Event Note (units (unk nown) date) (Rapid Response, unknown) Code, or fall): (unknown) (no (unknown) (unknown) Event Note (units (unk nown) date) unknown) (unknown) (no (unknown) (unknown) [facility] (units (unknown) date) [address] unknown) [place] [address] (unknown) (no (unknown) (unknown) Patient: (units (unkno wn) date) Polly Bone unknown) MR#: [id number] (unknown) (no (unknown) (unknown) Provider: (units (unkn own) date) Marcie Bundy unknown) (unknown) (no (unknown) (unknown) Signed (units (unkno wn) date) By:<Electronical unknown) ly signed by Marcie Bundy MD> (unknown) (no (unknown) (unknown) demonstrated a (units (unknown) date) normal K or 4.9 unknown) and normal Cr 1.12 at that time-- these can be (unknown) (no (unknown) (unknown) found in the (units (u nknown) date) labs tab under unknown) scanned outside labs (unknown) (no (unknown) (unknown) there are preop (units (unknown) date) labs in the unknown) scanned labs document from 07/04/22-- these Result panel 142 (unknown) (no date) (unknown) (unknown) 8.4 mmol/l (unkn own) (unknown) (no date) (unknown) (unknown) 8.4 mmol/l (unkn own) Result panel 143 (unknown) (no date) (unknown) (unknown) 119 mg/dl (unkn own) (unknown) (no date) (unknown) (unknown) 119 mg/dl (unkn own) (unknown) (no date) (unknown) (unknown) 136 mmol/l (unkn own) (unknown) (no date) (unknown) (unknown) 14.8 mg/dl (unkn own) (unknown) (no date) (unknown) (unknown) 14.8 mg/dl (unkn own) (unknown) (no date) (unknown) (unknown) 3 ml/min (unkn own) (unknown) (no date) (unknown) (unknown) 3 ml/min (unkn own) (unknown) (no date) (unknown) (unknown) 402 mg/dl (unkn own) (unknown) (no date) (unknown) (unknown) 402 mg/dl (unkn own) (unknown) (no date) (unknown) (unknown) 8 mmol/l (unkn own) (unknown) (no date) (unknown) (unknown) 8 mmol/l (unkn own) (unknown) (no date) (unknown) (unknown) 8.0 (units unknown) (unknown) (unknown) (no date) (unknown) (unknown) 8.1 mg/dl (unkn own) (unknown) (no date) (unknown) (unknown) 8.2 mmol/l (unkn own) (unknown) (no date) (unknown) (unknown) 8.2 mmol/l (unkn own) (unknown) (no date) (unknown) (unknown) 95 mmol/l (unkn own) Result panel 144 (unknown) (no date) (unknown) (unknown) 4.42 mmol/l (unkn own) (unknown) (no date) (unknown) (unknown) 4.42 mmol/l (unkn own) Result panel 145 (unknown) (no date) (unknown) (unknown) 0.297 ng/ml (unkn own) (unknown) (no date) (unknown) (unknown) 0.297 ng/ml (unkn own) Result panel 146 (unknown) (no (unknown) (unknown) (no value) (units (unk nown) date) unknown) (unknown) (no (unknown) (unknown) (past 8 hours): (units (unknown) date) unknown) (unknown) (no (unknown) (unknown) * Creatinine (units (u nknown) date) prior to insulin unknown) and D5 was 15.2 and currently it is 13.9 her EGFR (unknown) (no (unknown) (unknown) * Initial (units (unkn own) date) potassium was 9.7. unknown) She was administered D5 and 10 units of IV insulin (unknown) (no (unknown) (unknown) * Initial troponin (units (unknown) date) is elevated at unknown) 0.072nd troponin is currently pending CK-MB is (unknown) (no (unknown) (unknown) * Patient is (units (u nknown) date) currently unknown) intubated, vent settings per eICU tidal volume 425, FiO2 (unknown) (no (unknown) (unknown) * Patient needs (units (unknown) date) to be transferred unknown) for emergent dialysis (unknown) (no (unknown) (unknown) * Patient (units (unkn own) date) underwent several unknown) rounds of CPR and was eventually restored to a more (unknown) (no (unknown) (unknown) * Patient was (units ( unknown) date) initiated on a unknown) heparin drip but this has now been discontinued (unknown) (no (unknown) (unknown) * She is ordered (units (unknown) date) for another 10 unknown) units of IV insulin, D5 is being held due to her (unknown) (no (unknown) (unknown) * (units (unkno wn) date) unknown) (unknown) (no (unknown) (unknown) [id number] (units (unkno wn) date) unknown) (unknown) (no (unknown) (unknown) 01:00 (units (unkno wn) date) unknown) (unknown) (no (unknown) (unknown) 03:20 03:35 04:15 (units (unknown) date) unknown) (unknown) (no (unknown) (unknown) 04:25 (units (unkno wn) date) unknown) (unknown) (no (unknown) (unknown) 100%, respiratory (units (unknown) date) rate 32 and a PEEP unknown) of 10 (unknown) (no (unknown) (unknown) 07/29/22 07/29/22 (units (unknown) date) 07/30/22 unknown) (unknown) (no (unknown) (unknown) 07/29/22 (units (unkno wn) date) unknown) (unknown) (no (unknown) (unknown) 07/30/22 03:20 (units (unknown) date) unknown) (unknown) (no (unknown) (unknown) 07/30/22 04:15 (units (unknown) date) unknown) (unknown) (no (unknown) (unknown) 07/30/22 07/30/22 (units (unknown) date) 07/30/22 unknown) (unknown) (no (unknown) (unknown) 07/30/22 (units (unkno wn) date) unknown) (unknown) (no (unknown) (unknown) 12:29 12:55 03:20 (units (unknown) date) unknown) (unknown) (no (unknown) (unknown) 22:50 07/29/22 (units (unknown) date) unknown) (unknown) (no (unknown) (unknown) 23:45 07/30/22 (units (unknown) date) unknown) (unknown) (no (unknown) (unknown) ABG Base Excess (units (unknown) date) -20.0 L unknown) (unknown) (no (unknown) (unknown) ABG Base Excess (units (unknown) date) -25.0 L unknown) (unknown) (no (unknown) (unknown) ABG Base Excess (units (unknown) date) unknown) (unknown) (no (unknown) (unknown) ABG HCO3 10 L (units ( unknown) date) unknown) (unknown) (no (unknown) (unknown) ABG HCO3 8 L (units (u nknown) date) unknown) (unknown) (no (unknown) (unknown) ABG HCO3 (units (unkno wn) date) unknown) (unknown) (no (unknown) (unknown) ABG O2 Saturation (units (unknown) date) 52 L* unknown) (unknown) (no (unknown) (unknown) ABG O2 Saturation (units (unknown) date) 86 L unknown) (unknown) (no (unknown) (unknown) ABG O2 Saturation (units (unknown) date) unknown) (unknown) (no (unknown) (unknown) ABG Total CO2 12 (units (unknown) date) L unknown) (unknown) (no (unknown) (unknown) ABG Total CO2 9 L (units (unknown) date) unknown) (unknown) (no (unknown) (unknown) ABG Total CO2 (units ( unknown) date) unknown) (unknown) (no (unknown) (unknown) ABG pCO2 36.7 (units ( unknown) date) unknown) (unknown) (no (unknown) (unknown) ABG pCO2 37.5 (units ( unknown) date) unknown) (unknown) (no (unknown) (unknown) ABG pCO2 (units (unkno wn) date) unknown) (unknown) (no (unknown) (unknown) ABG pH 6.92 L* (units (unknown) date) unknown) (unknown) (no (unknown) (unknown) ABG pH 7.06 L* (units (unknown) date) unknown) (unknown) (no (unknown) (unknown) ABG pH (units (unkno wn) date) unknown) (unknown) (no (unknown) (unknown) ABG pO2 38 L* (units ( unknown) date) unknown) (unknown) (no (unknown) (unknown) ABG pO2 82 (units (unk nown) date) unknown) (unknown) (no (unknown) (unknown) ABG pO2 (units (unkno wn) date) unknown) (unknown) (no (unknown) (unknown) ALT 203 H (units (unkn own) date) unknown) (unknown) (no (unknown) (unknown) ALT 22 (units (unkno wn) date) unknown) (unknown) (no (unknown) (unknown) ALT (units (unkno wn) date) unknown) (unknown) (no (unknown) (unknown) AST 17 (units (unkno wn) date) unknown) (unknown) (no (unknown) (unknown) AST 226 H (units (unkn own) date) unknown) (unknown) (no (unknown) (unknown) AST (units (unkno wn) date) unknown) (unknown) (no (unknown) (unknown) Abd: Obese (units (unk nown) date) unknown) (unknown) (no (unknown) (unknown) Acute renal (units (un known) date) failure in the unknown) setting of severe hyperkalemia (unknown) (no (unknown) (unknown) Acute respiratory (units (unknown) date) failure unknown) (unknown) (no (unknown) (unknown) Age/Sex: 57 / F (units (unknown) date) unknown) (unknown) (no (unknown) (unknown) Albumin 3.6 (units (un known) date) unknown) (unknown) (no (unknown) (unknown) Albumin 4.1 (units (un known) date) unknown) (unknown) (no (unknown) (unknown) Albumin (units (unkno wn) date) unknown) (unknown) (no (unknown) (unknown) Albumin/Globulin (units (unknown) date) Ratio 1.2 unknown) (unknown) (no (unknown) (unknown) Albumin/Globulin (units (unknown) date) Ratio 1.3 unknown) (unknown) (no (unknown) (unknown) Albumin/Globulin (units (unknown) date) Ratio unknown) (unknown) (no (unknown) (unknown) Alkaline (units (unkno wn) date) Phosphatase 100 unknown) (unknown) (no (unknown) (unknown) Alkaline (units (unkno wn) date) Phosphatase 93 unknown) (unknown) (no (unknown) (unknown) Alkaline (units (unkno wn) date) Phosphatase unknown) (unknown) (no (unknown) (unknown) Allergies (units (unkn own) date) unknown) (unknown) (no (unknown) (unknown) Allergy/AdvReac (units (unknown) date) Type Severity unknown) Reaction Status Date / Time (unknown) (no (unknown) (unknown) Assessment + Plan (units (unknown) date) narrative: unknown) (unknown) (no (unknown) (unknown) Assessment + Plan (units (unknown) date) unknown) (unknown) (no (unknown) (unknown) BUN 117 H* (units (unk nown) date) unknown) (unknown) (no (unknown) (unknown) BUN 120 H* (units (unk nown) date) unknown) (unknown) (no (unknown) (unknown) BUN (units (unkno wn) date) unknown) (unknown) (no (unknown) (unknown) BUN/Creatinine (units (unknown) date) Ratio 7.9 unknown) (unknown) (no (unknown) (unknown) BUN/Creatinine (units (unknown) date) Ratio 8.4 unknown) (unknown) (no (unknown) (unknown) BUN/Creatinine (units (unknown) date) Ratio unknown) (unknown) (no (unknown) (unknown) Baso # (Auto) 0 (units (unknown) date) unknown) (unknown) (no (unknown) (unknown) Baso # (Auto) (units ( unknown) date) unknown) (unknown) (no (unknown) (unknown) Baso % (Auto) 0.1 (units (unknown) date) unknown) (unknown) (no (unknown) (unknown) Baso % (Auto) (units ( unknown) date) unknown) (unknown) (no (unknown) (unknown) Blood Pressure (units (unknown) date) 95/51 L 91/47 L unknown) 94/44 L (unknown) (no (unknown) (unknown) CK-MB (CK-2) 2.90 (units (unknown) date) H unknown) (unknown) (no (unknown) (unknown) CK-MB (CK-2) Rel (units (unknown) date) Index 1.7 unknown) (unknown) (no (unknown) (unknown) CK-MB (CK-2) Rel (units (unknown) date) Index unknown) (unknown) (no (unknown) (unknown) CK-MB (CK-2) (units (u nknown) date) unknown) (unknown) (no (unknown) (unknown) COVID-19 status: (units (unknown) date) Negative unknown) (unknown) (no (unknown) (unknown) COVID-19 (units (unkno wn) date) unknown) (unknown) (no (unknown) (unknown) CV: Patient (units (un known) date) alternated between unknown) having a pulse and being pulseless, EKG showed (unknown) (no (unknown) (unknown) Calcium 7.6 L (units ( unknown) date) unknown) (unknown) (no (unknown) (unknown) Calcium 9.0 (units (un known) date) unknown) (unknown) (no (unknown) (unknown) Calcium (units (unkno wn) date) unknown) (unknown) (no (unknown) (unknown) Carbon Dioxide 7 (units (unknown) date) L* unknown) (unknown) (no (unknown) (unknown) Carbon Dioxide 8 (units (unknown) date) L* unknown) (unknown) (no (unknown) (unknown) Carbon Dioxide (units (unknown) date) unknown) (unknown) (no (unknown) (unknown) Cardiac arrest in (units (unknown) date) the setting of unknown) acute hyperkalemia (unknown) (no (unknown) (unknown) Chief complaint: (units (unknown) date) INPT unknown) (unknown) (no (unknown) (unknown) Chloride 95 L (units ( unknown) date) unknown) (unknown) (no (unknown) (unknown) Chloride 97 L (units ( unknown) date) unknown) (unknown) (no (unknown) (unknown) Chloride (units (unkno wn) date) unknown) (unknown) (no (unknown) (unknown) Comment: (units (unkno wn) date) unknown) (unknown) (no (unknown) (unknown) Consult Note (units (u nknown) date) unknown) (unknown) (no (unknown) (unknown) Consult details (units (unknown) date) unknown) (unknown) (no (unknown) (unknown) Creatinine 13.9 (units (unknown) date) H* unknown) (unknown) (no (unknown) (unknown) Creatinine 15.2 (units (unknown) date) H* unknown) (unknown) (no (unknown) (unknown) Creatinine (units (unk nown) date) unknown) (unknown) (no (unknown) (unknown) Critical Care (units ( unknown) date) time: unknown) (unknown) (no (unknown) (unknown) : 1965 (units (unknown) date) Acct:[id number] unknown) (unknown) (no (unknown) (unknown) Date Patient (units (u nknown) date) Seen: 07/30/22 unknown) (unknown) (no (unknown) (unknown) Date of Service: (units (unknown) date) 07/29/22 unknown) (unknown) (no (unknown) (unknown) Diabetes (units (unkno wn) date) unknown) (unknown) (no (unknown) (unknown) Polly Bone is a (units (unknown) date) 57-year-old female unknown) pod 1. L5-6 lumbar laminectomy is found to (unknown) (no (unknown) (unknown) Eos # (Auto) 0 (units (unknown) date) unknown) (unknown) (no (unknown) (unknown) Eos # (Auto) (units (u nknown) date) unknown) (unknown) (no (unknown) (unknown) Eos % (Auto) 0.0 (units (unknown) date) L unknown) (unknown) (no (unknown) (unknown) Eos % (Auto) (units (u nknown) date) unknown) (unknown) (no (unknown) (unknown) Estimated GFR 3 L (units (unknown) date) unknown) (unknown) (no (unknown) (unknown) Estimated GFR (units ( unknown) date) unknown) (unknown) (no (unknown) (unknown) Exam Narrative: (units (unknown) date) unknown) (unknown) (no (unknown) (unknown) Exam (units (unkno wn) date) unknown) (unknown) (no (unknown) (unknown) Extremities: (units (u nknown) date) Appears to have unknown) good cap refill (unknown) (no (unknown) (unknown) FiO2 100 (units (unkno wn) date) unknown) (unknown) (no (unknown) (unknown) FiO2 15 (units (unkno wn) date) unknown) (unknown) (no (unknown) (unknown) FiO2 (units (unkno wn) date) unknown) (unknown) (no (unknown) (unknown) GERD (units (unkno wn) date) (gastroesophageal unknown) reflux disease) (unknown) (no (unknown) (unknown) Gen: Arousable, (units (unknown) date) morbidly obese 57 unknown) y.o. female (unknown) (no (unknown) (unknown) Globulin 2.9 (units (u nknown) date) unknown) (unknown) (no (unknown) (unknown) Globulin 3.1 (units (u nknown) date) unknown) (unknown) (no (unknown) (unknown) Globulin (units (unkno wn) date) unknown) (unknown) (no (unknown) (unknown) Glucose 27 L* 303 (units (unknown) date) H D unknown) (unknown) (no (unknown) (unknown) Glucose 404 H D (units (unknown) date) unknown) (unknown) (no (unknown) (unknown) Glucose (units (unkno wn) date) unknown) (unknown) (no (unknown) (unknown) HEENT: (units (unkno wn) date) normocephalic, unknown) atraumatic, conjunctiva clear, sclera non-icteric, oral (unknown) (no (unknown) (unknown) HLD (units (unkno wn) date) (hyperlipidemia) unknown) (unknown) (no (unknown) (unknown) HTN (units (unkno wn) date) (hypertension) unknown) (unknown) (no (unknown) (unknown) Hct 36.1 (units (unkno wn) date) unknown) (unknown) (no (unknown) (unknown) Hct (units (unkno wn) date) unknown) (unknown) (no (unknown) (unknown) Hgb 11.3 L (units (unk nown) date) unknown) (unknown) (no (unknown) (unknown) Hgb (units (unkno wn) date) unknown) (unknown) (no (unknown) (unknown) History of (units (unk nown) date) Present Illness unknown) (unknown) (no (unknown) (unknown) History of (units (unk nown) date) hysterectomy unknown) (unknown) (no (unknown) (unknown) History (units (unkno wn) date) unknown) (unknown) (no (unknown) (unknown) Home Medications (units (unknown) date) and Allergies unknown) (unknown) (no (unknown) (unknown) Home Medications (units (unknown) date) unknown) (unknown) (no (unknown) (unknown) I spent a total (units (unknown) date) of 180 minutes of unknown) critical care time on this patient's care (unknown) (no (unknown) (unknown) [facility] (units (unknown) date) [address] unknown) [place] [address] (unknown) (no (unknown) (unknown) Laboratory (units (unk nown) date) Results - last 24 unknown) hr (unknown) (no (unknown) (unknown) Labs (units (unkno wn) date) unknown) (unknown) (no (unknown) (unknown) Labs: (units (unkno wn) date) unknown) (unknown) (no (unknown) (unknown) Lumbar disc (units (un known) date) herniation unknown) (unknown) (no (unknown) (unknown) Lymph # (Auto) (units (unknown) date) 800 L unknown) (unknown) (no (unknown) (unknown) Lymph # (Auto) (units (unknown) date) unknown) (unknown) (no (unknown) (unknown) Lymph % (Auto) (units (unknown) date) 3.9 L unknown) (unknown) (no (unknown) (unknown) Lymph % (Auto) (units (unknown) date) unknown) (unknown) (no (unknown) (unknown) MCH 29.0 (units (unkno wn) date) unknown) (unknown) (no (unknown) (unknown) MCH (units (unkno wn) date) unknown) (unknown) (no (unknown) (unknown) MCHC 31.4 (units (unkn own) date) unknown) (unknown) (no (unknown) (unknown) MCHC (units (unkno wn) date) unknown) (unknown) (no (unknown) (unknown) MCV 92.3 (units (unkno wn) date) unknown) (unknown) (no (unknown) (unknown) MCV (units (unkno wn) date) unknown) (unknown) (no (unknown) (unknown) Magnesium 1.8 (units ( unknown) date) unknown) (unknown) (no (unknown) (unknown) Magnesium (units (unkn own) date) unknown) (unknown) (no (unknown) (unknown) Medical History (units (unknown) date) (Reviewed 07/30/22 unknown) @ 05:23 by JOVANNY Alonzo) (unknown) (no (unknown) (unknown) Medication (units (unk nown) date) Instructions unknown) Recorded Confirmed Type (unknown) (no (unknown) (unknown) Meds (units (unkno wn) date) unknown) (unknown) (no (unknown) (unknown) Gibson # (Auto) 100 (units (unknown) date) unknown) (unknown) (no (unknown) (unknown) Gibson # (Auto) (units ( unknown) date) unknown) (unknown) (no (unknown) (unknown) Gibson % (Auto) 0.6 (units (unknown) date) L unknown) (unknown) (no (unknown) (unknown) Gibson % (Auto) (units ( unknown) date) unknown) (unknown) (no (unknown) (unknown) Narrative (units (unkn own) date) unknown) (unknown) (no (unknown) (unknown) Narrative: (units (unk nown) date) unknown) (unknown) (no (unknown) (unknown) Neck: supple, (units ( unknown) date) full ROM, no JVD, unknown) trachea is midline (unknown) (no (unknown) (unknown) Neuro: Speech (units ( unknown) date) clear and coherent unknown) just prior to intubation obtunded (unknown) (no (unknown) (unknown) Neuropathy (units (unk nown) date) unknown) (unknown) (no (unknown) (unknown) Neut # (Auto) (units ( unknown) date) 57999 H unknown) (unknown) (no (unknown) (unknown) Neut # (Auto) (units ( unknown) date) unknown) (unknown) (no (unknown) (unknown) Neut % (Auto) (units ( unknown) date) 95.4 H unknown) (unknown) (no (unknown) (unknown) Neut % (Auto) (units ( unknown) date) unknown) (unknown) (no (unknown) (unknown) Nursing contacted (units (unknown) date) me requesting unknown) consult by Orthopedic surgery for this patient (unknown) (no (unknown) (unknown) Objective (units (unkn own) date) unknown) (unknown) (no (unknown) (unknown) Ovarian cancer (units (unknown) date) (-2014) unknown) (unknown) (no (unknown) (unknown) Oxygen Delivery (units (unknown) date) Method Room Air unknown) (unknown) (no (unknown) (unknown) Oxygen Flow Rate (units (unknown) date) 2 3 unknown) (unknown) (no (unknown) (unknown) Oxygen Flow Rate (units (unknown) date) 3 unknown) (unknown) (no (unknown) (unknown) PFSH (units (unkno wn) date) unknown) (unknown) (no (unknown) (unknown) Patient is (units (unk nown) date) intubated unable unknown) to speak and is from [place] so we do not have (unknown) (no (unknown) (unknown) Patient: (units (unkno wn) date) Polly Bone M unknown) MR#: [id number] (unknown) (no (unknown) (unknown) Plt Count 386 (units ( unknown) date) unknown) (unknown) (no (unknown) (unknown) Plt Count (units (unkn own) date) unknown) (unknown) (no (unknown) (unknown) Potassium 7.2 H* (units (unknown) date) D unknown) (unknown) (no (unknown) (unknown) Potassium 9.7 H* (units (unknown) date) unknown) (unknown) (no (unknown) (unknown) Potassium (units (unkn own) date) unknown) (unknown) (no (unknown) (unknown) Provider: (units (unkn own) date) Rizwana Valle unknown) (unknown) (no (unknown) (unknown) Psyche: Unable to (units (unknown) date) assess unknown) (unknown) (no (unknown) (unknown) Pulse Oximetry 93 (units (unknown) date) 94 unknown) (unknown) (no (unknown) (unknown) Pulse Rate 60 86 (units (unknown) date) unknown) (unknown) (no (unknown) (unknown) RBC 3.91 L (units (unk nown) date) unknown) (unknown) (no (unknown) (unknown) RBC (units (unkno wn) date) unknown) (unknown) (no (unknown) (unknown) RDW 14.4 (units (unkno wn) date) unknown) (unknown) (no (unknown) (unknown) RDW (units (unkno wn) date) unknown) (unknown) (no (unknown) (unknown) ROS: Yes (units (unkno wn) date) unobtainable due unknown) to endotracheal tube (unknown) (no (unknown) (unknown) Reason for (units (unk nown) date) consult: Code blue unknown) (unknown) (no (unknown) (unknown) Resp: Patient is (units (unknown) date) currently vented unknown) (unknown) (no (unknown) (unknown) Respiratory Rate (units (unknown) date) 16 unknown) (unknown) (no (unknown) (unknown) Result Diagrams: (units (unknown) date) unknown) (unknown) (no (unknown) (unknown) Result date/Date (units (unknown) date) tested (Pos, unknown) Neg/Pending): 07/29/22 (unknown) (no (unknown) (unknown) Review of Systems (units (unknown) date) unknown) (unknown) (no (unknown) (unknown) SARS-CoV-2 (PCR) (units (unknown) date) Negative unknown) (unknown) (no (unknown) (unknown) SARS-CoV-2 (PCR) (units (unknown) date) unknown) (unknown) (no (unknown) (unknown) STEMI changes (units ( unknown) date) unknown) (unknown) (no (unknown) (unknown) Sciatica (units (unkno wn) date) unknown) (unknown) (no (unknown) (unknown) Score 4-6) (units (unk nown) date) unknown) (unknown) (no (unknown) (unknown) Signed By: (units (unk nown) date) unknown) (unknown) (no (unknown) (unknown) Skin: Appears to (units (unknown) date) have Martha in unknown) her pannus area (unknown) (no (unknown) (unknown) Smoking Status: (units (unknown) date) Former smoker unknown) (unknown) (no (unknown) (unknown) Social History (units (unknown) date) unknown) (unknown) (no (unknown) (unknown) Sodium 133 L (units (u nknown) date) unknown) (unknown) (no (unknown) (unknown) Sodium 140 (units (unk nown) date) unknown) (unknown) (no (unknown) (unknown) Sodium (units (unkno wn) date) unknown) (unknown) (no (unknown) (unknown) Surgical History (units (unknown) date) (Reviewed 07/30/22 unknown) @ 05:23 by JOVANNY Alonzo) (unknown) (no (unknown) (unknown) Temperature 97.9 (units (unknown) date) F unknown) (unknown) (no (unknown) (unknown) Time Patient (units (u nknown) date) Seen: 03:00 unknown) (unknown) (no (unknown) (unknown) Time Spent With (units (unknown) date) Patient unknown) (unknown) (no (unknown) (unknown) Tobacco + (units (unkn own) date) Substance Use unknown) (unknown) (no (unknown) (unknown) Total Bilirubin (units (unknown) date) 0.3 unknown) (unknown) (no (unknown) (unknown) Total Bilirubin (units (unknown) date) 0.4 unknown) (unknown) (no (unknown) (unknown) Total Bilirubin (units (unknown) date) unknown) (unknown) (no (unknown) (unknown) Total Creatine (units (unknown) date) Kinase 173 H unknown) (unknown) (no (unknown) (unknown) Total Creatine (units (unknown) date) Kinase unknown) (unknown) (no (unknown) (unknown) Total Protein 6.5 (units (unknown) date) unknown) (unknown) (no (unknown) (unknown) Total Protein 7.2 (units (unknown) date) unknown) (unknown) (no (unknown) (unknown) Total Protein (units ( unknown) date) unknown) (unknown) (no (unknown) (unknown) Troponin I 0.072 (units (unknown) date) H unknown) (unknown) (no (unknown) (unknown) Troponin I (units (unk nown) date) unknown) (unknown) (no (unknown) (unknown) Vital Signs (units (un known) date) unknown) (unknown) (no (unknown) (unknown) WBC 21.1 H (units (unk nown) date) unknown) (unknown) (no (unknown) (unknown) WBC (units (unkno wn) date) unknown) (unknown) (no (unknown) (unknown) [Embedded Image (units (unknown) date) Not Available] unknown) (unknown) (no (unknown) (unknown) acetaminophen 500 (units (unknown) date) mg tablet 1,000 mg unknown) PO QD-BID PRN Pain 07/28/22 07/29/22 (unknown) (no (unknown) (unknown) alcohol intake: (units (unknown) date) current unknown) (unknown) (no (unknown) (unknown) also elevated at (units (unknown) date) 2.9 and total unknown) creatinine kinase is elevated 173 (unknown) (no (unknown) (unknown) amlodipine 2.5 mg (units (unknown) date) tablet 2.5 mg PO unknown) DAILY 07/28/22 07/29/22 History (unknown) (no (unknown) (unknown) and a repeat lab (units (unknown) date) her potassium was unknown) 7.2 (unknown) (no (unknown) (unknown) critical care (units ( unknown) date) facility for unknown) emergent dialysis. (unknown) (no (unknown) (unknown) cyclobenzaprine (units (unknown) date) 7.5 mg tablet 7.5 unknown) mg PO PRN PRN Pain (Scale 07/29/22 07/29/22 (unknown) (no (unknown) (unknown) difficulty (units (unkn own) date) breathing and by unknown) the time I reached the floor CPR was being performed (unknown) (no (unknown) (unknown) duloxetine [From (units (unknown) date) Cymbalta] Allergy unknown) Intermediate Rash, Verified 07/29/22 12:03 (unknown) (no (unknown) (unknown) elevated blood (units (unknown) date) glucose unknown) (unknown) (no (unknown) (unknown) gabapentin 800 mg (units (unknown) date) tablet 800 mg PO unknown) BID 07/28/22 07/29/22 History (unknown) (no (unknown) (unknown) glipizide 10 mg (units (unknown) date) tablet 10 mg PO unknown) DAILY 07/28/22 07/29/22 History (unknown) (no (unknown) (unknown) have severe (units (un known) date) hyperkalemia, unknown) severe hypotension, suspected STEMI and is moved from (unknown) (no (unknown) (unknown) have very soft (units (unknown) date) blood pressures unknown) and by the time I came up to the floor her blood (unknown) (no (unknown) (unknown) her current (units (un known) date) medical records unknown) and I am not able to obtain a family history from (unknown) (no (unknown) (unknown) her. (units (unkno wn) date) unknown) (unknown) (no (unknown) (unknown) household (units (unkn own) date) members: unknown) significant other (unknown) (no (unknown) (unknown) hydrocodone 5 (units ( unknown) date) mg-acetaminophen unknown) 325 5 tab PO Q8H PRN pain 07/29/22 07/29/22 (unknown) (no (unknown) (unknown) ibuprofen 200 mg (units (unknown) date) tablet (Advil) 600 unknown) mg PO QD-BID PRN Pain 07/28/22 07/29/22 (unknown) (no (unknown) (unknown) is 3 (units (unkno wn) date) unknown) (unknown) (no (unknown) (unknown) itching (units (unkno wn) date) unknown) (unknown) (no (unknown) (unknown) lisinopril 40 mg (units (unknown) date) tablet 40 mg PO unknown) DAILY 07/28/22 07/29/22 History (unknown) (no (unknown) (unknown) metformin 500 mg (units (unknown) date) tablet 1,000 mg PO unknown) BID 07/28/22 07/29/22 History (unknown) (no (unknown) (unknown) metoprolol (units (unk nown) date) succinate 50 mg 50 unknown) mg PO DAILY 07/28/22 07/29/22 History (unknown) (no (unknown) (unknown) mg tablet (units (unkn own) date) unknown) (unknown) (no (unknown) (unknown) mucosa pink and (units (unknown) date) moist unknown) (unknown) (no (unknown) (unknown) normal rhythm (units ( unknown) date) after having her unknown) potassium corrected (unknown) (no (unknown) (unknown) nortriptyline 10 (units (unknown) date) mg capsule 20 mg unknown) PO BEDTIME 07/28/22 07/29/22 History (unknown) (no (unknown) (unknown) on the patient. (units (unknown) date) unknown) (unknown) (no (unknown) (unknown) oxycodone 5 mg (units (unknown) date) tablet 5 mg PO Q4H unknown) PRN pain #40 tabs 07/29/22 Rx (unknown) (no (unknown) (unknown) pantoprazole 40 (units (unknown) date) mg tablet,delayed unknown) 40 mg PO DAILY 07/28/22 07/29/22 History (unknown) (no (unknown) (unknown) pressure was in (units (unknown) date) the low 90s. unknown) Apparently during that time it dropped even to a (unknown) (no (unknown) (unknown) release (units (unkno wn) date) unknown) (unknown) (no (unknown) (unknown) simvastatin 40 mg (units (unknown) date) tablet 40 mg PO unknown) BEDTIME 07/28/22 07/29/22 History (unknown) (no (unknown) (unknown) systolic of 60, (units (unknown) date) the patient was unknown) reportedly complaining of chest pain and (unknown) (no (unknown) (unknown) tablet,extended (units (unknown) date) release 24 hr unknown) (unknown) (no (unknown) (unknown) the (units (unkno wn) date) medical-surgical unknown) unit to critical care and is awaiting transfer to a (unknown) (no (unknown) (unknown) today; this time (units (unknown) date) is exclusive of unknown) procedural time. (unknown) (no (unknown) (unknown) who is a (units (unkno wn) date) 57-year-old female unknown) pod 1. L5-6 lumbar laminectomy. She was noted to Result panel 147 (unknown) (no (unknown) (unknown) (no value) (units (unk nown) date) unknown) (unknown) (no (unknown) (unknown) (past 8 hours): (units (unknown) date) unknown) (unknown) (no (unknown) (unknown) * Creatinine (units (u nknown) date) prior to insulin unknown) and D5 was 15.2 and currently it is 13.9 her EGFR (unknown) (no (unknown) (unknown) * Initial (units (unkn own) date) potassium was 9.7. unknown) She was administered D5 and 10 units of IV insulin (unknown) (no (unknown) (unknown) * Initial troponin (units (unknown) date) is elevated at unknown) 0.072nd troponin is currently pending CK-MB is (unknown) (no (unknown) (unknown) * Patient is (units (u nknown) date) currently unknown) intubated, vent settings per eICU tidal volume 425, FiO2 (unknown) (no (unknown) (unknown) * Patient needs (units (unknown) date) to be transferred unknown) for emergent dialysis (unknown) (no (unknown) (unknown) * Patient (units (unkn own) date) underwent several unknown) rounds of CPR and was eventually restored to a more (unknown) (no (unknown) (unknown) * Patient was (units ( unknown) date) initiated on a unknown) heparin drip but this has now been discontinued (unknown) (no (unknown) (unknown) * She has a large (units (unknown) date) left pleural unknown) effusion presumably some sort of infectious (unknown) (no (unknown) (unknown) * She is ordered (units (unknown) date) for another 10 unknown) units of IV insulin, D5 is being held due to her (unknown) (no (unknown) (unknown) [id number] (units (unkno wn) date) unknown) (unknown) (no (unknown) (unknown) 01:00 (units (unkno wn) date) unknown) (unknown) (no (unknown) (unknown) 03:20 03:35 04:15 (units (unknown) date) unknown) (unknown) (no (unknown) (unknown) 04:25 (units (unkno wn) date) unknown) (unknown) (no (unknown) (unknown) 100%, respiratory (units (unknown) date) rate 32 and a PEEP unknown) of 10 (unknown) (no (unknown) (unknown) 07/29/22 07/29/22 (units (unknown) date) 07/30/22 unknown) (unknown) (no (unknown) (unknown) 07/29/22 (units (unkno wn) date) unknown) (unknown) (no (unknown) (unknown) 07/30/22 03:20 (units (unknown) date) unknown) (unknown) (no (unknown) (unknown) 07/30/22 04:15 (units (unknown) date) unknown) (unknown) (no (unknown) (unknown) 07/30/22 07/30/22 (units (unknown) date) 07/30/22 unknown) (unknown) (no (unknown) (unknown) 07/30/22 (units (unkno wn) date) unknown) (unknown) (no (unknown) (unknown) 12:29 12:55 03:20 (units (unknown) date) unknown) (unknown) (no (unknown) (unknown) 22:50 07/29/22 (units (unknown) date) unknown) (unknown) (no (unknown) (unknown) 23:45 07/30/22 (units (unknown) date) unknown) (unknown) (no (unknown) (unknown) ABG Base Excess (units (unknown) date) -20.0 L unknown) (unknown) (no (unknown) (unknown) ABG Base Excess (units (unknown) date) -25.0 L unknown) (unknown) (no (unknown) (unknown) ABG Base Excess (units (unknown) date) unknown) (unknown) (no (unknown) (unknown) ABG HCO3 10 L (units ( unknown) date) unknown) (unknown) (no (unknown) (unknown) ABG HCO3 8 L (units (u nknown) date) unknown) (unknown) (no (unknown) (unknown) ABG HCO3 (units (unkno wn) date) unknown) (unknown) (no (unknown) (unknown) ABG O2 Saturation (units (unknown) date) 52 L* unknown) (unknown) (no (unknown) (unknown) ABG O2 Saturation (units (unknown) date) 86 L unknown) (unknown) (no (unknown) (unknown) ABG O2 Saturation (units (unknown) date) unknown) (unknown) (no (unknown) (unknown) ABG Total CO2 12 (units (unknown) date) L unknown) (unknown) (no (unknown) (unknown) ABG Total CO2 9 L (units (unknown) date) unknown) (unknown) (no (unknown) (unknown) ABG Total CO2 (units ( unknown) date) unknown) (unknown) (no (unknown) (unknown) ABG pCO2 36.7 (units ( unknown) date) unknown) (unknown) (no (unknown) (unknown) ABG pCO2 37.5 (units ( unknown) date) unknown) (unknown) (no (unknown) (unknown) ABG pCO2 (units (unkno wn) date) unknown) (unknown) (no (unknown) (unknown) ABG pH 6.92 L* (units (unknown) date) unknown) (unknown) (no (unknown) (unknown) ABG pH 7.06 L* (units (unknown) date) unknown) (unknown) (no (unknown) (unknown) ABG pH (units (unkno wn) date) unknown) (unknown) (no (unknown) (unknown) ABG pO2 38 L* (units ( unknown) date) unknown) (unknown) (no (unknown) (unknown) ABG pO2 82 (units (unk nown) date) unknown) (unknown) (no (unknown) (unknown) ABG pO2 (units (unkno wn) date) unknown) (unknown) (no (unknown) (unknown) ALT 203 H (units (unkn own) date) unknown) (unknown) (no (unknown) (unknown) ALT 22 (units (unkno wn) date) unknown) (unknown) (no (unknown) (unknown) ALT (units (unkno wn) date) unknown) (unknown) (no (unknown) (unknown) AST 17 (units (unkno wn) date) unknown) (unknown) (no (unknown) (unknown) AST 226 H (units (unkn own) date) unknown) (unknown) (no (unknown) (unknown) AST (units (unkno wn) date) unknown) (unknown) (no (unknown) (unknown) Abd: Obese (units (unk nown) date) unknown) (unknown) (no (unknown) (unknown) Acute renal (units (un known) date) failure in the unknown) setting of severe hyperkalemia (unknown) (no (unknown) (unknown) Acute respiratory (units (unknown) date) failure with a unknown) severe uncompensated respiratory acidosis (unknown) (no (unknown) (unknown) Age/Sex: 57 / F (units (unknown) date) unknown) (unknown) (no (unknown) (unknown) Albumin 3.6 (units (un known) date) unknown) (unknown) (no (unknown) (unknown) Albumin 4.1 (units (un known) date) unknown) (unknown) (no (unknown) (unknown) Albumin (units (unkno wn) date) unknown) (unknown) (no (unknown) (unknown) Albumin/Globulin (units (unknown) date) Ratio 1.2 unknown) (unknown) (no (unknown) (unknown) Albumin/Globulin (units (unknown) date) Ratio 1.3 unknown) (unknown) (no (unknown) (unknown) Albumin/Globulin (units (unknown) date) Ratio unknown) (unknown) (no (unknown) (unknown) Alkaline (units (unkno wn) date) Phosphatase 100 unknown) (unknown) (no (unknown) (unknown) Alkaline (units (unkno wn) date) Phosphatase 93 unknown) (unknown) (no (unknown) (unknown) Alkaline (units (unkno wn) date) Phosphatase unknown) (unknown) (no (unknown) (unknown) Allergies (units (unkn own) date) unknown) (unknown) (no (unknown) (unknown) Allergy/AdvReac (units (unknown) date) Type Severity unknown) Reaction Status Date / Time (unknown) (no (unknown) (unknown) Assessment + Plan (units (unknown) date) narrative: unknown) (unknown) (no (unknown) (unknown) Assessment + Plan (units (unknown) date) unknown) (unknown) (no (unknown) (unknown) BUN 117 H* (units (unk nown) date) unknown) (unknown) (no (unknown) (unknown) BUN 120 H* (units (unk nown) date) unknown) (unknown) (no (unknown) (unknown) BUN (units (unkno wn) date) unknown) (unknown) (no (unknown) (unknown) BUN/Creatinine (units (unknown) date) Ratio 7.9 unknown) (unknown) (no (unknown) (unknown) BUN/Creatinine (units (unknown) date) Ratio 8.4 unknown) (unknown) (no (unknown) (unknown) BUN/Creatinine (units (unknown) date) Ratio unknown) (unknown) (no (unknown) (unknown) Baso # (Auto) 0 (units (unknown) date) unknown) (unknown) (no (unknown) (unknown) Baso # (Auto) (units ( unknown) date) unknown) (unknown) (no (unknown) (unknown) Baso % (Auto) 0.1 (units (unknown) date) unknown) (unknown) (no (unknown) (unknown) Baso % (Auto) (units ( unknown) date) unknown) (unknown) (no (unknown) (unknown) Blood Pressure (units (unknown) date) 95/51 L 91/47 L unknown) 94/44 L (unknown) (no (unknown) (unknown) CK-MB (CK-2) 2.90 (units (unknown) date) H unknown) (unknown) (no (unknown) (unknown) CK-MB (CK-2) Rel (units (unknown) date) Index 1.7 unknown) (unknown) (no (unknown) (unknown) CK-MB (CK-2) Rel (units (unknown) date) Index unknown) (unknown) (no (unknown) (unknown) CK-MB (CK-2) (units (u nknown) date) unknown) (unknown) (no (unknown) (unknown) COVID-19 status: (units (unknown) date) Negative unknown) (unknown) (no (unknown) (unknown) COVID-19 (units (unkno wn) date) unknown) (unknown) (no (unknown) (unknown) CV: Patient (units (un known) date) alternated between unknown) having a pulse and being pulseless, EKG showed (unknown) (no (unknown) (unknown) Calcium 7.6 L (units ( unknown) date) unknown) (unknown) (no (unknown) (unknown) Calcium 9.0 (units (un known) date) unknown) (unknown) (no (unknown) (unknown) Calcium (units (unkno wn) date) unknown) (unknown) (no (unknown) (unknown) Carbon Dioxide 7 (units (unknown) date) L* unknown) (unknown) (no (unknown) (unknown) Carbon Dioxide 8 (units (unknown) date) L* unknown) (unknown) (no (unknown) (unknown) Carbon Dioxide (units (unknown) date) unknown) (unknown) (no (unknown) (unknown) Cardiac arrest in (units (unknown) date) the setting of unknown) acute hyperkalemia (unknown) (no (unknown) (unknown) Chief complaint: (units (unknown) date) INPT unknown) (unknown) (no (unknown) (unknown) Chloride 95 L (units ( unknown) date) unknown) (unknown) (no (unknown) (unknown) Chloride 97 L (units ( unknown) date) unknown) (unknown) (no (unknown) (unknown) Chloride (units (unkno wn) date) unknown) (unknown) (no (unknown) (unknown) Comment: (units (unkno wn) date) unknown) (unknown) (no (unknown) (unknown) Consult Note (units (u nknown) date) unknown) (unknown) (no (unknown) (unknown) Consult details (units (unknown) date) unknown) (unknown) (no (unknown) (unknown) Creatinine 13.9 (units (unknown) date) H* unknown) (unknown) (no (unknown) (unknown) Creatinine 15.2 (units (unknown) date) H* unknown) (unknown) (no (unknown) (unknown) Creatinine (units (unk nown) date) unknown) (unknown) (no (unknown) (unknown) Critical Care (units ( unknown) date) time: unknown) (unknown) (no (unknown) (unknown) : 1965 (units (unknown) date) Acct:[id number] unknown) (unknown) (no (unknown) (unknown) Date Patient (units (u nknown) date) Seen: 07/30/22 unknown) (unknown) (no (unknown) (unknown) Date of Service: (units (unknown) date) 07/29/22 unknown) (unknown) (no (unknown) (unknown) Diabetes (units (unkno wn) date) unknown) (unknown) (no (unknown) (unknown) Polly Bone is a (units (unknown) date) 57-year-old female unknown) pod 1. L5-6 lumbar laminectomy is found to (unknown) (no (unknown) (unknown) Eos # (Auto) 0 (units (unknown) date) unknown) (unknown) (no (unknown) (unknown) Eos # (Auto) (units (u nknown) date) unknown) (unknown) (no (unknown) (unknown) Eos % (Auto) 0.0 (units (unknown) date) L unknown) (unknown) (no (unknown) (unknown) Eos % (Auto) (units (u nknown) date) unknown) (unknown) (no (unknown) (unknown) Estimated GFR 3 L (units (unknown) date) unknown) (unknown) (no (unknown) (unknown) Estimated GFR (units ( unknown) date) unknown) (unknown) (no (unknown) (unknown) Exam Narrative: (units (unknown) date) unknown) (unknown) (no (unknown) (unknown) Exam (units (unkno wn) date) unknown) (unknown) (no (unknown) (unknown) Extremities: (units (u nknown) date) Appears to have unknown) good cap refill (unknown) (no (unknown) (unknown) FiO2 100 (units (unkno wn) date) unknown) (unknown) (no (unknown) (unknown) FiO2 15 (units (unkno wn) date) unknown) (unknown) (no (unknown) (unknown) FiO2 (units (unkno wn) date) unknown) (unknown) (no (unknown) (unknown) GERD (units (unkno wn) date) (gastroesophageal unknown) reflux disease) (unknown) (no (unknown) (unknown) Gen: Arousable, (units (unknown) date) morbidly obese 57 unknown) y.o. female (unknown) (no (unknown) (unknown) Globulin 2.9 (units (u nknown) date) unknown) (unknown) (no (unknown) (unknown) Globulin 3.1 (units (u nknown) date) unknown) (unknown) (no (unknown) (unknown) Globulin (units (unkno wn) date) unknown) (unknown) (no (unknown) (unknown) Glucose 27 L* 303 (units (unknown) date) H D unknown) (unknown) (no (unknown) (unknown) Glucose 404 H D (units (unknown) date) unknown) (unknown) (no (unknown) (unknown) Glucose (units (unkno wn) date) unknown) (unknown) (no (unknown) (unknown) HEENT: (units (unkno wn) date) normocephalic, unknown) atraumatic, conjunctiva clear, sclera non-icteric, oral (unknown) (no (unknown) (unknown) HLD (units (unkno wn) date) (hyperlipidemia) unknown) (unknown) (no (unknown) (unknown) HTN (units (unkno wn) date) (hypertension) unknown) (unknown) (no (unknown) (unknown) Hct 36.1 (units (unkno wn) date) unknown) (unknown) (no (unknown) (unknown) Hct (units (unkno wn) date) unknown) (unknown) (no (unknown) (unknown) Hgb 11.3 L (units (unk nown) date) unknown) (unknown) (no (unknown) (unknown) Hgb (units (unkno wn) date) unknown) (unknown) (no (unknown) (unknown) History of (units (unk nown) date) Present Illness unknown) (unknown) (no (unknown) (unknown) History of (units (unk nown) date) hysterectomy unknown) (unknown) (no (unknown) (unknown) History (units (unkno wn) date) unknown) (unknown) (no (unknown) (unknown) Home Medications (units (unknown) date) and Allergies unknown) (unknown) (no (unknown) (unknown) Home Medications (units (unknown) date) unknown) (unknown) (no (unknown) (unknown) I spent a total (units (unknown) date) of 180 minutes of unknown) critical care time on this patient's care (unknown) (no (unknown) (unknown) [facility] (units (unknown) date) [address] unknown) [place] [address] (unknown) (no (unknown) (unknown) Laboratory (units (unk nown) date) Results - last unknown) hr (unknown) (no (unknown) (unknown) Labs (units (unkno wn) date) unknown) (unknown) (no (unknown) (unknown) Labs: (units (unkno wn) date) unknown) (unknown) (no (unknown) (unknown) Lumbar disc (units (un known) date) herniation unknown) (unknown) (no (unknown) (unknown) Lymph # (Auto) (units (unknown) date) 800 L unknown) (unknown) (no (unknown) (unknown) Lymph # (Auto) (units (unknown) date) unknown) (unknown) (no (unknown) (unknown) Lymph % (Auto) (units (unknown) date) 3.9 L unknown) (unknown) (no (unknown) (unknown) Lymph % (Auto) (units (unknown) date) unknown) (unknown) (no (unknown) (unknown) MCH 29.0 (units (unkno wn) date) unknown) (unknown) (no (unknown) (unknown) MCH (units (unkno wn) date) unknown) (unknown) (no (unknown) (unknown) MCHC 31.4 (units (unkn own) date) unknown) (unknown) (no (unknown) (unknown) MCHC (units (unkno wn) date) unknown) (unknown) (no (unknown) (unknown) MCV 92.3 (units (unkno wn) date) unknown) (unknown) (no (unknown) (unknown) MCV (units (unkno wn) date) unknown) (unknown) (no (unknown) (unknown) Magnesium 1.8 (units ( unknown) date) unknown) (unknown) (no (unknown) (unknown) Magnesium (units (unkn own) date) unknown) (unknown) (no (unknown) (unknown) Medical History (units (unknown) date) (Reviewed 07/30/22 unknown) @ 05:23 by JOVANNY Alonzo) (unknown) (no (unknown) (unknown) Medication (units (unk nown) date) Instructions unknown) Recorded Confirmed Type (unknown) (no (unknown) (unknown) Meds (units (unkno wn) date) unknown) (unknown) (no (unknown) (unknown) Gibson # (Auto) 100 (units (unknown) date) unknown) (unknown) (no (unknown) (unknown) Gibson # (Auto) (units ( unknown) date) unknown) (unknown) (no (unknown) (unknown) Gibson % (Auto) 0.6 (units (unknown) date) L unknown) (unknown) (no (unknown) (unknown) Gibson % (Auto) (units ( unknown) date) unknown) (unknown) (no (unknown) (unknown) Narrative (units (unkn own) date) unknown) (unknown) (no (unknown) (unknown) Narrative: (units (unk nown) date) unknown) (unknown) (no (unknown) (unknown) Neck: supple, (units ( unknown) date) full ROM, no JVD, unknown) trachea is midline (unknown) (no (unknown) (unknown) Neuro: Speech (units ( unknown) date) clear and coherent unknown) just prior to intubation obtunded (unknown) (no (unknown) (unknown) Neuropathy (units (unk nown) date) unknown) (unknown) (no (unknown) (unknown) Neut # (Auto) (units ( unknown) date) [address] H unknown) (unknown) (no (unknown) (unknown) Neut # (Auto) (units ( unknown) date) unknown) (unknown) (no (unknown) (unknown) Neut % (Auto) (units ( unknown) date) 95.4 H unknown) (unknown) (no (unknown) (unknown) Neut % (Auto) (units ( unknown) date) unknown) (unknown) (no (unknown) (unknown) Nursing contacted (units (unknown) date) me requesting unknown) consult by Orthopedic surgery for this patient (unknown) (no (unknown) (unknown) Objective (units (unkn own) date) unknown) (unknown) (no (unknown) (unknown) Ovarian cancer (units (unknown) date) (-2014) unknown) (unknown) (no (unknown) (unknown) Oxygen Delivery (units (unknown) date) Method Room Air unknown) (unknown) (no (unknown) (unknown) Oxygen Flow Rate (units (unknown) date) 2 3 unknown) (unknown) (no (unknown) (unknown) Oxygen Flow Rate (units (unknown) date) 3 unknown) (unknown) (no (unknown) (unknown) PFSH (units (unkno wn) date) unknown) (unknown) (no (unknown) (unknown) Patient is (units (unk nown) date) intubated unable unknown) to speak and is from [place] so we do not have (unknown) (no (unknown) (unknown) Patient: (units (unkno wn) date) Polly Bone unknown) MR#: [id number] (unknown) (no (unknown) (unknown) Plt Count 386 (units ( unknown) date) unknown) (unknown) (no (unknown) (unknown) Plt Count (units (unkn own) date) unknown) (unknown) (no (unknown) (unknown) Potassium 7.2 H* (units (unknown) date) D unknown) (unknown) (no (unknown) (unknown) Potassium 9.7 H* (units (unknown) date) unknown) (unknown) (no (unknown) (unknown) Potassium (units (unkn own) date) unknown) (unknown) (no (unknown) (unknown) Provider: (units (unkn own) date) Rizwana Valle unknown) (unknown) (no (unknown) (unknown) Psyche: Unable to (units (unknown) date) assess unknown) (unknown) (no (unknown) (unknown) Pulse Oximetry 93 (units (unknown) date) 94 unknown) (unknown) (no (unknown) (unknown) Pulse Rate 60 86 (units (unknown) date) unknown) (unknown) (no (unknown) (unknown) RBC 3.91 L (units (unk nown) date) unknown) (unknown) (no (unknown) (unknown) RBC (units (unkno wn) date) unknown) (unknown) (no (unknown) (unknown) RDW 14.4 (units (unkno wn) date) unknown) (unknown) (no (unknown) (unknown) RDW (units (unkno wn) date) unknown) (unknown) (no (unknown) (unknown) ROS: Yes (units (unkno wn) date) unobtainable due unknown) to endotracheal tube (unknown) (no (unknown) (unknown) Reason for (units (unk nown) date) consult: Code blue unknown) (unknown) (no (unknown) (unknown) Resp: Patient is (units (unknown) date) currently vented unknown) (unknown) (no (unknown) (unknown) Respiratory Rate (units (unknown) date) 16 unknown) (unknown) (no (unknown) (unknown) Result Diagrams: (units (unknown) date) unknown) (unknown) (no (unknown) (unknown) Result date/Date (units (unknown) date) tested (Pos, unknown) Neg/Pending): 07/29/22 (unknown) (no (unknown) (unknown) Review of Systems (units (unknown) date) unknown) (unknown) (no (unknown) (unknown) SARS-CoV-2 (PCR) (units (unknown) date) Negative unknown) (unknown) (no (unknown) (unknown) SARS-CoV-2 (PCR) (units (unknown) date) unknown) (unknown) (no (unknown) (unknown) STEMI changes (units ( unknown) date) unknown) (unknown) (no (unknown) (unknown) Sciatica (units (unkno wn) date) unknown) (unknown) (no (unknown) (unknown) Score 4-6) (units (unk nown) date) unknown) (unknown) (no (unknown) (unknown) Signed By: (units (unk nown) date) unknown) (unknown) (no (unknown) (unknown) Skin: Appears to (units (unknown) date) have Martha in unknown) her pannus area (unknown) (no (unknown) (unknown) Smoking Status: (units (unknown) date) Former smoker unknown) (unknown) (no (unknown) (unknown) Social History (units (unknown) date) unknown) (unknown) (no (unknown) (unknown) Sodium 133 L (units (u nknown) date) unknown) (unknown) (no (unknown) (unknown) Sodium 140 (units (unk nown) date) unknown) (unknown) (no (unknown) (unknown) Sodium (units (unkno wn) date) unknown) (unknown) (no (unknown) (unknown) Surgical History (units (unknown) date) (Reviewed 07/30/22 unknown) @ 05:23 by JOVANNY Alonzo) (unknown) (no (unknown) (unknown) Temperature 97.9 (units (unknown) date) F unknown) (unknown) (no (unknown) (unknown) Time Patient (units (u nknown) date) Seen: 03:00 unknown) (unknown) (no (unknown) (unknown) Time Spent With (units (unknown) date) Patient unknown) (unknown) (no (unknown) (unknown) Tobacco + (units (unkn own) date) Substance Use unknown) (unknown) (no (unknown) (unknown) Total Bilirubin (units (unknown) date) 0.3 unknown) (unknown) (no (unknown) (unknown) Total Bilirubin (units (unknown) date) 0.4 unknown) (unknown) (no (unknown) (unknown) Total Bilirubin (units (unknown) date) unknown) (unknown) (no (unknown) (unknown) Total Creatine (units (unknown) date) Kinase 173 H unknown) (unknown) (no (unknown) (unknown) Total Creatine (units (unknown) date) Kinase unknown) (unknown) (no (unknown) (unknown) Total Protein 6.5 (units (unknown) date) unknown) (unknown) (no (unknown) (unknown) Total Protein 7.2 (units (unknown) date) unknown) (unknown) (no (unknown) (unknown) Total Protein (units ( unknown) date) unknown) (unknown) (no (unknown) (unknown) Troponin I 0.072 (units (unknown) date) H unknown) (unknown) (no (unknown) (unknown) Troponin I (units (unk nown) date) unknown) (unknown) (no (unknown) (unknown) Vital Signs (units (un known) date) unknown) (unknown) (no (unknown) (unknown) WBC 21.1 H (units (unk nown) date) unknown) (unknown) (no (unknown) (unknown) WBC (units (unkno wn) date) unknown) (unknown) (no (unknown) (unknown) [Embedded Image (units (unknown) date) Not Available] unknown) (unknown) (no (unknown) (unknown) acetaminophen 500 (units (unknown) date) mg tablet 1,000 mg unknown) PO QD-BID PRN Pain 07/28/22 07/29/22 (unknown) (no (unknown) (unknown) alcohol intake: (units (unknown) date) current unknown) (unknown) (no (unknown) (unknown) also elevated at (units (unknown) date) 2.9 and total unknown) creatinine kinase is elevated 173 (unknown) (no (unknown) (unknown) amlodipine 2.5 mg (units (unknown) date) tablet 2.5 mg PO unknown) DAILY 07/28/22 07/29/22 History (unknown) (no (unknown) (unknown) and a repeat lab (units (unknown) date) her potassium was unknown) 7.2 (unknown) (no (unknown) (unknown) critical care (units ( unknown) date) facility for unknown) emergent dialysis. (unknown) (no (unknown) (unknown) cyclobenzaprine (units (unknown) date) 7.5 mg tablet 7.5 unknown) mg PO PRN PRN Pain (Scale 07/29/22 07/29/22 (unknown) (no (unknown) (unknown) difficulty (units (unkn own) date) breathing and by unknown) the time I reached the floor CPR was being performed (unknown) (no (unknown) (unknown) duloxetine [From (units (unknown) date) Cymbalta] Allergy unknown) Intermediate Rash, Verified 07/29/22 12:03 (unknown) (no (unknown) (unknown) elevated blood (units (unknown) date) glucose unknown) (unknown) (no (unknown) (unknown) gabapentin 800 mg (units (unknown) date) tablet 800 mg PO unknown) BID 07/28/22 07/29/22 History (unknown) (no (unknown) (unknown) glipizide 10 mg (units (unknown) date) tablet 10 mg PO unknown) DAILY 07/28/22 07/29/22 History (unknown) (no (unknown) (unknown) have severe (units (un known) date) hyperkalemia, unknown) severe hypotension, suspected STEMI and is moved from (unknown) (no (unknown) (unknown) have very soft (units (unknown) date) blood pressures unknown) and by the time I came up to the floor her blood (unknown) (no (unknown) (unknown) her current (units (un known) date) medical records unknown) and I am not able to obtain a family history from (unknown) (no (unknown) (unknown) her. (units (unkno wn) date) unknown) (unknown) (no (unknown) (unknown) household (units (unkn own) date) members: unknown) significant other (unknown) (no (unknown) (unknown) hydrocodone 5 (units ( unknown) date) mg-acetaminophen unknown) 325 5 tab PO Q8H PRN pain 07/29/22 07/29/22 (unknown) (no (unknown) (unknown) ibuprofen 200 mg (units (unknown) date) tablet (Advil) 600 unknown) mg PO QD-BID PRN Pain 07/28/22 07/29/22 (unknown) (no (unknown) (unknown) is 3 (units (unkno wn) date) unknown) (unknown) (no (unknown) (unknown) itching (units (unkno wn) date) unknown) (unknown) (no (unknown) (unknown) lisinopril 40 mg (units (unknown) date) tablet 40 mg PO unknown) DAILY 07/28/22 07/29/22 History (unknown) (no (unknown) (unknown) metformin 500 mg (units (unknown) date) tablet 1,000 mg PO unknown) BID 07/28/22 07/29/22 History (unknown) (no (unknown) (unknown) metoprolol (units (unk nown) date) succinate 50 mg 50 unknown) mg PO DAILY 07/28/22 07/29/22 History (unknown) (no (unknown) (unknown) mg tablet (units (unkn own) date) unknown) (unknown) (no (unknown) (unknown) mucosa pink and (units (unknown) date) moist unknown) (unknown) (no (unknown) (unknown) normal rhythm (units ( unknown) date) after having her unknown) potassium corrected (unknown) (no (unknown) (unknown) nortriptyline 10 (units (unknown) date) mg capsule 20 mg unknown) PO BEDTIME 07/28/22 07/29/22 History (unknown) (no (unknown) (unknown) on the patient. (units (unknown) date) unknown) (unknown) (no (unknown) (unknown) oxycodone 5 mg (units (unknown) date) tablet 5 mg PO Q4H unknown) PRN pain #40 tabs 07/29/22 Rx (unknown) (no (unknown) (unknown) pantoprazole 40 (units (unknown) date) mg tablet,delayed unknown) 40 mg PO DAILY 07/28/22 07/29/22 History (unknown) (no (unknown) (unknown) pneumonia and has (units (unknown) date) been started on IV unknown) vancomycin and cefepime (unknown) (no (unknown) (unknown) pressure was in (units (unknown) date) the low 90s. unknown) Apparently during that time it dropped even to a (unknown) (no (unknown) (unknown) release (units (unkno wn) date) unknown) (unknown) (no (unknown) (unknown) simvastatin 40 mg (units (unknown) date) tablet 40 mg PO unknown) BEDTIME 07/28/22 07/29/22 History (unknown) (no (unknown) (unknown) systolic of 60, (units (unknown) date) the patient was unknown) reportedly complaining of chest pain and (unknown) (no (unknown) (unknown) tablet,extended (units (unknown) date) release 24 hr unknown) (unknown) (no (unknown) (unknown) the (units (unkno wn) date) medical-surgical unknown) unit to critical care and is awaiting transfer to a (unknown) (no (unknown) (unknown) today; this time (units (unknown) date) is exclusive of unknown) procedural time. (unknown) (no (unknown) (unknown) who is a (units (unkno wn) date) 57-year-old female unknown) pod 1. L5-6 lumbar laminectomy. She was noted to Result panel 148 (unknown) (no (unknown) (unknown) (no value) (units (unk nown) date) unknown) (unknown) (no (unknown) (unknown) (past 8 hours): (units (unknown) date) unknown) (unknown) (no (unknown) (unknown) * Creatinine prior (units (unknown) date) to insulin and D5 unknown) was 15.2, repeat 13.9 and now 14.8, EGFR is (unknown) (no (unknown) (unknown) * Currently on (units (unknown) date) levaphed drip of unknown) 16 and vasopressen was just started. (unknown) (no (unknown) (unknown) * Differential (units ( unknown) date) could be a unknown) pulmonary embolus will only be able to undergo nuclear (unknown) (no (unknown) (unknown) * Initial (units (unkn own) date) potassium was 9.7. unknown) She was administered D5 and 10 units of IV (unknown) (no (unknown) (unknown) * Initial troponin (units (unknown) date) is elevated at unknown) 0.072nd troponin is currently pending CK-MB is (unknown) (no (unknown) (unknown) * Lactate is 8.4 (units (unknown) date) unknown) (unknown) (no (unknown) (unknown) * Patient is (units (u nknown) date) currently unknown) intubated, vent settings per eICU tidal volume 425, FiO2 (unknown) (no (unknown) (unknown) * Patient needs (units (unknown) date) to be transferred unknown) for emergent dialysis (unknown) (no (unknown) (unknown) * Patient (units (unkn own) date) underwent several unknown) rounds of CPR and was eventually restored to a more (unknown) (no (unknown) (unknown) * Patient was (units ( unknown) date) initiated on a unknown) heparin drip but this has now been discontinued (unknown) (no (unknown) (unknown) * She also (units (unk nown) date) received IV unknown) amiodarone 150 mg X 1 (unknown) (no (unknown) (unknown) * She has a large (units (unknown) date) left pleural unknown) effusion presumably infectious pneumonia and has (unknown) (no (unknown) (unknown) * She is ordered (units (unknown) date) for 5 amps of unknown) bicarb boluses along with a bicarb drip (unknown) (no (unknown) (unknown) * She is ordered (units (unknown) date) for another 10 unknown) units of IV insulin, D5 is being held due to her (unknown) (no (unknown) (unknown) * She received (units (unknown) date) epinephrine and unknown) acheived ROSC in approximately 15 minutes (unknown) (no (unknown) (unknown) * WBC is 21.1, (units (unknown) date) left shift of unknown) 20,000, and procalcitonin is elevated at 1.21 (unknown) (no (unknown) (unknown) [id number] (units (unkno wn) date) unknown) (unknown) (no (unknown) (unknown) 01:00 (units (unkno wn) date) unknown) (unknown) (no (unknown) (unknown) 03:20 03:35 04:15 (units (unknown) date) unknown) (unknown) (no (unknown) (unknown) 04:25 (units (unkno wn) date) unknown) (unknown) (no (unknown) (unknown) 100%, respiratory (units (unknown) date) rate 32 and a PEEP unknown) of 10 (unknown) (no (unknown) (unknown) 07/29/22 07/29/22 (units (unknown) date) 07/30/22 unknown) (unknown) (no (unknown) (unknown) 07/29/22 (units (unkno wn) date) unknown) (unknown) (no (unknown) (unknown) 07/30/22 03:20 (units (unknown) date) unknown) (unknown) (no (unknown) (unknown) 07/30/22 04:15 (units (unknown) date) unknown) (unknown) (no (unknown) (unknown) 07/30/22 07/30/22 (units (unknown) date) 07/30/22 unknown) (unknown) (no (unknown) (unknown) 07/30/22 (units (unkno wn) date) unknown) (unknown) (no (unknown) (unknown) 12:29 12:55 03:20 (units (unknown) date) unknown) (unknown) (no (unknown) (unknown) 22:50 07/29/22 (units (unknown) date) unknown) (unknown) (no (unknown) (unknown) 23:45 12/15/22 (units (unknown) date) unknown) (unknown) (no (unknown) (unknown) 3 (units (unkno wn) date) unknown) (unknown) (no (unknown) (unknown) ABG Base Excess (units (unknown) date) -20.0 L unknown) (unknown) (no (unknown) (unknown) ABG Base Excess (units (unknown) date) -25.0 L unknown) (unknown) (no (unknown) (unknown) ABG Base Excess (units (unknown) date) unknown) (unknown) (no (unknown) (unknown) ABG HCO3 10 L (units ( unknown) date) unknown) (unknown) (no (unknown) (unknown) ABG HCO3 8 L (units (u nknown) date) unknown) (unknown) (no (unknown) (unknown) ABG HCO3 (units (unkno wn) date) unknown) (unknown) (no (unknown) (unknown) ABG O2 Saturation (units (unknown) date) 52 L* unknown) (unknown) (no (unknown) (unknown) ABG O2 Saturation (units (unknown) date) 86 L unknown) (unknown) (no (unknown) (unknown) ABG O2 Saturation (units (unknown) date) unknown) (unknown) (no (unknown) (unknown) ABG Total CO2 12 (units (unknown) date) L unknown) (unknown) (no (unknown) (unknown) ABG Total CO2 9 L (units (unknown) date) unknown) (unknown) (no (unknown) (unknown) ABG Total CO2 (units ( unknown) date) unknown) (unknown) (no (unknown) (unknown) ABG pCO2 36.7 (units ( unknown) date) unknown) (unknown) (no (unknown) (unknown) ABG pCO2 37.5 (units ( unknown) date) unknown) (unknown) (no (unknown) (unknown) ABG pCO2 (units (unkno wn) date) unknown) (unknown) (no (unknown) (unknown) ABG pH 6.92 L* (units (unknown) date) unknown) (unknown) (no (unknown) (unknown) ABG pH 7.06 L* (units (unknown) date) unknown) (unknown) (no (unknown) (unknown) ABG pH (units (unkno wn) date) unknown) (unknown) (no (unknown) (unknown) ABG pO2 38 L* (units ( unknown) date) unknown) (unknown) (no (unknown) (unknown) ABG pO2 82 (units (unk nown) date) unknown) (unknown) (no (unknown) (unknown) ABG pO2 (units (unkno wn) date) unknown) (unknown) (no (unknown) (unknown) ALT 203 H (units (unkn own) date) unknown) (unknown) (no (unknown) (unknown) ALT 22 (units (unkno wn) date) unknown) (unknown) (no (unknown) (unknown) ALT (units (unkno wn) date) unknown) (unknown) (no (unknown) (unknown) AST 17 (units (unkno wn) date) unknown) (unknown) (no (unknown) (unknown) AST 226 H (units (unkn own) date) unknown) (unknown) (no (unknown) (unknown) AST (units (unkno wn) date) unknown) (unknown) (no (unknown) (unknown) Abd: Obese (units (unk nown) date) unknown) (unknown) (no (unknown) (unknown) Acute renal (units (un known) date) failure in the unknown) setting of severe hyperkalemia (unknown) (no (unknown) (unknown) Acute respiratory (units (unknown) date) failure with a unknown) severe uncompensated respiratory acidosis (unknown) (no (unknown) (unknown) Age/Sex: 57 / F (units (unknown) date) unknown) (unknown) (no (unknown) (unknown) Albumin 3.6 (units (un known) date) unknown) (unknown) (no (unknown) (unknown) Albumin 4.1 (units (un known) date) unknown) (unknown) (no (unknown) (unknown) Albumin (units (unkno wn) date) unknown) (unknown) (no (unknown) (unknown) Albumin/Globulin (units (unknown) date) Ratio 1.2 unknown) (unknown) (no (unknown) (unknown) Albumin/Globulin (units (unknown) date) Ratio 1.3 unknown) (unknown) (no (unknown) (unknown) Albumin/Globulin (units (unknown) date) Ratio unknown) (unknown) (no (unknown) (unknown) Alkaline (units (unkno wn) date) Phosphatase 100 unknown) (unknown) (no (unknown) (unknown) Alkaline (units (unkno wn) date) Phosphatase 93 unknown) (unknown) (no (unknown) (unknown) Alkaline (units (unkno wn) date) Phosphatase unknown) (unknown) (no (unknown) (unknown) Allergies (units (unkn own) date) unknown) (unknown) (no (unknown) (unknown) Allergy/AdvReac (units (unknown) date) Type Severity unknown) Reaction Status Date / Time (unknown) (no (unknown) (unknown) Assessment + Plan (units (unknown) date) narrative: unknown) (unknown) (no (unknown) (unknown) Assessment + Plan (units (unknown) date) unknown) (unknown) (no (unknown) (unknown) BUN 117 H* (units (unk nown) date) unknown) (unknown) (no (unknown) (unknown) BUN 120 H* (units (unk nown) date) unknown) (unknown) (no (unknown) (unknown) BUN (units (unkno wn) date) unknown) (unknown) (no (unknown) (unknown) BUN/Creatinine (units (unknown) date) Ratio 7.9 unknown) (unknown) (no (unknown) (unknown) BUN/Creatinine (units (unknown) date) Ratio 8.4 unknown) (unknown) (no (unknown) (unknown) BUN/Creatinine (units (unknown) date) Ratio unknown) (unknown) (no (unknown) (unknown) Baso # (Auto) 0 (units (unknown) date) unknown) (unknown) (no (unknown) (unknown) Baso # (Auto) (units ( unknown) date) unknown) (unknown) (no (unknown) (unknown) Baso % (Auto) 0.1 (units (unknown) date) unknown) (unknown) (no (unknown) (unknown) Baso % (Auto) (units ( unknown) date) unknown) (unknown) (no (unknown) (unknown) Blood Pressure (units (unknown) date) 95/51 L 91/47 L unknown) 94/44 L (unknown) (no (unknown) (unknown) CK-MB (CK-2) 2.90 (units (unknown) date) H unknown) (unknown) (no (unknown) (unknown) CK-MB (CK-2) Rel (units (unknown) date) Index 1.7 unknown) (unknown) (no (unknown) (unknown) CK-MB (CK-2) Rel (units (unknown) date) Index unknown) (unknown) (no (unknown) (unknown) CK-MB (CK-2) (units (u nknown) date) unknown) (unknown) (no (unknown) (unknown) COVID-19 status: (units (unknown) date) Negative unknown) (unknown) (no (unknown) (unknown) COVID-19 (units (unkno wn) date) unknown) (unknown) (no (unknown) (unknown) CV: Patient (units (un known) date) alternated between unknown) having a pulse and being pulseless, EKG showed (unknown) (no (unknown) (unknown) Calcium 7.6 L (units ( unknown) date) unknown) (unknown) (no (unknown) (unknown) Calcium 9.0 (units (un known) date) unknown) (unknown) (no (unknown) (unknown) Calcium (units (unkno wn) date) unknown) (unknown) (no (unknown) (unknown) Carbon Dioxide 7 (units (unknown) date) L* unknown) (unknown) (no (unknown) (unknown) Carbon Dioxide 8 (units (unknown) date) L* unknown) (unknown) (no (unknown) (unknown) Carbon Dioxide (units (unknown) date) unknown) (unknown) (no (unknown) (unknown) Cardiac arrest in (units (unknown) date) the setting of unknown) acute hyperkalemia (unknown) (no (unknown) (unknown) Chief complaint: (units (unknown) date) INPT unknown) (unknown) (no (unknown) (unknown) Chloride 95 L (units ( unknown) date) unknown) (unknown) (no (unknown) (unknown) Chloride 97 L (units ( unknown) date) unknown) (unknown) (no (unknown) (unknown) Chloride (units (unkno wn) date) unknown) (unknown) (no (unknown) (unknown) Comment: (units (unkno wn) date) unknown) (unknown) (no (unknown) (unknown) Consult Note (units (u nknown) date) unknown) (unknown) (no (unknown) (unknown) Consult details (units (unknown) date) unknown) (unknown) (no (unknown) (unknown) Creatinine 13.9 (units (unknown) date) H* unknown) (unknown) (no (unknown) (unknown) Creatinine 15.2 (units (unknown) date) H* unknown) (unknown) (no (unknown) (unknown) Creatinine (units (unk nown) date) unknown) (unknown) (no (unknown) (unknown) Critical Care (units ( unknown) date) time: unknown) (unknown) (no (unknown) (unknown) : 1965 (units (unknown) date) Acct:[id number] unknown) (unknown) (no (unknown) (unknown) Date Patient (units (u nknown) date) Seen: 07/30/22 unknown) (unknown) (no (unknown) (unknown) Date of Service: (units (unknown) date) 07/29/22 unknown) (unknown) (no (unknown) (unknown) Diabetes (units (unkno wn) date) unknown) (unknown) (no (unknown) (unknown) Polly Bone is a (units (unknown) date) 57-year-old female unknown) pod 1. L5-6 lumbar laminectomy is found to (unknown) (no (unknown) (unknown) Discussed case (units ( unknown) date) with Dr. 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 [place] (unknown) (no (unknown) (unknown) Eos # (Auto) 0 (units (unknown) date) unknown) (unknown) (no (unknown) (unknown) Eos # (Auto) (units (u nknown) date) unknown) (unknown) (no (unknown) (unknown) Eos % (Auto) 0.0 (units (unknown) date) L unknown) (unknown) (no (unknown) (unknown) Eos % (Auto) (units (u nknown) date) unknown) (unknown) (no (unknown) (unknown) Estimated GFR 3 L (units (unknown) date) unknown) (unknown) (no (unknown) (unknown) Estimated GFR (units ( unknown) date) unknown) (unknown) (no (unknown) (unknown) Exam Narrative: (units (unknown) date) unknown) (unknown) (no (unknown) (unknown) Exam (units (unkno wn) date) unknown) (unknown) (no (unknown) (unknown) Extremities: (units (u nknown) date) Appears to have unknown) good cap refill (unknown) (no (unknown) (unknown) FiO2 100 (units (unkno wn) date) unknown) (unknown) (no (unknown) (unknown) FiO2 15 (units (unkno wn) date) unknown) (unknown) (no (unknown) (unknown) FiO2 (units (unkno wn) date) unknown) (unknown) (no (unknown) (unknown) GERD (units (unkno wn) date) (gastroesophageal unknown) reflux disease) (unknown) (no (unknown) (unknown) Gen: Arousable, (units (unknown) date) morbidly obese 57 unknown) y.o. female (unknown) (no (unknown) (unknown) Globulin 2.9 (units (u nknown) date) unknown) (unknown) (no (unknown) (unknown) Globulin 3.1 (units (u nknown) date) unknown) (unknown) (no (unknown) (unknown) Globulin (units (unkno wn) date) unknown) (unknown) (no (unknown) (unknown) Glucose 27 L* 303 (units (unknown) date) H D unknown) (unknown) (no (unknown) (unknown) Glucose 404 H D (units (unknown) date) unknown) (unknown) (no (unknown) (unknown) Glucose (units (unkno wn) date) unknown) (unknown) (no (unknown) (unknown) HEENT: (units (unkno wn) date) normocephalic, unknown) atraumatic, conjunctiva clear, sclera non-icteric, oral (unknown) (no (unknown) (unknown) HLD (units (unkno wn) date) (hyperlipidemia) unknown) (unknown) (no (unknown) (unknown) HTN (units (unkno wn) date) (hypertension) unknown) (unknown) (no (unknown) (unknown) Hct 36.1 (units (unkno wn) date) unknown) (unknown) (no (unknown) (unknown) Hct (units (unkno wn) date) unknown) (unknown) (no (unknown) (unknown) Hgb 11.3 L (units (unk nown) date) unknown) (unknown) (no (unknown) (unknown) Hgb (units (unkno wn) date) unknown) (unknown) (no (unknown) (unknown) History of (units (unk nown) date) Present Illness unknown) (unknown) (no (unknown) (unknown) History of (units (unk nown) date) hysterectomy unknown) (unknown) (no (unknown) (unknown) History (units (unkno wn) date) unknown) (unknown) (no (unknown) (unknown) Home Medications (units (unknown) date) and Allergies unknown) (unknown) (no (unknown) (unknown) Home Medications (units (unknown) date) unknown) (unknown) (no (unknown) (unknown) Hospital. She (units ( unknown) date) will be contacting unknown) the day team for the name of an accepting ICU (unknown) (no (unknown) (unknown) I spent a total (units (unknown) date) of 180 minutes of unknown) critical care time on this patient's care (unknown) (no (unknown) (unknown) [facility] (units (unknown) date) [address] unknown) [place] [address] (unknown) (no (unknown) (unknown) Laboratory (units (unk nown) date) Results - last 24 unknown) hr (unknown) (no (unknown) (unknown) Labs (units (unkno wn) date) unknown) (unknown) (no (unknown) (unknown) Labs: (units (unkno wn) date) unknown) (unknown) (no (unknown) (unknown) Lumbar disc (units (un known) date) herniation unknown) (unknown) (no (unknown) (unknown) Lymph # (Auto) (units (unknown) date) 800 L unknown) (unknown) (no (unknown) (unknown) Lymph # (Auto) (units (unknown) date) unknown) (unknown) (no (unknown) (unknown) Lymph % (Auto) (units (unknown) date) 3.9 L unknown) (unknown) (no (unknown) (unknown) Lymph % (Auto) (units (unknown) date) unknown) (unknown) (no (unknown) (unknown) MCH 29.0 (units (unkno wn) date) unknown) (unknown) (no (unknown) (unknown) MCH (units (unkno wn) date) unknown) (unknown) (no (unknown) (unknown) MCHC 31.4 (units (unkn own) date) unknown) (unknown) (no (unknown) (unknown) MCHC (units (unkno wn) date) unknown) (unknown) (no (unknown) (unknown) MCV 92.3 (units (unkno wn) date) unknown) (unknown) (no (unknown) (unknown) MCV (units (unkno wn) date) unknown) (unknown) (no (unknown) (unknown) Magnesium 1.8 (units ( unknown) date) unknown) (unknown) (no (unknown) (unknown) Magnesium (units (unkn own) date) unknown) (unknown) (no (unknown) (unknown) Medical History (units (unknown) date) (Reviewed 07/30/22 unknown) @ 05:23 by JOVANNY Alonzo) (unknown) (no (unknown) (unknown) Medication (units (unk nown) date) Instructions unknown) Recorded Confirmed Type (unknown) (no (unknown) (unknown) Meds (units (unkno wn) date) unknown) (unknown) (no (unknown) (unknown) Gibson # (Auto) 100 (units (unknown) date) unknown) (unknown) (no (unknown) (unknown) Gibson # (Auto) (units ( unknown) date) unknown) (unknown) (no (unknown) (unknown) Gibson % (Auto) 0.6 (units (unknown) date) L unknown) (unknown) (no (unknown) (unknown) Gibson % (Auto) (units ( unknown) date) unknown) (unknown) (no (unknown) (unknown) Narrative (units (unkn own) date) unknown) (unknown) (no (unknown) (unknown) Narrative: (units (unk nown) date) unknown) (unknown) (no (unknown) (unknown) Neck: supple, (units ( unknown) date) full ROM, no JVD, unknown) trachea is midline (unknown) (no (unknown) (unknown) Neuro: Speech (units ( unknown) date) clear and coherent unknown) just prior to intubation obtunded (unknown) (no (unknown) (unknown) Neuropathy (units (unk nown) date) unknown) (unknown) (no (unknown) (unknown) Neut # (Auto) (units ( unknown) date) [id number] H unknown) (unknown) (no (unknown) (unknown) Neut # (Auto) (units ( unknown) date) unknown) (unknown) (no (unknown) (unknown) Neut % (Auto) (units ( unknown) date) 95.4 H unknown) (unknown) (no (unknown) (unknown) Neut % (Auto) (units ( unknown) date) unknown) (unknown) (no (unknown) (unknown) Nursing contacted (units (unknown) date) me requesting unknown) consult by Orthopedic surgery for this patient (unknown) (no (unknown) (unknown) Objective (units (unkn own) date) unknown) (unknown) (no (unknown) (unknown) Ovarian cancer (units (unknown) date) () unknown) (unknown) (no (unknown) (unknown) Oxygen Delivery (units (unknown) date) Method Room Air unknown) (unknown) (no (unknown) (unknown) Oxygen Flow Rate (units (unknown) date) 2 3 unknown) (unknown) (no (unknown) (unknown) Oxygen Flow Rate (units (unknown) date) 3 unknown) (unknown) (no (unknown) (unknown) PFSH (units (unkno wn) date) unknown) (unknown) (no (unknown) (unknown) Patient is (units (unk nown) date) intubated unable unknown) to speak and is from [place] so we do not have (unknown) (no (unknown) (unknown) Patient: (units (unkno wn) date) Polly Bone unknown) MR#: [id number] (unknown) (no (unknown) (unknown) Plt Count 386 (units ( unknown) date) unknown) (unknown) (no (unknown) (unknown) Plt Count (units (unkn own) date) unknown) (unknown) (no (unknown) (unknown) Potassium 7.2 H* (units (unknown) date) D unknown) (unknown) (no (unknown) (unknown) Potassium 9.7 H* (units (unknown) date) unknown) (unknown) (no (unknown) (unknown) Potassium (units (unkn own) date) unknown) (unknown) (no (unknown) (unknown) Provider: (units (unkn own) date) Rizwana Valle unknown) (unknown) (no (unknown) (unknown) Psyche: Unable to (units (unknown) date) assess unknown) (unknown) (no (unknown) (unknown) Pulse Oximetry 93 (units (unknown) date) 94 unknown) (unknown) (no (unknown) (unknown) Pulse Rate 60 86 (units (unknown) date) unknown) (unknown) (no (unknown) (unknown) RBC 3.91 L (units (unk nown) date) unknown) (unknown) (no (unknown) (unknown) RBC (units (unkno wn) date) unknown) (unknown) (no (unknown) (unknown) RDW 14.4 (units (unkno wn) date) unknown) (unknown) (no (unknown) (unknown) RDW (units (unkno wn) date) unknown) (unknown) (no (unknown) (unknown) ROS: Yes (units (unkno wn) date) unobtainable due unknown) to endotracheal tube (unknown) (no (unknown) (unknown) Reason for (units (unk nown) date) consult: Code blue unknown) (unknown) (no (unknown) (unknown) Resp: Patient is (units (unknown) date) currently vented unknown) (unknown) (no (unknown) (unknown) Respiratory Rate (units (unknown) date) 16 unknown) (unknown) (no (unknown) (unknown) Result Diagrams: (units (unknown) date) unknown) (unknown) (no (unknown) (unknown) Result date/Date (units (unknown) date) tested (Pos, unknown) Neg/Pending): 07/29/22 (unknown) (no (unknown) (unknown) Review of Systems (units (unknown) date) unknown) (unknown) (no (unknown) (unknown) SARS-CoV-2 (PCR) (units (unknown) date) Negative unknown) (unknown) (no (unknown) (unknown) SARS-CoV-2 (PCR) (units (unknown) date) unknown) (unknown) (no (unknown) (unknown) STEMI changes (units ( unknown) date) unknown) (unknown) (no (unknown) (unknown) Sciatica (units (unkno wn) date) unknown) (unknown) (no (unknown) (unknown) Score 4-6) (units (unk nown) date) unknown) (unknown) (no (unknown) (unknown) Signed By: (units (unk nown) date) unknown) (unknown) (no (unknown) (unknown) Skin: Appears to (units (unknown) date) have Martha in unknown) her pannus area (unknown) (no (unknown) (unknown) Smoking Status: (units (unknown) date) Former smoker unknown) (unknown) (no (unknown) (unknown) Social History (units (unknown) date) unknown) (unknown) (no (unknown) (unknown) Sodium 133 L (units (u nknown) date) unknown) (unknown) (no (unknown) (unknown) Sodium 140 (units (unk nown) date) unknown) (unknown) (no (unknown) (unknown) Sodium (units (unkno wn) date) unknown) (unknown) (no (unknown) (unknown) Surgical History (units (unknown) date) (Reviewed 07/30/22 unknown) @ 05:23 by JOVANNY Alonzo) (unknown) (no (unknown) (unknown) Suspected (units (unkn own) date) bacterial unknown) pneumonia (unknown) (no (unknown) (unknown) Temperature 97.9 (units (unknown) date) F unknown) (unknown) (no (unknown) (unknown) Time Patient (units (u nknown) date) Seen: 03:00 unknown) (unknown) (no (unknown) (unknown) Time Spent With (units (unknown) date) Patient unknown) (unknown) (no (unknown) (unknown) Tobacco + (units (unkn own) date) Substance Use unknown) (unknown) (no (unknown) (unknown) Total Bilirubin (units (unknown) date) 0.3 unknown) (unknown) (no (unknown) (unknown) Total Bilirubin (units (unknown) date) 0.4 unknown) (unknown) (no (unknown) (unknown) Total Bilirubin (units (unknown) date) unknown) (unknown) (no (unknown) (unknown) Total Creatine (units (unknown) date) Kinase 173 H unknown) (unknown) (no (unknown) (unknown) Total Creatine (units (unknown) date) Kinase unknown) (unknown) (no (unknown) (unknown) Total Protein 6.5 (units (unknown) date) unknown) (unknown) (no (unknown) (unknown) Total Protein 7.2 (units (unknown) date) unknown) (unknown) (no (unknown) (unknown) Total Protein (units ( unknown) date) unknown) (unknown) (no (unknown) (unknown) Troponin I 0.072 (units (unknown) date) H unknown) (unknown) (no (unknown) (unknown) Troponin I (units (unk nown) date) unknown) (unknown) (no (unknown) (unknown) VQ scanning due (units (unknown) date) to acute renal unknown) failure (unknown) (no (unknown) (unknown) Vital Signs (units (un known) date) unknown) (unknown) (no (unknown) (unknown) WBC 21.1 H (units (unk nown) date) unknown) (unknown) (no (unknown) (unknown) WBC (units (unkno wn) date) unknown) (unknown) (no (unknown) (unknown) [Embedded Image (units (unknown) date) Not Available] unknown) (unknown) (no (unknown) (unknown) acetaminophen 500 (units (unknown) date) mg tablet 1,000 mg unknown) PO QD-BID PRN Pain 07/28/22 07/29/22 (unknown) (no (unknown) (unknown) alcohol intake: (units (unknown) date) current unknown) (unknown) (no (unknown) (unknown) also elevated at (units (unknown) date) 2.9 and total unknown) creatinine kinase is elevated 173 (unknown) (no (unknown) (unknown) amlodipine 2.5 mg (units (unknown) date) tablet 2.5 mg PO unknown) DAILY 07/28/22 07/29/22 History (unknown) (no (unknown) (unknown) been started on (units (unknown) date) IV vancomycin and unknown) cefepime (unknown) (no (unknown) (unknown) critical care (units ( unknown) date) facility for unknown) emergent dialysis. (unknown) (no (unknown) (unknown) cyclobenzaprine (units (unknown) date) 7.5 mg tablet 7.5 unknown) mg PO PRN PRN Pain (Scale 07/29/22 07/29/22 (unknown) (no (unknown) (unknown) difficulty (units (unkn own) date) breathing and by unknown) the time I reached the floor CPR was being performed (unknown) (no (unknown) (unknown) duloxetine [From (units (unknown) date) Cymbalta] Allergy unknown) Intermediate Rash, Verified 07/29/22 12:03 (unknown) (no (unknown) (unknown) elevated blood (units (unknown) date) glucose unknown) (unknown) (no (unknown) (unknown) gabapentin 800 mg (units (unknown) date) tablet 800 mg PO unknown) BID 07/28/22 07/29/22 History (unknown) (no (unknown) (unknown) glipizide 10 mg (units (unknown) date) tablet 10 mg PO unknown) DAILY 07/28/22 07/29/22 History (unknown) (no (unknown) (unknown) have severe (units (un known) date) hyperkalemia, unknown) severe hypotension, suspected STEMI and is moved from (unknown) (no (unknown) (unknown) have very soft (units (unknown) date) blood pressures unknown) and by the time I came up to the floor her blood (unknown) (no (unknown) (unknown) her current (units (un known) date) medical records unknown) and I am not able to obtain a family history from (unknown) (no (unknown) (unknown) her. (units (unkno wn) date) unknown) (unknown) (no (unknown) (unknown) household (units (unkn own) date) members: unknown) significant other (unknown) (no (unknown) (unknown) hydrocodone 5 (units ( unknown) date) mg-acetaminophen unknown) 325 5 tab PO Q8H PRN pain 07/29/22 07/29/22 (unknown) (no (unknown) (unknown) ibuprofen 200 mg (units (unknown) date) tablet (Advil) 600 unknown) mg PO QD-BID PRN Pain 07/28/22 07/29/22 (unknown) (no (unknown) (unknown) insulin, repeat (units (unknown) date) lab her potassium unknown) was 7.2, now 8.2 (unknown) (no (unknown) (unknown) itching (units (unkno wn) date) unknown) (unknown) (no (unknown) (unknown) lisinopril 40 mg (units (unknown) date) tablet 40 mg PO unknown) DAILY 07/28/22 07/29/22 History (unknown) (no (unknown) (unknown) metformin 500 mg (units (unknown) date) tablet 1,000 mg PO unknown) BID 07/28/22 07/29/22 History (unknown) (no (unknown) (unknown) metoprolol (units (unk nown) date) succinate 50 mg 50 unknown) mg PO DAILY 07/28/22 07/29/22 History (unknown) (no (unknown) (unknown) mg tablet (units (unkn own) date) unknown) (unknown) (no (unknown) (unknown) mucosa pink and (units (unknown) date) moist unknown) (unknown) (no (unknown) (unknown) normal rhythm (units ( unknown) date) after having her unknown) potassium corrected (unknown) (no (unknown) (unknown) nortriptyline 10 (units (unknown) date) mg capsule 20 mg unknown) PO BEDTIME 07/28/22 07/29/22 History (unknown) (no (unknown) (unknown) on the patient. (units (unknown) date) unknown) (unknown) (no (unknown) (unknown) oxycodone 5 mg (units (unknown) date) tablet 5 mg PO Q4H unknown) PRN pain #40 tabs 07/29/22 Rx (unknown) (no (unknown) (unknown) pantoprazole 40 (units (unknown) date) mg tablet,delayed unknown) 40 mg PO DAILY 07/28/22 07/29/22 History (unknown) (no (unknown) (unknown) physician. (units (unk nown) date) unknown) (unknown) (no (unknown) (unknown) pressure was in (units (unknown) date) the low 90s. unknown) Apparently during that time it dropped even to a (unknown) (no (unknown) (unknown) release (units (unkno wn) date) unknown) (unknown) (no (unknown) (unknown) simvastatin 40 mg (units (unknown) date) tablet 40 mg PO unknown) BEDTIME 07/28/22 07/29/22 History (unknown) (no (unknown) (unknown) systolic of 60, (units (unknown) date) the patient was unknown) reportedly complaining of chest pain and (unknown) (no (unknown) (unknown) tablet,extended (units (unknown) date) release 24 hr unknown) (unknown) (no (unknown) (unknown) the (units (unkno wn) date) medical-surgical unknown) unit to critical care and is awaiting transfer to a (unknown) (no (unknown) (unknown) today; this time (units (unknown) date) is exclusive of unknown) procedural time. (unknown) (no (unknown) (unknown) who is a (units (unkno wn) date) 57-year-old female unknown) pod 1. L5-6 lumbar laminectomy. She was noted to Result panel 149 (unknown) (no (unknown) (unknown) (no value) (units (unk nown) date) unknown) (unknown) (no (unknown) (unknown) (past 8 hours): (units (unknown) date) unknown) (unknown) (no (unknown) (unknown) * Creatinine prior (units (unknown) date) to insulin and D5 unknown) was 15.2, repeat 13.9 and now 14.8, EGFR is (unknown) (no (unknown) (unknown) * Currently on (units (unknown) date) levaphed drip of unknown) 16 and vasopressen drip was just started. (unknown) (no (unknown) (unknown) * Differential (units ( unknown) date) could be a unknown) pulmonary embolus will only be able to undergo nuclear (unknown) (no (unknown) (unknown) * Initial (units (unkn own) date) potassium was 9.7. unknown) She was administered D5 and 10 units of IV (unknown) (no (unknown) (unknown) * Initial (units (unkn own) date) troponin is unknown) elevated at 0.072, 2nd troponin is 0.297 CK-MB is also (unknown) (no (unknown) (unknown) * Lactate is 8.4 (units (unknown) date) unknown) (unknown) (no (unknown) (unknown) * Patient is (units (un known) date) currently unknown) intubated, vent settings per eICU, tidal volume 425, FiO2 (unknown) (no (unknown) (unknown) * Patient needs (units (unknown) date) to be transferred unknown) for emergent dialysis (unknown) (no (unknown) (unknown) * Patient (units (unkn own) date) underwent several unknown) rounds of CPR and was eventually restored to a more (unknown) (no (unknown) (unknown) * Patient was (units ( unknown) date) initiated on a unknown) heparin drip but this has now been discontinued (unknown) (no (unknown) (unknown) * She also (units (unk nown) date) received IV unknown) amiodarone 150 mg X 1 (unknown) (no (unknown) (unknown) * She has a large (units (unknown) date) left pleural unknown) effusion presumably infectious pneumonia and has (unknown) (no (unknown) (unknown) * She is ordered (units (unknown) date) for 5 amps of unknown) bicarb boluses along with a bicarb drip (unknown) (no (unknown) (unknown) * She is ordered (units (unknown) date) for another 10 unknown) units of IV insulin, D5 is being held due to her (unknown) (no (unknown) (unknown) * She is started (units (unknown) date) on IV cefipime unknown) renally dosed and vancomycin (unknown) (no (unknown) (unknown) * She received (units (unknown) date) epinephrine and unknown) acheived ROSC in approximately 15 minutes (unknown) (no (unknown) (unknown) * WBC is 21.1, (units (unknown) date) left shift of unknown) 20,000, and procalcitonin is elevated at 1.21 (unknown) (no (unknown) (unknown) [id number] (units (unkno wn) date) unknown) (unknown) (no (unknown) (unknown) 01:00 (units (unkno wn) date) unknown) (unknown) (no (unknown) (unknown) 03:20 03:35 04:15 (units (unknown) date) unknown) (unknown) (no (unknown) (unknown) 04:25 (units (unkno wn) date) unknown) (unknown) (no (unknown) (unknown) 100%, respiratory (units (unknown) date) rate 32 and a PEEP unknown) of 10 (unknown) (no (unknown) (unknown) 07/29/22 07/29/22 (units (unknown) date) 07/30/22 unknown) (unknown) (no (unknown) (unknown) 07/29/22 (units (unkno wn) date) unknown) (unknown) (no (unknown) (unknown) 07/30/22 03:20 (units (unknown) date) unknown) (unknown) (no (unknown) (unknown) 07/30/22 04:15 (units (unknown) date) unknown) (unknown) (no (unknown) (unknown) 07/30/22 0732 (units ( unknown) date) unknown) (unknown) (no (unknown) (unknown) 07/30/22 07/30/22 (units (unknown) date) 07/30/22 unknown) (unknown) (no (unknown) (unknown) 07/30/22 (units (unkno wn) date) unknown) (unknown) (no (unknown) (unknown) 12:29 12:55 03:20 (units (unknown) date) unknown) (unknown) (no (unknown) (unknown) 22:50 07/29/22 (units (unknown) date) unknown) (unknown) (no (unknown) (unknown) 23:45 07/30/22 (units (unknown) date) unknown) (unknown) (no (unknown) (unknown) 3 (units (unkno wn) date) unknown) (unknown) (no (unknown) (unknown) ABG Base Excess (units (unknown) date) -20.0 L unknown) (unknown) (no (unknown) (unknown) ABG Base Excess (units (unknown) date) -25.0 L unknown) (unknown) (no (unknown) (unknown) ABG Base Excess (units (unknown) date) unknown) (unknown) (no (unknown) (unknown) ABG HCO3 10 L (units ( unknown) date) unknown) (unknown) (no (unknown) (unknown) ABG HCO3 8 L (units (u nknown) date) unknown) (unknown) (no (unknown) (unknown) ABG HCO3 (units (unkno wn) date) unknown) (unknown) (no (unknown) (unknown) ABG O2 Saturation (units (unknown) date) 52 L* unknown) (unknown) (no (unknown) (unknown) ABG O2 Saturation (units (unknown) date) 86 L unknown) (unknown) (no (unknown) (unknown) ABG O2 Saturation (units (unknown) date) unknown) (unknown) (no (unknown) (unknown) ABG Total CO2 12 (units (unknown) date) L unknown) (unknown) (no (unknown) (unknown) ABG Total CO2 9 L (units (unknown) date) unknown) (unknown) (no (unknown) (unknown) ABG Total CO2 (units ( unknown) date) unknown) (unknown) (no (unknown) (unknown) ABG pCO2 36.7 (units ( unknown) date) unknown) (unknown) (no (unknown) (unknown) ABG pCO2 37.5 (units ( unknown) date) unknown) (unknown) (no (unknown) (unknown) ABG pCO2 (units (unkno wn) date) unknown) (unknown) (no (unknown) (unknown) ABG pH 6.92 L* (units (unknown) date) unknown) (unknown) (no (unknown) (unknown) ABG pH 7.06 L* (units (unknown) date) unknown) (unknown) (no (unknown) (unknown) ABG pH (units (unkno wn) date) unknown) (unknown) (no (unknown) (unknown) ABG pO2 38 L* (units ( unknown) date) unknown) (unknown) (no (unknown) (unknown) ABG pO2 82 (units (unk nown) date) unknown) (unknown) (no (unknown) (unknown) ABG pO2 (units (unkno wn) date) unknown) (unknown) (no (unknown) (unknown) ALT 203 H (units (unkn own) date) unknown) (unknown) (no (unknown) (unknown) ALT 22 (units (unkno wn) date) unknown) (unknown) (no (unknown) (unknown) ALT (units (unkno wn) date) unknown) (unknown) (no (unknown) (unknown) AST 17 (units (unkno wn) date) unknown) (unknown) (no (unknown) (unknown) AST 226 H (units (unkn own) date) unknown) (unknown) (no (unknown) (unknown) AST (units (unkno wn) date) unknown) (unknown) (no (unknown) (unknown) Abd: Obese (units (unk nown) date) unknown) (unknown) (no (unknown) (unknown) Acute renal (units (un known) date) failure in the unknown) setting of severe hyperkalemia (unknown) (no (unknown) (unknown) Acute respiratory (units (unknown) date) failure with a unknown) severe uncompensated respiratory acidosis (unknown) (no (unknown) (unknown) Age/Sex: 57 / F (units (unknown) date) unknown) (unknown) (no (unknown) (unknown) Albumin 3.6 (units (un known) date) unknown) (unknown) (no (unknown) (unknown) Albumin 4.1 (units (un known) date) unknown) (unknown) (no (unknown) (unknown) Albumin (units (unkno wn) date) unknown) (unknown) (no (unknown) (unknown) Albumin/Globulin (units (unknown) date) Ratio 1.2 unknown) (unknown) (no (unknown) (unknown) Albumin/Globulin (units (unknown) date) Ratio 1.3 unknown) (unknown) (no (unknown) (unknown) Albumin/Globulin (units (unknown) date) Ratio unknown) (unknown) (no (unknown) (unknown) Alkaline (units (unkno wn) date) Phosphatase 100 unknown) (unknown) (no (unknown) (unknown) Alkaline (units (unkno wn) date) Phosphatase 93 unknown) (unknown) (no (unknown) (unknown) Alkaline (units (unkno wn) date) Phosphatase unknown) (unknown) (no (unknown) (unknown) Allergies (units (unkn own) date) unknown) (unknown) (no (unknown) (unknown) Allergy/AdvReac (units (unknown) date) Type Severity unknown) Reaction Status Date / Time (unknown) (no (unknown) (unknown) Assessment + Plan (units (unknown) date) narrative: unknown) (unknown) (no (unknown) (unknown) Assessment + Plan (units (unknown) date) unknown) (unknown) (no (unknown) (unknown) BUN 117 H* (units (unk nown) date) unknown) (unknown) (no (unknown) (unknown) BUN 120 H* (units (unk nown) date) unknown) (unknown) (no (unknown) (unknown) BUN (units (unkno wn) date) unknown) (unknown) (no (unknown) (unknown) BUN/Creatinine (units (unknown) date) Ratio 7.9 unknown) (unknown) (no (unknown) (unknown) BUN/Creatinine (units (unknown) date) Ratio 8.4 unknown) (unknown) (no (unknown) (unknown) BUN/Creatinine (units (unknown) date) Ratio unknown) (unknown) (no (unknown) (unknown) Baso # (Auto) 0 (units (unknown) date) unknown) (unknown) (no (unknown) (unknown) Baso # (Auto) (units ( unknown) date) unknown) (unknown) (no (unknown) (unknown) Baso % (Auto) 0.1 (units (unknown) date) unknown) (unknown) (no (unknown) (unknown) Baso % (Auto) (units ( unknown) date) unknown) (unknown) (no (unknown) (unknown) Blood Pressure (units (unknown) date) 95/51 L 91/47 L unknown) 94/44 L (unknown) (no (unknown) (unknown) CK-MB (CK-2) 2.90 (units (unknown) date) H unknown) (unknown) (no (unknown) (unknown) CK-MB (CK-2) Rel (units (unknown) date) Index 1.7 unknown) (unknown) (no (unknown) (unknown) CK-MB (CK-2) Rel (units (unknown) date) Index unknown) (unknown) (no (unknown) (unknown) CK-MB (CK-2) (units (u nknown) date) unknown) (unknown) (no (unknown) (unknown) COVID-19 status: (units (unknown) date) Negative unknown) (unknown) (no (unknown) (unknown) COVID-19 (units (unkno wn) date) unknown) (unknown) (no (unknown) (unknown) CPR/muscle insult (units (unknown) date) vs renal failure unknown) (unknown) (no (unknown) (unknown) CV: Patient (units (un known) date) alternated between unknown) having a pulse and being pulseless, EKG showed (unknown) (no (unknown) (unknown) Calcium 7.6 L (units ( unknown) date) unknown) (unknown) (no (unknown) (unknown) Calcium 9.0 (units (un known) date) unknown) (unknown) (no (unknown) (unknown) Calcium (units (unkno wn) date) unknown) (unknown) (no (unknown) (unknown) Carbon Dioxide 7 (units (unknown) date) L* unknown) (unknown) (no (unknown) (unknown) Carbon Dioxide 8 (units (unknown) date) L* unknown) (unknown) (no (unknown) (unknown) Carbon Dioxide (units (unknown) date) unknown) (unknown) (no (unknown) (unknown) Cardiac arrest in (units (unknown) date) the setting of unknown) acute hyperkalemia (unknown) (no (unknown) (unknown) Chief complaint: (units (unknown) date) INPT unknown) (unknown) (no (unknown) (unknown) Chloride 95 L (units ( unknown) date) unknown) (unknown) (no (unknown) (unknown) Chloride 97 L (units ( unknown) date) unknown) (unknown) (no (unknown) (unknown) Chloride (units (unkno wn) date) unknown) (unknown) (no (unknown) (unknown) Comment: (units (unkno wn) date) unknown) (unknown) (no (unknown) (unknown) Consult Note (units (u nknown) date) unknown) (unknown) (no (unknown) (unknown) Consult details (units (unknown) date) unknown) (unknown) (no (unknown) (unknown) Creatinine 13.9 (units (unknown) date) H* unknown) (unknown) (no (unknown) (unknown) Creatinine 15.2 (units (unknown) date) H* unknown) (unknown) (no (unknown) (unknown) Creatinine (units (unk nown) date) unknown) (unknown) (no (unknown) (unknown) Critical Care (units ( unknown) date) time: unknown) (unknown) (no (unknown) (unknown) : 1965 (units (unknown) date) Acct:[id number] unknown) (unknown) (no (unknown) (unknown) Date Patient (units (u nknown) date) Seen: 07/30/22 unknown) (unknown) (no (unknown) (unknown) Date of Service: (units (unknown) date) 07/29/22 unknown) (unknown) (no (unknown) (unknown) Diabetes (units (unkno wn) date) unknown) (unknown) (no (unknown) (unknown) Polly Bone is a (units (unknown) date) 57-year-old female unknown) pod 1. L5-6 lumbar laminectomy is found to (unknown) (no (unknown) (unknown) Discussed case (units ( unknown) date) with Dr. 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 [place] (unknown) (no (unknown) (unknown) Eos # (Auto) 0 (units (unknown) date) unknown) (unknown) (no (unknown) (unknown) Eos # (Auto) (units (u nknown) date) unknown) (unknown) (no (unknown) (unknown) Eos % (Auto) 0.0 (units (unknown) date) L unknown) (unknown) (no (unknown) (unknown) Eos % (Auto) (units (u nknown) date) unknown) (unknown) (no (unknown) (unknown) Estimated GFR 3 L (units (unknown) date) unknown) (unknown) (no (unknown) (unknown) Estimated GFR (units ( unknown) date) unknown) (unknown) (no (unknown) (unknown) Exam Narrative: (units (unknown) date) unknown) (unknown) (no (unknown) (unknown) Exam (units (unkno wn) date) unknown) (unknown) (no (unknown) (unknown) Extremities: (units (u nknown) date) Appears to have unknown) good cap refill (unknown) (no (unknown) (unknown) FiO2 100 (units (unkno wn) date) unknown) (unknown) (no (unknown) (unknown) FiO2 15 (units (unkno wn) date) unknown) (unknown) (no (unknown) (unknown) FiO2 (units (unkno wn) date) unknown) (unknown) (no (unknown) (unknown) GERD (units (unkno wn) date) (gastroesophageal unknown) reflux disease) (unknown) (no (unknown) (unknown) Gen: Arousable, (units (unknown) date) morbidly obese 57 unknown) y.o. female (unknown) (no (unknown) (unknown) Globulin 2.9 (units (u nknown) date) unknown) (unknown) (no (unknown) (unknown) Globulin 3.1 (units (u nknown) date) unknown) (unknown) (no (unknown) (unknown) Globulin (units (unkno wn) date) unknown) (unknown) (no (unknown) (unknown) Glucose 27 L* 303 (units (unknown) date) H D unknown) (unknown) (no (unknown) (unknown) Glucose 404 H D (units (unknown) date) unknown) (unknown) (no (unknown) (unknown) Glucose (units (unkno wn) date) unknown) (unknown) (no (unknown) (unknown) HEENT: (units (unkno wn) date) normocephalic, unknown) atraumatic, conjunctiva clear, sclera non-icteric, oral (unknown) (no (unknown) (unknown) HLD (units (unkno wn) date) (hyperlipidemia) unknown) (unknown) (no (unknown) (unknown) HTN (units (unkno wn) date) (hypertension) unknown) (unknown) (no (unknown) (unknown) Hct 36.1 (units (unkno wn) date) unknown) (unknown) (no (unknown) (unknown) Hct (units (unkno wn) date) unknown) (unknown) (no (unknown) (unknown) Hgb 11.3 L (units (unk nown) date) unknown) (unknown) (no (unknown) (unknown) Hgb (units (unkno wn) date) unknown) (unknown) (no (unknown) (unknown) History of (units (unk nown) date) Present Illness unknown) (unknown) (no (unknown) (unknown) History of (units (unk nown) date) hysterectomy unknown) (unknown) (no (unknown) (unknown) History (units (unkno wn) date) unknown) (unknown) (no (unknown) (unknown) Home Medications (units (unknown) date) and Allergies unknown) (unknown) (no (unknown) (unknown) Home Medications (units (unknown) date) unknown) (unknown) (no (unknown) (unknown) Hospital. She (units ( unknown) date) will be contacting unknown) the day team for the name of an accepting ICU (unknown) (no (unknown) (unknown) I spent a total (units (unknown) date) of 180 minutes of unknown) critical care time on this patient's care (unknown) (no (unknown) (unknown) [facility] (units (unknown) date) [address] unknown) [place] [address] (unknown) (no (unknown) (unknown) Laboratory (units (unk nown) date) Results - last 24 unknown) hr (unknown) (no (unknown) (unknown) Labs (units (unkno wn) date) unknown) (unknown) (no (unknown) (unknown) Labs: (units (unkno wn) date) unknown) (unknown) (no (unknown) (unknown) Lumbar disc (units (un known) date) herniation unknown) (unknown) (no (unknown) (unknown) Lymph # (Auto) (units (unknown) date) 800 L unknown) (unknown) (no (unknown) (unknown) Lymph # (Auto) (units (unknown) date) unknown) (unknown) (no (unknown) (unknown) Lymph % (Auto) (units (unknown) date) 3.9 L unknown) (unknown) (no (unknown) (unknown) Lymph % (Auto) (units (unknown) date) unknown) (unknown) (no (unknown) (unknown) MCH 29.0 (units (unkno wn) date) unknown) (unknown) (no (unknown) (unknown) MCH (units (unkno wn) date) unknown) (unknown) (no (unknown) (unknown) MCHC 31.4 (units (unkn own) date) unknown) (unknown) (no (unknown) (unknown) MCHC (units (unkno wn) date) unknown) (unknown) (no (unknown) (unknown) MCV 92.3 (units (unkno wn) date) unknown) (unknown) (no (unknown) (unknown) MCV (units (unkno wn) date) unknown) (unknown) (no (unknown) (unknown) Magnesium 1.8 (units ( unknown) date) unknown) (unknown) (no (unknown) (unknown) Magnesium (units (unkn own) date) unknown) (unknown) (no (unknown) (unknown) Medical History (units (unknown) date) (Reviewed 07/30/22 unknown) @ 05:23 by JOVANNY Alonzo) (unknown) (no (unknown) (unknown) Medication (units (unk nown) date) Instructions unknown) Recorded Confirmed Type (unknown) (no (unknown) (unknown) Meds (units (unkno wn) date) unknown) (unknown) (no (unknown) (unknown) Gibson # (Auto) 100 (units (unknown) date) unknown) (unknown) (no (unknown) (unknown) Gibson # (Auto) (units ( unknown) date) unknown) (unknown) (no (unknown) (unknown) Gibson % (Auto) 0.6 (units (unknown) date) L unknown) (unknown) (no (unknown) (unknown) Gibson % (Auto) (units ( unknown) date) unknown) (unknown) (no (unknown) (unknown) Narrative (units (unkn own) date) unknown) (unknown) (no (unknown) (unknown) Narrative: (units (unk nown) date) unknown) (unknown) (no (unknown) (unknown) Neck: supple, (units ( unknown) date) full ROM, no JVD, unknown) trachea is midline (unknown) (no (unknown) (unknown) Neuro: Speech (units ( unknown) date) clear and coherent unknown) just prior to intubation obtunded (unknown) (no (unknown) (unknown) Neuropathy (units (unk nown) date) unknown) (unknown) (no (unknown) (unknown) Neut # (Auto) (units ( unknown) date) [address]48 H unknown) (unknown) (no (unknown) (unknown) Neut # (Auto) (units ( unknown) date) unknown) (unknown) (no (unknown) (unknown) Neut % (Auto) (units ( unknown) date) 95.4 H unknown) (unknown) (no (unknown) (unknown) Neut % (Auto) (units ( unknown) date) unknown) (unknown) (no (unknown) (unknown) Nursing contacted (units (unknown) date) me requesting unknown) consult by Orthopedic surgery for this patient (unknown) (no (unknown) (unknown) Objective (units (unkn own) date) unknown) (unknown) (no (unknown) (unknown) Ovarian cancer (units (unknown) date) () unknown) (unknown) (no (unknown) (unknown) Oxygen Delivery (units (unknown) date) Method Room Air unknown) (unknown) (no (unknown) (unknown) Oxygen Flow Rate (units (unknown) date) 2 3 unknown) (unknown) (no (unknown) (unknown) Oxygen Flow Rate (units (unknown) date) 3 unknown) (unknown) (no (unknown) (unknown) PFSH (units (unkno wn) date) unknown) (unknown) (no (unknown) (unknown) Patient is (units (unk nown) date) intubated unable unknown) to speak and is from [place] so we do not have (unknown) (no (unknown) (unknown) Patient: (units (unkno wn) date) Polly Bone unknown) MR#: [id number] (unknown) (no (unknown) (unknown) Plt Count 386 (units ( unknown) date) unknown) (unknown) (no (unknown) (unknown) Plt Count (units (unkn own) date) unknown) (unknown) (no (unknown) (unknown) Potassium 7.2 H* (units (unknown) date) D unknown) (unknown) (no (unknown) (unknown) Potassium 9.7 H* (units (unknown) date) unknown) (unknown) (no (unknown) (unknown) Potassium (units (unkn own) date) unknown) (unknown) (no (unknown) (unknown) Provider: (units (unkn own) date) Rizwana Valle unknown) (unknown) (no (unknown) (unknown) Psyche: Unable to (units (unknown) date) assess unknown) (unknown) (no (unknown) (unknown) Pulse Oximetry 93 (units (unknown) date) 94 unknown) (unknown) (no (unknown) (unknown) Pulse Rate 60 86 (units (unknown) date) unknown) (unknown) (no (unknown) (unknown) RBC 3.91 L (units (unk nown) date) unknown) (unknown) (no (unknown) (unknown) RBC (units (unkno wn) date) unknown) (unknown) (no (unknown) (unknown) RDW 14.4 (units (unkno wn) date) unknown) (unknown) (no (unknown) (unknown) RDW (units (unkno wn) date) unknown) (unknown) (no (unknown) (unknown) ROS: Yes (units (unkno wn) date) unobtainable due unknown) to endotracheal tube (unknown) (no (unknown) (unknown) Reason for (units (unk nown) date) consult: Code blue unknown) (unknown) (no (unknown) (unknown) Resp: Patient is (units (unknown) date) currently vented unknown) (unknown) (no (unknown) (unknown) Respiratory Rate (units (unknown) date) 16 unknown) (unknown) (no (unknown) (unknown) Result Diagrams: (units (unknown) date) unknown) (unknown) (no (unknown) (unknown) Result date/Date (units (unknown) date) tested (Pos, unknown) Neg/Pending): 07/29/22 (unknown) (no (unknown) (unknown) Review of Systems (units (unknown) date) unknown) (unknown) (no (unknown) (unknown) SARS-CoV-2 (PCR) (units (unknown) date) Negative unknown) (unknown) (no (unknown) (unknown) SARS-CoV-2 (PCR) (units (unknown) date) unknown) (unknown) (no (unknown) (unknown) STEMI changes (units ( unknown) date) unknown) (unknown) (no (unknown) (unknown) Sciatica (units (unkno wn) date) unknown) (unknown) (no (unknown) (unknown) Score 4-6) (units (unk nown) date) unknown) (unknown) (no (unknown) (unknown) Signed (units (unkno wn) date) By:<Electronically unknown) signed by Rizwana Valle> (unknown) (no (unknown) (unknown) Skin: Appears to (units (unknown) date) have Martha in unknown) her pannus area (unknown) (no (unknown) (unknown) Smoking Status: (units (unknown) date) Former smoker unknown) (unknown) (no (unknown) (unknown) Social History (units (unknown) date) unknown) (unknown) (no (unknown) (unknown) Sodium 133 L (units (u nknown) date) unknown) (unknown) (no (unknown) (unknown) Sodium 140 (units (unk nown) date) unknown) (unknown) (no (unknown) (unknown) Sodium (units (unkno wn) date) unknown) (unknown) (no (unknown) (unknown) Surgical History (units (unknown) date) (Reviewed 07/30/22 unknown) @ 05:23 by JOVANNY Alonzo) (unknown) (no (unknown) (unknown) Suspected (units (unkn own) date) bacterial unknown) pneumonia (unknown) (no (unknown) (unknown) Temperature 97.9 (units (unknown) date) F unknown) (unknown) (no (unknown) (unknown) Time Patient (units (u nknown) date) Seen: 03:00 unknown) (unknown) (no (unknown) (unknown) Time Spent With (units (unknown) date) Patient unknown) (unknown) (no (unknown) (unknown) Tobacco + (units (unkn own) date) Substance Use unknown) (unknown) (no (unknown) (unknown) Total Bilirubin (units (unknown) date) 0.3 unknown) (unknown) (no (unknown) (unknown) Total Bilirubin (units (unknown) date) 0.4 unknown) (unknown) (no (unknown) (unknown) Total Bilirubin (units (unknown) date) unknown) (unknown) (no (unknown) (unknown) Total Creatine (units (unknown) date) Kinase 173 H unknown) (unknown) (no (unknown) (unknown) Total Creatine (units (unknown) date) Kinase unknown) (unknown) (no (unknown) (unknown) Total Protein 6.5 (units (unknown) date) unknown) (unknown) (no (unknown) (unknown) Total Protein 7.2 (units (unknown) date) unknown) (unknown) (no (unknown) (unknown) Total Protein (units ( unknown) date) unknown) (unknown) (no (unknown) (unknown) Troponin I 0.072 (units (unknown) date) H unknown) (unknown) (no (unknown) (unknown) Troponin I (units (unk nown) date) unknown) (unknown) (no (unknown) (unknown) Updated her life (units (unknown) date) partner, Yoselyn unknown) Radha who is in touch with the patient's (unknown) (no (unknown) (unknown) VQ scanning due (units (unknown) date) to acute renal unknown) failure (unknown) (no (unknown) (unknown) Vital Signs (units (un known) date) unknown) (unknown) (no (unknown) (unknown) WBC 21.1 H (units (unk nown) date) unknown) (unknown) (no (unknown) (unknown) WBC (units (unkno wn) date) unknown) (unknown) (no (unknown) (unknown) [Embedded Image (units (unknown) date) Not Available] unknown) (unknown) (no (unknown) (unknown) acetaminophen 500 (units (unknown) date) mg tablet 1,000 mg unknown) PO QD-BID PRN Pain 07/28/22 07/29/22 (unknown) (no (unknown) (unknown) alcohol intake: (units (unknown) date) current unknown) (unknown) (no (unknown) (unknown) amlodipine 2.5 mg (units (unknown) date) tablet 2.5 mg PO unknown) DAILY 07/28/22 07/29/22 History (unknown) (no (unknown) (unknown) apparently told (units (unknown) date) her nurse that she unknown) had mild chest pain. CPR was underway when I (unknown) (no (unknown) (unknown) arrived to the (units (unknown) date) room. unknown) (unknown) (no (unknown) (unknown) been started on (units (unknown) date) IV vancomycin and unknown) cefepime (unknown) (no (unknown) (unknown) critical care (units ( unknown) date) facility for unknown) emergent dialysis. (unknown) (no (unknown) (unknown) cyclobenzaprine (units (unknown) date) 7.5 mg tablet 7.5 unknown) mg PO PRN PRN Pain (Scale 07/29/22 07/29/22 (unknown) (no (unknown) (unknown) difficulty (units (unkn own) date) breathing and by unknown) the time I reached the floor CPR was being performed (unknown) (no (unknown) (unknown) duloxetine [From (units (unknown) date) Cymbalta] Allergy unknown) Intermediate Rash, Verified 07/29/22 12:03 (unknown) (no (unknown) (unknown) elevated at 2.9 (units (unknown) date) and total unknown) creatinine kinase is elevated 173, possibly due to (unknown) (no (unknown) (unknown) elevated blood (units (unknown) date) glucose unknown) (unknown) (no (unknown) (unknown) gabapentin 800 mg (units (unknown) date) tablet 800 mg PO unknown) BID 07/28/22 07/29/22 History (unknown) (no (unknown) (unknown) glipizide 10 mg (units (unknown) date) tablet 10 mg PO unknown) DAILY 07/28/22 07/29/22 History (unknown) (no (unknown) (unknown) have severe (units (un known) date) hyperkalemia, unknown) severe hypotension, suspected STEMI and is moved from (unknown) (no (unknown) (unknown) have very soft (units (unknown) date) blood pressures unknown) and by the time I came up to the floor her blood (unknown) (no (unknown) (unknown) her current (units (un known) date) medical records unknown) and I am not able to obtain a family history from (unknown) (no (unknown) (unknown) her. (units (unkno wn) date) unknown) (unknown) (no (unknown) (unknown) household (units (unkn own) date) members: unknown) significant other (unknown) (no (unknown) (unknown) hydrocodone 5 (units ( unknown) date) mg-acetaminophen unknown) 325 5 tab PO Q8H PRN pain 07/29/22 07/29/22 (unknown) (no (unknown) (unknown) ibuprofen 200 mg (units (unknown) date) tablet (Advil) 600 unknown) mg PO QD-BID PRN Pain 07/28/22 07/29/22 (unknown) (no (unknown) (unknown) insulin, repeat (units (unknown) date) lab her potassium unknown) was 7.2, now 8.2 (unknown) (no (unknown) (unknown) itching (units (unkno wn) date) unknown) (unknown) (no (unknown) (unknown) lisinopril 40 mg (units (unknown) date) tablet 40 mg PO unknown) DAILY 07/28/22 07/29/22 History (unknown) (no (unknown) (unknown) metformin 500 mg (units (unknown) date) tablet 1,000 mg PO unknown) BID 07/28/22 07/29/22 History (unknown) (no (unknown) (unknown) metoprolol (units (unk nown) date) succinate 50 mg 50 unknown) mg PO DAILY 07/28/22 07/29/22 History (unknown) (no (unknown) (unknown) mg tablet (units (unkn own) date) unknown) (unknown) (no (unknown) (unknown) mucosa pink and (units (unknown) date) moist unknown) (unknown) (no (unknown) (unknown) normal rhythm (units ( unknown) date) after having her unknown) potassium corrected (unknown) (no (unknown) (unknown) nortriptyline 10 (units (unknown) date) mg capsule 20 mg unknown) PO BEDTIME 07/28/22 07/29/22 History (unknown) (no (unknown) (unknown) on the patient. (units (unknown) date) EKG was done and unknown) patient was thought to be having a STEMI. She (unknown) (no (unknown) (unknown) oxycodone 5 mg (units (unknown) date) tablet 5 mg PO Q4H unknown) PRN pain #40 tabs 07/29/22 Rx (unknown) (no (unknown) (unknown) pantoprazole 40 (units (unknown) date) mg tablet,delayed unknown) 40 mg PO DAILY 07/28/22 07/29/22 History (unknown) (no (unknown) (unknown) physician. (units (unk nown) date) unknown) (unknown) (no (unknown) (unknown) pressure was in (units (unknown) date) the low 90s. unknown) Apparently during that time it dropped even to a (unknown) (no (unknown) (unknown) release (units (unkno wn) date) unknown) (unknown) (no (unknown) (unknown) simvastatin 40 mg (units (unknown) date) tablet 40 mg PO unknown) BEDTIME 07/28/22 07/29/22 History (unknown) (no (unknown) (unknown) sister. (units (unkno wn) date) unknown) (unknown) (no (unknown) (unknown) systolic of 60, (units (unknown) date) the patient was unknown) reportedly complaining of chest pain and (unknown) (no (unknown) (unknown) tablet,extended (units (unknown) date) release 24 hr unknown) (unknown) (no (unknown) (unknown) the (units (unkno wn) date) medical-surgical unknown) unit to critical care and is awaiting transfer to a (unknown) (no (unknown) (unknown) today; this time (units (unknown) date) is exclusive of unknown) procedural time. (unknown) (no (unknown) (unknown) who is a (units (unkno wn) date) 57-year-old female unknown) pod 1. L5-6 lumbar laminectomy. She was noted to Result panel 150 (unknown) (no (unknown) (unknown) (no value) (units (unk nown) date) unknown) (unknown) (no (unknown) (unknown) (past 8 hours): (units (unknown) date) unknown) (unknown) (no (unknown) (unknown) [id number] (units (unkno wn) date) unknown) (unknown) (no (unknown) (unknown) 01:00 07/30/22 (units (unknown) date) unknown) (unknown) (no (unknown) (unknown) 02:40 (units (unkno wn) date) unknown) (unknown) (no (unknown) (unknown) 03:20 03:20 03:20 (units (unknown) date) unknown) (unknown) (no (unknown) (unknown) 03:20 03:35 04:15 (units (unknown) date) unknown) (unknown) (no (unknown) (unknown) 04:25 05:55 05:55 (units (unknown) date) unknown) (unknown) (no (unknown) (unknown) 05:55 (units (unkno wn) date) unknown) (unknown) (no (unknown) (unknown) 07/29/22 07/29/22 (units (unknown) date) 07/30/22 unknown) (unknown) (no (unknown) (unknown) 07/29/22 (units (unkno wn) date) unknown) (unknown) (no (unknown) (unknown) 07/30/22 03:20 (units (unknown) date) unknown) (unknown) (no (unknown) (unknown) 07/30/22 05:55 (units (unknown) date) unknown) (unknown) (no (unknown) (unknown) 07/30/22 0750 (units ( unknown) date) unknown) (unknown) (no (unknown) (unknown) 07/30/22 07/30/22 (units (unknown) date) 07/30/22 unknown) (unknown) (no (unknown) (unknown) 07/30/22 (units (unkno wn) date) unknown) (unknown) (no (unknown) (unknown) 12:29 12:55 03:20 (units (unknown) date) unknown) (unknown) (no (unknown) (unknown) 2021 by (units (unknown) date) Merry unknown) (unknown) (no (unknown) (unknown) 23:45 07/30/22 (units (unknown) date) unknown) (unknown) (no (unknown) (unknown) ABG Base Excess (units (unknown) date) -20.0 L unknown) (unknown) (no (unknown) (unknown) ABG Base Excess (units (unknown) date) -25.0 L unknown) (unknown) (no (unknown) (unknown) ABG Base Excess (units (unknown) date) unknown) (unknown) (no (unknown) (unknown) ABG HCO3 10 L (units ( unknown) date) unknown) (unknown) (no (unknown) (unknown) ABG HCO3 8 L (units (u nknown) date) unknown) (unknown) (no (unknown) (unknown) ABG HCO3 (units (unkno wn) date) unknown) (unknown) (no (unknown) (unknown) ABG O2 Saturation (units (unknown) date) 52 L* unknown) (unknown) (no (unknown) (unknown) ABG O2 Saturation (units (unknown) date) 86 L unknown) (unknown) (no (unknown) (unknown) ABG O2 Saturation (units (unknown) date) unknown) (unknown) (no (unknown) (unknown) ABG Total CO2 12 (units (unknown) date) L unknown) (unknown) (no (unknown) (unknown) ABG Total CO2 9 L (units (unknown) date) unknown) (unknown) (no (unknown) (unknown) ABG Total CO2 (units ( unknown) date) unknown) (unknown) (no (unknown) (unknown) ABG pCO2 36.7 (units ( unknown) date) unknown) (unknown) (no (unknown) (unknown) ABG pCO2 37.5 (units ( unknown) date) unknown) (unknown) (no (unknown) (unknown) ABG pCO2 (units (unkno wn) date) unknown) (unknown) (no (unknown) (unknown) ABG pH 6.92 L* (units (unknown) date) unknown) (unknown) (no (unknown) (unknown) ABG pH 7.06 L* (units (unknown) date) unknown) (unknown) (no (unknown) (unknown) ABG pH (units (unkno wn) date) unknown) (unknown) (no (unknown) (unknown) ABG pO2 38 L* (units ( unknown) date) unknown) (unknown) (no (unknown) (unknown) ABG pO2 82 (units (unk nown) date) unknown) (unknown) (no (unknown) (unknown) ABG pO2 (units (unkno wn) date) unknown) (unknown) (no (unknown) (unknown) ALT 203 H (units (unkn own) date) unknown) (unknown) (no (unknown) (unknown) ALT 22 (units (unkno wn) date) unknown) (unknown) (no (unknown) (unknown) ALT (units (unkno wn) date) unknown) (unknown) (no (unknown) (unknown) AST 17 (units (unkno wn) date) unknown) (unknown) (no (unknown) (unknown) AST 226 H (units (unkn own) date) unknown) (unknown) (no (unknown) (unknown) AST (units (unkno wn) date) unknown) (unknown) (no (unknown) (unknown) Actual Procedure (units (unknown) date) Side Surgeon unknown) (unknown) (no (unknown) (unknown) Acute renal (units (un known) date) failure in the unknown) setting of severe hyperkalemia (unknown) (no (unknown) (unknown) Acute respiratory (units (unknown) date) failure with a unknown) severe uncompensated respiratory acidosis (unknown) (no (unknown) (unknown) Age/Sex: 57 / F (units (unknown) date) unknown) (unknown) (no (unknown) (unknown) Albumin 3.6 (units (un known) date) unknown) (unknown) (no (unknown) (unknown) Albumin 4.1 (units (un known) date) unknown) (unknown) (no (unknown) (unknown) Albumin (units (unkno wn) date) unknown) (unknown) (no (unknown) (unknown) Albumin/Globulin (units (unknown) date) Ratio 1.2 unknown) (unknown) (no (unknown) (unknown) Albumin/Globulin (units (unknown) date) Ratio 1.3 unknown) (unknown) (no (unknown) (unknown) Albumin/Globulin (units (unknown) date) Ratio unknown) (unknown) (no (unknown) (unknown) Alkaline (units (unkno wn) date) Phosphatase 100 unknown) (unknown) (no (unknown) (unknown) Alkaline (units (unkno wn) date) Phosphatase 93 unknown) (unknown) (no (unknown) (unknown) Alkaline (units (unkno wn) date) Phosphatase unknown) (unknown) (no (unknown) (unknown) Assessment + Plan (units (unknown) date) Post-op unknown) (unknown) (no (unknown) (unknown) BUN 117 H* (units (unk nown) date) unknown) (unknown) (no (unknown) (unknown) BUN 119 H* (units (unk nown) date) unknown) (unknown) (no (unknown) (unknown) BUN 120 H* (units (unk nown) date) unknown) (unknown) (no (unknown) (unknown) BUN (units (unkno wn) date) unknown) (unknown) (no (unknown) (unknown) BUN/Creatinine (units (unknown) date) Ratio 7.9 unknown) (unknown) (no (unknown) (unknown) BUN/Creatinine (units (unknown) date) Ratio 8.0 unknown) (unknown) (no (unknown) (unknown) BUN/Creatinine (units (unknown) date) Ratio 8.4 unknown) (unknown) (no (unknown) (unknown) BUN/Creatinine (units (unknown) date) Ratio unknown) (unknown) (no (unknown) (unknown) Baso # (Auto) 0 (units (unknown) date) unknown) (unknown) (no (unknown) (unknown) Baso # (Auto) (units ( unknown) date) unknown) (unknown) (no (unknown) (unknown) Baso % (Auto) 0.1 (units (unknown) date) unknown) (unknown) (no (unknown) (unknown) Baso % (Auto) (units ( unknown) date) unknown) (unknown) (no (unknown) (unknown) Blood Pressure (units (unknown) date) 91/47 L 94/44 L unknown) 61/34 L (unknown) (no (unknown) (unknown) CK-MB (CK-2) 2.90 (units (unknown) date) H unknown) (unknown) (no (unknown) (unknown) CK-MB (CK-2) Rel (units (unknown) date) Index 1.7 unknown) (unknown) (no (unknown) (unknown) CK-MB (CK-2) Rel (units (unknown) date) Index unknown) (unknown) (no (unknown) (unknown) CK-MB (CK-2) (units (u nknown) date) unknown) (unknown) (no (unknown) (unknown) Calcium 7.6 L (units ( unknown) date) unknown) (unknown) (no (unknown) (unknown) Calcium 8.1 L (units ( unknown) date) unknown) (unknown) (no (unknown) (unknown) Calcium 9.0 (units (un known) date) unknown) (unknown) (no (unknown) (unknown) Calcium (units (unkno wn) date) unknown) (unknown) (no (unknown) (unknown) Carbon Dioxide 7 (units (unknown) date) L* unknown) (unknown) (no (unknown) (unknown) Carbon Dioxide 8 (units (unknown) date) L* unknown) (unknown) (no (unknown) (unknown) Carbon Dioxide (units (unknown) date) unknown) (unknown) (no (unknown) (unknown) Chloride 95 L (units ( unknown) date) unknown) (unknown) (no (unknown) (unknown) Chloride 97 L (units ( unknown) date) unknown) (unknown) (no (unknown) (unknown) Chloride (units (unkno wn) date) unknown) (unknown) (no (unknown) (unknown) Code blue called (units (unknown) date) proximally 3:30 unknown) a.m.. Hospitalist consulted. Patient (unknown) (no (unknown) (unknown) Creatinine 13.9 (units (unknown) date) H* unknown) (unknown) (no (unknown) (unknown) Creatinine 14.8 (units (unknown) date) H* unknown) (unknown) (no (unknown) (unknown) Creatinine 15.2 (units (unknown) date) H* unknown) (unknown) (no (unknown) (unknown) Creatinine (units (unk nown) date) unknown) (unknown) (no (unknown) (unknown) : 1965 (units (unknown) date) Acct:[id number] unknown) (unknown) (no (unknown) (unknown) Date Patient (units (u nknown) date) Seen: 07/30/22 unknown) (unknown) (no (unknown) (unknown) Date of Service: (units (unknown) date) 07/29/22 unknown) (unknown) (no (unknown) (unknown) Diabetes (units (unkno wn) date) unknown) (unknown) (no (unknown) (unknown) Eos # (Auto) 0 (units (unknown) date) unknown) (unknown) (no (unknown) (unknown) Eos # (Auto) (units (u nknown) date) unknown) (unknown) (no (unknown) (unknown) Eos % (Auto) 0.0 (units (unknown) date) L unknown) (unknown) (no (unknown) (unknown) Eos % (Auto) (units (u nknown) date) unknown) (unknown) (no (unknown) (unknown) Estimated GFR 3 L (units (unknown) date) unknown) (unknown) (no (unknown) (unknown) Estimated GFR (units ( unknown) date) unknown) (unknown) (no (unknown) (unknown) Exam Narrative: (units (unknown) date) unknown) (unknown) (no (unknown) (unknown) Exam (units (unkno wn) date) unknown) (unknown) (no (unknown) (unknown) FiO2 100 (units (unkno wn) date) unknown) (unknown) (no (unknown) (unknown) FiO2 15 (units (unkno wn) date) unknown) (unknown) (no (unknown) (unknown) FiO2 (units (unkno wn) date) unknown) (unknown) (no (unknown) (unknown) GERD (units (unkno wn) date) (gastroesophageal unknown) reflux disease) (unknown) (no (unknown) (unknown) Globulin 2.9 (units (u nknown) date) unknown) (unknown) (no (unknown) (unknown) Globulin 3.1 (units (u nknown) date) unknown) (unknown) (no (unknown) (unknown) Globulin (units (unkno wn) date) unknown) (unknown) (no (unknown) (unknown) Glucose 27 L* 303 (units (unknown) date) H D unknown) (unknown) (no (unknown) (unknown) Glucose 402 H (units ( unknown) date) unknown) (unknown) (no (unknown) (unknown) Glucose 404 H D (units (unknown) date) unknown) (unknown) (no (unknown) (unknown) Glucose (units (unkno wn) date) unknown) (unknown) (no (unknown) (unknown) HLD (units (unkno wn) date) (hyperlipidemia) unknown) (unknown) (no (unknown) (unknown) HTN (units (unkno wn) date) (hypertension) unknown) (unknown) (no (unknown) (unknown) Hct 36.1 (units (unkno wn) date) unknown) (unknown) (no (unknown) (unknown) Hct (units (unkno wn) date) unknown) (unknown) (no (unknown) (unknown) Hemoglobin A1c (units (unknown) date) 6.7 H unknown) (unknown) (no (unknown) (unknown) Hemoglobin A1c (units (unknown) date) unknown) (unknown) (no (unknown) (unknown) Hgb 11.3 L (units (unk nown) date) unknown) (unknown) (no (unknown) (unknown) Hgb (units (unkno wn) date) unknown) (unknown) (no (unknown) (unknown) History of (units (unk nown) date) hysterectomy unknown) (unknown) (no (unknown) (unknown) Interval history: (units (unknown) date) unknown) (unknown) (no (unknown) (unknown) [facility] (units (unknown) date) [address] unknown) [place] [address] (unknown) (no (unknown) (unknown) Ketones 4.42 H (units (unknown) date) unknown) (unknown) (no (unknown) (unknown) Ketones (units (unkno wn) date) unknown) (unknown) (no (unknown) (unknown) Laboratory (units (unk nown) date) Results - last 24 unknown) hr (unknown) (no (unknown) (unknown) Labs (units (unkno wn) date) unknown) (unknown) (no (unknown) (unknown) Labs: (units (unkno wn) date) unknown) (unknown) (no (unknown) (unknown) Lactate 8.4 H* (units (unknown) date) unknown) (unknown) (no (unknown) (unknown) Lactate (units (unkno wn) date) unknown) (unknown) (no (unknown) (unknown) Lumbar disc (units (un known) date) herniation unknown) (unknown) (no (unknown) (unknown) Lymph # (Auto) (units (unknown) date) 800 L unknown) (unknown) (no (unknown) (unknown) Lymph # (Auto) (units (unknown) date) unknown) (unknown) (no (unknown) (unknown) Lymph % (Auto) (units (unknown) date) 3.9 L unknown) (unknown) (no (unknown) (unknown) Lymph % (Auto) (units (unknown) date) unknown) (unknown) (no (unknown) (unknown) MCH 29.0 (units (unkno wn) date) unknown) (unknown) (no (unknown) (unknown) MCH (units (unkno wn) date) unknown) (unknown) (no (unknown) (unknown) MCHC 31.4 (units (unkn own) date) unknown) (unknown) (no (unknown) (unknown) MCHC (units (unkno wn) date) unknown) (unknown) (no (unknown) (unknown) MCV 92.3 (units (unkno wn) date) unknown) (unknown) (no (unknown) (unknown) MCV (units (unkno wn) date) unknown) (unknown) (no (unknown) (unknown) Magnesium 1.8 (units ( unknown) date) unknown) (unknown) (no (unknown) (unknown) Magnesium (units (unkn own) date) unknown) (unknown) (no (unknown) (unknown) Medical History (units (unknown) date) (Reviewed 07/30/22 unknown) @ 07:45 by Darius Allison PA-C) (unknown) (no (unknown) (unknown) Gibson # (Auto) 100 (units (unknown) date) unknown) (unknown) (no (unknown) (unknown) Gibson # (Auto) (units ( unknown) date) unknown) (unknown) (no (unknown) (unknown) Gibson % (Auto) 0.6 (units (unknown) date) L unknown) (unknown) (no (unknown) (unknown) Gibson % (Auto) (units ( unknown) date) unknown) (unknown) (no (unknown) (unknown) Narrative (units (unkn own) date) unknown) (unknown) (no (unknown) (unknown) Neuropathy (units (unk nown) date) unknown) (unknown) (no (unknown) (unknown) Neut # (Auto) (units ( unknown) date) 48583 H unknown) (unknown) (no (unknown) (unknown) Neut # (Auto) (units ( unknown) date) unknown) (unknown) (no (unknown) (unknown) Neut % (Auto) (units ( unknown) date) 95.4 H unknown) (unknown) (no (unknown) (unknown) Neut % (Auto) (units ( unknown) date) unknown) (unknown) (no (unknown) (unknown) Objective (units (unkn own) date) unknown) (unknown) (no (unknown) (unknown) Operation Date: (units (unknown) date) 07/29/22 12:45 unknown) (unknown) (no (unknown) (unknown) Ovarian cancer (units (unknown) date) (-2014) unknown) (unknown) (no (unknown) (unknown) Oxygen Delivery (units (unknown) date) Method Room Air unknown) (unknown) (no (unknown) (unknown) Oxygen Flow Rate (units (unknown) date) 3 4 unknown) (unknown) (no (unknown) (unknown) Oxygen Flow Rate (units (unknown) date) 4 unknown) (unknown) (no (unknown) (unknown) PFSH (units (unkno wn) date) unknown) (unknown) (no (unknown) (unknown) Patient intubated (units (unknown) date) earlier this unknown) morning due to respiratory failure. 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, patient december (unknown) (no (unknown) (unknown) Plt Count 386 (units ( unknown) date) unknown) (unknown) (no (unknown) (unknown) Plt Count (units (unkn own) date) unknown) (unknown) (no (unknown) (unknown) Postoperative (units ( unknown) date) day: 1 unknown) (unknown) (no (unknown) (unknown) Postoperative (units ( unknown) date) plan narrative: unknown) Likely transfer to [facility] today per (unknown) (no (unknown) (unknown) Postoperative (units ( unknown) date) status narrative: unknown) Status post L4-L5 left microdiskectomy July (unknown) (no (unknown) (unknown) Postoperative (units ( unknown) date) unknown) (unknown) (no (unknown) (unknown) Potassium 7.2 H* (units (unknown) date) D unknown) (unknown) (no (unknown) (unknown) Potassium 8.2 H* (units (unknown) date) unknown) (unknown) (no (unknown) (unknown) Potassium 9.7 H* (units (unknown) date) unknown) (unknown) (no (unknown) (unknown) Potassium (units (unkn own) date) unknown) (unknown) (no (unknown) (unknown) Procalcitonin (units ( unknown) date) 1.21 H unknown) (unknown) (no (unknown) (unknown) Procalcitonin (units ( unknown) date) unknown) (unknown) (no (unknown) (unknown) Procedures (units (unk nown) date) unknown) (unknown) (no (unknown) (unknown) Procedures: (units (un known) date) unknown) (unknown) (no (unknown) (unknown) Progress Note (units ( unknown) date) unknown) (unknown) (no (unknown) (unknown) Provider: (units (unkn own) date) Darius Allison P.A-C unknown) (unknown) (no (unknown) (unknown) Pulse Oximetry 94 (units (unknown) date) 92 unknown) (unknown) (no (unknown) (unknown) Pulse Rate 86 81 (units (unknown) date) unknown) (unknown) (no (unknown) (unknown) RBC 3.91 L (units (unk nown) date) unknown) (unknown) (no (unknown) (unknown) RBC (units (unkno wn) date) unknown) (unknown) (no (unknown) (unknown) RDW 14.4 (units (unkno wn) date) unknown) (unknown) (no (unknown) (unknown) RDW (units (unkno wn) date) unknown) (unknown) (no (unknown) (unknown) Respiratory Rate (units (unknown) date) 28 H unknown) (unknown) (no (unknown) (unknown) Result Diagrams: (units (unknown) date) unknown) (unknown) (no (unknown) (unknown) SARS-CoV-2 (PCR) (units (unknown) date) Negative unknown) (unknown) (no (unknown) (unknown) SARS-CoV-2 (PCR) (units (unknown) date) unknown) (unknown) (no (unknown) (unknown) Sciatica (units (unkno wn) date) unknown) (unknown) (no (unknown) (unknown) Signed (units (unkno wn) date) By:<Electronically unknown) signed by Darius Allison> (unknown) (no (unknown) (unknown) Smoking Status: (units (unknown) date) Former smoker unknown) (unknown) (no (unknown) (unknown) Social History (units (unknown) date) (Reviewed 07/30/22 unknown) @ 07:45 by Darius Allison PA-C) (unknown) (no (unknown) (unknown) Sodium 133 L (units (u nknown) date) unknown) (unknown) (no (unknown) (unknown) Sodium 136 L (units (u nknown) date) unknown) (unknown) (no (unknown) (unknown) Sodium 140 (units (unk nown) date) unknown) (unknown) (no (unknown) (unknown) Sodium (units (unkno wn) date) unknown) (unknown) (no (unknown) (unknown) Subjective (units (unk nown) date) unknown) (unknown) (no (unknown) (unknown) Surgical History (units (unknown) date) (Reviewed 07/30/22 unknown) @ 07:45 by Darius Allison PA-C) (unknown) (no (unknown) (unknown) Suspected (units (unkn own) date) bacterial unknown) pneumonia, lactate 8.4 (unknown) (no (unknown) (unknown) Time Patient (units (u nknown) date) Seen: 07:42 unknown) (unknown) (no (unknown) (unknown) Total Bilirubin (units (unknown) date) 0.3 unknown) (unknown) (no (unknown) (unknown) Total Bilirubin (units (unknown) date) 0.4 unknown) (unknown) (no (unknown) (unknown) Total Bilirubin (units (unknown) date) unknown) (unknown) (no (unknown) (unknown) Total Creatine (units (unknown) date) Kinase 173 H unknown) (unknown) (no (unknown) (unknown) Total Creatine (units (unknown) date) Kinase unknown) (unknown) (no (unknown) (unknown) Total Protein 6.5 (units (unknown) date) unknown) (unknown) (no (unknown) (unknown) Total Protein 7.2 (units (unknown) date) unknown) (unknown) (no (unknown) (unknown) Total Protein (units ( unknown) date) unknown) (unknown) (no (unknown) (unknown) Troponin I 0.072 (units (unknown) date) H unknown) (unknown) (no (unknown) (unknown) Troponin I 0.297 (units (unknown) date) H* unknown) (unknown) (no (unknown) (unknown) Troponin I (units (unk nown) date) unknown) (unknown) (no (unknown) (unknown) Vital Signs (units (un known) date) unknown) (unknown) (no (unknown) (unknown) WBC 21.1 H (units (unk nown) date) unknown) (unknown) (no (unknown) (unknown) WBC (units (unkno wn) date) unknown) (unknown) (no (unknown) (unknown) [Embedded Image (units (unknown) date) Not Available] unknown) (unknown) (no (unknown) (unknown) alcohol intake: (units (unknown) date) current unknown) (unknown) (no (unknown) (unknown) hospitalist (units (un known) date) unknown) (unknown) (no (unknown) (unknown) household (units (unkn own) date) members: unknown) significant other (unknown) (no (unknown) (unknown) hyperkalemia (units (u nknown) date) unknown) (unknown) (no (unknown) (unknown) intubated due to (units (unknown) date) respiratory unknown) failure, status post cardiac arrest secondary to (unknown) (no (unknown) (unknown) p L4-5 (units (unkno wn) date) microdiscectomy unknown) Left Jeremy Sousa MD (unknown) (no (unknown) (unknown) precautions due (units (unknown) date) to lack of active unknown) CSF leak (unknown) (no (unknown) (unknown) progress activity (units (unknown) date) as tolerated unknown) without having to perform any dural leak (unknown) (no (unknown) (unknown) rhythm after (units (u nknown) date) having her unknown) potassium corrected Result panel 151 (unknown) (no (unknown) (unknown) (no value) (units (unk nown) date) unknown) (unknown) (no (unknown) (unknown) (past 8 hours): (units (unknown) date) unknown) (unknown) (no (unknown) (unknown) [id number] (units (unkno wn) date) unknown) (unknown) (no (unknown) (unknown) 01:00 07/30/22 (units (unknown) date) unknown) (unknown) (no (unknown) (unknown) 02:40 07/30/22 (units (unknown) date) unknown) (unknown) (no (unknown) (unknown) 03:20 03:20 (units (un known) date) 03:20 unknown) (unknown) (no (unknown) (unknown) 03:20 03:35 (units (un known) date) 04:15 unknown) (unknown) (no (unknown) (unknown) 04:25 05:55 (units (un known) date) 05:55 unknown) (unknown) (no (unknown) (unknown) 05:55 (units (unkno wn) date) unknown) (unknown) (no (unknown) (unknown) 07:57 (units (unkno wn) date) unknown) (unknown) (no (unknown) (unknown) 07/29/22 (units (unkno wn) date) 07/29/22 07/30/22 unknown) (unknown) (no (unknown) (unknown) 07/30/22 03:20 (units (unknown) date) unknown) (unknown) (no (unknown) (unknown) 07/30/22 05:55 (units (unknown) date) unknown) (unknown) (no (unknown) (unknown) 07/30/22 0810 (units ( unknown) date) unknown) (unknown) (no (unknown) (unknown) 07/30/22 (units (unkno wn) date) 07/30/22 07/30/22 unknown) (unknown) (no (unknown) (unknown) 07/30/22 (units (unkno wn) date) unknown) (unknown) (no (unknown) (unknown) 12:29 12:55 (units (un known) date) 03:20 unknown) (unknown) (no (unknown) (unknown) ABG Base Excess (units (unknown) date) -20.0 L unknown) (unknown) (no (unknown) (unknown) ABG Base Excess (units (unknown) date) -25.0 L unknown) (unknown) (no (unknown) (unknown) ABG Base Excess (units (unknown) date) unknown) (unknown) (no (unknown) (unknown) ABG HCO3 10 L (units ( unknown) date) unknown) (unknown) (no (unknown) (unknown) ABG HCO3 8 L (units (u nknown) date) unknown) (unknown) (no (unknown) (unknown) ABG HCO3 (units (unkno wn) date) unknown) (unknown) (no (unknown) (unknown) ABG O2 (units (unkno wn) date) Saturation 52 L* unknown) (unknown) (no (unknown) (unknown) ABG O2 (units (unkno wn) date) Saturation 86 L unknown) (unknown) (no (unknown) (unknown) ABG O2 (units (unkno wn) date) Saturation unknown) (unknown) (no (unknown) (unknown) ABG Total CO2 12 (units (unknown) date) L unknown) (unknown) (no (unknown) (unknown) ABG Total CO2 9 (units (unknown) date) L unknown) (unknown) (no (unknown) (unknown) ABG Total CO2 (units ( unknown) date) unknown) (unknown) (no (unknown) (unknown) ABG pCO2 36.7 (units ( unknown) date) unknown) (unknown) (no (unknown) (unknown) ABG pCO2 37.5 (units ( unknown) date) unknown) (unknown) (no (unknown) (unknown) ABG pCO2 (units (unkno wn) date) unknown) (unknown) (no (unknown) (unknown) ABG pH 6.92 L* (units (unknown) date) unknown) (unknown) (no (unknown) (unknown) ABG pH 7.06 L* (units (unknown) date) unknown) (unknown) (no (unknown) (unknown) ABG pH (units (unkno wn) date) unknown) (unknown) (no (unknown) (unknown) ABG pO2 38 L* (units ( unknown) date) unknown) (unknown) (no (unknown) (unknown) ABG pO2 82 (units (unk nown) date) unknown) (unknown) (no (unknown) (unknown) ABG pO2 (units (unkno wn) date) unknown) (unknown) (no (unknown) (unknown) ALT 203 H (units (unkn own) date) unknown) (unknown) (no (unknown) (unknown) ALT 22 (units (unkno wn) date) unknown) (unknown) (no (unknown) (unknown) ALT (units (unkno wn) date) unknown) (unknown) (no (unknown) (unknown) AST 17 (units (unkno wn) date) unknown) (unknown) (no (unknown) (unknown) AST 226 H (units (unkn own) date) unknown) (unknown) (no (unknown) (unknown) AST (units (unkno wn) date) unknown) (unknown) (no (unknown) (unknown) Additional (units (unk nown) date) emergency work up unknown) showed patient has pulmonary pathology, possible (unknown) (no (unknown) (unknown) Age/Sex: 57 / F (units (unknown) date) unknown) (unknown) (no (unknown) (unknown) Albumin 3.6 (units (un known) date) unknown) (unknown) (no (unknown) (unknown) Albumin 4.1 (units (un known) date) unknown) (unknown) (no (unknown) (unknown) Albumin (units (unkno wn) date) unknown) (unknown) (no (unknown) (unknown) Albumin/Globulin (units (unknown) date) Ratio 1.2 unknown) (unknown) (no (unknown) (unknown) Albumin/Globulin (units (unknown) date) Ratio 1.3 unknown) (unknown) (no (unknown) (unknown) Albumin/Globulin (units (unknown) date) Ratio unknown) (unknown) (no (unknown) (unknown) Alkaline (units (unkno wn) date) Phosphatase 100 unknown) (unknown) (no (unknown) (unknown) Alkaline (units (unkno wn) date) Phosphatase 93 unknown) (unknown) (no (unknown) (unknown) Alkaline (units (unkno wn) date) Phosphatase unknown) (unknown) (no (unknown) (unknown) Assessment + (units (u nknown) date) Plan narrative: unknown) (unknown) (no (unknown) (unknown) Assessment + (units (u nknown) date) Plan unknown) (unknown) (no (unknown) (unknown) BUN 117 H* (units (unk nown) date) unknown) (unknown) (no (unknown) (unknown) BUN 119 H* (units (unk nown) date) unknown) (unknown) (no (unknown) (unknown) BUN 120 H* (units (unk nown) date) unknown) (unknown) (no (unknown) (unknown) BUN (units (unkno wn) date) unknown) (unknown) (no (unknown) (unknown) BUN/Creatinine (units (unknown) date) Ratio 7.9 unknown) (unknown) (no (unknown) (unknown) BUN/Creatinine (units (unknown) date) Ratio 8.0 unknown) (unknown) (no (unknown) (unknown) BUN/Creatinine (units (unknown) date) Ratio 8.4 unknown) (unknown) (no (unknown) (unknown) BUN/Creatinine (units (unknown) date) Ratio unknown) (unknown) (no (unknown) (unknown) Baso # (Auto) 0 (units (unknown) date) unknown) (unknown) (no (unknown) (unknown) Baso # (Auto) (units ( unknown) date) unknown) (unknown) (no (unknown) (unknown) Baso % (Auto) (units ( unknown) date) 0.1 unknown) (unknown) (no (unknown) (unknown) Baso % (Auto) (units ( unknown) date) unknown) (unknown) (no (unknown) (unknown) Blood Pressure (units (unknown) date) 94/44 L 61/34 L unknown) (unknown) (no (unknown) (unknown) CK-MB (CK-2) (units (u nknown) date) 2.90 H unknown) (unknown) (no (unknown) (unknown) CK-MB (CK-2) Rel (units (unknown) date) Index 1.7 unknown) (unknown) (no (unknown) (unknown) CK-MB (CK-2) Rel (units (unknown) date) Index unknown) (unknown) (no (unknown) (unknown) CK-MB (CK-2) (units (u nknown) date) unknown) (unknown) (no (unknown) (unknown) Calcium 7.6 L (units ( unknown) date) unknown) (unknown) (no (unknown) (unknown) Calcium 8.1 L (units ( unknown) date) unknown) (unknown) (no (unknown) (unknown) Calcium 9.0 (units (un known) date) unknown) (unknown) (no (unknown) (unknown) Calcium (units (unkno wn) date) unknown) (unknown) (no (unknown) (unknown) Carbon Dioxide 7 (units (unknown) date) L* unknown) (unknown) (no (unknown) (unknown) Carbon Dioxide 8 (units (unknown) date) L* unknown) (unknown) (no (unknown) (unknown) Carbon Dioxide (units (unknown) date) unknown) (unknown) (no (unknown) (unknown) Chloride 95 L (units ( unknown) date) unknown) (unknown) (no (unknown) (unknown) Chloride 97 L (units ( unknown) date) unknown) (unknown) (no (unknown) (unknown) Chloride (units (unkno wn) date) unknown) (unknown) (no (unknown) (unknown) Creatinine 13.9 (units (unknown) date) H* unknown) (unknown) (no (unknown) (unknown) Creatinine 14.8 (units (unknown) date) H* unknown) (unknown) (no (unknown) (unknown) Creatinine 15.2 (units (unknown) date) H* unknown) (unknown) (no (unknown) (unknown) Creatinine (units (unk nown) date) unknown) (unknown) (no (unknown) (unknown) Critical Care (units ( unknown) date) time: unknown) (unknown) (no (unknown) (unknown) Currently (units (unkn own) date) patient is unknown) intubated and transferred to ICU. (unknown) (no (unknown) (unknown) Currently (units (unkn own) date) planned to unknown) transfer to [facility] via helicopter, on hold due (unknown) (no (unknown) (unknown) : 1965 (units (unknown) date) Acct:[id number] unknown) (unknown) (no (unknown) (unknown) Date of Service: (units (unknown) date) 07/29/22 unknown) (unknown) (no (unknown) (unknown) Diabetes (units (unkno wn) date) unknown) (unknown) (no (unknown) (unknown) Eos # (Auto) 0 (units (unknown) date) unknown) (unknown) (no (unknown) (unknown) Eos # (Auto) (units (u nknown) date) unknown) (unknown) (no (unknown) (unknown) Eos % (Auto) 0.0 (units (unknown) date) L unknown) (unknown) (no (unknown) (unknown) Eos % (Auto) (units (u nknown) date) unknown) (unknown) (no (unknown) (unknown) Estimated GFR 3 (units (unknown) date) L unknown) (unknown) (no (unknown) (unknown) Estimated GFR (units ( unknown) date) unknown) (unknown) (no (unknown) (unknown) Exam (units (unkno wn) date) unknown) (unknown) (no (unknown) (unknown) FiO2 100 (units (unkno wn) date) unknown) (unknown) (no (unknown) (unknown) FiO2 15 (units (unkno wn) date) unknown) (unknown) (no (unknown) (unknown) FiO2 (units (unkno wn) date) unknown) (unknown) (no (unknown) (unknown) GERD (units (unkno wn) date) (gastroesophageal unknown) reflux disease) (unknown) (no (unknown) (unknown) Globulin 2.9 (units (u nknown) date) unknown) (unknown) (no (unknown) (unknown) Globulin 3.1 (units (u nknown) date) unknown) (unknown) (no (unknown) (unknown) Globulin (units (unkno wn) date) unknown) (unknown) (no (unknown) (unknown) Glucose 27 L* (units ( unknown) date) 303 H D unknown) (unknown) (no (unknown) (unknown) Glucose 402 H (units ( unknown) date) unknown) (unknown) (no (unknown) (unknown) Glucose 404 H D (units (unknown) date) unknown) (unknown) (no (unknown) (unknown) Glucose (units (unkno wn) date) unknown) (unknown) (no (unknown) (unknown) HLD (units (unkno wn) date) (hyperlipidemia) unknown) (unknown) (no (unknown) (unknown) HTN (units (unkno wn) date) (hypertension) unknown) (unknown) (no (unknown) (unknown) Hct 36.1 (units (unkno wn) date) unknown) (unknown) (no (unknown) (unknown) Hct (units (unkno wn) date) unknown) (unknown) (no (unknown) (unknown) Hemoglobin A1c (units (unknown) date) 6.7 H unknown) (unknown) (no (unknown) (unknown) Hemoglobin A1c (units (unknown) date) unknown) (unknown) (no (unknown) (unknown) Hgb 11.3 L (units (unk nown) date) unknown) (unknown) (no (unknown) (unknown) Hgb (units (unkno wn) date) unknown) (unknown) (no (unknown) (unknown) History of (units (unk nown) date) hysterectomy unknown) (unknown) (no (unknown) (unknown) I spent a total (units (unknown) date) of [] minutes of unknown) critical care time on this patient's care (unknown) (no (unknown) (unknown) I spoke to (units (unk nown) date) patient's unknown) significant other, Yoselyn, and updated her with current (unknown) (no (unknown) (unknown) [facility] (units (unknown) date) [address] unknown) [place] [address] (unknown) (no (unknown) (unknown) Ketones 4.42 H (units (unknown) date) unknown) (unknown) (no (unknown) (unknown) Ketones (units (unkno wn) date) unknown) (unknown) (no (unknown) (unknown) Laboratory (units (unk nown) date) Results - last 24 unknown) hr (unknown) (no (unknown) (unknown) Labs (units (unkno wn) date) unknown) (unknown) (no (unknown) (unknown) Labs: (units (unkno wn) date) unknown) (unknown) (no (unknown) (unknown) Lactate 8.4 H* (units (unknown) date) unknown) (unknown) (no (unknown) (unknown) Lactate (units (unkno wn) date) unknown) (unknown) (no (unknown) (unknown) Lumbar disc (units (un known) date) herniation unknown) (unknown) (no (unknown) (unknown) Lymph # (Auto) (units (unknown) date) 800 L unknown) (unknown) (no (unknown) (unknown) Lymph # (Auto) (units (unknown) date) unknown) (unknown) (no (unknown) (unknown) Lymph % (Auto) (units (unknown) date) 3.9 L unknown) (unknown) (no (unknown) (unknown) Lymph % (Auto) (units (unknown) date) unknown) (unknown) (no (unknown) (unknown) MCH 29.0 (units (unkno wn) date) unknown) (unknown) (no (unknown) (unknown) MCH (units (unkno wn) date) unknown) (unknown) (no (unknown) (unknown) MCHC 31.4 (units (unkn own) date) unknown) (unknown) (no (unknown) (unknown) MCHC (units (unkno wn) date) unknown) (unknown) (no (unknown) (unknown) MCV 92.3 (units (unkno wn) date) unknown) (unknown) (no (unknown) (unknown) MCV (units (unkno wn) date) unknown) (unknown) (no (unknown) (unknown) Magnesium 1.8 (units ( unknown) date) unknown) (unknown) (no (unknown) (unknown) Magnesium (units (unkn own) date) unknown) (unknown) (no (unknown) (unknown) Medical History (units (unknown) date) (Reviewed unknown) 07/30/22 @ 07:45 by Darius Allison PA-C) (unknown) (no (unknown) (unknown) Gibson # (Auto) (units ( unknown) date) 100 unknown) (unknown) (no (unknown) (unknown) Gibson # (Auto) (units ( unknown) date) unknown) (unknown) (no (unknown) (unknown) Gibson % (Auto) (units ( unknown) date) 0.6 L unknown) (unknown) (no (unknown) (unknown) Gibson % (Auto) (units ( unknown) date) unknown) (unknown) (no (unknown) (unknown) Neuropathy (units (unk nown) date) unknown) (unknown) (no (unknown) (unknown) Neut # (Auto) (units ( unknown) date) 83701 H unknown) (unknown) (no (unknown) (unknown) Neut # (Auto) (units ( unknown) date) unknown) (unknown) (no (unknown) (unknown) Neut % (Auto) (units ( unknown) date) 95.4 H unknown) (unknown) (no (unknown) (unknown) Neut % (Auto) (units ( unknown) date) unknown) (unknown) (no (unknown) (unknown) Objective (units (unkn own) date) unknown) (unknown) (no (unknown) (unknown) Ovarian cancer (units (unknown) date) (-2015) unknown) (unknown) (no (unknown) (unknown) Oxygen Delivery (units (unknown) date) Method Room Air unknown) (unknown) (no (unknown) (unknown) Oxygen Flow Rate (units (unknown) date) 3 4 unknown) (unknown) (no (unknown) (unknown) Oxygen Flow Rate (units (unknown) date) 4 unknown) (unknown) (no (unknown) (unknown) PFSH (units (unkno wn) date) unknown) (unknown) (no (unknown) (unknown) POD#1 s/p L4-5 (units (unknown) date) microdiscectomy. unknown) (unknown) (no (unknown) (unknown) Patient had (units (un known) date) acute cardiac unknown) ischemia and coded during the evening. (unknown) (no (unknown) (unknown) Patient: (units (unkno wn) date) Polly Bone unknown) MR#: [id number] (unknown) (no (unknown) (unknown) Plt Count 386 (units ( unknown) date) unknown) (unknown) (no (unknown) (unknown) Plt Count (units (unkn own) date) unknown) (unknown) (no (unknown) (unknown) Potassium 7.2 H* (units (unknown) date) D unknown) (unknown) (no (unknown) (unknown) Potassium 8.2 H* (units (unknown) date) unknown) (unknown) (no (unknown) (unknown) Potassium 9.7 H* (units (unknown) date) unknown) (unknown) (no (unknown) (unknown) Potassium (units (unkn own) date) unknown) (unknown) (no (unknown) (unknown) Procalcitonin (units ( unknown) date) 1.21 H unknown) (unknown) (no (unknown) (unknown) Procalcitonin (units ( unknown) date) unknown) (unknown) (no (unknown) (unknown) Progress Note (units ( unknown) date) unknown) (unknown) (no (unknown) (unknown) Provider: (units (unkn own) date) Jeremy Sousa MD unknown) (unknown) (no (unknown) (unknown) Pulse Oximetry (units (unknown) date) 94 92 unknown) (unknown) (no (unknown) (unknown) Pulse Rate 86 81 (units (unknown) date) 60 unknown) (unknown) (no (unknown) (unknown) RBC 3.91 L (units (unk nown) date) unknown) (unknown) (no (unknown) (unknown) RBC (units (unkno wn) date) unknown) (unknown) (no (unknown) (unknown) RDW 14.4 (units (unkno wn) date) unknown) (unknown) (no (unknown) (unknown) RDW (units (unkno wn) date) unknown) (unknown) (no (unknown) (unknown) Respiratory Rate (units (unknown) date) 28 H 46 H unknown) (unknown) (no (unknown) (unknown) Result Diagrams: (units (unknown) date) unknown) (unknown) (no (unknown) (unknown) Resuscitation (units ( unknown) date) was performed by unknown) physicians in house and was able to stabilize (unknown) (no (unknown) (unknown) SARS-CoV-2 (PCR) (units (unknown) date) Negative unknown) (unknown) (no (unknown) (unknown) SARS-CoV-2 (PCR) (units (unknown) date) unknown) (unknown) (no (unknown) (unknown) Sciatica (units (unkno wn) date) unknown) (unknown) (no (unknown) (unknown) Signed (units (unkno wn) date) By:<Electronicall unknown) y signed by Jeremy Sousa MD> (unknown) (no (unknown) (unknown) Smoking Status: (units (unknown) date) Former smoker unknown) (unknown) (no (unknown) (unknown) Social History (units (unknown) date) (Reviewed unknown) 07/30/22 @ 07:45 by Darius Allison PA-C) (unknown) (no (unknown) (unknown) Sodium 133 L (units (u nknown) date) unknown) (unknown) (no (unknown) (unknown) Sodium 136 L (units (u nknown) date) unknown) (unknown) (no (unknown) (unknown) Sodium 140 (units (unk nown) date) unknown) (unknown) (no (unknown) (unknown) Sodium (units (unkno wn) date) unknown) (unknown) (no (unknown) (unknown) Surgical History (units (unknown) date) (Reviewed unknown) 07/30/22 @ 07:45 by Darius Allison PA-C) (unknown) (no (unknown) (unknown) Time Spent With (units (unknown) date) Patient unknown) (unknown) (no (unknown) (unknown) Total Bilirubin (units (unknown) date) 0.3 unknown) (unknown) (no (unknown) (unknown) Total Bilirubin (units (unknown) date) 0.4 unknown) (unknown) (no (unknown) (unknown) Total Bilirubin (units (unknown) date) unknown) (unknown) (no (unknown) (unknown) Total Creatine (units (unknown) date) Kinase 173 H unknown) (unknown) (no (unknown) (unknown) Total Creatine (units (unknown) date) Kinase unknown) (unknown) (no (unknown) (unknown) Total Protein (units ( unknown) date) 6.5 unknown) (unknown) (no (unknown) (unknown) Total Protein (units ( unknown) date) 7.2 unknown) (unknown) (no (unknown) (unknown) Total Protein (units ( unknown) date) unknown) (unknown) (no (unknown) (unknown) Troponin I 0.072 (units (unknown) date) H unknown) (unknown) (no (unknown) (unknown) Troponin I 0.297 (units (unknown) date) H* unknown) (unknown) (no (unknown) (unknown) Troponin I (units (unk nown) date) unknown) (unknown) (no (unknown) (unknown) Unable to assess (units (unknown) date) neuro status due unknown) to intubation and sedation. (unknown) (no (unknown) (unknown) Vital Signs (units (un known) date) unknown) (unknown) (no (unknown) (unknown) WBC 21.1 H (units (unk nown) date) unknown) (unknown) (no (unknown) (unknown) WBC (units (unkno wn) date) unknown) (unknown) (no (unknown) (unknown) Will continue (units ( unknown) date) current care and unknown) will update patient's family with any additional (unknown) (no (unknown) (unknown) [Embedded Image (units (unknown) date) Not Available] unknown) (unknown) (no (unknown) (unknown) alcohol intake: (units (unknown) date) current unknown) (unknown) (no (unknown) (unknown) household (units (unkn own) date) members: unknown) significant other (unknown) (no (unknown) (unknown) information. (units (u nknown) date) unknown) (unknown) (no (unknown) (unknown) patient. (units (unkno wn) date) unknown) (unknown) (no (unknown) (unknown) pneumonia, (units (unk nown) date) hyperkalemia, unknown) renal failure. (unknown) (no (unknown) (unknown) status and plan (units (unknown) date) for Polly's care. unknown) (unknown) (no (unknown) (unknown) to limited (units (unk nown) date) visibility. unknown) (unknown) (no (unknown) (unknown) today; this time (units (unknown) date) is exclusive of unknown) procedural time. Result panel 152 (unknown) (no (unknown) (unknown) (no value) (units (unk nown) date) unknown) (unknown) (no (unknown) (unknown) [id number] (units (unkno wn) date) unknown) (unknown) (no (unknown) (unknown) 07/30/22 0812 (units ( unknown) date) unknown) (unknown) (no (unknown) (unknown) After properly (units ( unknown) date) positioning the unknown) patient's wrist in the standard fashion, the site (unknown) (no (unknown) (unknown) Age/Sex: 57 / F (units (unknown) date) unknown) (unknown) (no (unknown) (unknown) Arterial Line (units ( unknown) date) unknown) (unknown) (no (unknown) (unknown) Complications: (units (unknown) date) ?The patient unknown) tolerated the procedure well and no complications (unknown) (no (unknown) (unknown) : 1965 (units (unknown) date) Acct:[id number] unknown) (unknown) (no (unknown) (unknown) Date of Service: (units (unknown) date) 07/29/22 unknown) (unknown) (no (unknown) (unknown) Date of (units (unkno wn) date) procedure: unknown) 07/30/22 (unknown) (no (unknown) (unknown) Date/Time (units (unkn own) date) unknown) (unknown) (no (unknown) (unknown) Estimated Blood (units (unknown) date) Loss: minimal unknown) (unknown) (no (unknown) (unknown) General (units (unkno wn) date) unknown) (unknown) (no (unknown) (unknown) [facility] (units (unknown) date) [address] unknown) [place] [address] (unknown) (no (unknown) (unknown) Patient: (units (unkno wn) date) Polly Bone unknown) MR#: [id number] (unknown) (no (unknown) (unknown) Procedure Note (units (unknown) date) unknown) (unknown) (no (unknown) (unknown) Procedure (units (unkn own) date) description: unknown) (unknown) (no (unknown) (unknown) Procedures (units (unk nown) date) unknown) (unknown) (no (unknown) (unknown) Provider: (units (unkn own) date) Charles Rubalcava unknown) D.OShelly (unknown) (no (unknown) (unknown) Signed (units (unkno wn) date) By:<Electronicall unknown) y signed by Luiz MusaOShelly> (unknown) (no (unknown) (unknown) Time of (units (unkno wn) date) procedure: 08:07 unknown) (unknown) (no (unknown) (unknown) after 3 (units (unkno wn) date) attempts. unknown) (unknown) (no (unknown) (unknown) catheter was (units (u nknown) date) attempted to unknown) insert but no blood returned. Procedure was aborted (unknown) (no (unknown) (unknown) entered, noting (units (unknown) date) bright red, unknown) pulsatile flow. ?Multiple attempts at threading the (unknown) (no (unknown) (unknown) guidewire which (units (unknown) date) had difficulty unknown) passing, which kinks on 2 occasions and the (unknown) (no (unknown) (unknown) was prepped and (units (unknown) date) draped in a unknown) sterile fashion. Next, the radial artery was (unknown) (no (unknown) (unknown) were noted. (units (un known) date) unknown) Result panel 153 (unknown) (no date) (unknown) (unknown) -22.0 mmol/l (unkn own) (unknown) (no date) (unknown) (unknown) 11 mmol/l (unkn own) (unknown) (no date) (unknown) (unknown) 41.9 mmhg (unkn own) (unknown) (no date) (unknown) (unknown) 41.9 mmhg (unkn own) (unknown) (no date) (unknown) (unknown) 59 % (unkn own) (unknown) (no date) (unknown) (unknown) 59 mmhg (unkn own) (unknown) (no date) (unknown) (unknown) 6.97 (units unknown) (unknown) (unknown) (no date) (unknown) (unknown) 6.97 (units unknown) (unknown) (unknown) (no date) (unknown) (unknown) 9 mmol/l (unkn own) Result panel 154 (unknown) (no date) (unknown) (unknown) 12.9 mg/dl (unkn own) (unknown) (no date) (unknown) (unknown) 12.9 mg/dl (unkn own) Result panel 155 (unknown) (no date) (unknown) (unknown) 5.1 mmol/l (unkn own) (unknown) (no date) (unknown) (unknown) 5.1 mmol/l (unkn own) Result panel 156 (unknown) (no date) (unknown) (unknown) 12.9 mg/dl (unkn own) (unknown) (no date) (unknown) (unknown) 12.9 mg/dl (unkn own) Result panel 157 (unknown) (no date) (unknown) (unknown) Not Detected (units ( unknown) unknown) (unknown) (no date) (unknown) (unknown) Not Detected (units ( unknown) unknown) Result panel 158 (unknown) (no date) (unknown) (unknown) Negative for (units ( unknown) MRSA unknown) Result panel 159 (unknown) (no (unknown) (unknown) (no value) (units (unk nown) date) unknown) (unknown) (no (unknown) (unknown) (past 8 hours): (units (unknown) date) unknown) (unknown) (no (unknown) (unknown) [id number] (units (unkno wn) date) unknown) (unknown) (no (unknown) (unknown) 03:20 03:20 03:20 (units (unknown) date) unknown) (unknown) (no (unknown) (unknown) 03:35 04:15 04:25 (units (unknown) date) unknown) (unknown) (no (unknown) (unknown) 04:49 (units (unkno wn) date) unknown) (unknown) (no (unknown) (unknown) 05:55 05:55 05:55 (units (unknown) date) unknown) (unknown) (no (unknown) (unknown) 06:00 08:50 08:50 (units (unknown) date) unknown) (unknown) (no (unknown) (unknown) 07:57 07/30/22 (units (unknown) date) unknown) (unknown) (no (unknown) (unknown) 07/29/22 11:16 (units (unknown) date) unknown) (unknown) (no (unknown) (unknown) 07/29/22 07/29/22 (units (unknown) date) 07/30/22 unknown) (unknown) (no (unknown) (unknown) 07/30/22 03:20 (units (unknown) date) unknown) (unknown) (no (unknown) (unknown) 07/30/22 04:49 (units (unknown) date) unknown) (unknown) (no (unknown) (unknown) 07/30/22 05:55 (units (unknown) date) unknown) (unknown) (no (unknown) (unknown) 07/30/22 07/30/22 (units (unknown) date) 07/30/22 unknown) (unknown) (no (unknown) (unknown) 07/30/22 (units (unkno wn) date) unknown) (unknown) (no (unknown) (unknown) 12:29 12:55 03:20 (units (unknown) date) unknown) (unknown) (no (unknown) (unknown) ABG Base Excess (units (unknown) date) -20.0 L -25.0 L unknown) (unknown) (no (unknown) (unknown) ABG Base Excess (units (unknown) date) -22.0 L unknown) (unknown) (no (unknown) (unknown) ABG Base Excess (units (unknown) date) unknown) (unknown) (no (unknown) (unknown) ABG HCO3 10 L 8 L (units (unknown) date) unknown) (unknown) (no (unknown) (unknown) ABG HCO3 9 L (units (u nknown) date) unknown) (unknown) (no (unknown) (unknown) ABG HCO3 (units (unkno wn) date) unknown) (unknown) (no (unknown) (unknown) ABG O2 Saturation (units (unknown) date) 52 L* 86 L unknown) (unknown) (no (unknown) (unknown) ABG O2 Saturation (units (unknown) date) 59 L* unknown) (unknown) (no (unknown) (unknown) ABG O2 Saturation (units (unknown) date) unknown) (unknown) (no (unknown) (unknown) ABG Total CO2 11 (units (unknown) date) L unknown) (unknown) (no (unknown) (unknown) ABG Total CO2 12 (units (unknown) date) L 9 L unknown) (unknown) (no (unknown) (unknown) ABG Total CO2 (units ( unknown) date) unknown) (unknown) (no (unknown) (unknown) ABG pCO2 36.7 (units ( unknown) date) 37.5 unknown) (unknown) (no (unknown) (unknown) ABG pCO2 41.9 (units ( unknown) date) unknown) (unknown) (no (unknown) (unknown) ABG pCO2 (units (unkno wn) date) unknown) (unknown) (no (unknown) (unknown) ABG pH 6.97 L* (units (unknown) date) unknown) (unknown) (no (unknown) (unknown) ABG pH 7.06 L* (units (unknown) date) 6.92 L* unknown) (unknown) (no (unknown) (unknown) ABG pH (units (unkno wn) date) unknown) (unknown) (no (unknown) (unknown) ABG pO2 38 L* 82 (units (unknown) date) unknown) (unknown) (no (unknown) (unknown) ABG pO2 59 L (units (u nknown) date) unknown) (unknown) (no (unknown) (unknown) ABG pO2 (units (unkno wn) date) unknown) (unknown) (no (unknown) (unknown) ALT 203 H (units (unkn own) date) unknown) (unknown) (no (unknown) (unknown) ALT 22 (units (unkno wn) date) unknown) (unknown) (no (unknown) (unknown) ALT (units (unkno wn) date) unknown) (unknown) (no (unknown) (unknown) AST 17 (units (unkno wn) date) unknown) (unknown) (no (unknown) (unknown) AST 226 H (units (unkn own) date) unknown) (unknown) (no (unknown) (unknown) AST (units (unkno wn) date) unknown) (unknown) (no (unknown) (unknown) Abd: Obese (units (unk nown) date) unknown) (unknown) (no (unknown) (unknown) Activity: Limit (units (unknown) date) lumbar bending, unknown) twisting and lifting (unknown) (no (unknown) (unknown) Acute renal (units (un known) date) failure in the unknown) setting of septic shock (unknown) (no (unknown) (unknown) Acute respiratory (units (unknown) date) failure with a unknown) severe uncompensated metabolic acidosis (unknown) (no (unknown) (unknown) Adenovirus (PCR) (units (unknown) date) Not detected unknown) (unknown) (no (unknown) (unknown) Adenovirus (PCR) (units (unknown) date) unknown) (unknown) (no (unknown) (unknown) Age/Sex: 57 / F (units (unknown) date) unknown) (unknown) (no (unknown) (unknown) Albumin 3.6 (units (un known) date) unknown) (unknown) (no (unknown) (unknown) Albumin 4.1 (units (un known) date) unknown) (unknown) (no (unknown) (unknown) Albumin (units (unkno wn) date) unknown) (unknown) (no (unknown) (unknown) Albumin/Globulin (units (unknown) date) Ratio 1.2 unknown) (unknown) (no (unknown) (unknown) Albumin/Globulin (units (unknown) date) Ratio 1.3 unknown) (unknown) (no (unknown) (unknown) Albumin/Globulin (units (unknown) date) Ratio unknown) (unknown) (no (unknown) (unknown) Alkaline (units (unkno wn) date) Phosphatase 100 unknown) (unknown) (no (unknown) (unknown) Alkaline (units (unkno wn) date) Phosphatase 93 unknown) (unknown) (no (unknown) (unknown) Alkaline (units (unkno wn) date) Phosphatase unknown) (unknown) (no (unknown) (unknown) Amiodarone also (units (unknown) date) started cases unknown) possible VFib she got 150 mg at the time she was (unknown) (no (unknown) (unknown) B. pertussis DNA (units (unknown) date) (PCR) Not detected unknown) (unknown) (no (unknown) (unknown) B. pertussis DNA (units (unknown) date) (PCR) unknown) (unknown) (no (unknown) (unknown) B.parapertussis (units (unknown) date) DNA PCR Not unknown) detected (unknown) (no (unknown) (unknown) B.parapertussis (units (unknown) date) DNA PCR unknown) (unknown) (no (unknown) (unknown) BUN 117 H* (units (unk nown) date) unknown) (unknown) (no (unknown) (unknown) BUN 119 H* (units (unk nown) date) unknown) (unknown) (no (unknown) (unknown) BUN 120 H* (units (unk nown) date) unknown) (unknown) (no (unknown) (unknown) BUN (units (unkno wn) date) unknown) (unknown) (no (unknown) (unknown) BUN/Creatinine (units (unknown) date) Ratio 7.9 unknown) (unknown) (no (unknown) (unknown) BUN/Creatinine (units (unknown) date) Ratio 8.0 unknown) (unknown) (no (unknown) (unknown) BUN/Creatinine (units (unknown) date) Ratio 8.4 unknown) (unknown) (no (unknown) (unknown) BUN/Creatinine (units (unknown) date) Ratio unknown) (unknown) (no (unknown) (unknown) Baso # (Auto) 0 (units (unknown) date) unknown) (unknown) (no (unknown) (unknown) Baso # (Auto) (units ( unknown) date) unknown) (unknown) (no (unknown) (unknown) Baso % (Auto) 0.1 (units (unknown) date) unknown) (unknown) (no (unknown) (unknown) Baso % (Auto) (units ( unknown) date) unknown) (unknown) (no (unknown) (unknown) Blood Pressure (units (unknown) date) 125/50 L unknown) (unknown) (no (unknown) (unknown) CK-MB (CK-2) 2.90 (units (unknown) date) H unknown) (unknown) (no (unknown) (unknown) CK-MB (CK-2) Rel (units (unknown) date) Index 1.7 unknown) (unknown) (no (unknown) (unknown) CK-MB (CK-2) Rel (units (unknown) date) Index unknown) (unknown) (no (unknown) (unknown) CK-MB (CK-2) (units (u nknown) date) unknown) (unknown) (no (unknown) (unknown) CV: Regular rate (units (unknown) date) and rhythm, no unknown) murmurs (unknown) (no (unknown) (unknown) Calcium 7.6 L (units ( unknown) date) unknown) (unknown) (no (unknown) (unknown) Calcium 8.1 L (units ( unknown) date) unknown) (unknown) (no (unknown) (unknown) Calcium 9.0 (units (un known) date) unknown) (unknown) (no (unknown) (unknown) Calcium (units (unkno wn) date) unknown) (unknown) (no (unknown) (unknown) Called to patient (units (unknown) date) bedside as a code unknown) blue.? Patient is a 57-year-old female post (unknown) (no (unknown) (unknown) Carbon Dioxide 7 (units (unknown) date) L* unknown) (unknown) (no (unknown) (unknown) Carbon Dioxide 8 (units (unknown) date) L* unknown) (unknown) (no (unknown) (unknown) Carbon Dioxide (units (unknown) date) unknown) (unknown) (no (unknown) (unknown) Cardiac arrest in (units (unknown) date) the setting of unknown) acute hyperkalemia (unknown) (no (unknown) (unknown) Chief complaint: (units (unknown) date) INPT unknown) (unknown) (no (unknown) (unknown) Chlamy pneumoniae (units (unknown) date) PCR Not detected unknown) (unknown) (no (unknown) (unknown) Chlamy pneumoniae (units (unknown) date) PCR unknown) (unknown) (no (unknown) (unknown) Chloride 95 L (units ( unknown) date) unknown) (unknown) (no (unknown) (unknown) Chloride 97 L (units ( unknown) date) unknown) (unknown) (no (unknown) (unknown) Chloride (units (unkno wn) date) unknown) (unknown) (no (unknown) (unknown) Comment: (units (unkno wn) date) unknown) (unknown) (no (unknown) (unknown) Consult to (units (unk nown) date) Tele-tire and lube technician unknown) Routine (unknown) (no (unknown) (unknown) Consulting (units (unk nown) date) Provider: unknown) Intercept Tele-intensivists (unknown) (no (unknown) (unknown) Consults: (units (unkn own) date) unknown) (unknown) (no (unknown) (unknown) Coronavirus 229E (units (unknown) date) (PCR) Not detected unknown) (unknown) (no (unknown) (unknown) Coronavirus 229E (units (unknown) date) (PCR) unknown) (unknown) (no (unknown) (unknown) Coronavirus HKU1 (units (unknown) date) (PCR) Not detected unknown) (unknown) (no (unknown) (unknown) Coronavirus HKU1 (units (unknown) date) (PCR) unknown) (unknown) (no (unknown) (unknown) Coronavirus NL63 (units (unknown) date) (PCR) Not detected unknown) (unknown) (no (unknown) (unknown) Coronavirus NL63 (units (unknown) date) (PCR) unknown) (unknown) (no (unknown) (unknown) Coronavirus OC43 (units (unknown) date) (PCR) Not detected unknown) (unknown) (no (unknown) (unknown) Coronavirus OC43 (units (unknown) date) (PCR) unknown) (unknown) (no (unknown) (unknown) Creatinine 13.9 (units (unknown) date) H* unknown) (unknown) (no (unknown) (unknown) Creatinine 14.8 (units (unknown) date) H* unknown) (unknown) (no (unknown) (unknown) Creatinine 15.2 (units (unknown) date) H* unknown) (unknown) (no (unknown) (unknown) Creatinine (units (unk nown) date) unknown) (unknown) (no (unknown) (unknown) : 1965 (units (unknown) date) Acct:[id number] unknown) (unknown) (no (unknown) (unknown) Date Patient (units (u nknown) date) Seen: 07/30/22 unknown) (unknown) (no (unknown) (unknown) Date of Service: (units (unknown) date) 07/29/22 unknown) (unknown) (no (unknown) (unknown) Date of (units (unkno wn) date) admission: unknown) (unknown) (no (unknown) (unknown) Diabetes (units (unkno wn) date) unknown) (unknown) (no (unknown) (unknown) Diet/Activity/Rodriguez (units (unknown) date) atments unknown) (unknown) (no (unknown) (unknown) Diet: Diet as (units ( unknown) date) Tolerated and unknown) Regular (unknown) (no (unknown) (unknown) Discharge Date: (units (unknown) date) 07/30/22 unknown) (unknown) (no (unknown) (unknown) Discharge (units (unkn own) date) Diagnosis: unknown) (unknown) (no (unknown) (unknown) Discharge Plan (units (unknown) date) unknown) (unknown) (no (unknown) (unknown) Discharge (units (unkn own) date) Providers unknown) (unknown) (no (unknown) (unknown) Discharge Summary (units (unknown) date) unknown) (unknown) (no (unknown) (unknown) Discharge (units (unkn own) date) provider: unknown) (unknown) (no (unknown) (unknown) Dressing: Keep (units (unknown) date) dressing clean and unknown) dry (unknown) (no (unknown) (unknown) ED doc note: (units (u nknown) date) unknown) (unknown) (no (unknown) (unknown) Entero/Rhino (units (u nknown) date) (PCR) Not detected unknown) (unknown) (no (unknown) (unknown) Entero/Rhino (units (u nknown) date) (PCR) unknown) (unknown) (no (unknown) (unknown) Eos # (Auto) 0 (units (unknown) date) unknown) (unknown) (no (unknown) (unknown) Eos # (Auto) (units (u nknown) date) unknown) (unknown) (no (unknown) (unknown) Eos % (Auto) 0.0 (units (unknown) date) L unknown) (unknown) (no (unknown) (unknown) Eos % (Auto) (units (u nknown) date) unknown) (unknown) (no (unknown) (unknown) Estimated GFR 3 L (units (unknown) date) unknown) (unknown) (no (unknown) (unknown) Estimated GFR (units ( unknown) date) unknown) (unknown) (no (unknown) (unknown) Exam Narrative: (units (unknown) date) unknown) (unknown) (no (unknown) (unknown) Exam (units (unkno wn) date) unknown) (unknown) (no (unknown) (unknown) Extremities: (units (u nknown) date) Appears to have unknown) good cap refill (unknown) (no (unknown) (unknown) FiO2 15 100 (units (un known) date) unknown) (unknown) (no (unknown) (unknown) FiO2 (units (unkno wn) date) unknown) (unknown) (no (unknown) (unknown) Food texture: (units ( unknown) date) Regular unknown) (unknown) (no (unknown) (unknown) GERD (units (unkno wn) date) (gastroesophageal unknown) reflux disease) (unknown) (no (unknown) (unknown) Gen: morbidly (units ( unknown) date) obese 57 y.o. unknown) female, intubated and sedated (unknown) (no (unknown) (unknown) Globulin 2.9 (units (u nknown) date) unknown) (unknown) (no (unknown) (unknown) Globulin 3.1 (units (u nknown) date) unknown) (unknown) (no (unknown) (unknown) Globulin (units (unkno wn) date) unknown) (unknown) (no (unknown) (unknown) Glucose 27 L* 303 (units (unknown) date) H D unknown) (unknown) (no (unknown) (unknown) Glucose 402 H (units ( unknown) date) unknown) (unknown) (no (unknown) (unknown) Glucose 404 H D (units (unknown) date) unknown) (unknown) (no (unknown) (unknown) Glucose (units (unkno wn) date) unknown) (unknown) (no (unknown) (unknown) HEENT: (units (unkno wn) date) normocephalic, unknown) atraumatic, conjunctiva clear, sclera non-icteric, oral (unknown) (no (unknown) (unknown) HLD (units (unkno wn) date) (hyperlipidemia) unknown) (unknown) (no (unknown) (unknown) HTN (units (unkno wn) date) (hypertension) unknown) (unknown) (no (unknown) (unknown) Has provider been (units (unknown) date) notified: Yes unknown) (unknown) (no (unknown) (unknown) Hct 36.1 (units (unkno wn) date) unknown) (unknown) (no (unknown) (unknown) Hct (units (unkno wn) date) unknown) (unknown) (no (unknown) (unknown) Hemoglobin A1c (units (unknown) date) 6.7 H unknown) (unknown) (no (unknown) (unknown) Hemoglobin A1c (units (unknown) date) unknown) (unknown) (no (unknown) (unknown) Hgb 11.3 L (units (unk nown) date) unknown) (unknown) (no (unknown) (unknown) Hgb (units (unkno wn) date) unknown) (unknown) (no (unknown) (unknown) History of (units (unk nown) date) Present Illness unknown) (unknown) (no (unknown) (unknown) History of (units (unk nown) date) hysterectomy unknown) (unknown) (no (unknown) (unknown) Hospital Course (units (unknown) date) unknown) (unknown) (no (unknown) (unknown) Hospital Course: (units (unknown) date) unknown) (unknown) (no (unknown) (unknown) 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 (unknown) date) note: unknown) (unknown) (no (unknown) (unknown) Human (units (unkno wn) date) Metapneumovir PCR unknown) Not detected (unknown) (no (unknown) (unknown) Human (units (unkno wn) date) Metapneumovir PCR unknown) (unknown) (no (unknown) (unknown) Influenza Type A (units (unknown) date) (PCR) Not detected unknown) (unknown) (no (unknown) (unknown) Influenza Type A (units (unknown) date) (PCR) unknown) (unknown) (no (unknown) (unknown) Influenza Type B (units (unknown) date) (PCR) Not detected unknown) (unknown) (no (unknown) (unknown) Influenza Type B (units (unknown) date) (PCR) unknown) (unknown) (no (unknown) (unknown) Instructions: DI (units (unknown) date) for Laminectomy, unknown) DI for Hypoglycemia, DI for Prescription (unknown) (no (unknown) (unknown) [facility] (units (unknown) date) [address] unknown) [place] [address] (unknown) (no (unknown) (unknown) Ketones 4.42 H (units (unknown) date) unknown) (unknown) (no (unknown) (unknown) Ketones (units (unkno wn) date) unknown) (unknown) (no (unknown) (unknown) Laboratory (units (unk nown) date) Results - last 24 unknown) hr (unknown) (no (unknown) (unknown) Labs (units (unkno wn) date) unknown) (unknown) (no (unknown) (unknown) Labs: (units (unkno wn) date) unknown) (unknown) (no (unknown) (unknown) Lactate 5.1 H* (units (unknown) date) unknown) (unknown) (no (unknown) (unknown) Lactate 8.4 H* (units (unknown) date) unknown) (unknown) (no (unknown) (unknown) Lactate (units (unkno wn) date) unknown) (unknown) (no (unknown) (unknown) Lumbar disc (units (un known) date) herniation unknown) (unknown) (no (unknown) (unknown) Lymph # (Auto) (units (unknown) date) 800 L unknown) (unknown) (no (unknown) (unknown) Lymph # (Auto) (units (unknown) date) unknown) (unknown) (no (unknown) (unknown) Lymph % (Auto) (units (unknown) date) 3.9 L unknown) (unknown) (no (unknown) (unknown) Lymph % (Auto) (units (unknown) date) unknown) (unknown) (no (unknown) (unknown) M. pneumoniae (units ( unknown) date) (PCR) Not detected unknown) (unknown) (no (unknown) (unknown) M. pneumoniae (units ( unknown) date) (PCR) unknown) (unknown) (no (unknown) (unknown) MCH 29.0 (units (unkno wn) date) unknown) (unknown) (no (unknown) (unknown) MCH (units (unkno wn) date) unknown) (unknown) (no (unknown) (unknown) MCHC 31.4 (units (unkn own) date) unknown) (unknown) (no (unknown) (unknown) MCHC (units (unkno wn) date) unknown) (unknown) (no (unknown) (unknown) MCV 92.3 (units (unkno wn) date) unknown) (unknown) (no (unknown) (unknown) MCV (units (unkno wn) date) unknown) (unknown) (no (unknown) (unknown) Magnesium 1.8 (units ( unknown) date) unknown) (unknown) (no (unknown) (unknown) Magnesium (units (unkn own) date) unknown) (unknown) (no (unknown) (unknown) Charles Rubalcava, (units (unknown) date) DO unknown) (unknown) (no (unknown) (unknown) Medical History (units (unknown) date) (Reviewed 07/30/22 unknown) @ 07:45 by Darius Allison PA-C) (unknown) (no (unknown) (unknown) Gibson # (Auto) 100 (units (unknown) date) unknown) (unknown) (no (unknown) (unknown) Gibson # (Auto) (units ( unknown) date) unknown) (unknown) (no (unknown) (unknown) Gibson % (Auto) 0.6 (units (unknown) date) L unknown) (unknown) (no (unknown) (unknown) Gibson % (Auto) (units ( unknown) date) unknown) (unknown) (no (unknown) (unknown) Narrative (units (unkn own) date) unknown) (unknown) (no (unknown) (unknown) Narrative: (units (unk nown) date) unknown) (unknown) (no (unknown) (unknown) Nasal Screen MRSA (units (unknown) date) (PCR) Negative for unknown) mrsa (unknown) (no (unknown) (unknown) Nasal Screen MRSA (units (unknown) date) (PCR) unknown) (unknown) (no (unknown) (unknown) Neck: supple, (units ( unknown) date) full ROM, no JVD, unknown) trachea is midline (unknown) (no (unknown) (unknown) Neuro: Speech (units ( unknown) date) clear and coherent unknown) just prior to intubation obtunded (unknown) (no (unknown) (unknown) Neuropathy (units (unk nown) date) unknown) (unknown) (no (unknown) (unknown) Neut # (Auto) (units ( unknown) date) 30534 H unknown) (unknown) (no (unknown) (unknown) Neut # (Auto) (units ( unknown) date) unknown) (unknown) (no (unknown) (unknown) Neut % (Auto) (units ( unknown) date) 95.4 H unknown) (unknown) (no (unknown) (unknown) Neut % (Auto) (units ( unknown) date) unknown) (unknown) (no (unknown) (unknown) Nursing contacted (units (unknown) date) pr requesting unknown) consult by Orthopedic surgery for this patient (unknown) (no (unknown) (unknown) Objective (units (unkn own) date) unknown) (unknown) (no (unknown) (unknown) Opioid Use (units (unk nown) date) unknown) (unknown) (no (unknown) (unknown) Ovarian cancer (units (unknown) date) (-2014) unknown) (unknown) (no (unknown) (unknown) Oxygen Delivery (units (unknown) date) Method Room Air unknown) (unknown) (no (unknown) (unknown) Oxygen Flow Rate (units (unknown) date) 4 unknown) (unknown) (no (unknown) (unknown) PFSH (units (unkno wn) date) unknown) (unknown) (no (unknown) (unknown) Parainfluenza 1 (units (unknown) date) (PCR) Not detected unknown) (unknown) (no (unknown) (unknown) Parainfluenza 1 (units (unknown) date) (PCR) unknown) (unknown) (no (unknown) (unknown) Parainfluenza 2 (units (unknown) date) (PCR) Not detected unknown) (unknown) (no (unknown) (unknown) Parainfluenza 2 (units (unknown) date) (PCR) unknown) (unknown) (no (unknown) (unknown) Parainfluenza 3 (units (unknown) date) (PCR) Not detected unknown) (unknown) (no (unknown) (unknown) Parainfluenza 3 (units (unknown) date) (PCR) unknown) (unknown) (no (unknown) (unknown) Parainfluenza 4 (units (unknown) date) (PCR) Not detected unknown) (unknown) (no (unknown) (unknown) Parainfluenza 4 (units (unknown) date) (PCR) unknown) (unknown) (no (unknown) (unknown) Patient (units (unkno wn) date) Disposition: [facility]fer [facility] (no (unknown) (unknown) Patient admitted (units (unknown) date) on 07/29 for L5 unknown) diskectomy with ortho spine due to L5 disc (unknown) (no (unknown) (unknown) Patient is not a (units (unknown) date) STEMI. unknown) (unknown) (no (unknown) (unknown) Patient: (units (unkno wn) date) Polly Bone unknown) MR#: [id number] (unknown) (no (unknown) (unknown) Phosphorus 12.9 (units (unknown) date) H* unknown) (unknown) (no (unknown) (unknown) Phosphorus (units (unk nown) date) unknown) (unknown) (no (unknown) (unknown) Plt Count 386 (units ( unknown) date) unknown) (unknown) (no (unknown) (unknown) Plt Count (units (unkn own) date) unknown) (unknown) (no (unknown) (unknown) Potassium 7.2 H* (units (unknown) date) D unknown) (unknown) (no (unknown) (unknown) Potassium 8.2 H* (units (unknown) date) unknown) (unknown) (no (unknown) (unknown) Potassium 9.7 H* (units (unknown) date) unknown) (unknown) (no (unknown) (unknown) Potassium (units (unkn own) date) unknown) (unknown) (no (unknown) (unknown) Procalcitonin (units ( unknown) date) 1.21 H unknown) (unknown) (no (unknown) (unknown) Procalcitonin (units ( unknown) date) unknown) (unknown) (no (unknown) (unknown) Provider (units (unkno wn) date) unknown) (unknown) (no (unknown) (unknown) Provider: (units (unkn own) date) Charles Rubalcava unknown) D.O. (unknown) (no (unknown) (unknown) Psych: Unable to (units (unknown) date) assess unknown) (unknown) (no (unknown) (unknown) Pulse Oximetry 87 (units (unknown) date) L unknown) (unknown) (no (unknown) (unknown) Pulse Rate 60 82 (units (unknown) date) unknown) (unknown) (no (unknown) (unknown) RBC 3.91 L (units (unk nown) date) unknown) (unknown) (no (unknown) (unknown) RBC (units (unkno wn) date) unknown) (unknown) (no (unknown) (unknown) RDW 14.4 (units (unkno wn) date) unknown) (unknown) (no (unknown) (unknown) RDW (units (unkno wn) date) unknown) (unknown) (no (unknown) (unknown) RSV (PCR) Not (units ( unknown) date) detected unknown) (unknown) (no (unknown) (unknown) RSV (PCR) (units (unkn own) date) unknown) (unknown) (no (unknown) (unknown) Reason for (units (unk nown) date) consultation: unknown) Labourers services (unknown) (no (unknown) (unknown) Resp: Patient is (units (unknown) date) currently vented unknown) (unknown) (no (unknown) (unknown) Respiratory Rate (units (unknown) date) 46 H 16 unknown) (unknown) (no (unknown) (unknown) Result Diagrams: (units (unknown) date) unknown) (unknown) (no (unknown) (unknown) SARS-CoV-2 (PCR) (units (unknown) date) Negative unknown) (unknown) (no (unknown) (unknown) SARS-CoV-2 (PCR) (units (unknown) date) Not detected unknown) (unknown) (no (unknown) (unknown) SARS-CoV-2 (PCR) (units (unknown) date) unknown) (unknown) (no (unknown) (unknown) Sciatica (units (unkno wn) date) unknown) (unknown) (no (unknown) (unknown) She is having (units ( unknown) date) some mild chest unknown) discomfort but not bad.? When asked about code (unknown) (no (unknown) (unknown) Signed By: (units (unk nown) date) unknown) (unknown) (no (unknown) (unknown) Skin/Wound/Dressi (units (unknown) date) ng Care unknown) (unknown) (no (unknown) (unknown) Skin: Appears to (units (unknown) date) have Martha in unknown) her pannus area (unknown) (no (unknown) (unknown) Smoking Status: (units (unknown) date) Former smoker unknown) (unknown) (no (unknown) (unknown) Social History (units (unknown) date) (Reviewed 07/30/22 unknown) @ 07:45 by Darius Allison PA-C) (unknown) (no (unknown) (unknown) Sodium 133 L (units (u nknown) date) unknown) (unknown) (no (unknown) (unknown) Sodium 136 L (units (u nknown) date) unknown) (unknown) (no (unknown) (unknown) Sodium 140 (units (unk nown) date) unknown) (unknown) (no (unknown) (unknown) Sodium (units (unkno wn) date) unknown) (unknown) (no (unknown) (unknown) Summary (units (unkno wn) date) unknown) (unknown) (no (unknown) (unknown) Surgical History (units (unknown) date) (Reviewed 07/30/22 unknown) @ 07:45 by Darius Allison PA-C) (unknown) (no (unknown) (unknown) Suspected (units (unkn own) date) bacterial unknown) pneumonia concerning for ARDS (unknown) (no (unknown) (unknown) Time Patient (units (u nknown) date) Seen: 07:00 unknown) (unknown) (no (unknown) (unknown) Time Spent with (units (unknown) date) Patient unknown) (unknown) (no (unknown) (unknown) Time spent: (units (un known) date) Greater than 30 unknown) minutes (unknown) (no (unknown) (unknown) Total Bilirubin (units (unknown) date) 0.3 unknown) (unknown) (no (unknown) (unknown) Total Bilirubin (units (unknown) date) 0.4 unknown) (unknown) (no (unknown) (unknown) Total Bilirubin (units (unknown) date) unknown) (unknown) (no (unknown) (unknown) Total Creatine (units (unknown) date) Kinase 173 H unknown) (unknown) (no (unknown) (unknown) Total Creatine (units (unknown) date) Kinase unknown) (unknown) (no (unknown) (unknown) Total Protein 6.5 (units (unknown) date) unknown) (unknown) (no (unknown) (unknown) Total Protein 7.2 (units (unknown) date) unknown) (unknown) (no (unknown) (unknown) Total Protein (units ( unknown) date) unknown) (unknown) (no (unknown) (unknown) Troponin I 0.072 (units (unknown) date) H unknown) (unknown) (no (unknown) (unknown) Troponin I 0.297 (units (unknown) date) H* unknown) (unknown) (no (unknown) (unknown) Troponin I (units (unk nown) date) unknown) (unknown) (no (unknown) (unknown) Visit (units (unkno wn) date) Report/Discharge unknown) Packet (unknown) (no (unknown) (unknown) Vital Signs (units (un known) date) unknown) (unknown) (no (unknown) (unknown) WBC 21.1 H (units (unk nown) date) unknown) (unknown) (no (unknown) (unknown) WBC (units (unkno wn) date) unknown) (unknown) (no (unknown) (unknown) [Embedded Image (units (unknown) date) Not Available] unknown) (unknown) (no (unknown) (unknown) alcohol intake: (units (unknown) date) current unknown) (unknown) (no (unknown) (unknown) and glucose were (units (unknown) date) also given.? unknown) Patient became more responsive but not able to (unknown) (no (unknown) (unknown) apparently told (units (unknown) date) her nurse that she unknown) had mild chest pain. CPR was underway when I (unknown) (no (unknown) (unknown) arrived to the (units (unknown) date) room. unknown) (unknown) (no (unknown) (unknown) bradycardic EKG.? (units (unknown) date) Patient is unknown) hypotensive diaphoretic but is awake and alert.? (unknown) (no (unknown) (unknown) difficulty (units (unkn own) date) breathing and by unknown) the time I reached the floor CPR was being performed (unknown) (no (unknown) (unknown) have very soft (units (unknown) date) blood pressures unknown) and by the time I came up to the floor her blood (unknown) (no (unknown) (unknown) herniation. (units (un known) date) Procedure was unknown) uncomplicated patient take him back to floor follow (unknown) (no (unknown) (unknown) household (units (unkn own) date) members: unknown) significant other (unknown) (no (unknown) (unknown) hypotension down (units (unknown) date) to 61/34 unknown) (unknown) (no (unknown) (unknown) ing surgery. (units (u nknown) date) Overnight at unknown) approximately 3:30 a.m. patient had worsening (unknown) (no (unknown) (unknown) labs were drawn (units (unknown) date) preop or postop.? unknown) Patient started to lose pulses and CPR (unknown) (no (unknown) (unknown) mucosa pink and (units (unknown) date) moist unknown) (unknown) (no (unknown) (unknown) narrow.? No (units (un known) date) obvious ST unknown) elevations.? Patient was intubated and a central line (unknown) (no (unknown) (unknown) on the patient. (units (unknown) date) EKG was done and unknown) patient was thought to be having a STEMI. She (unknown) (no (unknown) (unknown) operative (units (unkn own) date) microdiskectomy unknown) L4-5 thought to have a STEMI.? Very wide complex (unknown) (no (unknown) (unknown) placed by myself. (units (unknown) date) unknown) (unknown) (no (unknown) (unknown) pressure was in (units (unknown) date) the low 90s.? unknown) Apparently during that time it dropped even to a (unknown) (no (unknown) (unknown) protect airway.? (units (unknown) date) Complex on the unknown) monitor did change and became significantly more (unknown) (no (unknown) (unknown) started.? I start (units (unknown) date) did confirm unknown) potassium greater than 9.? Bicarb was pushed.? (unknown) (no (unknown) (unknown) status she is (units ( unknown) date) full code.? unknown) Concern for probable hyperkalemia.? Unfortunately no (unknown) (no (unknown) (unknown) still awake.? POC (units (unknown) date) glucose was in the unknown) 300s.? 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 L5-6 lumbar laminectomy.? She was noted to Result panel 160 (unknown) (no date) (unknown) (unknown) 138 mmol/l (unkn own) (unknown) (no date) (unknown) (unknown) 14 mmol/l (unkn own) (unknown) (no date) (unknown) (unknown) 371 mg/dl (unkn own) (unknown) (no date) (unknown) (unknown) 371 mg/dl (unkn own) (unknown) (no date) (unknown) (unknown) 7.2 mmol/l (unkn own) (unknown) (no date) (unknown) (unknown) 7.2 mmol/l (unkn own) (unknown) (no date) (unknown) (unknown) 7.9 mg/dl (unkn own) (unknown) (no date) (unknown) (unknown) 92 mmol/l (unkn own) Result panel 161 (unknown) (no date) (unknown) (unknown) 126 mg/dl (unkn own) (unknown) (no date) (unknown) (unknown) 126 mg/dl (unkn own) (unknown) (no date) (unknown) (unknown) 138 mmol/l (unkn own) (unknown) (no date) (unknown) (unknown) 14 mmol/l (unkn own) (unknown) (no date) (unknown) (unknown) 14.1 mg/dl (unkn own) (unknown) (no date) (unknown) (unknown) 14.1 mg/dl (unkn own) (unknown) (no date) (unknown) (unknown) 3 ml/min (unkn own) (unknown) (no date) (unknown) (unknown) 3 ml/min (unkn own) (unknown) (no date) (unknown) (unknown) 371 mg/dl (unkn own) (unknown) (no date) (unknown) (unknown) 371 mg/dl (unkn own) (unknown) (no date) (unknown) (unknown) 7.2 mmol/l (unkn own) (unknown) (no date) (unknown) (unknown) 7.2 mmol/l (unkn own) (unknown) (no date) (unknown) (unknown) 7.9 mg/dl (unkn own) (unknown) (no date) (unknown) (unknown) 8.9 (units unknown) (unknown) (unknown) (no date) (unknown) (unknown) 92 mmol/l (unkn own) Result panel 162 (unknown) (no (unknown) (unknown) (no value) (units (unk nown) date) unknown) (unknown) (no (unknown) (unknown) (past 8 hours): (units (unknown) date) unknown) (unknown) (no (unknown) (unknown) [id number] (units (unkno wn) date) unknown) (unknown) (no (unknown) (unknown) 03:20 03:20 03:20 (units (unknown) date) unknown) (unknown) (no (unknown) (unknown) 03:35 04:15 04:25 (units (unknown) date) unknown) (unknown) (no (unknown) (unknown) 04:49 (units (unkno wn) date) unknown) (unknown) (no (unknown) (unknown) 05:55 05:55 05:55 (units (unknown) date) unknown) (unknown) (no (unknown) (unknown) 06:00 08:50 08:50 (units (unknown) date) unknown) (unknown) (no (unknown) (unknown) 07:57 07/30/22 (units (unknown) date) unknown) (unknown) (no (unknown) (unknown) 07/14/2022. Pt (units (unknown) date) was on PPI, unknown) Lisinopril, amlodipine, metformin, glipizide, (unknown) (no (unknown) (unknown) 07/29/22 11:16 (units (unknown) date) unknown) (unknown) (no (unknown) (unknown) 07/29/22 07/29/22 (units (unknown) date) 07/30/22 unknown) (unknown) (no (unknown) (unknown) 07/30/22 03:20 (units (unknown) date) unknown) (unknown) (no (unknown) (unknown) 07/30/22 04:49 (units (unknown) date) unknown) (unknown) (no (unknown) (unknown) 07/30/22 05:55 (units (unknown) date) unknown) (unknown) (no (unknown) (unknown) 07/30/22 1056 (units ( unknown) date) unknown) (unknown) (no (unknown) (unknown) 07/30/22 07/30/22 (units (unknown) date) 07/30/22 unknown) (unknown) (no (unknown) (unknown) 07/30/22 (units (unkno wn) date) unknown) (unknown) (no (unknown) (unknown) 12:29 12:55 03:20 (units (unknown) date) unknown) (unknown) (no (unknown) (unknown) 57-year-old (units (un known) date) female with unknown) medical H/o of DM II, HTN, HLD admitted for lumbar (unknown) (no (unknown) (unknown) ABG Base Excess (units (unknown) date) -20.0 L -25.0 L unknown) (unknown) (no (unknown) (unknown) ABG Base Excess (units (unknown) date) -22.0 L unknown) (unknown) (no (unknown) (unknown) ABG Base Excess (units (unknown) date) unknown) (unknown) (no (unknown) (unknown) ABG HCO3 10 L 8 L (units (unknown) date) unknown) (unknown) (no (unknown) (unknown) ABG HCO3 9 L (units (u nknown) date) unknown) (unknown) (no (unknown) (unknown) ABG HCO3 (units (unkno wn) date) unknown) (unknown) (no (unknown) (unknown) ABG O2 Saturation (units (unknown) date) 52 L* 86 L unknown) (unknown) (no (unknown) (unknown) ABG O2 Saturation (units (unknown) date) 59 L* unknown) (unknown) (no (unknown) (unknown) ABG O2 Saturation (units (unknown) date) unknown) (unknown) (no (unknown) (unknown) ABG Total CO2 11 (units (unknown) date) L unknown) (unknown) (no (unknown) (unknown) ABG Total CO2 12 (units (unknown) date) L 9 L unknown) (unknown) (no (unknown) (unknown) ABG Total CO2 (units ( unknown) date) unknown) (unknown) (no (unknown) (unknown) ABG pCO2 36.7 (units ( unknown) date) 37.5 unknown) (unknown) (no (unknown) (unknown) ABG pCO2 41.9 (units ( unknown) date) unknown) (unknown) (no (unknown) (unknown) ABG pCO2 (units (unkno wn) date) unknown) (unknown) (no (unknown) (unknown) ABG pH 6.97 L* (units (unknown) date) unknown) (unknown) (no (unknown) (unknown) ABG pH 7.06 L* (units (unknown) date) 6.92 L* unknown) (unknown) (no (unknown) (unknown) ABG pH (units (unkno wn) date) unknown) (unknown) (no (unknown) (unknown) ABG pO2 38 L* 82 (units (unknown) date) unknown) (unknown) (no (unknown) (unknown) ABG pO2 59 L (units (u nknown) date) unknown) (unknown) (no (unknown) (unknown) ABG pO2 (units (unkno wn) date) unknown) (unknown) (no (unknown) (unknown) ALT 203 H (units (unkn own) date) unknown) (unknown) (no (unknown) (unknown) ALT 22 (units (unkno wn) date) unknown) (unknown) (no (unknown) (unknown) ALT (units (unkno wn) date) unknown) (unknown) (no (unknown) (unknown) AST 17 (units (unkno wn) date) unknown) (unknown) (no (unknown) (unknown) AST 226 H (units (unkn own) date) unknown) (unknown) (no (unknown) (unknown) AST (units (unkno wn) date) unknown) (unknown) (no (unknown) (unknown) Abd: Obese (units (unk nown) date) unknown) (unknown) (no (unknown) (unknown) Acute renal (units (un known) date) failure in the unknown) setting of septic shock (unknown) (no (unknown) (unknown) Acute respiratory (units (unknown) date) failure with a unknown) severe uncompensated metabolic acidosis (unknown) (no (unknown) (unknown) Adenovirus (PCR) (units (unknown) date) Not detected unknown) (unknown) (no (unknown) (unknown) Adenovirus (PCR) (units (unknown) date) unknown) (unknown) (no (unknown) (unknown) Age/Sex: 57 / F (units (unknown) date) unknown) (unknown) (no (unknown) (unknown) Albumin 3.6 (units (un known) date) unknown) (unknown) (no (unknown) (unknown) Albumin 4.1 (units (un known) date) unknown) (unknown) (no (unknown) (unknown) Albumin (units (unkno wn) date) unknown) (unknown) (no (unknown) (unknown) Albumin/Globulin (units (unknown) date) Ratio 1.2 unknown) (unknown) (no (unknown) (unknown) Albumin/Globulin (units (unknown) date) Ratio 1.3 unknown) (unknown) (no (unknown) (unknown) Albumin/Globulin (units (unknown) date) Ratio unknown) (unknown) (no (unknown) (unknown) Alkaline (units (unkno wn) date) Phosphatase 100 unknown) (unknown) (no (unknown) (unknown) Alkaline (units (unkno wn) date) Phosphatase 93 unknown) (unknown) (no (unknown) (unknown) Alkaline (units (unkno wn) date) Phosphatase unknown) (unknown) (no (unknown) (unknown) Amiodarone also (units (unknown) date) started cases unknown) possible VFib she got 150 mg at the time she was (unknown) (no (unknown) (unknown) B. pertussis DNA (units (unknown) date) (PCR) Not detected unknown) (unknown) (no (unknown) (unknown) B. pertussis DNA (units (unknown) date) (PCR) unknown) (unknown) (no (unknown) (unknown) B.parapertussis (units (unknown) date) DNA PCR Not unknown) detected (unknown) (no (unknown) (unknown) B.parapertussis (units (unknown) date) DNA PCR unknown) (unknown) (no (unknown) (unknown) BUN 117 H* (units (unk nown) date) unknown) (unknown) (no (unknown) (unknown) BUN 119 H* (units (unk nown) date) unknown) (unknown) (no (unknown) (unknown) BUN 120 H* (units (unk nown) date) unknown) (unknown) (no (unknown) (unknown) BUN (units (unkno wn) date) unknown) (unknown) (no (unknown) (unknown) BUN/Creatinine (units (unknown) date) Ratio 7.9 unknown) (unknown) (no (unknown) (unknown) BUN/Creatinine (units (unknown) date) Ratio 8.0 unknown) (unknown) (no (unknown) (unknown) BUN/Creatinine (units (unknown) date) Ratio 8.4 unknown) (unknown) (no (unknown) (unknown) BUN/Creatinine (units (unknown) date) Ratio unknown) (unknown) (no (unknown) (unknown) Baso # (Auto) 0 (units (unknown) date) unknown) (unknown) (no (unknown) (unknown) Baso # (Auto) (units ( unknown) date) unknown) (unknown) (no (unknown) (unknown) Baso % (Auto) 0.1 (units (unknown) date) unknown) (unknown) (no (unknown) (unknown) Baso % (Auto) (units ( unknown) date) unknown) (unknown) (no (unknown) (unknown) Blood Pressure (units (unknown) date) 125/50 L unknown) (unknown) (no (unknown) (unknown) CK-MB (CK-2) 2.90 (units (unknown) date) H unknown) (unknown) (no (unknown) (unknown) CK-MB (CK-2) Rel (units (unknown) date) Index 1.7 unknown) (unknown) (no (unknown) (unknown) CK-MB (CK-2) Rel (units (unknown) date) Index unknown) (unknown) (no (unknown) (unknown) CK-MB (CK-2) (units (u nknown) date) unknown) (unknown) (no (unknown) (unknown) CV: Regular rate (units (unknown) date) and rhythm, no unknown) murmurs (unknown) (no (unknown) (unknown) Calcium 7.6 L (units ( unknown) date) unknown) (unknown) (no (unknown) (unknown) Calcium 8.1 L (units ( unknown) date) unknown) (unknown) (no (unknown) (unknown) Calcium 9.0 (units (un known) date) unknown) (unknown) (no (unknown) (unknown) Calcium (units (unkno wn) date) unknown) (unknown) (no (unknown) (unknown) Called to patient (units (unknown) date) bedside as a code unknown) blue.? Patient is a 57-year-old female post (unknown) (no (unknown) (unknown) Carbon Dioxide 7 (units (unknown) date) L* unknown) (unknown) (no (unknown) (unknown) Carbon Dioxide 8 (units (unknown) date) L* unknown) (unknown) (no (unknown) (unknown) Carbon Dioxide (units (unknown) date) unknown) (unknown) (no (unknown) (unknown) Cardiac arrest in (units (unknown) date) the setting of unknown) acute hyperkalemia and presumed septic shock (unknown) (no (unknown) (unknown) Chief complaint: (units (unknown) date) INPT unknown) (unknown) (no (unknown) (unknown) Chlamy pneumoniae (units (unknown) date) PCR Not detected unknown) (unknown) (no (unknown) (unknown) Chlamy pneumoniae (units (unknown) date) PCR unknown) (unknown) (no (unknown) (unknown) Chloride 95 L (units ( unknown) date) unknown) (unknown) (no (unknown) (unknown) Chloride 97 L (units ( unknown) date) unknown) (unknown) (no (unknown) (unknown) Chloride (units (unkno wn) date) unknown) (unknown) (no (unknown) (unknown) Chronic problems: (units (unknown) date) unknown) (unknown) (no (unknown) (unknown) Comment: (units (unkno wn) date) unknown) (unknown) (no (unknown) (unknown) Consult to (units (unk nown) date) Tele-tire and lube technician unknown) Routine (unknown) (no (unknown) (unknown) Consulting (units (unk nown) date) Provider: unknown) Intercept Tele-intensivists (unknown) (no (unknown) (unknown) Consults: (units (unkn own) date) unknown) (unknown) (no (unknown) (unknown) Coronavirus 229E (units (unknown) date) (PCR) Not detected unknown) (unknown) (no (unknown) (unknown) Coronavirus 229E (units (unknown) date) (PCR) unknown) (unknown) (no (unknown) (unknown) Coronavirus HKU1 (units (unknown) date) (PCR) Not detected unknown) (unknown) (no (unknown) (unknown) Coronavirus HKU1 (units (unknown) date) (PCR) unknown) (unknown) (no (unknown) (unknown) Coronavirus NL63 (units (unknown) date) (PCR) Not detected unknown) (unknown) (no (unknown) (unknown) Coronavirus NL63 (units (unknown) date) (PCR) unknown) (unknown) (no (unknown) (unknown) Coronavirus OC43 (units (unknown) date) (PCR) Not detected unknown) (unknown) (no (unknown) (unknown) Coronavirus OC43 (units (unknown) date) (PCR) unknown) (unknown) (no (unknown) (unknown) Creatinine 13.9 (units (unknown) date) H* unknown) (unknown) (no (unknown) (unknown) Creatinine 14.8 (units (unknown) date) H* unknown) (unknown) (no (unknown) (unknown) Creatinine 15.2 (units (unknown) date) H* unknown) (unknown) (no (unknown) (unknown) Creatinine (units (unk nown) date) unknown) (unknown) (no (unknown) (unknown) DM2 (units (unkno wn) date) unknown) (unknown) (no (unknown) (unknown) : 1965 (units (unknown) date) Acct:[id number] unknown) (unknown) (no (unknown) (unknown) Date Patient (units (u nknown) date) Seen: 07/30/22 unknown) (unknown) (no (unknown) (unknown) Date of Service: (units (unknown) date) 07/29/22 unknown) (unknown) (no (unknown) (unknown) Date of (units (unkno wn) date) admission: unknown) (unknown) (no (unknown) (unknown) Diabetes (units (unkno wn) date) unknown) (unknown) (no (unknown) (unknown) Discharge Date: (units (unknown) date) 07/30/22 unknown) (unknown) (no (unknown) (unknown) Discharge (units (unkn own) date) Diagnosis: unknown) (unknown) (no (unknown) (unknown) Discharge Plan (units (unknown) date) unknown) (unknown) (no (unknown) (unknown) Discharge (units (unkn own) date) Providers unknown) (unknown) (no (unknown) (unknown) Discharge Summary (units (unknown) date) unknown) (unknown) (no (unknown) (unknown) Discharge (units (unkn own) date) provider: unknown) (unknown) (no (unknown) (unknown) Disposition: Xfer (units (unknown) date) Acute Care unknown) Hospital (unknown) (no (unknown) (unknown) ED doc note: (units (u nknown) date) unknown) (unknown) (no (unknown) (unknown) Entero/Rhino (units (u nknown) date) (PCR) Not detected unknown) (unknown) (no (unknown) (unknown) Entero/Rhino (units (u nknown) date) (PCR) unknown) (unknown) (no (unknown) (unknown) Eos # (Auto) 0 (units (unknown) date) unknown) (unknown) (no (unknown) (unknown) Eos # (Auto) (units (u nknown) date) unknown) (unknown) (no (unknown) (unknown) Eos % (Auto) 0.0 (units (unknown) date) L unknown) (unknown) (no (unknown) (unknown) Eos % (Auto) (units (u nknown) date) unknown) (unknown) (no (unknown) (unknown) Estimated GFR 3 L (units (unknown) date) unknown) (unknown) (no (unknown) (unknown) Estimated GFR (units ( unknown) date) unknown) (unknown) (no (unknown) (unknown) Exam Narrative: (units (unknown) date) unknown) (unknown) (no (unknown) (unknown) Exam (units (unkno wn) date) unknown) (unknown) (no (unknown) (unknown) Extremities: (units (u nknown) date) Appears to have unknown) good cap refill (unknown) (no (unknown) (unknown) FiO2 15 100 (units (un known) date) unknown) (unknown) (no (unknown) (unknown) FiO2 (units (unkno wn) date) unknown) (unknown) (no (unknown) (unknown) GERD (units (unkno wn) date) (gastroesophageal unknown) reflux disease) (unknown) (no (unknown) (unknown) Gen: morbidly (units ( unknown) date) obese 57 y.o. unknown) female, intubated and sedated (unknown) (no (unknown) (unknown) Globulin 2.9 (units (u nknown) date) unknown) (unknown) (no (unknown) (unknown) Globulin 3.1 (units (u nknown) date) unknown) (unknown) (no (unknown) (unknown) Globulin (units (unkno wn) date) unknown) (unknown) (no (unknown) (unknown) Glucose 27 L* 303 (units (unknown) date) H D unknown) (unknown) (no (unknown) (unknown) Glucose 402 H (units ( unknown) date) unknown) (unknown) (no (unknown) (unknown) Glucose 404 H D (units (unknown) date) unknown) (unknown) (no (unknown) (unknown) Glucose (units (unkno wn) date) unknown) (unknown) (no (unknown) (unknown) HEENT: (units (unkno wn) date) normocephalic, unknown) atraumatic, conjunctiva clear, sclera non-icteric, oral (unknown) (no (unknown) (unknown) HLD (units (unkno wn) date) (hyperlipidemia) unknown) (unknown) (no (unknown) (unknown) HLD (units (unkno wn) date) unknown) (unknown) (no (unknown) (unknown) HTN (units (unkno wn) date) (hypertension) unknown) (unknown) (no (unknown) (unknown) HTN (units (unkno wn) date) unknown) (unknown) (no (unknown) (unknown) Has provider been (units (unknown) date) notified: Yes unknown) (unknown) (no (unknown) (unknown) Hct 36.1 (units (unkno wn) date) unknown) (unknown) (no (unknown) (unknown) Hct (units (unkno wn) date) unknown) (unknown) (no (unknown) (unknown) Hemoglobin A1c (units (unknown) date) 6.7 H unknown) (unknown) (no (unknown) (unknown) Hemoglobin A1c (units (unknown) date) unknown) (unknown) (no (unknown) (unknown) Hgb 11.3 L (units (unk nown) date) unknown) (unknown) (no (unknown) (unknown) Hgb (units (unkno wn) date) unknown) (unknown) (no (unknown) (unknown) History of (units (unk nown) date) Present Illness unknown) (unknown) (no (unknown) (unknown) History of (units (unk nown) date) hysterectomy unknown) (unknown) (no (unknown) (unknown) Hospital Course (units (unknown) date) unknown) (unknown) (no (unknown) (unknown) Hospital Course: (units (unknown) date) unknown) (unknown) (no (unknown) (unknown) 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 (unknown) date) note: unknown) (unknown) (no (unknown) (unknown) Human (units (unkno wn) date) Metapneumovir PCR unknown) Not detected (unknown) (no (unknown) (unknown) Human (units (unkno wn) date) Metapneumovir PCR unknown) (unknown) (no (unknown) (unknown) Influenza Type A (units (unknown) date) (PCR) Not detected unknown) (unknown) (no (unknown) (unknown) Influenza Type A (units (unknown) date) (PCR) unknown) (unknown) (no (unknown) (unknown) Influenza Type B (units (unknown) date) (PCR) Not detected unknown) (unknown) (no (unknown) (unknown) Influenza Type B (units (unknown) date) (PCR) unknown) (unknown) (no (unknown) (unknown) [facility] (units (unknown) date) [address] unknown) [place] [address] (unknown) (no (unknown) (unknown) Ketones 4.42 H (units (unknown) date) unknown) (unknown) (no (unknown) (unknown) Ketones (units (unkno wn) date) unknown) (unknown) (no (unknown) (unknown) Laboratory (units (unk nown) date) Results - last 24 unknown) hr (unknown) (no (unknown) (unknown) Labs (units (unkno wn) date) unknown) (unknown) (no (unknown) (unknown) Labs: (units (unkno wn) date) unknown) (unknown) (no (unknown) (unknown) Lactate 5.1 H* (units (unknown) date) unknown) (unknown) (no (unknown) (unknown) Lactate 8.4 H* (units (unknown) date) unknown) (unknown) (no (unknown) (unknown) Lactate (units (unkno wn) date) unknown) (unknown) (no (unknown) (unknown) Lumbar disc (units (un known) date) herniation unknown) (unknown) (no (unknown) (unknown) Lymph # (Auto) (units (unknown) date) 800 L unknown) (unknown) (no (unknown) (unknown) Lymph # (Auto) (units (unknown) date) unknown) (unknown) (no (unknown) (unknown) Lymph % (Auto) (units (unknown) date) 3.9 L unknown) (unknown) (no (unknown) (unknown) Lymph % (Auto) (units (unknown) date) unknown) (unknown) (no (unknown) (unknown) M. pneumoniae (units ( unknown) date) (PCR) Not detected unknown) (unknown) (no (unknown) (unknown) M. pneumoniae (units ( unknown) date) (PCR) unknown) (unknown) (no (unknown) (unknown) MCH 29.0 (units (unkno wn) date) unknown) (unknown) (no (unknown) (unknown) MCH (units (unkno wn) date) unknown) (unknown) (no (unknown) (unknown) MCHC 31.4 (units (unkn own) date) unknown) (unknown) (no (unknown) (unknown) MCHC (units (unkno wn) date) unknown) (unknown) (no (unknown) (unknown) MCV 92.3 (units (unkno wn) date) unknown) (unknown) (no (unknown) (unknown) MCV (units (unkno wn) date) unknown) (unknown) (no (unknown) (unknown) Magnesium 1.8 (units ( unknown) date) unknown) (unknown) (no (unknown) (unknown) Magnesium (units (unkn own) date) unknown) (unknown) (no (unknown) (unknown) Charles Rubalcava, (units (unknown) date) DO unknown) (unknown) (no (unknown) (unknown) Medical History (units (unknown) date) (Reviewed 07/30/22 unknown) @ 07:45 by Darius Allison PA-C) (unknown) (no (unknown) (unknown) Gibson # (Auto) 100 (units (unknown) date) unknown) (unknown) (no (unknown) (unknown) Gibson # (Auto) (units ( unknown) date) unknown) (unknown) (no (unknown) (unknown) Gibson % (Auto) 0.6 (units (unknown) date) L unknown) (unknown) (no (unknown) (unknown) Gibson % (Auto) (units ( unknown) date) unknown) (unknown) (no (unknown) (unknown) Morbid obesity (units (unknown) date) unknown) (unknown) (no (unknown) (unknown) Narrative (units (unkn own) date) unknown) (unknown) (no (unknown) (unknown) Narrative: (units (unk nown) date) unknown) (unknown) (no (unknown) (unknown) Nasal Screen MRSA (units (unknown) date) (PCR) Negative for unknown) mrsa (unknown) (no (unknown) (unknown) Nasal Screen MRSA (units (unknown) date) (PCR) unknown) (unknown) (no (unknown) (unknown) Neck: supple, (units ( unknown) date) full ROM, no JVD, unknown) trachea is midline (unknown) (no (unknown) (unknown) Neuro: Speech (units ( unknown) date) clear and coherent unknown) just prior to intubation obtunded (unknown) (no (unknown) (unknown) Neuropathy (units (unk nown) date) unknown) (unknown) (no (unknown) (unknown) Neut # (Auto) (units ( unknown) date) 92178 H unknown) (unknown) (no (unknown) (unknown) Neut # (Auto) (units ( unknown) date) unknown) (unknown) (no (unknown) (unknown) Neut % (Auto) (units ( unknown) date) 95.4 H unknown) (unknown) (no (unknown) (unknown) Neut % (Auto) (units ( unknown) date) unknown) (unknown) (no (unknown) (unknown) Nursing contacted (units (unknown) date) me requesting unknown) consult by Orthopedic surgery for this patient (unknown) (no (unknown) (unknown) Objective (units (unkn own) date) unknown) (unknown) (no (unknown) (unknown) Ovarian cancer (units (unknown) date) (-2014) unknown) (unknown) (no (unknown) (unknown) Oxygen Delivery (units (unknown) date) Method Room Air unknown) (unknown) (no (unknown) (unknown) Oxygen Flow Rate (units (unknown) date) 4 unknown) (unknown) (no (unknown) (unknown) PFSH (units (unkno wn) date) unknown) (unknown) (no (unknown) (unknown) Parainfluenza 1 (units (unknown) date) (PCR) Not detected unknown) (unknown) (no (unknown) (unknown) Parainfluenza 1 (units (unknown) date) (PCR) unknown) (unknown) (no (unknown) (unknown) Parainfluenza 2 (units (unknown) date) (PCR) Not detected unknown) (unknown) (no (unknown) (unknown) Parainfluenza 2 (units (unknown) date) (PCR) unknown) (unknown) (no (unknown) (unknown) Parainfluenza 3 (units (unknown) date) (PCR) Not detected unknown) (unknown) (no (unknown) (unknown) Parainfluenza 3 (units (unknown) date) (PCR) unknown) (unknown) (no (unknown) (unknown) Parainfluenza 4 (units (unknown) date) (PCR) Not detected unknown) (unknown) (no (unknown) (unknown) Parainfluenza 4 (units (unknown) date) (PCR) unknown) (unknown) (no (unknown) (unknown) Patient is not a (units (unknown) date) STEMI. unknown) (unknown) (no (unknown) (unknown) Patient: (units (unkno wn) date) Polly Bone M unknown) MR#: [id number] (unknown) (no (unknown) (unknown) Phosphorus 12.9 (units (unknown) date) H* unknown) (unknown) (no (unknown) (unknown) Phosphorus (units (unk nown) date) unknown) (unknown) (no (unknown) (unknown) Plt Count 386 (units ( unknown) date) unknown) (unknown) (no (unknown) (unknown) Plt Count (units (unkn own) date) unknown) (unknown) (no (unknown) (unknown) Potassium 7.2 H* (units (unknown) date) D unknown) (unknown) (no (unknown) (unknown) Potassium 8.2 H* (units (unknown) date) unknown) (unknown) (no (unknown) (unknown) Potassium 9.7 H* (units (unknown) date) unknown) (unknown) (no (unknown) (unknown) Potassium (units (unkn own) date) unknown) (unknown) (no (unknown) (unknown) Procalcitonin (units ( unknown) date) 1.21 H unknown) (unknown) (no (unknown) (unknown) Procalcitonin (units ( unknown) date) unknown) (unknown) (no (unknown) (unknown) Provider (units (unkno wn) date) unknown) (unknown) (no (unknown) (unknown) Provider: (units (unkn own) date) Charles Rubalcava unknown) D.O. (unknown) (no (unknown) (unknown) Psych: Unable to (units (unknown) date) assess unknown) (unknown) (no (unknown) (unknown) Pulse Oximetry 87 (units (unknown) date) L unknown) (unknown) (no (unknown) (unknown) Pulse Rate 60 82 (units (unknown) date) unknown) (unknown) (no (unknown) (unknown) RBC 3.91 L (units (unk nown) date) unknown) (unknown) (no (unknown) (unknown) RBC (units (unkno wn) date) unknown) (unknown) (no (unknown) (unknown) RDW 14.4 (units (unkno wn) date) unknown) (unknown) (no (unknown) (unknown) RDW (units (unkno wn) date) unknown) (unknown) (no (unknown) (unknown) RSV (PCR) Not (units ( unknown) date) detected unknown) (unknown) (no (unknown) (unknown) RSV (PCR) (units (unkn own) date) unknown) (unknown) (no (unknown) (unknown) Reason for (units (unk nown) date) consultation: unknown) [employer] services (unknown) (no (unknown) (unknown) Resp: Patient is (units (unknown) date) currently vented unknown) (unknown) (no (unknown) (unknown) Respiratory Rate (units (unknown) date) 46 H 16 unknown) (unknown) (no (unknown) (unknown) Result Diagrams: (units (unknown) date) unknown) (unknown) (no (unknown) (unknown) SARS-CoV-2 (PCR) (units (unknown) date) Negative unknown) (unknown) (no (unknown) (unknown) SARS-CoV-2 (PCR) (units (unknown) date) Not detected unknown) (unknown) (no (unknown) (unknown) SARS-CoV-2 (PCR) (units (unknown) date) unknown) (unknown) (no (unknown) (unknown) Sciatica (units (unkno wn) date) unknown) (unknown) (no (unknown) (unknown) She is having (units ( unknown) date) some mild chest unknown) discomfort but not bad.? When asked about code (unknown) (no (unknown) (unknown) Signed (units (unkno wn) date) By:<Electronically unknown) signed by Charles Rubalcava D.O.> (unknown) (no (unknown) (unknown) Skin: Appears to (units (unknown) date) have Martha in unknown) her pannus area (unknown) (no (unknown) (unknown) Smoking Status: (units (unknown) date) Former smoker unknown) (unknown) (no (unknown) (unknown) Social History (units (unknown) date) (Reviewed 07/30/22 unknown) @ 07:45 by Darius Allison PA-C) (unknown) (no (unknown) (unknown) Sodium 133 L (units (u nknown) date) unknown) (unknown) (no (unknown) (unknown) Sodium 136 L (units (u nknown) date) unknown) (unknown) (no (unknown) (unknown) Sodium 140 (units (unk nown) date) unknown) (unknown) (no (unknown) (unknown) Sodium (units (unkno wn) date) unknown) (unknown) (no (unknown) (unknown) Summary (units (unkno wn) date) unknown) (unknown) (no (unknown) (unknown) Surgical History (units (unknown) date) (Reviewed 07/30/22 unknown) @ 07:45 by Darius Allison PA-C) (unknown) (no (unknown) (unknown) Suspected (units (unkn own) date) bacterial unknown) pneumonia concerning for ARDS (unknown) (no (unknown) (unknown) Time Patient (units (u nknown) date) Seen: 07:00 unknown) (unknown) (no (unknown) (unknown) Time Spent with (units (unknown) date) Patient unknown) (unknown) (no (unknown) (unknown) Time spent: (units (un known) date) Greater than 30 unknown) minutes (unknown) (no (unknown) (unknown) Total Bilirubin (units (unknown) date) 0.3 unknown) (unknown) (no (unknown) (unknown) Total Bilirubin (units (unknown) date) 0.4 unknown) (unknown) (no (unknown) (unknown) Total Bilirubin (units (unknown) date) unknown) (unknown) (no (unknown) (unknown) Total Creatine (units (unknown) date) Kinase 173 H unknown) (unknown) (no (unknown) (unknown) Total Creatine (units (unknown) date) Kinase unknown) (unknown) (no (unknown) (unknown) Total Protein 6.5 (units (unknown) date) unknown) (unknown) (no (unknown) (unknown) Total Protein 7.2 (units (unknown) date) unknown) (unknown) (no (unknown) (unknown) Total Protein (units ( unknown) date) unknown) (unknown) (no (unknown) (unknown) Troponin I 0.072 (units (unknown) date) H unknown) (unknown) (no (unknown) (unknown) Troponin I 0.297 (units (unknown) date) H* unknown) (unknown) (no (unknown) (unknown) Troponin I (units (unk nown) date) unknown) (unknown) (no (unknown) (unknown) Unfortunately no (units (unknown) date) labs were drawn unknown) preop or postop.?Patient was intubated and RIJ (unknown) (no (unknown) (unknown) Vital Signs (units (un known) date) unknown) (unknown) (no (unknown) (unknown) WBC 21.1 H (units (unk nown) date) unknown) (unknown) (no (unknown) (unknown) WBC (units (unkno wn) date) unknown) (unknown) (no (unknown) (unknown) [Embedded Image (units (unknown) date) Not Available] unknown) (unknown) (no (unknown) (unknown) academia with pH (units (unknown) date) 6.9 and possible unknown) DKA due to elevated BG to 500 and ketones. (unknown) (no (unknown) (unknown) alcohol intake: (units (unknown) date) current unknown) (unknown) (no (unknown) (unknown) and glucose were (units (unknown) date) also given.? unknown) Patient became more responsive but not able to (unknown) (no (unknown) (unknown) and vasopressin. (units (unknown) date) Multiple attempts unknown) at arterial line failed by hospitalist then (unknown) (no (unknown) (unknown) anesthesia. (units (un known) date) Patient was unknown) accepted for transfer to [facility] for ICU (unknown) (no (unknown) (unknown) apparently told (units (unknown) date) her nurse that she unknown) had mild chest pain. CPR was underway when I (unknown) (no (unknown) (unknown) arrived to the (units (unknown) date) room. unknown) (unknown) (no (unknown) (unknown) bradycardic EKG (units (unknown) date) changes. Received unknown) a dose of amiodarone for possible VFib, (unknown) (no (unknown) (unknown) bradycardic EKG.? (units (unknown) date) Patient is unknown) hypotensive diaphoretic but is awake and alert.? (unknown) (no (unknown) (unknown) care and emergent (units (unknown) date) HD. unknown) (unknown) (no (unknown) (unknown) complicated by (units (unknown) date) cardiac arrest, unknown) ROSC after 14 min, found to have severe (unknown) (no (unknown) (unknown) did not think was (units (unknown) date) STEMI due to unknown) sepsis and cardiac arrest. Baseline Cr 1.12 on (unknown) (no (unknown) (unknown) difficulty (units (unkn own) date) breathing and by unknown) the time I reached the floor CPR was being performed (unknown) (no (unknown) (unknown) have very soft (units (unknown) date) blood pressures unknown) and by the time I came up to the floor her blood (unknown) (no (unknown) (unknown) household (units (unkn own) date) members: unknown) significant other (unknown) (no (unknown) (unknown) hyperkalemia (K (units (unknown) date) of 9), severe unknown) renal failure with Cr 13, severe metabolic (unknown) (no (unknown) (unknown) labs were drawn (units (unknown) date) preop or postop.? unknown) Patient started to lose pulses and CPR (unknown) (no (unknown) (unknown) metoprolol, (units (un known) date) simvastatin and unknown) NSAIDs per home meds review. Currently on levophed (unknown) (no (unknown) (unknown) mild chest (units (unk nown) date) discomfort, unknown) diaphoresis and hypotension, found to have wide complex (unknown) (no (unknown) (unknown) mucosa pink and (units (unknown) date) moist unknown) (unknown) (no (unknown) (unknown) narrow.? No (units (un known) date) obvious ST unknown) elevations.? Patient was intubated and a central line (unknown) (no (unknown) (unknown) on the patient. (units (unknown) date) EKG was done and unknown) patient was thought to be having a STEMI. She (unknown) (no (unknown) (unknown) operative (units (unkn own) date) microdiskectomy unknown) L4-5 thought to have a STEMI.? Very wide complex (unknown) (no (unknown) (unknown) placed by myself. (units (unknown) date) unknown) (unknown) (no (unknown) (unknown) placed. Start on (units (unknown) date) propofol and unknown) fentanyl. Vent setting 100% FiO2 and PEEP 10 with (unknown) (no (unknown) (unknown) pleural effusion. (units (unknown) date) Started on heparin unknown) for concern of CT but ED doc consulted who (unknown) (no (unknown) (unknown) pressure was in (units (unknown) date) the low 90s.? unknown) Apparently during that time it dropped even to a (unknown) (no (unknown) (unknown) protect airway.? (units (unknown) date) Complex on the unknown) monitor did change and became significantly more (unknown) (no (unknown) (unknown) sats 95%. CXR (units ( unknown) date) showed bilateral unknown) pulmonary infiltrates PNA vs CHF with left sided (unknown) (no (unknown) (unknown) started.? I start (units (unknown) date) did confirm unknown) potassium greater than 9.? Bicarb was pushed.? (unknown) (no (unknown) (unknown) status she is (units ( unknown) date) full code.? unknown) Concern for probable hyperkalemia.? Unfortunately no (unknown) (no (unknown) (unknown) still awake.? POC (units (unknown) date) glucose was in the unknown) 300s.? CPR continued epinephrine insulin (unknown) (no (unknown) (unknown) surgery on 07/29 (units (unknown) date) status unknown) post-operative microdiskectomy L4-5, overnight developed (unknown) (no (unknown) (unknown) systolic of 60, (units (unknown) date) the patient was unknown) reportedly complaining of chest pain and (unknown) (no (unknown) (unknown) who is a (units (unkno wn) date) 57-year-old female unknown) pod 1.? L5-6 lumbar laminectomy.? She was noted to Result panel 163 (unknown) (no date) (unknown) (unknown) -15.0 mmol/l (unkn own) (unknown) (no date) (unknown) (unknown) 100 (units unknown) (unknown) (unknown) (no date) (unknown) (unknown) 100 (units unknown) (unknown) (unknown) (no date) (unknown) (unknown) 13 mmol/l (unkn own) (unknown) (no date) (unknown) (unknown) 14 mmol/l (unkn own) (unknown) (no date) (unknown) (unknown) 29.6 mmhg (unkn own) (unknown) (no date) (unknown) (unknown) 29.6 mmhg (unkn own) (unknown) (no date) (unknown) (unknown) 7.24 (units unknown) (unknown) (unknown) (no date) (unknown) (unknown) 7.24 (units unknown) (unknown) (unknown) (no date) (unknown) (unknown) 72 mmhg (unkn own) (unknown) (no date) (unknown) (unknown) 92 % (unkn own) Result panel 164 (unknown) (no date) (unknown) (unknown) >=1.030 (units (unkn own) unknown) (unknown) (no date) (unknown) (unknown) 0.2 e.u./dl (unkn own) (unknown) (no date) (unknown) (unknown) 2 (units (unkn own) unknown) (unknown) (no date) (unknown) (unknown) 3 (units (unkn own) unknown) (unknown) (no date) (unknown) (unknown) 5.0 (units (unkn own) unknown) (unknown) (no date) (unknown) (unknown) NEGATIVE (units (unkn own) unknown) (unknown) (no date) (unknown) (unknown) TRACE (units (unkn own) unknown) (unknown) (no date) (unknown) (unknown) TRACE g/dl (unkn own) (unknown) (no date) (unknown) (unknown) TURBID (units (unkn own) unknown) (unknown) (no date) (unknown) (unknown) YELLOW (units (unkn own) unknown) (unknown) (no date) (unknown) (unknown) YELLOW (units (unkn own) unknown) Result panel 165 (unknown) (no date) (unknown) (unknown) >100/HPF (units (unkn own) unknown) (unknown) (no date) (unknown) (unknown) >=1.030 (units (unkn own) unknown) (unknown) (no date) (unknown) (unknown) 0.2 e.u./dl (unkn own) (unknown) (no date) (unknown) (unknown) 1-5 /HPF (units (unkn own) unknown) (unknown) (no date) (unknown) (unknown) 1-5/HPF (units (unkn own) unknown) (unknown) (no date) (unknown) (unknown) 2 (units (unkn own) unknown) (unknown) (no date) (unknown) (unknown) 3 (units (unkn own) unknown) (unknown) (no date) (unknown) (unknown) 30-100/HPF (units (un known) unknown) (unknown) (no date) (unknown) (unknown) 5-10/LPF (units (unkn own) unknown) (unknown) (no date) (unknown) (unknown) 5.0 (units (unkn own) unknown) (unknown) (no date) (unknown) (unknown) Many (>30) (units (un known) unknown) (unknown) (no date) (unknown) (unknown) NEGATIVE (units (unkn own) unknown) (unknown) (no date) (unknown) (unknown) Specimen (units (unkn own) Cultured unknown) (unknown) (no date) (unknown) (unknown) TRACE (units (unkn own) unknown) (unknown) (no date) (unknown) (unknown) TRACE g/dl (unkn own) (unknown) (no date) (unknown) (unknown) TURBID (units (unkn own) unknown) (unknown) (no date) (unknown) (unknown) WBC CLUMPS (units (un known) PRESENT unknown) (unknown) (no date) (unknown) (unknown) YELLOW (units (unkn own) unknown) (unknown) (no date) (unknown) (unknown) YELLOW (units (unkn own) unknown) Result panel 166 (unknown) (no date) (unknown) (unknown) 0.381 ng/ml (unkn own) (unknown) (no date) (unknown) (unknown) 0.381 ng/ml (unkn own) Result panel 167 (unknown) (no date) (unknown) (unknown) -25.0 mmol/l (unkn own) (unknown) (no date) (unknown) (unknown) 100 (units unknown) (unknown) (unknown) (no date) (unknown) (unknown) 37.5 mmhg (unkn own) (unknown) (no date) (unknown) (unknown) 37.5 mmhg (unkn own) (unknown) (no date) (unknown) (unknown) 6.92 (units unknown) (unknown) (unknown) (no date) (unknown) (unknown) 6.92 (units unknown) (unknown) (unknown) (no date) (unknown) (unknown) 8 mmol/l (unkn own) (unknown) (no date) (unknown) (unknown) 82 mmhg (unkn own) (unknown) (no date) (unknown) (unknown) 86 % (unkn own) (unknown) (no date) (unknown) (unknown) 9 mmol/l (unkn own) Result panel 168 (unknown) (no date) (unknown) (unknown) -20.0 mmol/l (unkn own) (unknown) (no date) (unknown) (unknown) 10 mmol/l (unkn own) (unknown) (no date) (unknown) (unknown) 12 mmol/l (unkn own) (unknown) (no date) (unknown) (unknown) 15 (units unknown) (unknown) (unknown) (no date) (unknown) (unknown) 36.7 mmhg (unkn own) (unknown) (no date) (unknown) (unknown) 36.7 mmhg (unkn own) (unknown) (no date) (unknown) (unknown) 38 mmhg (unkn own) (unknown) (no date) (unknown) (unknown) 52 % (unkn own) (unknown) (no date) (unknown) (unknown) 7.06 (units unknown) (unknown) (unknown) (no date) (unknown) (unknown) 7.06 (units unknown) (unknown) Result panel 169 (unknown) (no date) (unknown) (unknown) -22.0 mmol/l (unkn own) (unknown) (no date) (unknown) (unknown) 11 mmol/l (unkn own) (unknown) (no date) (unknown) (unknown) 41.9 mmhg (unkn own) (unknown) (no date) (unknown) (unknown) 41.9 mmhg (unkn own) (unknown) (no date) (unknown) (unknown) 59 % (unkn own) (unknown) (no date) (unknown) (unknown) 59 mmhg (unkn own) (unknown) (no date) (unknown) (unknown) 6.97 (units unknown) (unknown) (unknown) (no date) (unknown) (unknown) 6.97 (units unknown) (unknown) (unknown) (no date) (unknown) (unknown) 9 mmol/l (unkn own) Result panel 170 (unknown) (no date) (unknown) (unknown) (no value) (units (un known) unknown) (unknown) (no date) (unknown) (unknown) NO GROWTH (units (unk nown) AFTER 24 unknown) HOURS (unknown) (no date) (unknown) (unknown) NO GROWTH (units (unk nown) AFTER 24 unknown) HOURS Result panel 171 (unknown) (no (unknown) (unknown) >100,000 cfu/ml (unkno wn) date) (unknown) (no (unknown) (unknown) GNBGram negative (units (unknown) date) bacilli unknown) (unknown) (no (unknown) (unknown) Identification (units (unknown) date) and Sensitivity to unknown) Follow Result panel 172 (unknown) (no date) (unknown) (unknown) (no value) (units (un known) unknown) (unknown) (no date) (unknown) (unknown) NO GROWTH (units (unk nown) AFTER 24 unknown) HOURS Result panel 173 (unknown) (no (unknown) (unknown) >100,000 cfu/ml (unkno wn) date) (unknown) (no (unknown) (unknown) GNBGram negative (units (unknown) date) bacilli unknown) (unknown) (no (unknown) (unknown) Identification (units (unknown) date) and Sensitivity to unknown) Follow Result panel 174 (unknown) (no (unknown) (unknown) >100,000 cfu/ml (unkno wn) date) (unknown) (no (unknown) (unknown) >=32 (units (unkno wn) date) unknown) (unknown) (no (unknown) (unknown) <=0.12 (units (unkno wn) date) unknown) (unknown) (no (unknown) (unknown) <=0.25 (units (unkno wn) date) unknown) (unknown) (no (unknown) (unknown) <=0.5 (units (unkno wn) date) unknown) (unknown) (no (unknown) (unknown) <=1 (units (unkno wn) date) unknown) (unknown) (no (unknown) (unknown) <=2 (units (unkno wn) date) unknown) (unknown) (no (unknown) (unknown) <=20 (units (unkno wn) date) unknown) (unknown) (no (unknown) (unknown) <=4 (units (unkno wn) date) unknown) (unknown) (no (unknown) (unknown) 0.5 (units (unkno wn) date) unknown) (unknown) (no (unknown) (unknown) 4 (units (unkno wn) date) unknown) (unknown) (no (unknown) (unknown) 64 (units (unkno wn) date) unknown) (unknown) (no (unknown) (unknown) KLEPNEKlebsiella (units (unknown) date) pneumoniae unknown) (unknown) (no (unknown) (unknown) No Further Workup (units (unknown) date) unknown) Result panel 175 (unknown) (no date) (unknown) (unknown) (no value) (units (un known) unknown) (unknown) (no date) (unknown) (unknown) NO GROWTH (units (unk nown) AFTER 48 unknown) HOURS (unknown) (no date) (unknown) (unknown) NO GROWTH (units (unk nown) AFTER 48 unknown) HOURS Result panel 176 (unknown) (no date) (unknown) (unknown) (no value) (units (un known) unknown) (unknown) (no date) (unknown) (unknown) NO GROWTH (units (unk nown) AFTER 48 unknown) HOURS Result panel 177 (unknown) (no date) (unknown) (unknown) (no value) (units (un known) unknown) (unknown) (no date) (unknown) (unknown) NO GROWTH (units (unk nown) AFTER 72 unknown) HOURS (unknown) (no date) (unknown) (unknown) NO GROWTH (units (unk nown) AFTER 72 unknown) HOURS Result panel 178 (unknown) (no date) (unknown) (unknown) (no value) (units (un known) unknown) (unknown) (no date) (unknown) (unknown) NO GROWTH (units (unk nown) AFTER 72 unknown) HOURS Result panel 179 (unknown) (no date) (unknown) (unknown) (no value) (units (un known) unknown) (unknown) (no date) (unknown) (unknown) NO GROWTH (units (unk nown) AFTER 4 DAYS unknown) (unknown) (no date) (unknown) (unknown) NO GROWTH (units (unk nown) AFTER 4 DAYS unknown) Result panel 180 (unknown) (no date) (unknown) (unknown) (no value) (units (un known) unknown) (unknown) (no date) (unknown) (unknown) NO GROWTH (units (unk nown) AFTER 4 DAYS unknown) Result panel 181 (unknown) (no date) (unknown) (unknown) (no value) (units (un known) unknown) (unknown) (no date) (unknown) (unknown) NO GROWTH (units (unk nown) AFTER 5 DAYS unknown) (unknown) (no date) (unknown) (unknown) NO GROWTH (units (unk nown) AFTER 5 DAYS unknown) Result panel 182 (unknown) (no date) (unknown) (unknown) (no value) (units (un known) unknown) (unknown) (no date) (unknown) (unknown) NO GROWTH (units (unk nown) AFTER 5 DAYS unknown) Social History date description facility 2022-07-30 00:00 Ex-smoker ([facility] Vital Signs date measurement value units 2022-07-29 00:00 BMI 46.8 kg/m2 2022-07-29 00:00 height_metric 170.18 cm 2022-07-29 00:00 height_standard 67 in 2022-07-29 00:00 temperature_metric 36.61 C 2022-07-29 00:00 temperature_standard 97.9 F 2022-07-29 00:00 weight_metric 135.62 kg 2022-07-29 00:00 weight_standard 298.99 lb 2022-07-30 00:00 BP_diastolic 60 mmHg 2022-07-30 00:00 BP_systolic 134 mmHg 2022-07-30 00:00 heart_rate 105 /min 2022-07-30 00:00 o2_saturation 97 % 2022-07-30 00:00 respiration_rate 32 /min
[2022-08-15 17:28] LABS: BASOPHILS % (AUTO) 0.5 %; EOSINOPHILS # (AUTO) 0.1 10^3/uL (0.0-0.7); EOSINOPHILS % (AUTO) 1.2 %; HCT - HEMATOCRIT 35.9 % (37.0-47.0); HGB - HEMOGLOBIN 11.4 g/dL (12.0-16.0); LYMPHOCYTES # (AUTO) 1.4 10^3/uL (1.5-3.5); LYMPHOCYTES % (AUTO) 15.7 %; MEAN CORPUSCULAR HEMOGLOBIN 29.3 pg (27.0-31.0); MEAN CORPUSCULAR HGB CONC 31.8 g/dL (32.0-36.0); MEAN CORPUSCULAR VOLUME 92.3 fL (81.0-99.0); MEAN PLATELET VOLUME 9.7 fL (7.9-10.8); MONOCYTES # (AUTO) 0.6 10^3/uL (0.0-1.0); MONOCYTES % (AUTO) 6.6 %; NEUTROPHILS # (AUTO) 6.7 10^3/uL (1.5-6.6); NEUTROPHILS % (AUTO) 75.8 %; PLT - PLATELET COUNT 229 10^3/uL (130-450); RED BLOOD COUNT 3.89 10^6/uL (4.20-5.40); RED CELL DISTRIBUTION WIDTH 13.5 % (12.0-15.0); WHITE BLOOD COUNT 8.8 x10^3/uL (4.8-10.8)
--- NOTE | 2022-08-15 17:39 | XRAY Report ---
PROCEDURE: Chest 1 View X-Ray INDICATIONS: chest pain TECHNIQUE: One view of the chest was acquired. COMPARISON: None. FINDINGS: Surgical changes and devices: None. Lungs and pleura: No pleural effusions or pneumothorax. Lungs are clear. Mediastinum: Mediastinal contours appear normal. Heart size is normal. Bones and chest wall: No suspicious bony lesions. Overlying soft tissues appear unremarkable. IMPRESSION: No acute cardiopulmonary process demonstrated radiographically. Reviewed by: Enrrique Puga MD on 08/15/2022 5:37 PM PST Approved by: Enrrique Puga MD on 08/15/2022 5:37 PM [facility] Station ID: [id number]
[2022-08-15 17:40] LABS: ALBUMIN 4.3 g/dL (3.2-5.5); ALBUMIN/GLOBULIN RATIO 1.2 (1.0-2.2); BILIRUBIN,TOTAL 0.8 mg/dL (0.2-1.0); CALCIUM 9.5 mg/dL (8.5-10.3); MAGNESIUM 1.2 mg/dL (1.7-2.8); TOTAL PROTEIN 7.9 g/dL (6.7-8.2)
--- NOTE | 2022-08-15 17:48 | CT Report ---
PROCEDURE: HEAD WO INDICATIONS: brain fog status post cardiac arrest TECHNIQUE: Noncontrast 4.5 mm thick angled axial sections acquired from the foramen magnum to the vertex. For r adiation dose reduction, the following was used: automated exposure control, adjustment of mA and/or kV according to patient size. COMPARISON: None. FINDINGS: Image quality: Excellent. CSF spaces: Basal cisterns are patent. No extra-axial fluid collections. Ventricles are normal in size and shape. Brain: No midline shift. No intracranial masses or hemorrhage. Hennessy-white matter interface is norm al. Skull and face: Calvarium and visualized facial bones are intact, without suspicious lesions. Sinuses: Visualized sinuses and mastoids are clear. IMPRESSION: No acute intracranial finding. Reviewed by: Enrrique Puga MD on 08/15/2022 5:47 PM PST Approved by: Enrrique Puga MD on 08/15/2022 5:47 PM PST Station ID: [id number]
[2022-08-15] MEDS ORDERED: MAGNESIUM SULFATE 2 GRAM 2 GM/50 ML BAG IV ONE (17:55)
[2022-08-15 18:11] LABS: MUDS CUTOFF CONCENTRATIONS CUTOFF CONC BELOW:
[2022-08-15 18:13] LABS: BILIRUBIN,URINE NEGATIVE (NEGATIVE); GLUCOSE, URINE (UA) NEGATIVE (NEGATIVE); KETONES,URINE (UA) NEGATIVE (NEGATIVE); LEUKOCYTE ESTERASE, URINE SMALL (NEGATIVE); NITRITE,URINE NEGATIVE (NEGATIVE); OCCULT BLOOD,URINE NEGATIVE (NEGATIVE); PROTEIN,URINE NEGATIVE (NEGATIVE); UROBILINOGEN,URINE 0.2 (NORMAL) E.U./dL (NORMAL)
[2022-08-15 18:21] LABS: CLARITY,URINE CLEAR (CLEAR)
[2022-08-15 18:25] LABS: BACTERIA,URINE Few /HPF (None Seen); RBC,URINE None Seen /HPF (0-5); SQUAMOUS EPITHELIAL CELL,UR FEW Squamous (<= Few)
[2022-08-15 18:26] LABS: AMPHETAMINE SCREEN,URINE NEGATIVE (NEGATIVE); BARBITURATE SCREEN,UR NEGATIVE (NEGATIVE); BENZODIAZEPINES SCREEN, URINE NEGATIVE (NEGATIVE); COCAINE SCREEN URINE NEGATIVE (NEGATIVE); METHADONE SCREEN, URINE NEGATIVE (NEGATIVE); METHAMPHETAMINES SCREEN, URINE NEGATIVE (NEGATIVE); OPIATE SCREEN, URINE POSITIVE (NEGATIVE); OXYCODONE SCREEN, URINE NEGATIVE (NEGATIVE); PROPOXYPHENE SCREEN, URINE NEGATIVE (NEGATIVE); THC CANNABINOID SCREEN, URINE NEGATIVE (NEGATIVE); TRICYCLIC ANTIDEPRESSANT,URINE NEGATIVE (NEGATIVE)
[2022-08-15] MEDS ORDERED: cefTRIAXone 1 GM VIAL IVP STA (18:43)
[2022-08-15] MEDS ORDERED: CEPHALEXIN 250 MG Prepack 8 CAP BOTTLE PO STA (18:43)
[2022-08-15 19:18] VITALS: BP 122/70
== END 2022-08-15 19:17 | disposition home or self-care (01) ==
LOC: EDUNIT# → ED 17:01
DX: E86.0 Dehydration (principal); E83.42 Hypomagnesemia; N30.00 Acute cystitis without hematuria
CPT/HCPCS: 36415; 80053; 80306; 81001; 81003; 83735; 85025; 87086; 93005; 96361; 96365; 96375; 99282

== ENCOUNTER 2023-06-01 08:00 | Outpatient (CLI) | payer BC | END 2023-06-01 23:59 | disposition home or self-care (01) | LOC: LAB.R 08:00 | PROVIDERS: ATTEND Physician Assistant | DX: R30.0 Dysuria (principal) | CPT/HCPCS: 87077; 87086; 87181 ==

== ENCOUNTER 2023-07-03 07:00 | Outpatient (CLI) | payer BC ==
[2023-07-03 18:55] LABS: BILIRUBIN,URINE NEGATIVE (NEGATIVE); GLUCOSE, URINE (UA) NEGATIVE (NEGATIVE); KETONES,URINE (UA) NEGATIVE (NEGATIVE); LEUKOCYTE ESTERASE, URINE SMALL (NEGATIVE); NITRITE,URINE NEGATIVE (NEGATIVE); OCCULT BLOOD,URINE TRACE-INTA (NEGATIVE); PROTEIN,URINE NEGATIVE (NEGATIVE); UROBILINOGEN,URINE 0.2 (NORMAL) E.U./dL (NORMAL)
[2023-07-03 19:38] LABS: BACTERIA,URINE Rare /HPF (None Seen); CLARITY,URINE CLEAR (CLEAR); RBC,URINE 0-5 /HPF (0-5); SQUAMOUS EPITHELIAL CELL,UR FEW Squamous (<= Few)
== END 2023-07-03 23:59 | disposition home or self-care (01) ==
LOC: LAB.S 07:00
PROVIDERS: ATTEND Emergency Medicine
DX: R30.0 Dysuria (principal)
CPT/HCPCS: 81001; 87077; 87086; 87181

== ENCOUNTER 2023-11-04 17:40 | Emergency (ER) | payer BC ==
[2023-11-04 18:05] LABS: BASOPHILS # (AUTO) 0.1 10^3/uL (0.0-0.1); BASOPHILS % (AUTO) 0.6 %; EOSINOPHILS # (AUTO) 0.2 10^3/uL (0.0-0.7); EOSINOPHILS % (AUTO) 2.2 %; HCT - HEMATOCRIT 44.1 % (37.0-47.0); HGB - HEMOGLOBIN 13.8 g/dL (12.0-16.0); LYMPHOCYTES # (AUTO) 1.9 10^3/uL (1.5-3.5); LYMPHOCYTES % (AUTO) 18.1 %; MEAN CORPUSCULAR HEMOGLOBIN 30.7 pg (27.0-31.0); MEAN CORPUSCULAR HGB CONC 31.3 g/dL (32.0-36.0); MEAN CORPUSCULAR VOLUME 98.2 fL (81.0-99.0); MEAN PLATELET VOLUME 9.9 fL (7.9-10.8); MONOCYTES # (AUTO) 0.9 10^3/uL (0.0-1.0); MONOCYTES % (AUTO) 8.5 %; NEUTROPHILS # (AUTO) 7.5 10^3/uL (1.5-6.6); NEUTROPHILS % (AUTO) 70.3 %; PLT - PLATELET COUNT 256 10^3/uL (130-450); RED BLOOD COUNT 4.49 10^6/uL (4.20-5.40); RED CELL DISTRIBUTION WIDTH 12.7 % (12.0-15.0); WHITE BLOOD COUNT 10.7 x10^3/uL (4.8-10.8)
--- NOTE | 2023-11-04 18:11 | ED Physician Documentation ---
PD HPI ABD PAIN - Stated complaint Stated Complaint: ABD PX - Chief complaint Chief Complaint: Abd Pain - History obtained from History obtained from: Patient - Additional information Additional information: 58-year-old woman with history of morbid obesity, diabetes, history of cardiac arrest perioperatively after back surgery, and remote cholecystectomy presents with 4 days of right upper quadrant pain generally worsening. Was particularly worse after carrying some heavy buckets a few days ago. She has had some nausea and vomiting in the mornings but is not currently nauseous. No urinary com plaints. No problems with bowel movements. PD PAST MEDICAL HISTORY - Past Medical History Cardiovascular: Hypertension, High cholesterol Respiratory: None Neuro: Peripheral neuropathy Endocrine/Autoimmune: Type 2 diabetes GI: GERD, Diverticulitis MANAGER PRIMARY: Ovarian cancer : None HEENT: None Psych: None Musculoskeletal: Chronic back pain Derm: None - Past Surgical History Past Surgical History: Yes General: Cholecystectomy Ortho: Spine surgery /MANAGER PRIMARY: Hysterectomy - Present Medications Home Medications: Ambulatory Orders Medication Instructions Recorded Confirmed HYDROcod/ACETAM 5/325 [[place] 5/325] 1 - 2 tablet PO Q6H PRN #14 tablet 07/19/22 08/15/22 tiZANidine [Zanaflex] 4 mg PO Q8H #15 tablet 07/19/22 08/15/22 Cyclobenzaprine HCl 7.5 mg PO TID 08/15/22 08/15/22 Gabapentin [Neurontin] 800 mg PO BID 08/15/22 08/15/22 Glipizide [Glipizide Xl] 10 mg PO DAILY 08/15/22 08/15/22 Lisinopril [Zestril] 40 mg PO DAILY 08/15/22 08/15/22 Metoprolol Succinate [Toprol Xl] 50 mg PO DAILY 08/15/22 08/15/22 Nortriptyline [Pamelor] 20 mg ORAL HS 08/15/22 08/15/22 Pantoprazole [Protonix] 40 mg PO DAILY 08/15/22 08/15/22 Senna [Senokot] 2 tab ORAL BID PRN 08/15/22 08/15/22 Simvastatin [Zocor] 40 mg PO HS 08/15/22 08/15/22 amLODIPine [Norvasc] 5 mg PO DAILY 08/15/22 08/15/22 cephALEXin [Keflex] 500 mg PO TID #15 cap 08/15/22 metFORMIN [Glucophage] 1,000 mg PO BIDWM 08/15/22 08/15/22 polyethylene glycoL 3350 17 gm PO DAILY PRN 08/15/22 08/15/22 [Polyethylene Glycol 3350] Ondansetron Odt [Zofran] 4 mg TL Q6H PRN #10 tablet 11/04/23 Oxycodone HCl/Acetaminophen 1 - 2 each PO Q6H PRN #10 tablet 11/04/23 [Percocet 5-325 mg Tablet] - Allergies Allergies/Adverse Reactions: Allergies Allergy/AdvReac Type Severity Reaction Status Date / Time duloxetine [From Cymbalta] Allergy Unknown Verified 11/04/23 18:01 coconut AdvReac Nausea Verified 11/04/23 18:01 procaine [From Novocain] AdvReac Unknown Verified 11/04/23 18:01 - Social History Does the pt smoke?: No Smoking Status: Never smoker Does the pt drink ETOH?: No Does the pt have substance abuse?: No - Immunizations Immunizations are current?: Yes PD ED PE NORMAL - Vitals Vital signs reviewed: Yes - General General: Alert and oriented X 3, No acute distress - Abdomen Abdomen: Soft, Other (She is tender in the right upper quadrant. There is mild candidiasis under the right breast. No shingles rash.) - Neuro Neuro: Alert and oriented X 3, Normal speech Results - Vitals Vitals: Vital Signs - 24 hr 11/04/23 17:44 Temperature 36.8 C Heart Rate 77 Respiratory 15 Rate Blood Pressure 159/78 H O2 Saturation 97 Oxygen O2 Source Room air - EKG (time done) 1813 EKG releavant findings:: EKG personally interpreted by author of this note. Relevant findings are: Rate: Rate (enter#) (74) Rhythm: NSR [place]: LAD Intervals: Normal MS QRS: Normal Ischemia: Q waves (v2-v5). No: ST elevation c/w ischemia, ST depression Computer interpretation: Agree with computer - Labs Labs: Laboratory Tests 11/04/23 11/04/23 17:57 17:57 WBC 10.7 RBC 4.49 Hgb 13.8 Hct 44.1 MCV 98.2 MCH 30.7 MCHC 31.3 L RDW 12.7 Plt Count 256 MPV 9.9 Neut # (Auto) 7.5 H Lymph # (Auto) 1.9 [place] # (Auto) 0.9 Eos # (Auto) 0.2 Baso # (Auto) 0.1 Absolute Nucleated RBC 0.00 Nucleated RBC % 0.0 Sodium 137 Potassium 4.7 H Chloride 101 Carbon Dioxide 29 Anion Gap 7.0 BUN 19 Creatinine 1.0 Estimated GFR (MDRD) 57 L Glucose 93 Calcium 9.9 Total Bilirubin 0.4 AST 10 ALT 17 Alkaline Phosphatase 71 Total Protein 7.4 Albumin 4.5 Globulin 2.9 Albumin/Globulin Ratio 1.6 Lipase 49 - Rads (name of study) CT of the abdomen and pelvis demonstrating intraperitoneal fat necrosis on the right side. Relevant Findings:: Final report received, Discussed with rads, EMP independent interpretation of test PD Medical Decision Making - ED course ED course: 58-year-old woman presents with right upper quadrant pain.. Had a remote cholecystectomy. It may well be musculoskeletal and that it is reproducible and was worse after carrying heavy buckets filled with water. There is no shingles rash. ACS is considered but has nonischemic EKG. CBC and CMP are unremarkable. CT imaging demonstrating intraperitoneal fat necrosis and discussed with radiology, this is a variant of epiploic appendagitis and does not require specific therapy of the pain control. Should be self-limiting. Departure - Departure Disposition: 01 Home, Self Care Clinical Impression: Abdominal pain Condition: Good Record reviewed to determine appropriate education?: Yes Prescriptions: Oxycodone HCl/Acetaminophen [Percocet 5-325 mg Tablet] 1 - 2 each PO Q6H PRN #10 tablet PRN Reason: pain Ondansetron Odt [Zofran] 4 mg TL Q6H PRN #10 tablet PRN Reason: Nausea / Vomiting Comments: You were seen tonight for abdominal pain and what we found is an area of intraperitoneal fat necrosis, this is a self-limiting condition which does not require specific therapy other than pain control. I sent the prescription electronically to the [facility] in [place]. I am prescribing a short course of narcotic pain medication for you. These are potentially dangerous and addictive medications that should be used carefully. These medications may constipate you. Take an ulja-ghx-krmlvrb stool softener (docusate) twice daily with plenty of water while taking these medications. If you go 24 hours without a bowel movement, take [id number] miralax, per package instructions. Do not drink or drive while taking these medications. If you received narcotic or sedating medications while in the emergency department, do not drive for 24 hours. Store this medication in a safe, secure place and out of reach of children. It is a violation of federal law to give or sell this medication to another person or to use in a manner other than prescribed. The ED will not refill narcotic prescriptions, including prescriptions lost or stolen. To dispose of unwanted medications: 1. [facility] provides a drop box for medication in pill form only (no liquids) 8:00 am to 4:30 p.m. Wednesday-Wednesday in the lobby of the [facility], [address] [place] [address]. Empty pills into ziplock bag before disposal. Call [phone] for information. [email or web address] is a free service [place] [facility] [place] Go to [email or web address] Note that many narcotic pain relievers also contain Tylenol/acetaminophen. Please ensure that your total dose of acetaminophen from all sources does not exceed 3 g (3000 mg) per day. Forms: PCP List
[2023-11-04 18:22] LABS: ALBUMIN 4.5 g/dL (3.2-5.5); ALBUMIN/GLOBULIN RATIO 1.6 (1.0-2.2); BILIRUBIN,TOTAL 0.4 mg/dL (0.2-1.0); CALCIUM 9.9 mg/dL (8.5-10.3); POTASSIUM 4.7 mmol/L (3.5-4.5); TOTAL PROTEIN 7.4 g/dL (6.4-8.9)
[2023-11-04] MEDS ORDERED: iohexoL-300 100 ML VIAL ONE (18:54)
--- NOTE | 2023-11-04 19:54 | CT Report ---
PROCEDURE: Abdomen/Pelvis W INDICATIONS: IV only abd pain CONTRAST: Omni 300 100ml TECHNIQUE: After the administration of intravenous contrast, a CT scan of the abdomen and pelvis was performed. Images were recorded and evaluated at appropriate window settings. Reformats: coronal and sagittal. F or radiation dose reduction, the following was used: automated exposure control, adjustment of mA and /or kV according to patient size. COMPARISON: None. FINDINGS: Image quality: Diagnostic. Lower chest: Unremarkable. Liver: No solid mass. Gallbladder and biliary tree: Surgically absent. No biliary dilation, accounting for post-cholecystec violeta state. Spleen: No splenomegaly. Pancreas: No pancreatic ductal dilation. Adrenals: No adrenal nodule. Kidneys and ureters: No hydronephrosis. No renal cystic lesion which requires follow up. No solid mas s. Stomach, bowel and peritoneum: No bowel distension. No pathologic free fluid. Focal fat stranding in the right upper quadrant, without adjacent diverticulum (series 2, image 56). Colonic diverticulosis without evidence of diverticulitis. Lymph nodes: No central or retroperitoneal adenopathy. Vessels: No infrarenal aortic aneurysm. PELVIS Reproductive organs: Unremarkable. Bladder: No abnormal wall thickening, accounting for underdistention. Pelvic lymph nodes: No pelvic adenopathy by size criteria. Bones: No aggressive osseous abnormality. Other: No significant ventral or inguinal hernia. IMPRESSION: Focal fat stranding in the right lower quadrant, without adjacent diverticulum or wall thickening. Fi ndings favor intraperitoneal fat necrosis. Reviewed by: Jayy Suarez MD on 11/04/2023 7:53 PM PDT Approved by: Jayy Suarez MD on 11/04/2023 7:53 PM PDT Station ID: [id number]
[2023-11-04] MEDS: oxyCODONE/ACET 5/325 Prepack 4 PO STA (20:13)
[2023-11-04] MEDS: ONDANSETRON ODT 4 MG Prepack 2 TL STA (20:14)
[2023-11-04 20:40] VITALS: BP 171/94; O2SAT 99
[2023-11-04] MEDS: iohexoL-300 100 ML VIAL IVP ONE (21:06)
== END 2023-11-04 20:34 | disposition home or self-care (01) ==
LOC: ED 17:40
DX: R10.11 Right upper quadrant pain (principal); R11.2 Nausea with vomiting, unspecified; I10 Essential (primary) hypertension; E11.9 Type 2 diabetes mellitus without complications; Z79.84 Long term (current) use of oral hypoglycemic drugs
CPT/HCPCS: 36415; 74177; 80053; 83690; 85025; 93005; 99284; Q9967